=== PATIENT | female | born 1955 | race Two or more races ===

== ENCOUNTER 2017-11-09 14:58 | Observation (INO) | payer SELFPAY ==
[~2017-11-09] VITALS: Ht 167.6 cm; Wt 74.0 kg
[2017-11-09] MEDS ORDERED: ASPIRIN CHEWABLE 81 MG TABLET. PO ONE (15:15)
[2017-11-09] MEDS ORDERED: LIDO:MAALOX 1:1 20 ML SINGLE DOSE. SWSW ONE (15:15)
[2017-11-09 15:20] LABS: BASO # 0.1 x10^3/uL (0.0-0.2); BASO % 1 % (0-3); EOS # 0.3 x10^3/uL (0.0-0.7); EOS % 4 % (0-3); HEMATOCRIT 42.3 % (36.0-47.0); HEMOGLOBIN 14.6 g/dL (12.0-15.5); LYMPH % 25 % (24-48); MEAN CORPUSCULAR HEMOGLOBIN 31 pg (25-35); MEAN CORPUSCULAR HGB CONC 35 g/dL (31-37); MEAN CORPUSCULAR VOLUME 90 fL (79-100); MONO # 0.6 x10^3/uL (0.0-1.1); MONO % 8 % (0-9); NEUT # 5.1 x10^3uL (1.8-7.7); NEUT % 63 % (31-73); PLATELET COUNT 278 x10^3/uL (140-400); RED BLOOD COUNT 4.69 x10^6/uL (3.50-5.40); RED CELL DISTRIBUTION WIDTH 13.4 % (11.5-14.5); WHITE BLOOD COUNT 8.1 x10^3/uL (4.0-11.0)
[2017-11-09 15:29] LABS: PROTHROMBIN TIME PATIENT 11.7 SEC (11.7-14.0)
[2017-11-09 15:32] LABS: D-DIMER 0.49 ug/mlFEU (0.00-0.50)
[2017-11-09 15:34] LABS: CALCIUM 9.1 mg/dL (8.5-10.1); CREATININE 1.1 mg/dL (0.6-1.0); GFR 50.7; POTASSIUM 3.9 mmol/L (3.5-5.1)
[2017-11-09 15:40] LABS: ALBUMIN 3.7 g/dL (3.4-5.0); ALBUMIN/GLOBULIN RATIO 0.8 (1.0-1.7); TOTAL BILIRUBIN 0.3 mg/dL (0.2-1.0); TOTAL PROTEIN 8.1 g/dL (6.4-8.2)
--- NOTE | 2017-11-09 15:43 | RAD ---
Exam: AP portable chest History: Shortness of breath. Comparison: December 22, 2005. Findings: The heart and mediastinal structures are within normal limits for size. Lungs are without infiltrate. No pleural effusion or pneumothorax is identified. Impression: 1. No acute cardiopulmonary process. Electronically signed by: Obed Sierra MD (11/09/2017 3:40 PM) [place] [id number]
[2017-11-09] MEDS ORDERED: diphenhydrAMINE HCL 25 MG CAPSULE PO PRN (16:15)
[2017-11-09] MEDS ORDERED: CALCIUM CARBONATE 500 MG TAB.CHEW PO PRN (16:15)
[2017-11-09] MEDS ORDERED: NITROGLYCERIN SUBLINGUAL 0.4 MG BOTTLE OF 25. SL PRN (16:15)
[2017-11-09] MEDS ORDERED: MAG HYDROX/ALUMINUM HYD/SIMETH 30 ML ORAL.SUSP PO PRN (16:15)
[2017-11-09] MEDS ORDERED: MORPHINE SULFATE 2 MG/ML VIAL. IV PRN (16:15)
--- NOTE | 2017-11-09 16:18 | PDOC1 ---
History and Physical Date of Admission Date of Admission DATE: 11/09/17 TIME: 16:13 Identification/Chief Complaint Chief Complaint Chest pain Source Source: Caregiver, Chart review, Patient History of Present Illness History of Present Illness 61-year-old female who has hypertension and dyslipidemia on meds, no known personal history of CAD, on metoprolol 75 twice a day, nitroglycerin sublingual , and simvastatin 40 daily at bedtime, admitted for chest pain rule out. Smoker 1 pack a day and fam hx CAD at age 60s, All workup at ER is negative including EKG and troponin. Labs are reassuring. Her story is reassuring. Sounds like GERD. She describes it as burning coming from chest down to her stomach, Has never had a stress test before. She claims her chest pain happened after eating. Then also CP at rest associated with diaphoresis, SOA. She tends to say yes to all of my review of systems. She is agreeable and eager to be admitted. We'll admit to rule out ACS but likely GERD or GI in origin. Did get Tums at the ER, no significant relief. Otherwise VS and the rest is stable. Observation status Past Medical History Cardiovascular: HTN, Hyperlipidemia Past Surgical History Past Surgical History: No pertinent history Family History Family History: Heart Disease Social History Smoke: 1 pack per day ALCOHOL: none Drugs: None Current Medications Current Medications Current Medications Aspirin (Children'S Aspirin) 324 mg 1X ONCE PO Last administered on 11/09/17at 15:27; Start 11/09/17 at 15:15; Stop 11/09/17 at 15:21; Status DC Multi-Ingredient Mouthwash/Gargle (Gi Cocktail) 20 ml 1X ONCE SWSW Last administered on 11/09/17at 15:28; Start 11/09/17 at 15:15; Stop 11/09/17 at 15:21 ; Status DC Calcium Carbonate/ Glycine (Tums) 500 mg PRN AFTMEALHC PRN PO INDIGESTION; Start 11/09/17 at 16:15; Status UNV Al Hydroxide/Mg Hydroxide (Mylanta Plus Xs) 30 ml PRN Q2HR PRN PO HEARTBURN / GAS; Start 11/09/17 at 16:15; Status UNV Diphenhydramine HCl (Benadryl) 25 mg PRN QHS PRN PO INSOMNIA; Start 11/09/17 at 16:15; Status UNV Acetaminophen (Tylenol) 500 mg PRN Q6HRS PRN PO MILD PAIN / TEMP; Start at 16:15; Status UNV Ibuprofen (Motrin) 400 mg PRN Q6HRS PRN PO INFLAMMATION; Start 11/09/17 at 16: 15; Status UNV Allergies Allergies: Coded Allergies: No Known Drug Allergies (Unverified , 11/09/17) ROS Review of System As per history of present illness, the rest of ROS 14 point negative Physical Exam General: Alert, Oriented X3, Cooperative, No acute distress HEENT: Atraumatic, PERRLA, EOMI Lungs: Clear to auscultation, Normal air movement Heart: S1S2, RRR, no thrills, no rubs, no gallops, no murmurs Cardiovascular: S1, S2 Breasts: Normal, Rt breast nml w/o mass, Lt breast nml w/o mass, Nipples normal Abdomen: Normal bowel sounds, Soft, No tenderness, No hepatosplenomegaly, No masses Rectal Exam: not examined PELVIC: Nml ext genitalia Extremities: No clubbing, No cyanosis, No edema, Normal pulses, No tenderness/ swelling Skin: No rashes, No breakdown, No significant lesion Neuro: Normal gait, Normal speech, Strength at 5/5 X4 ext, Normal tone, Sensation intact, Cranial nerves 3-12 NL, Reflexes 2+ Psych/Mental Status: Mental status NL, Mood NL Vitals Vitals Vital Signs Date Time Temp Pulse Resp B/P (MAP) Pulse Ox O2 Delivery O2 Flow Rate FiO2 11/09/17 15:00 97.7 59 14 125/69 (87) 97 Room Air 97.7 Labs Labs Laboratory Tests Test 11/09/17 15:11 White Blood Count 8.1 x10^3/uL (4.0-11.0) Red Blood Count 4.69 x10^6/uL (3.50-5.40) Hemoglobin 14.6 g/dL (12.0-15.5) Hematocrit 42.3 % (36.0-47.0) Mean Corpuscular Volume 90 fL (79-100) Mean Corpuscular Hemoglobin 31 pg (25-35) Mean Corpuscular Hemoglobin Concent 35 g/dL (31-37) Red Cell Distribution Width 13.4 % (11.5-14.5) Platelet Count 278 x10^3/uL (140-400) Neutrophils (%) (Auto) 63 % (31-73) Lymphocytes (%) (Auto) 25 % (24-48) Monocytes (%) (Auto) 8 % (0-9) Eosinophils (%) (Auto) 4 % (0-3) Basophils (%) (Auto) 1 % (0-3) Neutrophils # (Auto) 5.1 x10^3uL (1.8-7.7) Lymphocytes # (Auto) 2.0 x10^3/uL (1.0-4.8) Monocytes # (Auto) 0.6 x10^3/uL (0.0-1.1) Eosinophils # (Auto) 0.3 x10^3/uL (0.0-0.7) Basophils # (Auto) 0.1 x10^3/uL (0.0-0.2) Prothrombin Time 11.7 SEC (11.7-14.0) Prothromb Time International Ratio 0.9 (0.8-1.1) D-Dimer (Cherie) 0.49 ug/mlFEU (0.00-0.50) Sodium Level 139 mmol/L (136-145) Potassium Level 3.9 mmol/L (3.5-5.1) Chloride Level 102 mmol/L (98-107) Carbon Dioxide Level 28 mmol/L (21-32) Anion Gap 9 (6-14) Blood Urea Nitrogen 18 mg/dL (7-20) Creatinine 1.1 mg/dL (0.6-1.0) Estimated GFR (Cockcroft-Gault) 50.7 BUN/Creatinine Ratio 16 (6-20) Glucose Level 132 mg/dL (70-99) Calcium Level 9.1 mg/dL (8.5-10.1) Total Bilirubin 0.3 mg/dL (0.2-1.0) Aspartate Amino Transf (AST/SGOT) 17 U/L (15-37) Alanine Aminotransferase (ALT/SGPT) 19 U/L (14-59) Alkaline Phosphatase 146 U/L (46-116) Troponin I Quantitative < 0.017 ng/mL (0.000-0.055) XO-Qip-V-Type Natriuretic Peptide 78 pg/mL (0-124) Total Protein 8.1 g/dL (6.4-8.2) Albumin 3.7 g/dL (3.4-5.0) Albumin/Globulin Ratio 0.8 (1.0-1.7) Lipase 172 U/L (73-393) Laboratory Tests Test 11/09/17 15:11 White Blood Count 8.1 x10^3/uL (4.0-11.0) Red Blood Count 4.69 x10^6/uL (3.50-5.40) Hemoglobin 14.6 g/dL (12.0-15.5) Hematocrit 42.3 % (36.0-47.0) Mean Corpuscular Volume 90 fL (79-100) Mean Corpuscular Hemoglobin 31 pg (25-35) Mean Corpuscular Hemoglobin Concent 35 g/dL (31-37) Red Cell Distribution Width 13.4 % (11.5-14.5) Platelet Count 278 x10^3/uL (140-400) Neutrophils (%) (Auto) 63 % (31-73) Lymphocytes (%) (Auto) 25 % (24-48) Monocytes (%) (Auto) 8 % (0-9) Eosinophils (%) (Auto) 4 % (0-3) Basophils (%) (Auto) 1 % (0-3) Neutrophils # (Auto) 5.1 x10^3uL (1.8-7.7) Lymphocytes # (Auto) 2.0 x10^3/uL (1.0-4.8) Monocytes # (Auto) 0.6 x10^3/uL (0.0-1.1) Eosinophils # (Auto) 0.3 x10^3/uL (0.0-0.7) Basophils # (Auto) 0.1 x10^3/uL (0.0-0.2) Prothrombin Time 11.7 SEC (11.7-14.0) Prothromb Time International Ratio 0.9 (0.8-1.1) D-Dimer (Cherie) 0.49 ug/mlFEU (0.00-0.50) Sodium Level 139 mmol/L (136-145) Potassium Level 3.9 mmol/L (3.5-5.1) Chloride Level 102 mmol/L (98-107) Carbon Dioxide Level 28 mmol/L (21-32) Anion Gap 9 (6-14) Blood Urea Nitrogen 18 mg/dL (7-20) Creatinine 1.1 mg/dL (0.6-1.0) Estimated GFR (Cockcroft-Gault) 50.7 BUN/Creatinine Ratio 16 (6-20) Glucose Level 132 mg/dL (70-99) Calcium Level 9.1 mg/dL (8.5-10.1) Total Bilirubin 0.3 mg/dL (0.2-1.0) Aspartate Amino Transf (AST/SGOT) 17 U/L (15-37) Alanine Aminotransferase (ALT/SGPT) 19 U/L (14-59) Alkaline Phosphatase 146 U/L (46-116) Troponin I Quantitative < 0.017 ng/mL (0.000-0.055) DD-Lsu-S-Type Natriuretic Peptide 78 pg/mL (0-124) Total Protein 8.1 g/dL (6.4-8.2) Albumin 3.7 g/dL (3.4-5.0) Albumin/Globulin Ratio 0.8 (1.0-1.7) Lipase 172 U/L (73-393) VTE Prophylaxis Ordered VTE Prophylaxis Devices: Yes VTE Pharmacological Prophylaxi: Yes Assessment/Plan Assessment/Plan Chest pain likely GERD, rule out ACS Hypertension, controlled Dyslipidemia on statin Smoker - 1 ppday Plan: Admit, trend cardiac enzymes Observation status Trial of Tums or Mylanta Cards consult Rell patch prn Nothing by mouth in case MPI tomorrow Observation status PÉREZ GOMEZ MD Nov 09, 2017 16:18
--- NOTE | 2017-11-09 16:19 | EKG ---
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
[2017-11-09] MEDS ORDERED: NICOTINE 21MG PATCH. TD PRN (16:30)
--- NOTE | 2017-11-09 16:43 | RAD ---
Right upper quadrant abdominal ultrasound History: Right upper quadrant pain. Comparison: None. Technique: Transabdominal ultrasound images are obtained. Findings: Visualized pancreas is unremarkable. Liver is normal in echogenicity. No focal hepatic masses are identified although ultrasound is not sensitive for their detection. Portal flow is hepatopedal. Gallbladder has an unremarkable appearance. Common bile duct caliber is normal measuring 6 mm in diameter. The right kidney measures 10 cm in length. There is no hydronephrosis. On several images of the right kidney, normal corticomedullary differentiation is not demonstrated. Visualized portions of the aorta and IVC have normal caliber. IMPRESSION: Right kidney does not demonstrate normal corticomedullary differentiation on all images. A renal mass or infiltrative process cannot be excluded. Recommend further evaluation with multiphase CT abdomen. Electronically signed by: Janusz Aguirre MD (11/09/2017 4:40 PM) [facility]
--- NOTE | 2017-11-09 16:50 | PHYS DOC ---
Past Medical History Past Medical History: High Cholesterol, Hypertension, Kidney Stone Past Surgical History: No Surgical History Alcohol Use: None Drug Use: None Adult General Chief Complaint Chief Complaint: CHEST PAIN HPI HPI Patient is a 61 year old f p/w chest pain. Since this morning or maybe even last night described as burning and sharp center of the chest and epigastric area he says she says it is worse when she eats. It is also worse when she tries to walk and worse when she moves around. She says that she's had a history of blood clots she is mostly on Coumadin but she has not taking it. In addition she says that she has had some heart problems she does not know what they were she was admitted at [facility] at one point and they were telling her she had a heart problem. She does not know if she has ever had a heart attack. She is off all her medication she has high cholesterol she thinks and high blood pressure she thinks. He is moderate is present at this time it is worse with exertion Review of Systems Review of Systems Constitutional: Denies fever or chills [] Eyes: Denies change in visual acuity, redness, or eye pain [] HENT: Denies nasal congestion or sore throat [] : Denies dysuria or hematuria [] Musculoskeletal: Denies back pain or joint pain [] Integument: Denies rash or skin lesions [] Neurologic: Headache noted All other systems were reviewed and found to be within normal limits, except as documented in this note. Current Medications Current Medications Current Medications Medications (Trade) Dose Ordered Sig/Amanda Start Time Stop Time Status Last Admin Dose Admin Aspirin (Children'S Aspirin) 324 mg 1X ONCE 11/09/17 15:15 11/09/17 15:21 DC 11/09/17 15:27 324 MG Multi-Ingredient Mouthwash/Gargle (Gi Cocktail) 20 ml 1X ONCE 11/09/17 15:15 11/09/17 15:21 DC 11/09/17 15:28 20 ML Allergies Allergies Allergies Coded Allergies Type Severity Reaction Last Updated Verified No Known Drug Allergies 11/09/17 No Physical Exam Physical Exam Constitutional: Well developed, well nourished, no acute distress, non-toxic appearance. [] HENT: Normocephalic, atraumatic, bilateral external ears normal, oropharynx moist, no oral exudates, nose normal. [] Eyes: PERRLA, EOMI, conjunctiva normal, no discharge. [] Neck: Normal range of motion, no tenderness, supple, no stridor. [] Cardiovascular:Heart rate regular rhythm, no murmur [] Lungs & Thorax: Bilateral breath sounds clear to auscultation [] Abdomen: Bowel sounds normal, soft, no tenderness, no masses, no pulsatile masses. [] Skin: Warm, dry, no erythema, no rash. [] Back: No tenderness, no CVA tenderness. [] Extremities: No tenderness, no cyanosis, no clubbing, ROM intact, no edema. [] Neurologic: Alert and oriented X 3, normal motor function, normal sensory function, no focal deficits noted. [] Psychologic: Affect normal, judgement normal, mood normal. [] Current Patient Data Vital Signs Vital Signs Date Time Temp Pulse Resp B/P (MAP) Pulse Ox O2 Delivery O2 Flow Rate FiO2 11/09/17 15:34 56 20 128/63 (84) 97 Room Air 11/09/17 15:00 97.7 97.7 Lab Values Laboratory Tests Test 11/09/17 15:11 White Blood Count 8.1 x10^3/uL (4.0-11.0) Red Blood Count 4.69 x10^6/uL (3.50-5.40) Hemoglobin 14.6 g/dL (12.0-15.5) Hematocrit 42.3 % (36.0-47.0) Mean Corpuscular Volume 90 fL (79-100) Mean Corpuscular Hemoglobin 31 pg (25-35) Mean Corpuscular Hemoglobin Concent 35 g/dL (31-37) Red Cell Distribution Width 13.4 % (11.5-14.5) Platelet Count 278 x10^3/uL (140-400) Neutrophils (%) (Auto) 63 % (31-73) Lymphocytes (%) (Auto) 25 % (24-48) Monocytes (%) (Auto) 8 % (0-9) Eosinophils (%) (Auto) 4 % (0-3) H Basophils (%) (Auto) 1 % (0-3) Neutrophils # (Auto) 5.1 x10^3uL (1.8-7.7) Lymphocytes # (Auto) 2.0 x10^3/uL (1.0-4.8) Monocytes # (Auto) 0.6 x10^3/uL (0.0-1.1) Eosinophils # (Auto) 0.3 x10^3/uL (0.0-0.7) Basophils # (Auto) 0.1 x10^3/uL (0.0-0.2) Prothrombin Time 11.7 SEC (11.7-14.0) Prothrombin Time INR 0.9 (0.8-1.1) D-Dimer (Cherie) 0.49 ug/mlFEU (0.00-0.50) Sodium Level 139 mmol/L (136-145) Potassium Level 3.9 mmol/L (3.5-5.1) Chloride Level 102 mmol/L (98-107) Carbon Dioxide Level 28 mmol/L (21-32) Anion Gap 9 (6-14) Blood Urea Nitrogen 18 mg/dL (7-20) Creatinine 1.1 mg/dL (0.6-1.0) H Estimated GFR (Cockcroft-Gault) 50.7 BUN/Creatinine Ratio 16 (6-20) Glucose Level 132 mg/dL (70-99) H Calcium Level 9.1 mg/dL (8.5-10.1) Total Bilirubin 0.3 mg/dL (0.2-1.0) Aspartate Amino Transferase (AST) 17 U/L (15-37) Alanine Aminotransferase (ALT) 19 U/L (14-59) Alkaline Phosphatase 146 U/L (46-116) H Troponin I Quantitative < 0.017 ng/mL (0.000-0.055) QH-Kmz-B-Type Natriuretic Peptide 78 pg/mL (0-124) Total Protein 8.1 g/dL (6.4-8.2) Albumin 3.7 g/dL (3.4-5.0) Albumin/Globulin Ratio 0.8 (1.0-1.7) L Lipase 172 U/L (73-393) Laboratory Tests 11/09/17 15:11 Laboratory Tests 11/09/17 15:11 EKG EKG [] Interpretation Time: EKG shows a normal sinus rhythm with nonspecific ST changes anteriorly and inferiorly but no obvious ischemia was identified intervals are normal raise 56 no STEMI Radiology/Procedures Radiology/Procedures [] Impressions: Findings: The heart and mediastinal structures are within normal limits for size. Lungs are without infiltrate. No pleural effusion or pneumothorax is identified. Impression: 1. No acute cardiopulmonary process. Electronically signed by: Obed Koch MD (11/09/2017 3:40 PM) [facility] DICTATED and SIGNED BY: OBED KOCH MD DATE: 11/09/17 1538 Course & Med Decision Making Course & Med Decision Making Pertinent Labs and Imaging studies reviewed. (See chart for details) 7-year-old female with multiple medical problems she does not even know all of them at this time she tells me she thinks high cholesterol high blood pressure prior blood clot not on any medication she says she has run out of them presenting with chest pain. There are typical and atypical features. EKG is nonspecific troponin is negative ultrasound negative for gallbladder per pathology d-dimer was within normal limits I suspect probably GI related pain however occult ischemia as a possibility given her risk profile patient will be admitted to the service of Dr. birmingham for further eval. Corrina Disclaimer Dragon Disclaimer This electronic medical record was generated, in whole or in part, using a voice recognition dictation system. Departure Departure Impression: Primary Impression: Chest pain Disposition: ADMITTED INPATIENT Admitting Physician: Calli Birmingham Condition: STABLE Referrals: UNKNOWN PCP NAME (PCP) SHRAVAN WELLS MD Nov 09, 2017 16:50
[2017-11-09 17:00] VITALS: BP 126/71
[2017-11-09] MEDS ORDERED: INFLUENZA VAX SCREEN BY RX. MC ONE (17:45)
[2017-11-09 19:00] VITALS: BP 90/43
[2017-11-09] MEDS: METOPROLOL TART IMMED RELEASE 25 MG TABLET. PO SCH (21:11)
[2017-11-09] MEDS: SIMVASTATIN 40 MG TABLET. PO SCH (21:11)
[2017-11-09 23:00] VITALS: BP 91/48
[2017-11-10 03:00] VITALS: BP 85/45
[2017-11-10 06:40] LABS: BILIRUBIN,URINE NEGATIVE (NEG); CLARITY,URINE CLEAR; COLOR,URINE YELLOW; NITRITE,URINE NEGATIVE (NEG); PROTEIN,URINE NEGATIVE (NEG-TRACE)
[2017-11-10 07:00] VITALS: BP 120/67
[2017-11-10 07:08] LABS: SQUAMOUS EPITHELIAL CELL,UR FEW /LPF
[2017-11-10 07:09] LABS: BACTERIA,URINE FEW /HPF (0-FEW); RBC,URINE OCC /HPF (0-2)
[2017-11-10] MEDS: METOPROLOL TART IMMED RELEASE 25 MG TABLET. PO SCH (09:00)
--- NOTE | 2017-11-10 10:13 | PDOC2 ---
CARDIAC CONSULT DATE OF CONSULT Date of Consult DATE: 11/10/17 TIME: 09:53 REASON FOR CONSULT Reason for Consult: Chest pain REFERRING PHYSICIAN Referring Physician: Valencia SOURCE Source: Chart review, Patient HISTORY OF PRESENT ILLNESS HISTORY OF PRESENT ILLNESS This is a pleasant 61 yo female admitted for complains of chest pain. Reports that she has been having productive cough yellowish sputum in the last 1-2 weeks sometimes with wheeze and with LONG. No fever or chills. She continues to smoke and could not see her PCP hence she has not been able to refill her medications including her BP meds for about a month now and that she could not afford it. Also she verbalized that she may have had brain tumor before and worries about this as she has been having frontal MENDES, LE weakness and blurred vision associated with. Consult is for chest pain and reports that she had one about Tuesday but again yesterday describing it as midchest sharpness to tightness radidating to shoulders and base of neck and some diaphoresis. Some nausea as well but no palpitations. Denies any past CAD but possibly has had PE 9 months ago treted at [facility] and was placed on coumadin for a month and reexamined after the coumadin and was told that it resolved. No recent falls or injury. PAST MEDICAL HISTORY Cardiovascular: HTN, Hyperlipidemia Pulmonary: Asthma, Pulmonary embolus (?) CENTRAL NERVOUS SYSTEM: Other (?brain tumor) GI: Peptic Ulcer disease (remote) Heme/Onc: No pertinent hx Hepatobiliary: No pertinent hx Psych: Anxiety Musculoskeletal: Osteoarthritis Rheumatologic: No pertinent hx Infectious disease: No pertinent hx ENT: No pertinent hx Renal/: No pertinent hx Endocrine: No pertinent hx Dermatology: No pertinent hx PAST SURGICAL HISTORY Past Surgical History: FAMILY HISTORY Family History: Heart Disease SOCIAL HISTORY Smoke: 1 pack per day (>20 yrs) ALCOHOL: rare Drugs: None Lives: with Family CURRENT MEDICATIONS CURRENT MEDICATIONS Current Medications Medications (Trade) Dose Ordered Sig/Amanda Route PRN Reason Start Time Stop Time Status Last Admin Dose Admin Aspirin (Children'S Aspirin) 324 mg 1X ONCE PO 11/09/17 15:15 11/09/17 15:21 DC 11/09/17 15:27 Multi-Ingredient Mouthwash/Gargle (Gi Cocktail) 20 ml 1X ONCE SWSW 11/09/17 15:15 11/09/17 15:21 DC 11/09/17 15:28 Simvastatin (Zocor) 40 mg QHS PO 11/09/17 21:00 11/09/17 21:11 Metoprolol Tartrate (Lopressor) 75 mg BID PO 11/09/17 21:00 11/09/17 21:11 ALLERGIES ALLERGIES: Coded Allergies: No Known Drug Allergies (Unverified , 11/09/17) ROS Review of System 14 point ROS evaluated with pertinent positives noted per HPI PHYSICAL EXAM General: Alert, Oriented X3, Cooperative, No acute distress HEENT: Atraumatic, Mucous membr. moist/pink Lungs: Other (diminished bases) Heart: Regular rate, Normal S1, Normal S2, Other (diffuse systolic murmur 2-3/ 6 systolic murmur) Abdomen: Soft, No tenderness Extremities: No cyanosis, No edema Skin: No breakdown, No significant lesion Neuro: Normal speech, Sensation intact Psych/Mental Status: Mental status NL, Mood NL MUSCULOSKELETAL: Osteoarthritic changes both hands VITALS VITALS Vital Signs Date Time Temp Pulse Resp B/P (MAP) Pulse Ox O2 Delivery O2 Flow Rate FiO2 11/10/17 07:00 97.8 52 18 120/67 (84) 96 Room Air 97.8 LABS Lab: Laboratory Tests Test 11/09/17 15:11 11/09/17 19:00 11/09/17 21:40 11/10/17 06:00 White Blood Count 8.1 x10^3/uL (4.0-11.0) Red Blood Count 4.69 x10^6/uL (3.50-5.40) Hemoglobin 14.6 g/dL (12.0-15.5) Hematocrit 42.3 % (36.0-47.0) Mean Corpuscular Volume 90 fL (79-100) Mean Corpuscular Hemoglobin 31 pg (25-35) Mean Corpuscular Hemoglobin Concent 35 g/dL (31-37) Red Cell Distribution Width 13.4 % (11.5-14.5) Platelet Count 278 x10^3/uL (140-400) Neutrophils (%) (Auto) 63 % (31-73) Lymphocytes (%) (Auto) 25 % (24-48) Monocytes (%) (Auto) 8 % (0-9) Eosinophils (%) (Auto) 4 % (0-3) Basophils (%) (Auto) 1 % (0-3) Neutrophils # (Auto) 5.1 x10^3uL (1.8-7.7) Lymphocytes # (Auto) 2.0 x10^3/uL (1.0-4.8) Monocytes # (Auto) 0.6 x10^3/uL (0.0-1.1) Eosinophils # (Auto) 0.3 x10^3/uL (0.0-0.7) Basophils # (Auto) 0.1 x10^3/uL (0.0-0.2) Prothrombin Time 11.7 SEC (11.7-14.0) Prothromb Time International Ratio 0.9 (0.8-1.1) D-Dimer (Cherie) 0.49 ug/mlFEU (0.00-0.50) Sodium Level 139 mmol/L (136-145) Potassium Level 3.9 mmol/L (3.5-5.1) Chloride Level 102 mmol/L (98-107) Carbon Dioxide Level 28 mmol/L (21-32) Anion Gap 9 (6-14) Blood Urea Nitrogen 18 mg/dL (7-20) Creatinine 1.1 mg/dL (0.6-1.0) Estimated GFR (Cockcroft-Gault) 50.7 BUN/Creatinine Ratio 16 (6-20) Glucose Level 132 mg/dL (70-99) Calcium Level 9.1 mg/dL (8.5-10.1) Total Bilirubin 0.3 mg/dL (0.2-1.0) Aspartate Amino Transf (AST/SGOT) 17 U/L (15-37) Alanine Aminotransferase (ALT/SGPT) 19 U/L (14-59) Alkaline Phosphatase 146 U/L (46-116) Troponin I Quantitative < 0.017 ng/mL (0.000-0.055) < 0.017 ng/mL (0.000-0.055) < 0.017 ng/mL (0.000-0.055) YM-Bdq-F-Type Natriuretic Peptide 78 pg/mL (0-124) Total Protein 8.1 g/dL (6.4-8.2) Albumin 3.7 g/dL (3.4-5.0) Albumin/Globulin Ratio 0.8 (1.0-1.7) Lipase 172 U/L (73-393) Urine Collection Type Unknown Urine Color Yellow Urine Clarity Clear Urine pH 6.0 Urine Specific [place] 1.020 Urine Protein Negative mg/dL (NEG-TRACE) Urine Glucose (UA) Negative mg/dL (NEG) Urine Ketones (Stick) Negative mg/dL (NEG) Urine Blood Negative (NEG) Urine Nitrite Negative (NEG) Urine Bilirubin Negative (NEG) Urine Urobilinogen Dipstick 1.0 mg/dL (0.2 mg/dL) Urine Leukocyte Esterase Negative (NEG) Urine RBC Occ /HPF (0-2) Urine WBC 1-4 /HPF (0-4) Urine Squamous Epithelial Cells Few /LPF Urine Bacteria Few /HPF (0-FEW) Urine Mucus Slight /LPF ASSESSMENT/PLAN ASSESSMENT/PLAN 1. Chest pain: trop series nml. EKG SB with nonspecific ST-T wave changes 2. Intermittent MENDES/blurred vision/LE weakness: reports possible hx of brain tumor 3. AECOPD: per PCP 4. HTN: at low end due to high dose metoprolol 5. HLP 6. Noncompliance: due to financial constraints. Off meds for about 1 month 7. Tobaccoism 8. Asymptomatic SB: 40-50s due to metoprolol. No pauses Recommendations 1. Stop metoprolol and start amlodipine as soon as BP is trending normotensive range. 2. Head CT no contrast. MPI and TTE today. 3. Lipid, TSH 4. Discussed compliance and smoking cessation LAUREN MORALES APRN Nov 10, 2017 10:13
--- NOTE | 2017-11-10 10:14 | PDOC ---
PROGRESS NOTES Chief Complaint Chief Complaint Chest pain likely GERD, rule out ACS Hypertension, controlled Dyslipidemia on statin Smoker - 1 ppday headaches, acute on chronic History of Present Illness History of Present Illness complains of headaches Claims to still have chest pains - reasurring ER work up Has been nothing by mouth-plan for stress test today by cardiology-discussed with cardiology Plan MPI today CT head for the headaches - ordered by cards Further conditions pending above course Discussed with daughter at bedside Vitals Vitals Vital Signs Date Time Temp Pulse Resp B/P (MAP) Pulse Ox O2 Delivery O2 Flow Rate FiO2 11/10/17 07:00 97.8 52 18 120/67 (84) 96 Room Air 97.8 Physical Exam General: Alert, Oriented X3, Cooperative, No acute distress Heart: Regular rate, Normal S1, Normal S2 Lungs: Clear, Wheezing Abdomen: Normal bowel sounds, Soft, No tenderness, No hepatosplenomegaly, No masses Extremities: No clubbing, No cyanosis, No edema, Normal pulses, No tenderness/ swelling Skin: No rashes, No breakdown, No significant lesion Labs LABS Laboratory Tests Test 11/09/17 15:11 11/09/17 19:00 11/09/17 21:40 11/10/17 06:00 White Blood Count 8.1 x10^3/uL (4.0-11.0) Red Blood Count 4.69 x10^6/uL (3.50-5.40) Hemoglobin 14.6 g/dL (12.0-15.5) Hematocrit 42.3 % (36.0-47.0) Mean Corpuscular Volume 90 fL (79-100) Mean Corpuscular Hemoglobin 31 pg (25-35) Mean Corpuscular Hemoglobin Concent 35 g/dL (31-37) Red Cell Distribution Width 13.4 % (11.5-14.5) Platelet Count 278 x10^3/uL (140-400) Neutrophils (%) (Auto) 63 % (31-73) Lymphocytes (%) (Auto) 25 % (24-48) Monocytes (%) (Auto) 8 % (0-9) Eosinophils (%) (Auto) 4 % (0-3) Basophils (%) (Auto) 1 % (0-3) Neutrophils # (Auto) 5.1 x10^3uL (1.8-7.7) Lymphocytes # (Auto) 2.0 x10^3/uL (1.0-4.8) Monocytes # (Auto) 0.6 x10^3/uL (0.0-1.1) Eosinophils # (Auto) 0.3 x10^3/uL (0.0-0.7) Basophils # (Auto) 0.1 x10^3/uL (0.0-0.2) Prothrombin Time 11.7 SEC (11.7-14.0) Prothromb Time International Ratio 0.9 (0.8-1.1) D-Dimer (Cherie) 0.49 ug/mlFEU (0.00-0.50) Sodium Level 139 mmol/L (136-145) Potassium Level 3.9 mmol/L (3.5-5.1) Chloride Level 102 mmol/L (98-107) Carbon Dioxide Level 28 mmol/L (21-32) Anion Gap 9 (6-14) Blood Urea Nitrogen 18 mg/dL (7-20) Creatinine 1.1 mg/dL (0.6-1.0) Estimated GFR (Cockcroft-Gault) 50.7 BUN/Creatinine Ratio 16 (6-20) Glucose Level 132 mg/dL (70-99) Calcium Level 9.1 mg/dL (8.5-10.1) Total Bilirubin 0.3 mg/dL (0.2-1.0) Aspartate Amino Transf (AST/SGOT) 17 U/L (15-37) Alanine Aminotransferase (ALT/SGPT) 19 U/L (14-59) Alkaline Phosphatase 146 U/L (46-116) Troponin I Quantitative < 0.017 ng/mL (0.000-0.055) < 0.017 ng/mL (0.000-0.055) < 0.017 ng/mL (0.000-0.055) XF-Lis-A-Type Natriuretic Peptide 78 pg/mL (0-124) Total Protein 8.1 g/dL (6.4-8.2) Albumin 3.7 g/dL (3.4-5.0) Albumin/Globulin Ratio 0.8 (1.0-1.7) Lipase 172 U/L (73-393) Urine Collection Type Unknown Urine Color Yellow Urine Clarity Clear Urine pH 6.0 Urine Specific Dixon 1.020 Urine Protein Negative mg/dL (NEG-TRACE) Urine Glucose (UA) Negative mg/dL (NEG) Urine Ketones (Stick) Negative mg/dL (NEG) Urine Blood Negative (NEG) Urine Nitrite Negative (NEG) Urine Bilirubin Negative (NEG) Urine Urobilinogen Dipstick 1.0 mg/dL (0.2 mg/dL) Urine Leukocyte Esterase Negative (NEG) Urine RBC Occ /HPF (0-2) Urine WBC 1-4 /HPF (0-4) Urine Squamous Epithelial Cells Few /LPF Urine Bacteria Few /HPF (0-FEW) Urine Mucus Slight /LPF Review of Systems Review of Systems headaches, the rest of ROS 14 point negative Comment Review of Relevant I have reviewed the following items charlene (where applicable) has been applied. Labs Laboratory Tests Test 11/09/17 15:11 11/09/17 19:00 11/09/17 21:40 11/10/17 06:00 White Blood Count 8.1 x10^3/uL (4.0-11.0) Red Blood Count 4.69 x10^6/uL (3.50-5.40) Hemoglobin 14.6 g/dL (12.0-15.5) Hematocrit 42.3 % (36.0-47.0) Mean Corpuscular Volume 90 fL (79-100) Mean Corpuscular Hemoglobin 31 pg (25-35) Mean Corpuscular Hemoglobin Concent 35 g/dL (31-37) Red Cell Distribution Width 13.4 % (11.5-14.5) Platelet Count 278 x10^3/uL (140-400) Neutrophils (%) (Auto) 63 % (31-73) Lymphocytes (%) (Auto) 25 % (24-48) Monocytes (%) (Auto) 8 % (0-9) Eosinophils (%) (Auto) 4 % (0-3) Basophils (%) (Auto) 1 % (0-3) Neutrophils # (Auto) 5.1 x10^3uL (1.8-7.7) Lymphocytes # (Auto) 2.0 x10^3/uL (1.0-4.8) Monocytes # (Auto) 0.6 x10^3/uL (0.0-1.1) Eosinophils # (Auto) 0.3 x10^3/uL (0.0-0.7) Basophils # (Auto) 0.1 x10^3/uL (0.0-0.2) Prothrombin Time 11.7 SEC (11.7-14.0) Prothromb Time International Ratio 0.9 (0.8-1.1) D-Dimer (Cherie) 0.49 ug/mlFEU (0.00-0.50) Sodium Level 139 mmol/L (136-145) Potassium Level 3.9 mmol/L (3.5-5.1) Chloride Level 102 mmol/L (98-107) Carbon Dioxide Level 28 mmol/L (21-32) Anion Gap 9 (6-14) Blood Urea Nitrogen 18 mg/dL (7-20) Creatinine 1.1 mg/dL (0.6-1.0) Estimated GFR (Cockcroft-Gault) 50.7 BUN/Creatinine Ratio 16 (6-20) Glucose Level 132 mg/dL (70-99) Calcium Level 9.1 mg/dL (8.5-10.1) Total Bilirubin 0.3 mg/dL (0.2-1.0) Aspartate Amino Transf (AST/SGOT) 17 U/L (15-37) Alanine Aminotransferase (ALT/SGPT) 19 U/L (14-59) Alkaline Phosphatase 146 U/L (46-116) Troponin I Quantitative < 0.017 ng/mL (0.000-0.055) < 0.017 ng/mL (0.000-0.055) < 0.017 ng/mL (0.000-0.055) TE-Vxw-R-Type Natriuretic Peptide 78 pg/mL (0-124) Total Protein 8.1 g/dL (6.4-8.2) Albumin 3.7 g/dL (3.4-5.0) Albumin/Globulin Ratio 0.8 (1.0-1.7) Lipase 172 U/L (73-393) Urine Collection Type Unknown Urine Color Yellow Urine Clarity Clear Urine pH 6.0 Urine Specific Dixon 1.020 Urine Protein Negative mg/dL (NEG-TRACE) Urine Glucose (UA) Negative mg/dL (NEG) Urine Ketones (Stick) Negative mg/dL (NEG) Urine Blood Negative (NEG) Urine Nitrite Negative (NEG) Urine Bilirubin Negative (NEG) Urine Urobilinogen Dipstick 1.0 mg/dL (0.2 mg/dL) Urine Leukocyte Esterase Negative (NEG) Urine RBC Occ /HPF (0-2) Urine WBC 1-4 /HPF (0-4) Urine Squamous Epithelial Cells Few /LPF Urine Bacteria Few /HPF (0-FEW) Urine Mucus Slight /LPF Laboratory Tests Test 11/09/17 15:11 11/09/17 19:00 11/09/17 21:40 11/10/17 06:00 White Blood Count 8.1 x10^3/uL (4.0-11.0) Red Blood Count 4.69 x10^6/uL (3.50-5.40) Hemoglobin 14.6 g/dL (12.0-15.5) Hematocrit 42.3 % (36.0-47.0) Mean Corpuscular Volume 90 fL (79-100) Mean Corpuscular Hemoglobin 31 pg (25-35) Mean Corpuscular Hemoglobin Concent 35 g/dL (31-37) Red Cell Distribution Width 13.4 % (11.5-14.5) Platelet Count 278 x10^3/uL (140-400) Neutrophils (%) (Auto) 63 % (31-73) Lymphocytes (%) (Auto) 25 % (24-48) Monocytes (%) (Auto) 8 % (0-9) Eosinophils (%) (Auto) 4 % (0-3) Basophils (%) (Auto) 1 % (0-3) Neutrophils # (Auto) 5.1 x10^3uL (1.8-7.7) Lymphocytes # (Auto) 2.0 x10^3/uL (1.0-4.8) Monocytes # (Auto) 0.6 x10^3/uL (0.0-1.1) Eosinophils # (Auto) 0.3 x10^3/uL (0.0-0.7) Basophils # (Auto) 0.1 x10^3/uL (0.0-0.2) Prothrombin Time 11.7 SEC (11.7-14.0) Prothromb Time International Ratio 0.9 (0.8-1.1) D-Dimer (Cherie) 0.49 ug/mlFEU (0.00-0.50) Sodium Level 139 mmol/L (136-145) Potassium Level 3.9 mmol/L (3.5-5.1) Chloride Level 102 mmol/L (98-107) Carbon Dioxide Level 28 mmol/L (21-32) Anion Gap 9 (6-14) Blood Urea Nitrogen 18 mg/dL (7-20) Creatinine 1.1 mg/dL (0.6-1.0) Estimated GFR (Cockcroft-Gault) 50.7 BUN/Creatinine Ratio 16 (6-20) Glucose Level 132 mg/dL (70-99) Calcium Level 9.1 mg/dL (8.5-10.1) Total Bilirubin 0.3 mg/dL (0.2-1.0) Aspartate Amino Transf (AST/SGOT) 17 U/L (15-37) Alanine Aminotransferase (ALT/SGPT) 19 U/L (14-59) Alkaline Phosphatase 146 U/L (46-116) Troponin I Quantitative < 0.017 ng/mL (0.000-0.055) < 0.017 ng/mL (0.000-0.055) < 0.017 ng/mL (0.000-0.055) HS-Tgn-A-Type Natriuretic Peptide 78 pg/mL (0-124) Total Protein 8.1 g/dL (6.4-8.2) Albumin 3.7 g/dL (3.4-5.0) Albumin/Globulin Ratio 0.8 (1.0-1.7) Lipase 172 U/L (73-393) Urine Collection Type Unknown Urine Color Yellow Urine Clarity Clear Urine pH 6.0 Urine Specific Dixon 1.020 Urine Protein Negative mg/dL (NEG-TRACE) Urine Glucose (UA) Negative mg/dL (NEG) Urine Ketones (Stick) Negative mg/dL (NEG) Urine Blood Negative (NEG) Urine Nitrite Negative (NEG) Urine Bilirubin Negative (NEG) Urine Urobilinogen Dipstick 1.0 mg/dL (0.2 mg/dL) Urine Leukocyte Esterase Negative (NEG) Urine RBC Occ /HPF (0-2) Urine WBC 1-4 /HPF (0-4) Urine Squamous Epithelial Cells Few /LPF Urine Bacteria Few /HPF (0-FEW) Urine Mucus Slight /LPF Medications Current Medications Aspirin (Children'S Aspirin) 324 mg 1X ONCE PO Last administered on 11/09/17at 15:27; Start 11/09/17 at 15:15; Stop 11/09/17 at 15:21; Status DC Multi-Ingredient Mouthwash/Gargle (Gi Cocktail) 20 ml 1X ONCE SWSW Last administered on 11/09/17at 15:28; Start 11/09/17 at 15:15; Stop 11/09/17 at 15:21 ; Status DC Calcium Carbonate/ Glycine (Tums) 500 mg PRN AFTMEALHC PRN PO INDIGESTION; Start 11/09/17 at 16:15 Al Hydroxide/Mg Hydroxide (Mylanta Plus Xs) 30 ml PRN Q2HR PRN PO HEARTBURN / GAS; Start 11/09/17 at 16:15 Diphenhydramine HCl (Benadryl) 25 mg PRN QHS PRN PO INSOMNIA; Start 11/09/17 at 16:15 Acetaminophen (Tylenol) 500 mg PRN Q6HRS PRN PO MILD PAIN / TEMP; Start at 16:15 Ibuprofen (Motrin) 400 mg PRN Q6HRS PRN PO INFLAMMATION; Start 11/09/17 at 16: 15 Simvastatin (Zocor) 40 mg QHS PO Last administered on 11/09/17at 21:11; Start at 21:00 Metoprolol Tartrate (Lopressor) 75 mg BID PO Last administered on 11/09/17at 21: 11; Start 11/09/17 at 21:00 Nitroglycerin (Nitrostat) 0.4 mg PRN Q5MIN PRN SL CHEST PAIN; Start 11/09/17 at 16:15 Morphine Sulfate (Morphine Sulfate) 2 mg PRN Q2HR PRN IV MODERATE PAIN; Start 11/09/17 at 16:15 Nicotine (Nicoderm Cq 21mg) 1 patch PRN DAILY PRN TD SMOKING CESSATION; Start 11/09/17 at 16:30 Info (FLU VACCINE SCREEN per RX) 1 each 1X ONCE MC ; Start 11/09/17 at 17:45; Stop 11/09/17 at 17:46; Status UNV Influenza Virus Vaccine (Afluria Trivalent [id number] Syringe) 0.5 ml ONCE ONCE VAX IM ; Start 11/09/17 at 18:30; Stop 11/09/17 at 18:31; Status DC Active Scripts Active Reported No Known Medications Prior To Admisstion (Info) Each 1 Each Vitals/I & O Vital Sign - Last 24 Hours 11/09/17 11/09/17 11/09/17 11/09/17 15:00 15:34 16:04 17:00 Temp 97.7 98.2 97.7 98.2 Pulse 59 56 58 58 Resp 14 20 18 16 B/P (MAP) 125/69 (87) 128/63 (84) 131/65 (87) 126/71 (89) Pulse Ox 97 97 97 96 O2 Delivery Room Air Room Air Room Air Room Air 11/09/17 11/09/17 11/09/17 11/09/17 17:30 19:00 20:00 21:11 Temp 98.5 98.5 Pulse 60 58 Resp 20 B/P (MAP) 90/43 (59) 126/71 Pulse Ox 95 O2 Delivery Room Air Room Air Room Air 11/09/17 11/10/17 11/10/17 23:00 03:00 07:00 Temp 98.4 97.8 97.8 98.4 97.8 97.8 Pulse 51 42 52 Resp 18 18 18 B/P (MAP) 91/48 (62) 85/45 (58) 120/67 (84) Pulse Ox 98 95 96 O2 Delivery Room Air Room Air Room Air Intake and Output 11/09/17 11/09/17 11/10/17 15:00 23:00 07:00 Intake Total 450 ml Balance 450 ml PÉREZ GOMEZ MD Nov 10, 2017 10:14
[2017-11-10] MEDS ORDERED: REGADENOSON 0.4 MG/5 ML DISP.SYRIN. IV ONE ×2 (11:15→11:30)
[2017-11-10 12:46] LABS: CHOLESTEROL/HDL RATIO 6.7
--- NOTE | 2017-11-10 13:21 | RAD ---
CT head without intravenous contrast History: Headache and blurry vision. Evaluate for brain tumor. Comparison: None. Technique: Axial images are obtained of the head from the skull base through the vertex without IV contrast. Exposure: One or more of the following individualized dose reduction techniques were utilized for this examination: 1. Automated exposure control 2. Adjustment of the mA and/or kV according to patient size 3. Use of iterative reconstruction technique Findings: The ventricles are appropriate in size, shape, and location for the patient's age. No obvious intracranial mass, mass-effect, midline shift, hemorrhage or obvious acute infarction is identified. Basilar cisterns are patent. Bone windows demonstrate no acute calvarial abnormality. There is mild thickening of the left maxillary sinus. Minimal thickening of sphenoid sinus is seen.. Impression: 1. No acute intracranial process. 2. If sufficient concern for a small brain tumor and if clinically indicated, further evaluation could be made with MR brain with intravenous contrast. 3. Mild paranasal sinus disease. Electronically signed by: Obed Sierra MD (11/10/2017 1:17 PM) [place] [id number]
--- NOTE | 2017-11-10 13:47 | CARD ---
MR#: [id number] Date of Study: 11/10/2017 Ordering Physician: LAUREN MORALES, Referring Physician: PÉREZ GOMEZ, Tech: Hayley Mcknight APPROVED REPORT EXAM: Two-dimensional and M-mode echocardiogram with Doppler and color Doppler. Other Information Quality : GoodHR: 49bpm Rhythm : NSR INDICATION Chest Pain RISK FACTORS Hypertension 2D DIMENSIONS RVDd2.7 (2.9-3.5cm)Left Atrium(2D)3.9 (1.6-4.0cm) IVSd1.0 (0.7-1.1cm)Aortic Root(2D)2.7 (2.0-3.7cm) LVDd5.1 (3.9-5.9cm)LVOT Diameter2.0 (1.8-2.4cm) PWd1.0 (0.7-1.1cm)LVDs3.1 (2.5-4.0cm) FS (%) 40.1 %SV87.2 ml LVEF(%)70.4 (>50%) Aortic Valve AoV Peak Abdi.186.6cm/sAoV VTI46.5cm AO Peak GR.13.9mmHgLVOT Peak Abdi.103.3cm/s AO Mean GR.8mmHgAVA (VMAX)1.80cm2 Mitral Valve MV E Hggmyike05.7cm/sMV DECEL AFND179bs MV A Achuyqye77.3cm/sE/A Ratio1.2 Pulmonary Valve PV Peak Qxcnpbaa98.8cm/s Tricuspid Valve TR P. Dijpvcxm862qq/sRAP TALZSULJ7sqHu TR Peak Gr.07ioPlOGAW44wlIb Pulmonary Vein S1 Xltgslcc85.2cm/sD2 Ikqxrxef19.6cm/s PVa qcrxeqas590lair LEFT VENTRICLE The left ventricle is normal size. There is normal left ventricular wall thickness. The left ventricu lar systolic function is normal. The Ejection Fraction is 65-70%. There is normal LV segmental wall m otion. The left ventricular diastolic function and filling is normal for age. RIGHT VENTRICLE The right ventricle is normal size. There is normal right ventricular wall thickness. The right ventr icular systolic function is normal. ATRIA The left atrium size is normal. The right atrium size is normal. The interatrial septum is intact wit h no evidence for an atrial septal defect or patent foramen ovale as noted on 2-D or Doppler imaging. AORTIC VALVE The aortic valve is calcified but opens well. Doppler and Color Flow revealed trace aortic regurgitat ion. There is no significant aortic valvular stenosis. MITRAL VALVE The mitral valve is normal in structure and function. Mitral annular calcification is borderline. The re is no mitral valve stenosis. Doppler and Color Flow revealed no mitral valve regurgitation noted. TRICUSPID VALVE The tricuspid valve is normal in structure and function. Doppler and Color Flow revealed trace tricus pid regurgitation. There is no tricuspid valve stenosis. PULMONIC VALVE The pulmonary valve is normal in structure and function. Doppler and Color Flow revealed trace to mil d pulmonic valvular regurgitation. GREAT VESSELS The aortic root is normal in size. Normal pulmonary venous flow (Doppler). The IVC is normal in size and collapses >50% with inspiration. PERICARDIAL EFFUSION There is no evidence of significant pericardial effusion. Critical Notification Critical Value: No <Conclusion> The left ventricular systolic function is normal. The Ejection Fraction is 65-70%. There is normal LV segmental wall motion. Doppler and Color Flow revealed trace tricuspid regurgitation. There is no evidence of significant pericardial effusion. Signed by : Carroll Kang, Electronically Approved : 11/10/2017 13:46:28
--- NOTE | 2017-11-10 14:12 | RAD ---
MR#: [id number] Date of Study: 11/10/2017 Ordering Physician: LAUREN MORALES, Referring Physician: TRISTA DAWSON Tech: GRZEGORZ Vizcaino APPROVED REPORT Test Type: Pharmacological Stress Nurse/Tech: Brandon TRACY Test Indications: CP Cardiac History: CAD, HTN, Smoker Medications: See EMR Medical History: See EMR Resting ECG: SB Resting Heart Rate: 48 bpm Resting Blood Pressure: 110/51mmHg Pretest Chest Pain: No chest pain Nurse/Tech Notes Lungs CTA, Heart tones regular. Consent: The procedure was explained to the patient in lay terms. Informed consent was witnessed. Edgar eout was entered into [facility]. History and Stress Test performed by RT Erum (R) (N) Pharm. Details Pharmacologic stress testing was performed using 0.4mg per 5ml of regadenoson given intravenously ove r 7-10 seconds. Stress Symptoms No chest pain or symptoms. POST EXERCISE Reason for Termination: Infusion complete Max HR: 105 bpm Max Blood Pressure: 119/55mmHg Chest Pain: No. Arrhythmia: No. ST Change: No. INTERPRETATION Stress EKG Conclusion: No evidence of stress induced EKG changes. Imaging Protocol IMAGE PROTOCOL: Rest Tc-99m/stress Tc-99m 1 day Rest: Stress: Viability: Radiopharm.Tc99m ZbyfekbspWu79b Sestamibi Dose10.2mCi 33mCi Duration 17min. 12min. Img Date 11/10/2017 11/10/2017 Inj-Img Kvpz16qtn. 30min. Rest Admin Site:IV - Left AntecubitalAdministrator:GRZEGORZ Vizcaino Stress Admin Site: IV - Left AntecubitalAdministrator: RT Erum (Al)(N) STRESS DATA End Diast. Vol.80.0mlAv. Heart Rate53.0bpm End Syst. Vol.23.0mlCO Index BSA3.0L/min Myocardial Mvbj880.0gEject. Kqarkhsi09.0% Stress Rates Pk. Fill Rate2.38EDV/secLVtime Pk. Fill 254.96msec Pk. Empty Rate3.15ESV/secLVtime Pk. Ztteu298.97msec 1/3 Pk. Fill1.22EDV/sec Stress Scores Regional WT0.00Summed WT0.00 Regional WM0.00Summed WM0.00 The rest and stress images show normal perfusion, normal contraction and thickening. LV Perf. Quant 17 Seg. SSS1.00 17 Seg. SRS4.00 17 Seg. SDS0.00 Stress Defect Extent (% LAD)0.00Rest Defect Extent (% LAD)0.00Rev. Defect Extent (% LAD)0.00 Stress Defect Extent (% LCX) 0.00Rest Defect Extent (% LCX)27.50Rev. Defect Extent (% LCX)0.00 Stress Defect Extent (% RCA)0.00Rest Defect Extent (% RCA)0.00Rev. Defect Extent (% RCA)0.00 Stress Defect Extent (% CHRISTEL)0.00Rest Defect Extent (% CHRISTEL)7.40Rev. Defect Extent (% CHRISTEL)0.00 Other Information Quality:Average Risk Assessment: Low Risk Conclusion 1. No evidence of EKG changes with stress testing. 2. Normal perfusion at stress/rest. 3. Low risk study. 4. EF > 60%. Signed by : Drew Barker, Electronically Approved : 11/10/2017 14:11:23
[2017-11-10] MEDS: IBUPROFEN 400 MG TABLET. PO PRN ×2 (15:13→21:32)
[2017-11-10] MEDS: ACETAMINOPHEN 500 MG TABLET PO PRN (17:53)
[2017-11-10 19:00] VITALS: BP 135/73
[2017-11-10] MEDS: SIMVASTATIN 40 MG TABLET. PO SCH (20:43)
[2017-11-10] MEDS: guaiFENesin DM 200MG/20MG 10 ML SYRUP PO PRN (20:43)
[2017-11-10 22:32] VITALS: BP 119/70
[2017-11-11] MEDS: guaiFENesin DM 200MG/20MG 10 ML SYRUP PO PRN ×2 (02:09→07:35)
[2017-11-11 02:36] VITALS: BP 113/56
[2017-11-11] MEDS: ACETAMINOPHEN 500 MG TABLET PO PRN (07:35)
[2017-11-11 07:55] VITALS: BP 138/72
[2017-11-11] MEDS ORDERED: SIMV40TA3 PO (09:07)
--- NOTE | 2017-11-11 10:14 | PDOC3 ---
Discharge Summary Visit Information Date of Admission: Nov 09, 2017 Date of Discharge: Nov 11, 2017 Admitting Diagnosis Comment: Chest pain likely GERD, normal MPI Hypertension, controlled Dyslipidemia on statin Smoker - 1 ppday headaches, acute on chronic- neg CT Brief Hospital Course Allergies Allergies Coded Allergies Type Severity Reaction Last Updated Verified No Known Drug Allergies 11/09/17 No Vital Signs Vital Signs Date Time Temp Pulse Resp B/P (MAP) Pulse Ox O2 Delivery O2 Flow Rate FiO2 11/11/17 08:00 Room Air 11/11/17 07:55 98.2 62 16 138/72 (94) 94 98.2 Lab Results Laboratory Tests Test 11/09/17 15:11 11/09/17 19:00 11/09/17 21:40 11/10/17 06:00 White Blood Count 8.1 x10^3/uL (4.0-11.0) Red Blood Count 4.69 x10^6/uL (3.50-5.40) Hemoglobin 14.6 g/dL (12.0-15.5) Hematocrit 42.3 % (36.0-47.0) Mean Corpuscular Volume 90 fL (79-100) Mean Corpuscular Hemoglobin 31 pg (25-35) Mean Corpuscular Hemoglobin Concent 35 g/dL (31-37) Red Cell Distribution Width 13.4 % (11.5-14.5) Platelet Count 278 x10^3/uL (140-400) Neutrophils (%) (Auto) 63 % (31-73) Lymphocytes (%) (Auto) 25 % (24-48) Monocytes (%) (Auto) 8 % (0-9) Eosinophils (%) (Auto) 4 % (0-3) Basophils (%) (Auto) 1 % (0-3) Neutrophils # (Auto) 5.1 x10^3uL (1.8-7.7) Lymphocytes # (Auto) 2.0 x10^3/uL (1.0-4.8) Monocytes # (Auto) 0.6 x10^3/uL (0.0-1.1) Eosinophils # (Auto) 0.3 x10^3/uL (0.0-0.7) Basophils # (Auto) 0.1 x10^3/uL (0.0-0.2) Prothrombin Time 11.7 SEC (11.7-14.0) Prothromb Time International Ratio 0.9 (0.8-1.1) D-Dimer (Cherie) 0.49 ug/mlFEU (0.00-0.50) Sodium Level 139 mmol/L (136-145) Potassium Level 3.9 mmol/L (3.5-5.1) Chloride Level 102 mmol/L (98-107) Carbon Dioxide Level 28 mmol/L (21-32) Anion Gap 9 (6-14) Blood Urea Nitrogen 18 mg/dL (7-20) Creatinine 1.1 mg/dL (0.6-1.0) Estimated GFR (Cockcroft-Gault) 50.7 BUN/Creatinine Ratio 16 (6-20) Glucose Level 132 mg/dL (70-99) Calcium Level 9.1 mg/dL (8.5-10.1) Total Bilirubin 0.3 mg/dL (0.2-1.0) Aspartate Amino Transf (AST/SGOT) 17 U/L (15-37) Alanine Aminotransferase (ALT/SGPT) 19 U/L (14-59) Alkaline Phosphatase 146 U/L (46-116) Troponin I Quantitative < 0.017 ng/mL (0.000-0.055) < 0.017 ng/mL (0.000-0.055) < 0.017 ng/mL (0.000-0.055) JN-Jkb-Z-Type Natriuretic Peptide 78 pg/mL (0-124) Total Protein 8.1 g/dL (6.4-8.2) Albumin 3.7 g/dL (3.4-5.0) Albumin/Globulin Ratio 0.8 (1.0-1.7) Lipase 172 U/L (73-393) Urine Collection Type Unknown Urine Color Yellow Urine Clarity Clear Urine pH 6.0 Urine Specific [place] 1.020 Urine Protein Negative mg/dL (NEG-TRACE) Urine Glucose (UA) Negative mg/dL (NEG) Urine Ketones (Stick) Negative mg/dL (NEG) Urine Blood Negative (NEG) Urine Nitrite Negative (NEG) Urine Bilirubin Negative (NEG) Urine Urobilinogen Dipstick 1.0 mg/dL (0.2 mg/dL) Urine Leukocyte Esterase Negative (NEG) Urine RBC Occ /HPF (0-2) Urine WBC 1-4 /HPF (0-4) Urine Squamous Epithelial Cells Few /LPF Urine Bacteria Few /HPF (0-FEW) Urine Mucus Slight /LPF Test 11/10/17 12:15 Triglycerides Level 207 mg/dL (0-150) Cholesterol Level 208 mg/dL (0-200) LDL Cholesterol, Calculated 136 mg/dL (0-100) VLDL Cholesterol, Calculated 41 mg/dL (0-40) Non-HDL Cholesterol Calculated 177 mg/dL (0-129) HDL Cholesterol 31 mg/dL (40-60) Cholesterol/HDL Ratio 6.7 Thyroid Stimulating Hormone (TSH) 2.097 uIU/mL (0.358-3.74) Laboratory Tests Test 11/10/17 12:15 Triglycerides Level 207 mg/dL (0-150) Cholesterol Level 208 mg/dL (0-200) LDL Cholesterol, Calculated 136 mg/dL (0-100) VLDL Cholesterol, Calculated 41 mg/dL (0-40) Non-HDL Cholesterol Calculated 177 mg/dL (0-129) HDL Cholesterol 31 mg/dL (40-60) Cholesterol/HDL Ratio 6.7 Thyroid Stimulating Hormone (TSH) 2.097 uIU/mL (0.358-3.74) Brief Hospital Course Ms. Roberson is a 61 old female admitted for chest pain, workup is negative including MPI. Started on simvastatin 40 daily at bedtime by cardiology only new medication. Had some headache, CT head is negative. Back to baseline. Will go home with no PT OT needs. Did ask for work excuse. Along with the daughter was at bedside all the time. Scripts on chart, patient seen and examined, discharge time less than 30 minutes Consults performed cardiology Procedures performed MPI Discharge Information Condition at Discharge: Improved, Stable Disposition/Orders: D/C to Home Scheduled Simvastatin (Simvastatin) 40 Mg Tablet, 40 MG PO QHS for 30 Days, #30 Prescribed by: PÉREZ GOMEZ on 11/11/17 0907 Miscellaneous Medications Info (No Known Medications Prior To Admisstion) Each, 1 EACH MC, (Reported) Entered as Reported by: PAOLO FERMIN on 11/09/171736 Last Action: New Order on 11/09/171736 by PÉREZ BANKS MD Nov 11, 2017 10:14
[2017-11-11 11:03] VITALS: BP 111/66
== END 2017-11-11 12:40 | disposition home or self-care (01) ==
LOC: ER 14:58 → 5 SOUTH 15:45 → INTOOBSV 15:45
PROVIDERS: ADMIT Internal Medicine; ATTEND Internal Medicine
DX: R07.9 Chest pain, unspecified (principal); E78.00 Pure hypercholesterolemia, unspecified; E78.5 Hyperlipidemia, unspecified; F17.210 Nicotine dependence, cigarettes, uncomplicated; I10 Essential (primary) hypertension; J44.1 Chronic obstructive pulmonary disease with (acute) exacerbation; Z86.711 Personal history of pulmonary embolism; Z86.718 Personal history of other venous thrombosis and embolism; Z87.11 Personal history of peptic ulcer disease; Z87.442 Personal history of urinary calculi; Z91.19 Patient's noncompliance with other medical treatment and regimen; Z79.899 Other long term (current) drug therapy
CPT/HCPCS: 36415; 70450; 71045; 76705; 78452; 80053; 80061; 81001; 83690; 83880; 84443; 84484; 85025; 85379; 85610; 90471; 90756; 93005; 93017; 93306; 96374; 96375; 96376; 99285; 99406; A9500; G0378; J2785; G0379; Q2035

== ENCOUNTER 2018-10-21 21:42 | Emergency (ER) | payer SELFPAY ==
[~2018-10-21] VITALS: Ht 167.6 cm; Wt 69.4 kg
[~2018-10-21 21:42] MED LIST: SIMV40TA3 PO
[2018-10-21 22:00] VITALS: BP 121/60
[2018-10-22 00:15] LABS: BASO # 0.1 x10^3/uL (0.0-0.2); BASO % 1 % (0-3); EOS # 0.2 x10^3/uL (0.0-0.7); EOS % 2 % (0-3); HEMATOCRIT 40.7 % (36.0-47.0); LYMPH # 2.3 x10^3/uL (1.0-4.8); LYMPH % 24 % (24-48); MEAN CORPUSCULAR HEMOGLOBIN 31 pg (25-35); MEAN CORPUSCULAR HGB CONC 34 g/dL (31-37); MEAN CORPUSCULAR VOLUME 91 fL (79-100); MONO # 0.8 x10^3/uL (0.0-1.1); MONO % 8 % (0-9); NEUT # 6.2 x10^3/uL (1.8-7.7); NEUT % 65 % (31-73); PLATELET COUNT 282 x10^3/uL (140-400); RED BLOOD COUNT 4.46 x10^6/uL (3.50-5.40); RED CELL DISTRIBUTION WIDTH 13.3 % (11.5-14.5); WHITE BLOOD COUNT 9.6 x10^3/uL (4.0-11.0)
[2018-10-22] MEDS ORDERED: ONDANSETRON PF 4 MG/2 ML VIAL. IV ONE (00:15)
[2018-10-22] MEDS ORDERED: MORPHINE SULFATE 2 MG/ML VIAL. IV ONE (00:15)
[2018-10-22] MEDS ORDERED: IV NORMAL SALINE 1000ML BAG 1,000 ML IV ONE (00:15)
[2018-10-22 00:16] LABS: BILIRUBIN,URINE NEGATIVE (NEG); CLARITY,URINE CLEAR; COLOR,URINE YELLOW; NITRITE,URINE NEGATIVE (NEG); PROTEIN,URINE NEGATIVE (NEG-TRACE); UROBILINOGEN,URINE 0.2 mg/dL (0.2 mg/dL)
[2018-10-22 00:26] LABS: CREATININE 1.1 mg/dL (0.6-1.0); GFR 50.5; POTASSIUM 3.8 mmol/L (3.5-5.1)
[2018-10-22 00:32] LABS: ALBUMIN 3.7 g/dL (3.4-5.0); ALBUMIN/GLOBULIN RATIO 0.9 (1.0-1.7); TOTAL BILIRUBIN 0.2 mg/dL (0.2-1.0); TOTAL PROTEIN 7.7 g/dL (6.4-8.2)
--- NOTE | 2018-10-22 00:37 | PHYS DOC ---
Past Medical History Past Medical History: High Cholesterol, Hypertension, Kidney Stone Past Surgical History: No Surgical History Alcohol Use: None Drug Use: None Adult General Chief Complaint Chief Complaint: MULTIPLE COMPLAINTS HPI HPI Patient is a 62 year old female who presents with [weakness, general malaise for the past day. Patient reports she has felt nauseous, has had some generalized body discomfort for this time, states no fevers, but she has not checked her temperature. States she does not have any shortness of breath, not having any chest pain. Does report some aching and discomfort in her legs. St ates she has not felt like this in the past. States she does have history of GERD, she had try some omeprazole earlier but it made no improvement. States pain is a sharp pain to her left lower quadrant. Does report she has history kidney stones, has not reported this feels similar or not] Review of Systems Review of Systems Constitutional: Denies fever or chills [] Eyes: Denies change in visual acuity, redness, or eye pain [] HENT: Denies nasal congestion or sore throat [] Respiratory: Denies cough or shortness of breath [] Cardiovascular: No additional information not addressed in HPI [] GI: Reports left lower abdominal pain, nausea, denies vomiting, bloody stools or diarrhea [] : Denies dysuria or hematuria [] Musculoskeletal: Denies back pain or joint pain [] Integument: Denies rash or skin lesions [] Neurologic: Denies headache, focal weakness or sensory changes [] Endocrine: Denies polyuria or polydipsia [] All other systems were reviewed and found to be within normal limits, except as documented in this note. Current Medications Current Medications Current Medications Medications (Trade) Dose Ordered Sig/Amanda Start Time Stop Time Status Last Admin Dose Admin Morphine Sulfate (Morphine Sulfate) 2 mg 1X ONCE 10/22/18 00:15 10/22/18 00:16 DC 10/22/18 00:46 2 MG Ondansetron HCl (Zofran) 4 mg 1X ONCE 10/22/18 00:15 10/22/18 00:16 DC 10/22/18 00:46 4 MG Sodium Chloride 1,000 ml @ 1,000 mls/hr 1X ONCE 10/22/18 00:15 10/22/18 01:14 Allergies Allergies Allergies Coded Allergies Type Severity Reaction Last Updated Verified No Known Drug Allergies 11/09/17 No Physical Exam Physical Exam Constitutional: Well developed, well nourished, no acute distress, non-toxic appearance. [] HENT: Normocephalic, atraumatic, bilateral external ears normal, oropharynx moist, no oral exudates, nose normal. [] Eyes: PERRLA, EOMI, conjunctiva normal, no discharge. [] Neck: Normal range of motion, no tenderness, supple, no stridor. [] Cardiovascular:Heart rate regular rhythm, no murmur [] Lungs & Thorax: Bilateral breath sounds clear to auscultation [] Abdomen: Bowel sounds normal, soft, no masses, no pulsatile masses. Minimal tenderness noted to left lower quadrant, suprapubic.[] Skin: Warm, dry, no erythema, no rash. [] Back: No tenderness, no CVA tenderness. [] Extremities: No tenderness, no cyanosis, no clubbing, ROM intact, no edema. [] Neurologic: Alert and oriented X 3, normal motor function, normal sensory function, no focal deficits noted. [] Psychologic: Affect normal, judgement normal, mood normal. [] Current Patient Data Vital Signs Vital Signs Date Time Temp Pulse Resp B/P (MAP) Pulse Ox O2 Delivery O2 Flow Rate FiO2 10/22/18 00:46 20 96 Room Air 10/21/18 22:00 97.5 71 121/60 (80) 97.5 Lab Values Laboratory Tests Test 10/21/18 23:10 White Blood Count 9.6 x10^3/uL (4.0-11.0) Red Blood Count 4.46 x10^6/uL (3.50-5.40) Hemoglobin 14.0 g/dL (12.0-15.5) Hematocrit 40.7 % (36.0-47.0) Mean Corpuscular Volume 91 fL (79-100) Mean Corpuscular Hemoglobin 31 pg (25-35) Mean Corpuscular Hemoglobin Concent 34 g/dL (31-37) Red Cell Distribution Width 13.3 % (11.5-14.5) Platelet Count 282 x10^3/uL (140-400) Neutrophils (%) (Auto) 65 % (31-73) Lymphocytes (%) (Auto) 24 % (24-48) Monocytes (%) (Auto) 8 % (0-9) Eosinophils (%) (Auto) 2 % (0-3) Basophils (%) (Auto) 1 % (0-3) Neutrophils # (Auto) 6.2 x10^3/uL (1.8-7.7) Lymphocytes # (Auto) 2.3 x10^3/uL (1.0-4.8) Monocytes # (Auto) 0.8 x10^3/uL (0.0-1.1) Eosinophils # (Auto) 0.2 x10^3/uL (0.0-0.7) Basophils # (Auto) 0.1 x10^3/uL (0.0-0.2) Sodium Level 140 mmol/L (136-145) Potassium Level 3.8 mmol/L (3.5-5.1) Chloride Level 104 mmol/L (98-107) Carbon Dioxide Level 26 mmol/L (21-32) Anion Gap 10 (6-14) Blood Urea Nitrogen 24 mg/dL (7-20) H Creatinine 1.1 mg/dL (0.6-1.0) H Estimated GFR (Cockcroft-Gault) 50.5 BUN/Creatinine Ratio 22 (6-20) H Glucose Level 129 mg/dL (70-99) H Calcium Level 9.0 mg/dL (8.5-10.1) Total Bilirubin 0.2 mg/dL (0.2-1.0) Aspartate Amino Transferase (AST) 20 U/L (15-37) Alanine Aminotransferase (ALT) 23 U/L (14-59) Alkaline Phosphatase 115 U/L (46-116) Troponin I Quantitative < 0.017 ng/mL (0.000-0.055) Total Protein 7.7 g/dL (6.4-8.2) Albumin 3.7 g/dL (3.4-5.0) Albumin/Globulin Ratio 0.9 (1.0-1.7) L Laboratory Tests 10/21/18 23:10 Laboratory Tests 10/21/18 23:10 EKG EKG [] Radiology/Procedures Radiology/Procedures FINDINGS: No free air, free fluid, or fluid collection. Lower chest: The visualized lower lungs are aerated. No pleural or pericardial effusion. Cardiomegaly. Coronary artery atherosclerotic disease. ABDOMEN: Liver: The noncontrast liver is homogeneous in attenuation. Gallbladder and biliary: Normal gallbladder without radiopaque stone. Normal caliber bile ducts. Spleen: Normal spleen. Pancreas: The noncontrast pancreas is homogeneous in attenuation without peripancreatic inflammatory changes. Adrenal glands: Normal adrenal glands. Kidneys and ureters: No opaque urinary calculi. Normal kidneys and ureters. GI tract: The stomach is decompressed and poorly evaluated. Normal caliber small bowel and colon. Normal appendix. Vascular structures: Normal caliber abdominal aorta. Mild aortoiliac atherosclerotic disease. Lymph nodes: No lymphadenopathy in the abdomen or pelvis. PELVIS: Genitourinary system: Normal bladder. Normal uterus and ovaries. SKELETAL STRUCTURES AND SOFT TISSUES: No fracture or destructive lesion in the visualized skeleton. Multilevel degenerative changes of the spine. IMPRESSION: No acute process. No hydronephrosis or opaque ureteral calculi. Electronically signed by: Reynaldo Gomes MD (10/22/2018 12:52 AM) [facility] [] Course & Med Decision Making Course & Med Decision Making Pertinent Labs and Imaging studies reviewed. (See chart for details) [Dscussed imaging and labs with patient, without acute findings. Patient does reports he has not taken her omeprazole every day like she is supposed to. advise patient to make sure she takes her medications each day. Follow up with PCP next week to ensure she is improving. ] Dragon Disclaimer Dragon Disclaimer This electronic medical record was generated, in whole or in part, using a voice recognition dictation system. Departure Departure Impression: Primary Impression: Abdominal pain Additional Impression: Acid reflux Disposition: 01 HOME, SELF-CARE Condition: GOOD Referrals: UNKNOWN PCP NAME (PCP) Patient Instructions: Abdominal Pain (Nonspecific) Additional Instructions: As discussed, make sure to take omeprazole every day. Continue take your home medications as prescribed. May sure you continue to watch your diet, follow-up with your primary care provider next week. Try to drink plenty fluids to stay hydrated. Problem Qualifiers Primary Impression: Abdominal pain Abdominal location: generalized Qualified Codes: R10.84 - Generalized abdominal pain Additional Impression: Acid reflux Esophagitis presence: esophagitis presence not specified Qualified Codes: K21.9 - Gastro-esophageal reflux disease without esophagitis BREN SOTO APRN Oct 22, 2018 00:37
[2018-10-22 00:54] LABS: BACTERIA,URINE FEW /HPF (0-FEW); SQUAMOUS EPITHELIAL CELL,UR OCC /LPF
--- NOTE | 2018-10-22 00:55 | RAD ---
CT ABDOMEN PELVIS WO CONTRAST INDICATION: Left lower quadrant pain. History of kidney stones EXAM: Noncontrast CT of the abdomen and pelvis. Coronal and sagittal reformatted images were performed. PQRS compliance statement: One or more of the following individualized dose reduction techniques were utilized for this examination: 1. Automated exposure control 2. Adjustment of the mA and/or kV according to patient size 3. Use of iterative reconstruction technique COMPARISON: 11/18/2005 FINDINGS: No free air, free fluid, or fluid collection. Lower chest: The visualized lower lungs are aerated. No pleural or pericardial effusion. Cardiomegaly. Coronary artery atherosclerotic disease. ABDOMEN: Liver: The noncontrast liver is homogeneous in attenuation. Gallbladder and biliary: Normal gallbladder without radiopaque stone. Normal caliber bile ducts. Spleen: Normal spleen. Pancreas: The noncontrast pancreas is homogeneous in attenuation without peripancreatic inflammatory changes. Adrenal glands: Normal adrenal glands. Kidneys and ureters: No opaque urinary calculi. Normal kidneys and ureters. GI tract: The stomach is decompressed and poorly evaluated. Normal caliber small bowel and colon. Normal appendix. Vascular structures: Normal caliber abdominal aorta. Mild aortoiliac atherosclerotic disease. Lymph nodes: No lymphadenopathy in the abdomen or pelvis. PELVIS: Genitourinary system: Normal bladder. Normal uterus and ovaries. SKELETAL STRUCTURES AND SOFT TISSUES: No fracture or destructive lesion in the visualized skeleton. Multilevel degenerative changes of the spine. IMPRESSION: No acute process. No hydronephrosis or opaque ureteral calculi. Electronically signed by: Reynaldo Gomes MD (10/22/2018 12:52 AM) [facility]
== END 2018-10-22 01:45 | disposition home or self-care (01) ==
LOC: ER 21:42
DX: K21.9 Gastro-esophageal reflux disease without esophagitis (principal); I10 Essential (primary) hypertension; E78.00 Pure hypercholesterolemia, unspecified; Z87.442 Personal history of urinary calculi
CPT/HCPCS: 36415; 74176; 80053; 81001; 84484; 85025; 87086; 96374; 96375; 99285; J2270; J2405; J7030

== ENCOUNTER 2019-01-07 18:27 | Inpatient (IN) | payer BC ==
[~2019-01-07] VITALS: Ht 167.6 cm; Wt 68.9 kg
[~2019-01-07 18:27] MED LIST changes: +ASPI325T11 PO; +SIMV40TA18 PO; -SIMV40TA3 PO
[2019-01-07] MEDS ORDERED: ASPIRIN CHEWABLE 81 MG TABLET. PO ONE (19:00)
[2019-01-07] MEDS ORDERED: IPRATRPIUM/ALBUTEROL 0.5/2.5MG 3 ML NEBU. NEB ONE (19:00)
[2019-01-07] MEDS ORDERED: LIDO:MAALOX 1:1 20 ML SINGLE DOSE. SWSW ONE (19:00)
[2019-01-07 19:11] LABS: BASO # 0.1 x10^3/uL (0.0-0.2); BASO % 1 % (0-3); EOS # 0.1 x10^3/uL (0.0-0.7); EOS % 2 % (0-3); HEMATOCRIT 41.1 % (36.0-47.0); LYMPH # 2.5 x10^3/uL (1.0-4.8); LYMPH % 31 % (24-48); MEAN CORPUSCULAR HEMOGLOBIN 31 pg (25-35); MEAN CORPUSCULAR HGB CONC 34 g/dL (31-37); MEAN CORPUSCULAR VOLUME 91 fL (79-100); MONO # 0.6 x10^3/uL (0.0-1.1); MONO % 7 % (0-9); NEUT # 4.9 x10^3/uL (1.8-7.7); NEUT % 60 % (31-73); PLATELET COUNT 321 x10^3/uL (140-400); RED BLOOD COUNT 4.54 x10^6/uL (3.50-5.40); RED CELL DISTRIBUTION WIDTH 13.5 % (11.5-14.5); WHITE BLOOD COUNT 8.2 x10^3/uL (4.0-11.0)
[2019-01-07] MEDS ORDERED: fentaNYL PF VIAL 100 MCG/2 ML VIAL IV ONE (19:15)
[2019-01-07 19:18] LABS: CALCIUM 9.1 mg/dL (8.5-10.1); GFR 56.2; POTASSIUM 3.4 mmol/L (3.5-5.1)
[2019-01-07 19:20] LABS: PROTHROMBIN TIME PATIENT 12.1 SEC (11.7-14.0)
[2019-01-07 19:23] LABS: D-DIMER 0.62 ug/mlFEU (0.00-0.50)
[2019-01-07 19:24] LABS: ALBUMIN 3.7 g/dL (3.4-5.0); ALBUMIN/GLOBULIN RATIO 0.9 (1.0-1.7); TOTAL BILIRUBIN 0.2 mg/dL (0.2-1.0); TOTAL PROTEIN 7.9 g/dL (6.4-8.2)
--- NOTE | 2019-01-07 19:49 | RAD ---
EXAM: Chest, single view. HISTORY: Chest pain. COMPARISON: 12/29/2018 FINDINGS: A frontal view of the chest obtained. There is suspected left lower lobe atelectasis. There is no consolidation, pleural effusion or pneumothorax. The heart is normal in size. IMPRESSION: Suspected left lower lobe atelectasis. Electronically signed by: Tameka Villanueva MD (01/07/2019 7:46 PM) [facility]
[2019-01-07] MEDS ORDERED: ACETAMINOPHEN 500 MG TABLET PO PRN (20:00)
[2019-01-07] MEDS ORDERED: cloNIDine HCL 0.1 MG TABLET PO PRN (20:00)
[2019-01-07] MEDS ORDERED: NITROGLYCERIN SUBLINGUAL 0.4 MG BOTTLE OF 25. SL PRN ×2 (20:00)
[2019-01-07] MEDS ORDERED: IOHEXOL 350 MG/ML 100 ML VIAL. IV ONE (20:00)
[2019-01-07] MEDS ORDERED: CALCIUM CARBONATE 500 MG TAB.CHEW PO PRN (20:00)
[2019-01-07] MEDS ORDERED: CONTRAST GIVEN. MC PRN (20:00)
[2019-01-07] MEDS ORDERED: ONDANSETRON PF 4 MG/2 ML VIAL. IVP PRN (20:00)
[2019-01-07 20:22] LABS: BILIRUBIN,URINE NEGATIVE (NEG); CLARITY,URINE CLEAR; COLOR,URINE YELLOW; NITRITE,URINE NEGATIVE (NEG); PH,URINE 6.5; PROTEIN,URINE NEGATIVE (NEG-TRACE); UROBILINOGEN,URINE 0.2 mg/dL (0.2 mg/dL)
[2019-01-07 20:27] LABS: BACTERIA,URINE FEW /HPF (0-FEW); SQUAMOUS EPITHELIAL CELL,UR FEW /LPF
--- NOTE | 2019-01-07 20:32 | RAD ---
CT ANGIO CHEST ABD PELVIS dated 01/07/2019 7:43 PM Indication: Severe back pain, chest pain possible dissection. Comparison: 10/22/2018 Technique: Contiguous axial imaging of the chest abdomen pelvis performed following the bolus and demonstration of 90 cc Omnipaque 350. Study was performed as dedicated CTA with thin cut coronal and sagittal MIPS reconstructions and 3-D rotational reconstruction. One or more of the following individualized dose reduction techniques were utilized for this examination: 1. Automated exposure control 2. Adjustment of the mA and/or kV according to patient size 3. Use of iterative reconstruction technique Findings: Heart size is upper limits of normal. No pericardial effusion. Scattered coronary calcifications. Mild ectasia of the ascending thoracic aorta measuring 3.8 cm transverse. Descending aorta is normal in caliber. No intimal flap or periaortic fluid collection. No mediastinal, hilar or axillary lymphadenopathy. Thyroid gland is unremarkable. Central airways are patent. Patchy groundglass opacity at the dependent lower lobes. There is a linear band of increased density in the right middle lobe, likely scar or atelectasis. No consolidation or pleural effusion. No pneumothorax. Minimal linear scar or atelectasis in the lingula. Images of the abdomen and pelvis show normal caliber abdominal aorta. No intimal flap or periaortic fluid collection. There is diffuse calcific and soft plaquing throughout. Moderate grade narrowing of the celiac origin and SMA origin. Moderate to high-grade narrowing of the MARIE origin. Suspected moderate grade narrowing of the right renal artery origin with mild narrowing of the left renal artery origin. There are 2 accessory renal arteries on the right. Liver, spleen, pancreas, adrenal glands and kidneys are unremarkable. No hydronephrosis. Gallbladder unremarkable. Unopacified GI tract normal in caliber and contour. No focal bowel wall thickening. Appendix normal in caliber. No ascites or lymphadenopathy. Images of the pelvis show nondistended urinary bladder. Uterus and adnexa are unremarkable. Trace amount of free pelvic fluid. No pelvic lymphadenopathy. Bone windows show no acute findings. Multilevel spondylosis. Mild to moderate degenerative change of the bilateral hip joint, right greater than left. IMPRESSION: 1. No acute abnormality of chest abdomen pelvis. No evidence of aortic dissection. 2. Coronary artery calcifications and mild ectasia of the ascending thoracic aorta. 3. Patchy and linear opacities at both lung bases, likely atelectasis. 4. 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 5. Small amount of free pelvic fluid, nonspecific. Electronically signed by: Obed Wade MD (01/07/2019 8:29 PM) [facility]
--- NOTE | 2019-01-07 21:00 | PHYS DOC ---
Past Medical History Past Medical History: High Cholesterol, Hypertension, Kidney Stone Past Surgical History: No Surgical History Alcohol Use: None Drug Use: None Adult General Chief Complaint Chief Complaint: RIB PAIN HPI HPI Patient is a 63 year old female with history of hypertension hyperlipidemia smoking history recently admission for chest pain with an outpatient stress test recommended who is coming with chief complaint of shortness of breath feels like it's her asthma also having some chest pain left-sided chest last for a few minutes at a time feels sharp occurred earlier in the day and waxing and waning in the emergency room also bilateral back pain as well that seemed to get worse throughout the day today no abdominal pain positive nausea no fever that she knows of a little bit of a cough she says she feels similar to when she was here last time symptoms are moderate slowly worsening with time Review of Systems Review of Systems Constitutional: Denies fever or chills [] Eyes: Denies change in visual acuity, redness, or eye pain [] GI: Denies abdominal pain, nausea, vomiting, bloody stools or diarrhea [] : Denies dysuria or hematuria [] Musculoskeletal: Integument: Denies rash or skin lesions [] Neurologic: Denies headache, focal weakness or sensory changes [] Endocrine: Denies polyuria or polydipsia [] All other systems were reviewed and found to be within normal limits, except as documented in this note. Current Medications Current Medications Current Medications Medications (Trade) Dose Ordered Sig/Amanda Start Time Stop Time Status Last Admin Dose Admin Acetaminophen (Tylenol) 500 mg PRN Q6HRS PRN 01/07/19 20:00 Acetaminophen/ Codeine Phosphate (Tylenol #3) 1 tab PRN Q6HRS PRN 01/07/19 20:00 Albuterol/ Ipratropium (Duoneb) 3 ml 1X ONCE 01/07/19 19:00 01/07/19 19:03 DC 01/07/19 19:50 3 ML Aspirin (Children'S Aspirin) 324 mg 1X ONCE 01/07/19 19:00 01/07/19 19:03 DC 01/07/19 19:18 324 MG Aspirin (Ecotrin) 325 mg DAILY 01/08/19 09:00 Calcium Carbonate/ Glycine (Tums) 500 mg PRN AFTMEALHC PRN 01/07/19 20:00 Clonidine HCl (Catapres) 0.1 mg PRN Q1HR PRN 01/07/19 20:00 Fentanyl Citrate (Fentanyl 2ml Vial) 50 mcg 1X ONCE 01/07/19 19:15 01/07/19 19:16 DC 01/07/19 19:18 50 MCG Info (CONTRAST GIVEN -- Rx MONITORING) 1 each PRN DAILY PRN 01/07/19 20:00 01/09/19 19:59 Iohexol (Omnipaque 350 Mg/ml) 90 ml 1X ONCE 01/07/19 20:00 01/07/19 20:01 DC 01/07/19 20:24 90 ML Morphine Sulfate (Morphine Sulfate) 2 mg PRN Q2HR PRN 01/07/19 20:00 Multi-Ingredient Mouthwash/Gargle (Gi Cocktail) 20 ml 1X ONCE 01/07/19 19:00 01/07/19 19:03 DC 01/07/19 19:18 20 ML Nitroglycerin (Nitrostat) 0.4 mg PRN Q5MIN PRN 01/07/19 20:00 01/08/19 19:59 Ondansetron HCl (Zofran) 4 mg PRN Q6HRS PRN 01/07/19 20:00 Oxycodone/ Acetaminophen (Percocet 5/325) 1 tab PRN Q4HRS PRN 01/07/19 20:00 Simvastatin (Zocor) 40 mg QHS 01/07/19 21:00 Temazepam (Restoril) 7.5 mg PRN QHS PRN 01/07/19 20:00 Allergies Allergies Allergies Coded Allergies Type Severity Reaction Last Updated Verified No Known Drug Allergies 11/09/17 No Physical Exam Physical Exam Constitutional: Well developed, well nourished, no acute distress, non-toxic appearance. [] HENT: Normocephalic, atraumatic, bilateral external ears normal, oropharynx moist, no oral exudates, nose normal. [] Eyes: PERRLA, EOMI, conjunctiva normal, no discharge. [] Neck: Normal range of motion, no tenderness, supple, no stridor. [] Cardiovascular:Heart rate regular rhythm, no murmur [] Lungs & Thorax: Bilateral breath sounds clear to auscultation [] Abdomen: Bowel sounds normal, soft, no tenderness, no masses, no pulsatile masses. [] Skin: Warm, dry, no erythema, no rash. [] Back: Reproducible tenderness noted bilateral back area Extremities: No tenderness, no cyanosis, no clubbing, ROM intact, no edema. [] Neurologic: Alert and oriented X 3, normal motor function, normal sensory function, no focal deficits noted. [] Psychologic: Affect normal, judgement normal, mood normal. [] Current Patient Data Vital Signs Vital Signs Date Time Temp Pulse Resp B/P (MAP) Pulse Ox O2 Delivery O2 Flow Rate FiO2 01/07/19 19:50 96 Room Air 01/07/19 18:40 97.2 79 18 133/103 (113) 97.2 Lab Values Laboratory Tests Test 01/07/19 18:50 01/07/19 20:15 White Blood Count 8.2 x10^3/uL (4.0-11.0) Red Blood Count 4.54 x10^6/uL (3.50-5.40) Hemoglobin 14.0 g/dL (12.0-15.5) Hematocrit 41.1 % (36.0-47.0) Mean Corpuscular Volume 91 fL (79-100) Mean Corpuscular Hemoglobin 31 pg (25-35) Mean Corpuscular Hemoglobin Concent 34 g/dL (31-37) Red Cell Distribution Width 13.5 % (11.5-14.5) Platelet Count 321 x10^3/uL (140-400) Neutrophils (%) (Auto) 60 % (31-73) Lymphocytes (%) (Auto) 31 % (24-48) Monocytes (%) (Auto) 7 % (0-9) Eosinophils (%) (Auto) 2 % (0-3) Basophils (%) (Auto) 1 % (0-3) Neutrophils # (Auto) 4.9 x10^3/uL (1.8-7.7) Lymphocytes # (Auto) 2.5 x10^3/uL (1.0-4.8) Monocytes # (Auto) 0.6 x10^3/uL (0.0-1.1) Eosinophils # (Auto) 0.1 x10^3/uL (0.0-0.7) Basophils # (Auto) 0.1 x10^3/uL (0.0-0.2) Prothrombin Time 12.1 SEC (11.7-14.0) Prothrombin Time INR 0.9 (0.8-1.1) D-Dimer (Cherie) 0.62 ug/mlFEU (0.00-0.50) H Sodium Level 138 mmol/L (136-145) Potassium Level 3.4 mmol/L (3.5-5.1) L Chloride Level 102 mmol/L (98-107) Carbon Dioxide Level 27 mmol/L (21-32) Anion Gap 9 (6-14) Blood Urea Nitrogen 19 mg/dL (7-20) Creatinine 1.0 mg/dL (0.6-1.0) Estimated GFR (Cockcroft-Gault) 56.2 BUN/Creatinine Ratio 19 (6-20) Glucose Level 124 mg/dL (70-99) H Calcium Level 9.1 mg/dL (8.5-10.1) Total Bilirubin 0.2 mg/dL (0.2-1.0) Aspartate Amino Transferase (AST) 16 U/L (15-37) Alanine Aminotransferase (ALT) 18 U/L (14-59) Alkaline Phosphatase 115 U/L (46-116) Troponin I Quantitative < 0.017 ng/mL (0.000-0.055) Total Protein 7.9 g/dL (6.4-8.2) Albumin 3.7 g/dL (3.4-5.0) Albumin/Globulin Ratio 0.9 (1.0-1.7) L Lipase 187 U/L (73-393) Urine Collection Type Unknown Urine Color Yellow Urine Clarity Clear Urine pH 6.5 Urine Specific [place] 1.015 Urine Protein Negative mg/dL (NEG-TRACE) Urine Glucose (UA) Negative mg/dL (NEG) Urine Ketones (Stick) Negative mg/dL (NEG) Urine Blood Small (NEG) Urine Nitrite Negative (NEG) Urine Bilirubin Negative (NEG) Urine Urobilinogen Dipstick 0.2 mg/dL (0.2 mg/dL) Urine Leukocyte Esterase Trace (NEG) Urine RBC 3-5 /HPF (0-2) Urine WBC 1-4 /HPF (0-4) Urine Squamous Epithelial Cells Few /LPF Urine Bacteria Few /HPF (0-FEW) Laboratory Tests 01/07/19 18:50 Laboratory Tests 01/07/19 18:50 EKG EKG []EKG shows a normal sinus rhythm with a rate of 61 nonspecific changes d iffusely no STEMI was identified Radiology/Procedures Radiology/Procedures []Technique: Contiguous axial imaging of the chest abdomen pelvis performed following the bolus and demonstration of 90 cc Omnipaque 350. Study was performed as dedicated CTA with thin cut coronal and sagittal MIPS reconstructions and 3-D rotational reconstruction. One or more of the following individualized dose reduction techniques were utilized for this examination: 1. Automated exposure control 2. Adjustment of the mA and/or kV according to patient size 3. Use of iterative reconstruction technique Findings: Heart size is upper limits of normal. No pericardial effusion. Scattered coronary calcifications. Mild ectasia of the ascending thoracic aorta measuring 3.8 cm transverse. Descending aorta is normal in caliber. No intimal flap or periaortic fluid collection. No mediastinal, hilar or axillary lymphadenopathy. Thyroid gland is unremarkable. Central airways are patent. Patchy groundglass opacity at the dependent lower lobes. There is a linear band of increased density in the right middle lobe, likely scar or atelectasis. No consolidation or pleural effusion. No pneumothorax. Minimal linear scar or atelectasis in the lingula. Images of the abdomen and pelvis show normal caliber abdominal aorta. No intimal flap or periaortic fluid collection. There is diffuse calcific and soft plaquing throughout. Moderate grade narrowing of the celiac origin and SMA origin. Moderate to high-grade narrowing of the MARIE origin. Suspected moderate grade narrowing of the right renal artery origin with mild narrowing of the left renal artery origin. There are 2 accessory renal arteries on the right. Liver, spleen, pancreas, adrenal glands and kidneys are unremarkable. No hydronephrosis. Gallbladder unremarkable. Unopacified GI tract normal in caliber and contour. No focal bowel wall thickening. Appendix normal in caliber. No ascites or lymphadenopathy. Images of the pelvis show nondistended urinary bladder. Uterus and adnexa are unremarkable. Trace amount of free pelvic fluid. No pelvic lymphadenopathy. Bone windows show no acute findings. Multilevel spondylosis. Mild to moderate degenerative change of the bilateral hip joint, right greater than left. IMPRESSION: 1. No acute abnormality of chest abdomen pelvis. No evidence of aortic dissection. 2. Coronary artery calcifications and mild ectasia of the ascending thoracic aorta. 3. Patchy and linear opacities at both lung bases, likely atelectasis. 4. 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 5. Small amount of free pelvic fluid, nonspecific. Electronically signed by: Obed Wade MD (01/07/2019 8:29 PM) [facility] DICTATED and SIGNED BY: OBED WADE MD DATE: 01/07/192028 Impressions: No comparison available. Course & Med Decision Making Course & Med Decision Making Pertinent Labs and Imaging studies reviewed. (See chart for details) []Heart score is a H1E1 a one R 2 T0= 5 . Needs risk stratification has not had it yet Troponin negative in the emergency room d-dimer was elevated we did a CAT scan no obvious abnormality was identified I spoke with Dr. garcia, for admission stress test or stratification chest pain evaluation Dragon Disclaimer Dragon Disclaimer This electronic medical record was generated, in whole or in part, using a voice recognition dictation system. Departure Departure Impression: Primary Impression: Chest pain Disposition: ADMITTED INPATIENT Admitting Physician: MOE Condition: STABLE Referrals: UNKNOWN PCP NAME (PCP) SHRAVAN WELLS MD Jan 07, 2019 21:00
[2019-01-07] MEDS: SIMVASTATIN 40 MG TABLET. PO SCH (22:35)
[2019-01-07] MEDS: oxyCODONE/APAP 5/325 1 TAB TABLET PO PRN (22:35)
[2019-01-07 23:48] VITALS: BP 133/82
[2019-01-08] MEDS: MORPHINE SULFATE 2 MG/ML VIAL. IV PRN ×4 (02:14→16:29)
[2019-01-08 03:41] VITALS: BP 114/54
[2019-01-08 07:00] VITALS: BP 130/74
--- NOTE | 2019-01-08 07:33 | EKG ---
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
[2019-01-08] MEDS ORDERED: FLU VAX QS 2019-20 (36MOS+)/PF 0.5 ML SYRINGE. VAX IM ONE (09:00)
[2019-01-08] MEDS: ASPIRIN ENTERIC COATED 325 MG TABLET.DR. PO SCH ×2 (09:00→16:30)
--- NOTE | 2019-01-08 09:59 | PDOC1 ---
History and Physical Date of Admission Date of Admission DATE: 01/08/19 TIME: 09:57 Identification/Chief Complaint Chief Complaint recurrent chest discomfort Past Medical History Past Medical History Past Medical History Past Medical History Past Medical History: High Cholesterol, Hypertension, Kidney Stone Past Surgical History: No Surgical History Alcohol Use: None Drug Use: None FHX HYPERLIPIDEMIA Cardiovascular: HTN, Hyperlipidemia Pulmonary: Asthma, Pulmonary embolus CENTRAL NERVOUS SYSTEM: Other GI: Peptic Ulcer disease Heme/Onc: No pertinent hx Hepatobiliary: No pertinent hx Psych: Anxiety Musculoskeletal: Osteoarthritis Rheumatologic: No pertinent hx Infectious disease: No pertinent hx Renal/: No pertinent hx Endocrine: No pertinent hx Past Surgical History Past Surgical History: Family History Family History: Heart Disease Social History Smoke: <1 pack per day ALCOHOL: rare Drugs: None Current Medications Current Medications Current Medications Multi-Ingredient Mouthwash/Gargle (Gi Cocktail) 20 ml 1X ONCE SWSW Last administered on 01/07/19at 19:18; Start 01/07/19 at 19:00; Stop 01/07/19 at 19:03; Status DC Aspirin (Children'S Aspirin) 324 mg 1X ONCE PO Last administered on 01/07/19at 19:18; Start 01/07/19 at 19:00; Stop 01/07/19 at 19:03; Status DC Albuterol/ Ipratropium (Duoneb) 3 ml 1X ONCE NEB Last administered on 01/07/19at 19:50; Start 01/07/19 at 19:00; Stop 01/07/19 at 19:03; Status DC Fentanyl Citrate (Fentanyl 2ml Vial) 50 mcg 1X ONCE IV Last administered on 01/07/19at 19:18; Start 01/07/19 at 19:15; Stop 01/07/19 at 19:16; Status DC Iohexol (Omnipaque 350 Mg/ml) 90 ml 1X ONCE IV Last administered on 01/07/19at 20:24; Start 01/07/19 at 20:00; Stop 01/07/19 at 20:01; Status DC Info (CONTRAST GIVEN -- Rx MONITORING) 1 each PRN DAILY PRN MC SEE COMMENTS; Start 01/07/19 at 20:00; Stop 01/09/19 at 19:59 Morphine Sulfate (Morphine Sulfate) 2 mg PRN Q2HR PRN IV PAIN Last administered on 01/08/19at 09:48; Start 01/07/19 at 20:00 Nitroglycerin (Nitrostat) 0.4 mg PRN Q5MIN PRN SL CHEST PAIN; Start 01/07/19 at 20:00 Temazepam (Restoril) 7.5 mg PRN QHS PRN PO INSOMNIA; Start 01/07/19 at 20:00 Acetaminophen (Tylenol) 500 mg PRN Q6HRS PRN PO MILD PAIN / TEMP; Start 01/07 at 20:00 Acetaminophen/ Codeine Phosphate (Tylenol #3) 1 tab PRN Q6HRS PRN PO MODERATE PAIN; Start 01/07/19 at 20:00 Calcium Carbonate/ Glycine (Tums) 500 mg PRN AFTMEALHC PRN PO INDIGESTION; Start 01/07/19 at 20:00 Oxycodone/ Acetaminophen (Percocet 5/325) 1 tab PRN Q4HRS PRN PO SEVERE PAIN Last administered on 01/07/19at 22:35; Start 01/07/19 at 20:00 Ondansetron HCl (Zofran) 4 mg PRN Q6HRS PRN IVP NAUSEA/VOMITING; Start 01/07/19 at 20:00 Clonidine HCl (Catapres) 0.1 mg PRN Q1HR PRN PO HYPERTENSION; Start 01/07/19 at 20:00 Aspirin (Ecotrin) 325 mg DAILY PO ; Start 01/08/19 at 09:00 Simvastatin (Zocor) 40 mg QHS PO Last administered on 01/07/19at 22:35; Start 01/07/19 at 21:00 Nitroglycerin (Nitrostat) 0.4 mg PRN Q5MIN PRN SL CHEST PAIN; Start 01/07/19 at 20:00; Stop 01/08/19 at 19:59 Influenza Virus Vaccine Quadrival (Afluria Quad 2019-20 (3yr Up) Syringe) 0.5 ml ONCE ONCE VAX IM ; Start 01/08/19 at 09:00; Stop 01/08/19 at 09:01; Status DC Active Scripts Active Aspirin Ec (Aspirin) 325 Mg Tablet. 1 Tab PO DAILY Simvastatin 40 Mg Tablet 40 Mg PO QHS 30 Days Allergies Allergies: Coded Allergies: No Known Drug Allergies (Unverified , 11/09/17) ROS Review of System Review of Systems Review of Systems Constitutional: Denies fever or chills [] Eyes: Denies change in visual acuity, redness, or eye pain [] GI: Denies abdominal pain, nausea, vomiting, bloody stools or diarrhea [] : Denies dysuria or hematuria [] Musculoskeletal: Integument: Denies rash or skin lesions [] Neurologic: Denies headache, focal weakness or sensory changes [] Endocrine: Denies polyuria or polydipsia [] 14 pt systems were reviewed and found to be within normal limits, except as documented Hematological and Lymphatic: No: Bleeding Problems, Blood Clots, Blood Transfusions, Brusing, Night Sweats, Pallor, Swollen Lymph Nodes, Other Gastrointestinal: Yes Abdominal Pain; No Nausea, No Vomiting, No Diarrhea, No Constipation, No Melena, No Hematochezia, No Other Physical Exam Physical Exam Physical Exam Physical Exam Constitutional: Well developed, well nourished, no acute distress, non-toxic appearance. [] HENT: Normocephalic, atraumatic, bilateral external ears normal, oropharynx moist, no oral exudates, nose normal. [] Eyes: PERRLA, EOMI, conjunctiva normal, no discharge. [] Neck: Normal range of motion, no tenderness, supple, no stridor. [] Cardiovascular:Heart rate regular rhythm, no murmur [] Lungs & Thorax: Bilateral breath sounds clear to auscultation [] Abdomen: Bowel sounds normal, soft, no tenderness, no masses, no pulsatile masses. [] Skin: Warm, dry, no erythema, no rash. [] Back: Reproducible tenderness noted bilateral back area Extremities: No tenderness, no cyanosis, no clubbing, ROM intact, no edema. [] Neurologic: Alert and oriented X 3, normal motor function, normal sensory function, no focal deficits noted. [] Psychologic: Affect normal, judgement normal, mood normal. [] General: Alert, Oriented X3, Cooperative, No acute distress Lungs: Clear to auscultation Heart: RRR Breasts: Not examined Extremities: No cyanosis Neuro: Normal speech, Cranial nerves 3-12 NL Psych/Mental Status: Mood NL Vitals Vitals Vital Signs Date Time Temp Pulse Resp B/P (MAP) Pulse Ox O2 Delivery O2 Flow Rate FiO2 01/08/19 09:48 19 98 Room Air 01/08/19 07:00 98.3 55 130/74 (92) 98.3 01/07/19 23:48 2.0 Labs Labs Laboratory Tests Test 01/07/19 18:50 01/07/19 20:15 01/07/19 22:50 01/08/19 01:50 White Blood Count 8.2 x10^3/uL (4.0-11.0) Red Blood Count 4.54 x10^6/uL (3.50-5.40) Hemoglobin 14.0 g/dL (12.0-15.5) Hematocrit 41.1 % (36.0-47.0) Mean Corpuscular Volume 91 fL (79-100) Mean Corpuscular Hemoglobin 31 pg (25-35) Mean Corpuscular Hemoglobin Concent 34 g/dL (31-37) Red Cell Distribution Width 13.5 % (11.5-14.5) Platelet Count 321 x10^3/uL (140-400) Neutrophils (%) (Auto) 60 % (31-73) Lymphocytes (%) (Auto) 31 % (24-48) Monocytes (%) (Auto) 7 % (0-9) Eosinophils (%) (Auto) 2 % (0-3) Basophils (%) (Auto) 1 % (0-3) Neutrophils # (Auto) 4.9 x10^3/uL (1.8-7.7) Lymphocytes # (Auto) 2.5 x10^3/uL (1.0-4.8) Monocytes # (Auto) 0.6 x10^3/uL (0.0-1.1) Eosinophils # (Auto) 0.1 x10^3/uL (0.0-0.7) Basophils # (Auto) 0.1 x10^3/uL (0.0-0.2) Prothrombin Time 12.1 SEC (11.7-14.0) Prothromb Time International Ratio 0.9 (0.8-1.1) D-Dimer (Cherie) 0.62 ug/mlFEU (0.00-0.50) Sodium Level 138 mmol/L (136-145) Potassium Level 3.4 mmol/L (3.5-5.1) Chloride Level 102 mmol/L (98-107) Carbon Dioxide Level 27 mmol/L (21-32) Anion Gap 9 (6-14) Blood Urea Nitrogen 19 mg/dL (7-20) Creatinine 1.0 mg/dL (0.6-1.0) Estimated GFR (Cockcroft-Gault) 56.2 BUN/Creatinine Ratio 19 (6-20) Glucose Level 124 mg/dL (70-99) Calcium Level 9.1 mg/dL (8.5-10.1) Total Bilirubin 0.2 mg/dL (0.2-1.0) Aspartate Amino Transf (AST/SGOT) 16 U/L (15-37) Alanine Aminotransferase (ALT/SGPT) 18 U/L (14-59) Alkaline Phosphatase 115 U/L (46-116) Troponin I Quantitative < 0.017 ng/mL (0.000-0.055) < 0.017 ng/mL (0.000-0.055) < 0.017 ng/mL (0.000-0.055) Total Protein 7.9 g/dL (6.4-8.2) Albumin 3.7 g/dL (3.4-5.0) Albumin/Globulin Ratio 0.9 (1.0-1.7) Lipase 187 U/L (73-393) Urine Collection Type Unknown Urine Color Yellow Urine Clarity Clear Urine pH 6.5 Urine Specific [place] 1.015 Urine Protein Negative mg/dL (NEG-TRACE) Urine Glucose (UA) Negative mg/dL (NEG) Urine Ketones (Stick) Negative mg/dL (NEG) Urine Blood Small (NEG) Urine Nitrite Negative (NEG) Urine Bilirubin Negative (NEG) Urine Urobilinogen Dipstick 0.2 mg/dL (0.2 mg/dL) Urine Leukocyte Esterase Trace (NEG) Urine RBC 3-5 /HPF (0-2) Urine WBC 1-4 /HPF (0-4) Urine Squamous Epithelial Cells Few /LPF Urine Bacteria Few /HPF (0-FEW) Laboratory Tests Test 01/07/19 18:50 01/07/19 20:15 01/07/19 22:50 01/08/19 01:50 White Blood Count 8.2 x10^3/uL (4.0-11.0) Red Blood Count 4.54 x10^6/uL (3.50-5.40) Hemoglobin 14.0 g/dL (12.0-15.5) Hematocrit 41.1 % (36.0-47.0) Mean Corpuscular Volume 91 fL (79-100) Mean Corpuscular Hemoglobin 31 pg (25-35) Mean Corpuscular Hemoglobin Concent 34 g/dL (31-37) Red Cell Distribution Width 13.5 % (11.5-14.5) Platelet Count 321 x10^3/uL (140-400) Neutrophils (%) (Auto) 60 % (31-73) Lymphocytes (%) (Auto) 31 % (24-48) Monocytes (%) (Auto) 7 % (0-9) Eosinophils (%) (Auto) 2 % (0-3) Basophils (%) (Auto) 1 % (0-3) Neutrophils # (Auto) 4.9 x10^3/uL (1.8-7.7) Lymphocytes # (Auto) 2.5 x10^3/uL (1.0-4.8) Monocytes # (Auto) 0.6 x10^3/uL (0.0-1.1) Eosinophils # (Auto) 0.1 x10^3/uL (0.0-0.7) Basophils # (Auto) 0.1 x10^3/uL (0.0-0.2) Prothrombin Time 12.1 SEC (11.7-14.0) Prothromb Time International Ratio 0.9 (0.8-1.1) D-Dimer (Cherie) 0.62 ug/mlFEU (0.00-0.50) Sodium Level 138 mmol/L (136-145) Potassium Level 3.4 mmol/L (3.5-5.1) Chloride Level 102 mmol/L (98-107) Carbon Dioxide Level 27 mmol/L (21-32) Anion Gap 9 (6-14) Blood Urea Nitrogen 19 mg/dL (7-20) Creatinine 1.0 mg/dL (0.6-1.0) Estimated GFR (Cockcroft-Gault) 56.2 BUN/Creatinine Ratio 19 (6-20) Glucose Level 124 mg/dL (70-99) Calcium Level 9.1 mg/dL (8.5-10.1) Total Bilirubin 0.2 mg/dL (0.2-1.0) Aspartate Amino Transf (AST/SGOT) 16 U/L (15-37) Alanine Aminotransferase (ALT/SGPT) 18 U/L (14-59) Alkaline Phosphatase 115 U/L (46-116) Troponin I Quantitative < 0.017 ng/mL (0.000-0.055) < 0.017 ng/mL (0.000-0.055) < 0.017 ng/mL (0.000-0.055) Total Protein 7.9 g/dL (6.4-8.2) Albumin 3.7 g/dL (3.4-5.0) Albumin/Globulin Ratio 0.9 (1.0-1.7) Lipase 187 U/L (73-393) Urine Collection Type Unknown Urine Color Yellow Urine Clarity Clear Urine pH 6.5 Urine Specific [place] 1.015 Urine Protein Negative mg/dL (NEG-TRACE) Urine Glucose (UA) Negative mg/dL (NEG) Urine Ketones (Stick) Negative mg/dL (NEG) Urine Blood Small (NEG) Urine Nitrite Negative (NEG) Urine Bilirubin Negative (NEG) Urine Urobilinogen Dipstick 0.2 mg/dL (0.2 mg/dL) Urine Leukocyte Esterase Trace (NEG) Urine RBC 3-5 /HPF (0-2) Urine WBC 1-4 /HPF (0-4) Urine Squamous Epithelial Cells Few /LPF Urine Bacteria Few /HPF (0-FEW) Images Images [address] [id number] Test Date: 2019-01-07 Test Time: 18:40:50 Pat Name: RAO FAITH Department: Room: [facility] Gender: F Pacu Nurse: : [id number] Requested By: SHRAVAN WELLS Order Number: [id number] Reading MD: Maxim Arnold Measurements Intervals Pec[place]iar Rate: 61 P: -24 MO: 172 QRS: -16 QRSD: 84 T: -1 QT: 440 QTc: 444 Interpretive Statements SINUS RHYTHM LEFTWARD AXIS T ABNORMALITY IN ANTERIOR LEADS Electronically Signed On 01-08-2019 13:53:44 [employer]CHNICIAN by Maxim Arnold DICTATED and SIGNED BY: MAIXM ARNOLD MD DATE: 01/07/19 967 Exam: Right Upper Quadrant Ultrasound 12/29/2018 3:08 PM Indication: Epigastric pain CT of the abdomen and pelvis October 22, 2018 Technique: Multiple realtime grayscale sonographic images were obtained over the abdomen. Static images were submitted for interpretation. Comparisons: None Findings: Visualized pancreas is unremarkable. Common bile duct is nondilated measuring 2 to 3 mm in diameter. The gallbladder demonstrates no evidence of wall thickening, stones, or sludge. The liver is grossly normal in appearance. The liver measures 16 cm longitudinally. Portal venous flows in the normal direction. No focal hepatic lesions are seen. The right kidney is unremarkable in appearance measuring 12 cm in length. Impression: No sonographic evidence of acute intra-abdominal abnormality Electronically signed by: Villa Ramachandran MD (12/29/2018 4:19 PM) [facility] DICTATED and SIGNED BY: VLILA RAMACHANDRAN MD Comparison: 10/22/2018 Technique: Contiguous axial imaging of the chest abdomen pelvis performed following the bolus and demonstration of 90 cc Omnipaque 350. Study was performed as dedicated CTA with thin cut coronal and sagittal MIPS reconstructions and 3-D rotational reconstruction. One or more of the following individualized dose reduction techniques were utilized for this examination: 1. Automated exposure control 2. Adjustment of the mA and/or kV according to patient size 3. Use of iterative reconstruction technique Findings: Heart size is upper limits of normal. No pericardial effusion. Scattered coronary calcifications. Mild ectasia of the ascending thoracic aorta measuring 3.8 cm transverse. Descending aorta is normal in caliber. No intimal flap or periaortic fluid collection. No mediastinal, hilar or axillary lymphadenopathy. Thyroid gland is unremarkable. Central airways are patent. Patchy groundglass opacity at the dependent lower lobes. There is a linear band of increased density in the right middle lobe, likely scar or atelectasis. No consolidation or pleural effusion. No pneumothorax. Minimal linear scar or atelectasis in the lingula. Images of the abdomen and pelvis show normal caliber abdominal aorta. No intimal flap or periaortic fluid collection. There is diffuse calcific and soft plaquing throughout. Moderate grade narrowing of the celiac origin and SMA origin. Moderate to high-grade narrowing of the MARIE origin. Suspected moderate grade narrowing of the right renal artery origin with mild narrowing of the left renal artery origin. There are 2 accessory renal arteries on the right. Liver, spleen, pancreas, adrenal glands and kidneys are unremarkable. No hydronephrosis. Gallbladder unremarkable. Unopacified GI tract normal in caliber and contour. No focal bowel wall thickening. Appendix normal in caliber. No ascites or lymphadenopathy. Images of the pelvis show nondistended urinary bladder. Uterus and adnexa are unremarkable. Trace amount of free pelvic fluid. No pelvic lymphadenopathy. Bone windows show no acute findings. Multilevel spondylosis. Mild to moderate degenerative change of the bilateral hip joint, right greater than left. IMPRESSION: 1. No acute abnormality of chest abdomen pelvis. No evidence of aortic dissection. 2. Coronary artery calcifications and mild ectasia of the ascending thoracic aorta. 3. Patchy and linear opacities at both lung bases, likely atelectasis. 4. 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 5. Small amount of free pelvic fluid, nonspecific. 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 ON CTA ABDOMEN PLAN ADMIT CARDIOLOGY CONSULT GI CONSULT MPI to r/o ischemia consider IR/vascular opinion re: CTA findings. dvt prophylaxis 57 min pt exam, chart review, > 50% of time spent with exam, chart review, pt care coordination CAMERON ALVAREZ MD Jan 08, 2019 09:59
--- NOTE | 2019-01-08 10:52 | PDOC2 ---
CARDIAC CONSULT DATE OF CONSULT Date of Consult DATE: 01/08/19 TIME: 10:43 REASON FOR CONSULT Reason for Consult: Chest pain REFERRING PHYSICIAN Referring Physician: Dr. Espino SOURCE Source: Chart review, Patient HISTORY OF PRESENT ILLNESS HISTORY OF PRESENT ILLNESS This is a 63 yo female who presented secondary to shortness of breath and chest pain. Pain has been intermittent for the last day and a half. Located in her left chest. Describes as stabbing in nature. Associated with shortness of breath and diaphoresis. No palpitations, diaphoresis. Did have some mild nausea. No vomiting. No specific worsening or relieving factors. Was seen by our service recently for similar pain. Echo noted normal LV systolic function. Outpatient MPI was recommended. PAST MEDICAL HISTORY Past Medical History Cardiovascular: HTN, Hyperlipidemia Pulmonary: Asthma, Pulmonary embolus CENTRAL NERVOUS SYSTEM: Other GI: Peptic Ulcer disease Heme/Onc: No pertinent hx Hepatobiliary: No pertinent hx Psych: Anxiety Musculoskeletal: Osteoarthritis Rheumatologic: No pertinent hx Infectious disease: No pertinent hx Renal/: No pertinent hx Endocrine: No pertinent hx PAST SURGICAL HISTORY Past Surgical History: No pertinent history FAMILY HISTORY Family History: Hypertension SOCIAL HISTORY Smoke: No ALCOHOL: none Drugs: None Lives: with Family CURRENT MEDICATIONS CURRENT MEDICATIONS Current Medications Medications (Trade) Dose Ordered Sig/Amanda Route PRN Reason Start Time Stop Time Status Last Admin Dose Admin Multi-Ingredient Mouthwash/Gargle (Gi Cocktail) 20 ml 1X ONCE SWSW 01/07/19 19:00 01/07/19 19:03 DC 01/07/19 19:18 Aspirin (Children'S Aspirin) 324 mg 1X ONCE PO 01/07/19 19:00 01/07/19 19:03 DC 01/07/19 19:18 Albuterol/ Ipratropium (Duoneb) 3 ml 1X ONCE NEB 01/07/19 19:00 01/07/19 19:03 DC 01/07/19 19:50 Fentanyl Citrate (Fentanyl 2ml Vial) 50 mcg 1X ONCE IV 01/07/19 19:15 01/07/19 19:16 DC 01/07/19 19:18 Iohexol (Omnipaque 350 Mg/ml) 90 ml 1X ONCE IV 01/07/19 20:00 01/07/19 20:01 DC 01/07/19 20:24 Morphine Sulfate (Morphine Sulfate) 2 mg PRN Q2HR PRN IV PAIN 01/07/19 20:00 01/08/19 09:48 Oxycodone/ Acetaminophen (Percocet 5/325) 1 tab PRN Q4HRS PRN PO SEVERE PAIN 01/07/19 20:00 01/07/19 22:35 Simvastatin (Zocor) 40 mg QHS PO 01/07/19 21:00 01/07/19 22:35 ALLERGIES ALLERGIES: Coded Allergies: No Known Drug Allergies (Unverified , 11/09/17) ROS Review of System 14 point ROS conducted with pertinent positives noted above in HPI. PHYSICAL EXAM General: Alert, Oriented X3, Cooperative, No acute distress HEENT: Atraumatic, Mucous membr. moist/pink Lungs: Clear to auscultation, Normal air movement Heart: Regular rate, Normal S1, Normal S2, No murmurs Abdomen: Soft, No tenderness Extremities: No edema, Normal pulses Skin: No significant lesion Neuro: Normal speech, Sensation intact Psych/Mental Status: Mental status NL, Mood NL MUSCULOSKELETAL: No joint tenderness VITALS/I&O VITALS/I&O: Vital Signs Date Time Temp Pulse Resp B/P (MAP) Pulse Ox O2 Delivery O2 Flow Rate FiO2 01/08/19 09:48 19 98 Room Air 01/08/19 07:00 98.3 55 130/74 (92) 98.3 01/07/19 23:48 2.0 I & O 01/07/19 01/07/19 01/08/19 15:00 23:00 07:00 Intake Total 400 ml Balance 400 ml LABS Lab: Laboratory Tests Test 01/07/19 18:50 01/07/19 20:15 01/07/19 22:50 01/08/19 01:50 White Blood Count 8.2 x10^3/uL (4.0-11.0) Red Blood Count 4.54 x10^6/uL (3.50-5.40) Hemoglobin 14.0 g/dL (12.0-15.5) Hematocrit 41.1 % (36.0-47.0) Mean Corpuscular Volume 91 fL (79-100) Mean Corpuscular Hemoglobin 31 pg (25-35) Mean Corpuscular Hemoglobin Concent 34 g/dL (31-37) Red Cell Distribution Width 13.5 % (11.5-14.5) Platelet Count 321 x10^3/uL (140-400) Neutrophils (%) (Auto) 60 % (31-73) Lymphocytes (%) (Auto) 31 % (24-48) Monocytes (%) (Auto) 7 % (0-9) Eosinophils (%) (Auto) 2 % (0-3) Basophils (%) (Auto) 1 % (0-3) Neutrophils # (Auto) 4.9 x10^3/uL (1.8-7.7) Lymphocytes # (Auto) 2.5 x10^3/uL (1.0-4.8) Monocytes # (Auto) 0.6 x10^3/uL (0.0-1.1) Eosinophils # (Auto) 0.1 x10^3/uL (0.0-0.7) Basophils # (Auto) 0.1 x10^3/uL (0.0-0.2) Prothrombin Time 12.1 SEC (11.7-14.0) Prothrombin Time INR 0.9 (0.8-1.1) D-Dimer (Cherie) 0.62 ug/mlFEU (0.00-0.50) H Sodium Level 138 mmol/L (136-145) Potassium Level 3.4 mmol/L (3.5-5.1) L Chloride Level 102 mmol/L (98-107) Carbon Dioxide Level 27 mmol/L (21-32) Anion Gap 9 (6-14) Blood Urea Nitrogen 19 mg/dL (7-20) Creatinine 1.0 mg/dL (0.6-1.0) Estimated GFR (Cockcroft-Gault) 56.2 BUN/Creatinine Ratio 19 (6-20) Glucose Level 124 mg/dL (70-99) H Calcium Level 9.1 mg/dL (8.5-10.1) Total Bilirubin 0.2 mg/dL (0.2-1.0) Aspartate Amino Transferase (AST) 16 U/L (15-37) Alanine Aminotransferase (ALT) 18 U/L (14-59) Alkaline Phosphatase 115 U/L (46-116) Troponin I Quantitative < 0.017 ng/mL (0.000-0.055) < 0.017 ng/mL (0.000-0.055) < 0.017 ng/mL (0.000-0.055) Total Protein 7.9 g/dL (6.4-8.2) Albumin 3.7 g/dL (3.4-5.0) Albumin/Globulin Ratio 0.9 (1.0-1.7) L Lipase 187 U/L (73-393) Urine Collection Type Unknown Urine Color Yellow Urine Clarity Clear Urine pH 6.5 Urine Specific [place] 1.015 Urine Protein Negative mg/dL (NEG-TRACE) Urine Glucose (UA) Negative mg/dL (NEG) Urine Ketones (Stick) Negative mg/dL (NEG) Urine Blood Small (NEG) Urine Nitrite Negative (NEG) Urine Bilirubin Negative (NEG) Urine Urobilinogen Dipstick 0.2 mg/dL (0.2 mg/dL) Urine Leukocyte Esterase Trace (NEG) Urine RBC 3-5 /HPF (0-2) Urine WBC 1-4 /HPF (0-4) Urine Squamous Epithelial Cells Few /LPF Urine Bacteria Few /HPF (0-FEW) Laboratory Tests 01/07/19 18:50 Laboratory Tests 01/07/19 18:50 ECHOCARDIOGRAM ECHOCARDIOGRAM <Conclusion> The left ventricle is normal size. The left ventricular systolic function is normal and the ejection fraction is within normal range. The Ejection Fraction is 55-60%. Doppler and Color Flow revealed no significant aortic regurgitation. There is no significant aortic valvular stenosis. Doppler and Color Flow revealed no mitral valve regurgitation noted. Doppler and Color Flow revealed trace tricuspid regurgitation with an estimated PAP of 28 mmHg. DATE: 12/31/18 1530 ASSESSMENT/PLAN ASSESSMENT/PLAN 1. Chest pain, mixed features. AMI ruled out. 2. Coronary artery calcifications noted as per CTA 3. Hypertension; controlled 4. Hyperlipidemia; statin therapy. LDL 111 5. Tobaccoism; discussed/encouraged cessation 6. Sinus bradycardia. Lowest 52. No pauses. Recommendations ASA , statin therapy Given recurrent chest pain and significant risk factors, will proceed with MPI to r/o ischemia ROCKY HART APRN Jan 08, 2019 10:52
[2019-01-08 11:00] VITALS: BP 138/75
--- NOTE | 2019-01-08 12:31 | PDOC2 ---
GI CONSULT Reason For Consult: Possible ischemic bowel, SMA narrowing HPI: HPI: 63 y/o female who reports she came to the ER for SOA and pain from mid back radiating around both sides to abdomen - has occurred intermittently x 2 months - "bad pain." Worse w/ movement, sometimes associated w/ nausea. Pain is not worse with eating, but she "sometimes just doesn't eat." H/o GERD on omeprazole in the afternoon. No dysphagia, vomiting, diarrhea, hematochezia, or melena. Has lost weight. H/o constipation on "red pills" from another doctor - takes PRN, apparently ineffective - last stooled ~3 days ago. EGD a couple years ago in ?[place] - "sometimes I have ulcers." No previous colonoscopy. No GB, liver, or pancreas history. PRN Aleve use at home. RUQ US unrevealing earlier this month. Low-risk MPI in 12/2017 and looks like plans to repeat this per cardiology. PMH: PMH: HTN, HLD, asthma, PE, anxiety, OA FH: Family History: Cancer (mother - unknown kind) Social History: Smoke: 1 pack per day ALCOHOL: rare Drugs: None ROS: GEN: Denies fevers, chills, sweats HEENT: Denies blurred vision, sore throat CV: Denies chest pain RESP: +SOAh GI: Per HPI : Denies hematuria, dysuria ENDO: +weight loss NEURO: Denies confusion, dizziness MSK: Denies weakness, joint pain/swelling SKIN: Denies jaundice, pruritus Vitals: Vitals: Vital Signs Date Time Temp Pulse Resp B/P (MAP) Pulse Ox O2 Delivery O2 Flow Rate FiO2 01/08/19 09:48 19 98 Room Air 01/08/19 07:00 98.3 55 130/74 (92) 98.3 01/07/19 23:48 2.0 Labs: Labs: Laboratory Tests Test 01/07/19 18:50 01/07/19 20:15 01/07/19 22:50 01/08/19 01:50 White Blood Count 8.2 x10^3/uL (4.0-11.0) Red Blood Count 4.54 x10^6/uL (3.50-5.40) Hemoglobin 14.0 g/dL (12.0-15.5) Hematocrit 41.1 % (36.0-47.0) Mean Corpuscular Volume 91 fL (79-100) Mean Corpuscular Hemoglobin 31 pg (25-35) Mean Corpuscular Hemoglobin Concent 34 g/dL (31-37) Red Cell Distribution Width 13.5 % (11.5-14.5) Platelet Count 321 x10^3/uL (140-400) Neutrophils (%) (Auto) 60 % (31-73) Lymphocytes (%) (Auto) 31 % (24-48) Monocytes (%) (Auto) 7 % (0-9) Eosinophils (%) (Auto) 2 % (0-3) Basophils (%) (Auto) 1 % (0-3) Neutrophils # (Auto) 4.9 x10^3/uL (1.8-7.7) Lymphocytes # (Auto) 2.5 x10^3/uL (1.0-4.8) Monocytes # (Auto) 0.6 x10^3/uL (0.0-1.1) Eosinophils # (Auto) 0.1 x10^3/uL (0.0-0.7) Basophils # (Auto) 0.1 x10^3/uL (0.0-0.2) Prothrombin Time 12.1 SEC (11.7-14.0) Prothromb Time International Ratio 0.9 (0.8-1.1) D-Dimer (Cherie) 0.62 ug/mlFEU (0.00-0.50) Sodium Level 138 mmol/L (136-145) Potassium Level 3.4 mmol/L (3.5-5.1) Chloride Level 102 mmol/L (98-107) Carbon Dioxide Level 27 mmol/L (21-32) Anion Gap 9 (6-14) Blood Urea Nitrogen 19 mg/dL (7-20) Creatinine 1.0 mg/dL (0.6-1.0) Estimated GFR (Cockcroft-Gault) 56.2 BUN/Creatinine Ratio 19 (6-20) Glucose Level 124 mg/dL (70-99) Calcium Level 9.1 mg/dL (8.5-10.1) Total Bilirubin 0.2 mg/dL (0.2-1.0) Aspartate Amino Transf (AST/SGOT) 16 U/L (15-37) Alanine Aminotransferase (ALT/SGPT) 18 U/L (14-59) Alkaline Phosphatase 115 U/L (46-116) Troponin I Quantitative < 0.017 ng/mL (0.000-0.055) < 0.017 ng/mL (0.000-0.055) < 0.017 ng/mL (0.000-0.055) Total Protein 7.9 g/dL (6.4-8.2) Albumin 3.7 g/dL (3.4-5.0) Albumin/Globulin Ratio 0.9 (1.0-1.7) Lipase 187 U/L (73-393) Urine Collection Type Unknown Urine Color Yellow Urine Clarity Clear Urine pH 6.5 Urine Specific [place] 1.015 Urine Protein Negative mg/dL (NEG-TRACE) Urine Glucose (UA) Negative mg/dL (NEG) Urine Ketones (Stick) Negative mg/dL (NEG) Urine Blood Small (NEG) Urine Nitrite Negative (NEG) Urine Bilirubin Negative (NEG) Urine Urobilinogen Dipstick 0.2 mg/dL (0.2 mg/dL) Urine Leukocyte Esterase Trace (NEG) Urine RBC 3-5 /HPF (0-2) Urine WBC 1-4 /HPF (0-4) Urine Squamous Epithelial Cells Few /LPF Urine Bacteria Few /HPF (0-FEW) Allergies: Coded Allergies: No Known Drug Allergies (Unverified , 11/09/17) Medications: Current Medications Medications (Trade) Dose Ordered Sig/Amanda Route PRN Reason Start Time Stop Time Status Last Admin Dose Admin Multi-Ingredient Mouthwash/Gargle (Gi Cocktail) 20 ml 1X ONCE SWSW 01/07/19 19:00 01/07/19 19:03 DC 01/07/19 19:18 Aspirin (Children'S Aspirin) 324 mg 1X ONCE PO 01/07/19 19:00 01/07/19 19:03 DC 01/07/19 19:18 Albuterol/ Ipratropium (Duoneb) 3 ml 1X ONCE NEB 01/07/19 19:00 01/07/19 19:03 DC 01/07/19 19:50 Fentanyl Citrate (Fentanyl 2ml Vial) 50 mcg 1X ONCE IV 01/07/19 19:15 01/07/19 19:16 DC 01/07/19 19:18 Iohexol (Omnipaque 350 Mg/ml) 90 ml 1X ONCE IV 01/07/19 20:00 01/07/19 20:01 DC 01/07/19 20:24 Morphine Sulfate (Morphine Sulfate) 2 mg PRN Q2HR PRN IV PAIN 01/07/19 20:00 01/08/19 09:48 Oxycodone/ Acetaminophen (Percocet 5/325) 1 tab PRN Q4HRS PRN PO SEVERE PAIN 01/07/19 20:00 01/07/19 22:35 Simvastatin (Zocor) 40 mg QHS PO 01/07/19 21:00 01/07/19 22:35 Imaging: Imaging: CXR 01/07 IMPRESSION: Suspected left lower lobe atelectasis. C/A/P CTA IMPRESSION: 1. No acute abnormality of chest abdomen pelvis. No evidence of aortic dissection. 2. Coronary artery calcifications and mild ectasia of the ascending thoracic aorta. 3. Patchy and linear opacities at both lung bases, likely atelectasis. 4. 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 5. Small amount of free pelvic fluid, nonspecific. PE: GEN: NAD HEENT: Atraumatic, PERRL LUNGS: CTAB HEART: RRR ABD: quiet BS, soft, vague tenderness - mostly toward right EXTREMITY: No edema SKIN: No rashes, no jaundice NEURO/PSYCH: A & O 3 A/P: A/P: SOA, back/abd pain, weight loss Abnormal CTA - coronary artery calcifications; moderate grade narrowing of the celiac artery, 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 GERD, ?h/o PUD CRC screen - none Constipation -- Continue per cardiology. Could consider IR/vascular opinion re: CTA findings. Resume PPI - advised better timing (in a.m. 30 min before breakfast). Treat constipation. Outpt screening colonoscopy. TAVIA YATES Jan 08, 2019 12:31
[2019-01-08] MEDS ORDERED: POLYETHYLENE GLYCOL 3350 17 GM PACKET. PO PRN (12:45)
[2019-01-08] MEDS ORDERED: BISACODYL 5 MG TABLET.DR. PO ONE (12:45)
[2019-01-08] MEDS ORDERED: ACETAMINOPHEN 325 MG TABLET. PO PRN (13:00)
[2019-01-08] MEDS ORDERED: guaiFENesin ORAL 200 MG/10 ML LIQUID. PO PRN (13:00)
[2019-01-08] MEDS ORDERED: REGADENOSON 0.4 MG/5 ML DISP.SYRIN. IV ONE (13:00)
[2019-01-08] MEDS ORDERED: LORazepam 0.5 MG TABLET PO PRN (13:00)
[2019-01-08] MEDS ORDERED: 0.9 % SODIUM CHLORIDE 10 ML DISP.SYRIN. IV PRN (13:00)
[2019-01-08] MEDS ORDERED: DOCUSATE SODIUM 100 MG CAPSULE. PO PRN (13:00)
[2019-01-08] MEDS ORDERED: cloNIDine HCL 0.1 MG TABLET PO PRN (13:00)
[2019-01-08] MEDS ORDERED: MAG HYDROX/ALUMINUM HYD/SIMETH 30 ML ORAL.SUSP PO PRN ×2 (13:00→18:30)
[2019-01-08] MEDS ORDERED: ALBUTEROL SULFATE 2.5 MG/3 ML NEBU. NEB PRN (13:00)
--- NOTE | 2019-01-08 14:42 | NUR ---
SW following pt for dc planning. Chart reviewed and pt lives at home with spouse/family. GI and Cardiology following. Pt is self pay and HCFS will f/u to determine eligibility for programs. SW will be available as needed.
[2019-01-08] MEDS: ONDANSETRON PF 4 MG/2 ML VIAL. IV PRN (16:29)
[2019-01-08] MEDS: PANTOPRAZOLE 40 MG TABLET.DR. PO SCH (16:29)
[2019-01-08] MEDS: ENOXAPARIN 40 MG/0.4 ML SYRINGE. SQ SCH (16:36)
--- NOTE | 2019-01-08 16:41 | NUR ---
Non administered flu vaccine today. Patient requests that flu shot be given tomorrow.
[2019-01-08 19:30] VITALS: BP 141/68
[2019-01-08] MEDS: TEMAZEPAM 7.5 MG CAPSULE PO PRN (20:06)
[2019-01-08] MEDS: oxyCODONE/APAP 5/325 1 TAB TABLET PO PRN (20:06)
[2019-01-08] MEDS: SIMVASTATIN 40 MG TABLET. PO SCH (20:06)
[2019-01-08] MEDS ORDERED: POTASSIUM CHLORIDE 20 MEQ TABLET.ER. PO ONE (20:30)
[2019-01-08 23:50] VITALS: BP 134/60
[2019-01-09] MEDS: oxyCODONE/APAP 5/325 1 TAB TABLET PO PRN ×5 (02:36→21:53)
[2019-01-09 03:59] VITALS: BP 128/69
[2019-01-09 04:45] LABS: CALCIUM 9.2 mg/dL (8.5-10.1); GFR 56.2; POTASSIUM 4.1 mmol/L (3.5-5.1)
[2019-01-09 07:00] VITALS: BP 116/74
--- NOTE | 2019-01-09 08:05 | RAD ---
STUDY: Ultrasound Limited abdominal Doppler INDICATION: Mesenteric artery narrowing on CTA. COMPARISON: 01/07/2019 CT angiogram TECHNIQUE: Limited abdominal Doppler evaluation of the mesenteric vessels. FINDINGS: Peak systolic velocity measurement within the aorta is 89 cm/s. Elevated peak systolic velocity at the superior mesenteric artery origin measuring 390 cm/s. At the mid and distal aspects of the evaluated superior mesenteric artery, peak systolic velocity measures 174 cm/s and 162 cm/s, respectively. Resistive index proximally is 0.53, mid at 0.63 and distally at 0.62. The celiac origin peak systolic velocity is elevated at 295 cm/s. The inferior mesenteric artery origin is difficult to evaluate due to its small size however in the expected location of the MARIE origin, very elevated peak systolic velocities are encountered measuring up to 356 cm/s. 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 Electronically signed by: ILEANA JEROME MD (01/09/2019 8:02 AM) [facility]
--- NOTE | 2019-01-09 08:15 | PDOC ---
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 ON CTA ABDOMEN ///IR and vascular CONSULTED. Continue PPI PLAN ADMIT CARDIOLOGY CONSULT GI CONSULT MPI to r/o ischemia consider IR/vascular opinion re: CTA findings. dvt prophylaxis 38 min pt exam, chart review, > 50% of time spent with exam, chart review, pt care coordination Vitals Vitals Vital Signs Date Time Temp Pulse Resp B/P (MAP) Pulse Ox O2 Delivery O2 Flow Rate FiO2 01/09/19 07:00 97.7 67 20 116/74 (88) 96 Room Air 97.7 Physical Exam General: Alert, Oriented X3, Cooperative, No acute distress, mild distress Heart: Regular rate, Normal S1, Normal S2, No murmurs Lungs: Clear, Wheezing Abdomen: Soft, No tenderness Extremities: No cyanosis, No edema, Normal pulses Skin: No significant lesion Labs LABS Laboratory Tests Test 01/09/19 03:35 Sodium Level 139 mmol/L (136-145) Potassium Level 4.1 mmol/L (3.5-5.1) Chloride Level 103 mmol/L (98-107) Carbon Dioxide Level 28 mmol/L (21-32) Anion Gap 8 (6-14) Blood Urea Nitrogen 26 mg/dL (7-20) Creatinine 1.0 mg/dL (0.6-1.0) Estimated GFR (Cockcroft-Gault) 56.2 Glucose Level 122 mg/dL (70-99) Calcium Level 9.2 mg/dL (8.5-10.1) Comment Review of Relevant I have reviewed the following items charlene (where applicable) has been applied. Labs Laboratory Tests Test 01/07/19 18:50 01/07/19 20:15 01/07/19 22:50 01/08/19 01:50 White Blood Count 8.2 x10^3/uL (4.0-11.0) Red Blood Count 4.54 x10^6/uL (3.50-5.40) Hemoglobin 14.0 g/dL (12.0-15.5) Hematocrit 41.1 % (36.0-47.0) Mean Corpuscular Volume 91 fL (79-100) Mean Corpuscular Hemoglobin 31 pg (25-35) Mean Corpuscular Hemoglobin Concent 34 g/dL (31-37) Red Cell Distribution Width 13.5 % (11.5-14.5) Platelet Count 321 x10^3/uL (140-400) Neutrophils (%) (Auto) 60 % (31-73) Lymphocytes (%) (Auto) 31 % (24-48) Monocytes (%) (Auto) 7 % (0-9) Eosinophils (%) (Auto) 2 % (0-3) Basophils (%) (Auto) 1 % (0-3) Neutrophils # (Auto) 4.9 x10^3/uL (1.8-7.7) Lymphocytes # (Auto) 2.5 x10^3/uL (1.0-4.8) Monocytes # (Auto) 0.6 x10^3/uL (0.0-1.1) Eosinophils # (Auto) 0.1 x10^3/uL (0.0-0.7) Basophils # (Auto) 0.1 x10^3/uL (0.0-0.2) Prothrombin Time 12.1 SEC (11.7-14.0) Prothromb Time International Ratio 0.9 (0.8-1.1) D-Dimer (Cherie) 0.62 ug/mlFEU (0.00-0.50) Sodium Level 138 mmol/L (136-145) Potassium Level 3.4 mmol/L (3.5-5.1) Chloride Level 102 mmol/L (98-107) Carbon Dioxide Level 27 mmol/L (21-32) Anion Gap 9 (6-14) Blood Urea Nitrogen 19 mg/dL (7-20) Creatinine 1.0 mg/dL (0.6-1.0) Estimated GFR (Cockcroft-Gault) 56.2 BUN/Creatinine Ratio 19 (6-20) Glucose Level 124 mg/dL (70-99) Calcium Level 9.1 mg/dL (8.5-10.1) Total Bilirubin 0.2 mg/dL (0.2-1.0) Aspartate Amino Transf (AST/SGOT) 16 U/L (15-37) Alanine Aminotransferase (ALT/SGPT) 18 U/L (14-59) Alkaline Phosphatase 115 U/L (46-116) Troponin I Quantitative < 0.017 ng/mL (0.000-0.055) < 0.017 ng/mL (0.000-0.055) < 0.017 ng/mL (0.000-0.055) Total Protein 7.9 g/dL (6.4-8.2) Albumin 3.7 g/dL (3.4-5.0) Albumin/Globulin Ratio 0.9 (1.0-1.7) Lipase 187 U/L (73-393) Urine Collection Type Unknown Urine Color Yellow Urine Clarity Clear Urine pH 6.5 Urine Specific [place] 1.015 Urine Protein Negative mg/dL (NEG-TRACE) Urine Glucose (UA) Negative mg/dL (NEG) Urine Ketones (Stick) Negative mg/dL (NEG) Urine Blood Small (NEG) Urine Nitrite Negative (NEG) Urine Bilirubin Negative (NEG) Urine Urobilinogen Dipstick 0.2 mg/dL (0.2 mg/dL) Urine Leukocyte Esterase Trace (NEG) Urine RBC 3-5 /HPF (0-2) Urine WBC 1-4 /HPF (0-4) Urine Squamous Epithelial Cells Few /LPF Urine Bacteria Few /HPF (0-FEW) Test 01/09/19 03:35 Sodium Level 139 mmol/L (136-145) Potassium Level 4.1 mmol/L (3.5-5.1) Chloride Level 103 mmol/L (98-107) Carbon Dioxide Level 28 mmol/L (21-32) Anion Gap 8 (6-14) Blood Urea Nitrogen 26 mg/dL (7-20) Creatinine 1.0 mg/dL (0.6-1.0) Estimated GFR (Cockcroft-Gault) 56.2 Glucose Level 122 mg/dL (70-99) Calcium Level 9.2 mg/dL (8.5-10.1) Laboratory Tests Test 01/09/19 03:35 Sodium Level 139 mmol/L (136-145) Potassium Level 4.1 mmol/L (3.5-5.1) Chloride Level 103 mmol/L (98-107) Carbon Dioxide Level 28 mmol/L (21-32) Anion Gap 8 (6-14) Blood Urea Nitrogen 26 mg/dL (7-20) Creatinine 1.0 mg/dL (0.6-1.0) Estimated GFR (Cockcroft-Gault) 56.2 Glucose Level 122 mg/dL (70-99) Calcium Level 9.2 mg/dL (8.5-10.1) Medications Current Medications Multi-Ingredient Mouthwash/Gargle (Gi Cocktail) 20 ml 1X ONCE SWSW Last administered on 01/07/19at 19:18; Start 01/07/19 at 19:00; Stop 01/07/19 at 19:03; Status DC Aspirin (Children'S Aspirin) 324 mg 1X ONCE PO Last administered on 01/07/19 19:18; Start 01/07/19 at 19:00; Stop 01/07/19 at 19:03; Status DC Albuterol/ Ipratropium (Duoneb) 3 ml 1X ONCE NEB Last administered on 01/07/19at 19:50; Start 01/07/19 at 19:00; Stop 01/07/19 at 19:03; Status DC Fentanyl Citrate (Fentanyl 2ml Vial) 50 mcg 1X ONCE IV Last administered on 01/07/19 19:18; Start 01/07/19 at 19:15; Stop 01/07/19 at 19:16; Status DC Iohexol (Omnipaque 350 Mg/ml) 90 ml 1X ONCE IV Last administered on 01/07/19at 20:24; Start 01/07/19 at 20:00; Stop 01/07/19 at 20:01; Status DC Info (CONTRAST GIVEN -- Rx MONITORING) 1 each PRN DAILY PRN MC SEE COMMENTS; Start 01/07/19 at 20:00; Stop 01/09/19 at 19:59 Morphine Sulfate (Morphine Sulfate) 2 mg PRN Q2HR PRN IV PAIN Last administered on 01/08/19at 16:29; Start 01/07/19 at 20:00 Nitroglycerin (Nitrostat) 0.4 mg PRN Q5MIN PRN SL CHEST PAIN; Start 01/07/19 at 20:00 Temazepam (Restoril) 7.5 mg PRN QHS PRN PO INSOMNIA Last administered on 01/08/19at 20:06; Start 01/07/19 at 20:00 Acetaminophen (Tylenol) 500 mg PRN Q6HRS PRN PO MILD PAIN / TEMP; Start 01/07/19 at 20:00; Stop 01/08/19 at 12:53; Status DC Acetaminophen/ Codeine Phosphate (Tylenol #3) 1 tab PRN Q6HRS PRN PO MODERATE PAIN; Start 01/07/19 at 20:00 Calcium Carbonate/ Glycine (Tums) 500 mg PRN AFTMEALHC PRN PO INDIGESTION Last administered on 01/08/19at 20:09; Start 01/07/19 at 20:00 Oxycodone/ Acetaminophen (Percocet 5/325) 1 tab PRN Q4HRS PRN PO SEVERE PAIN Last administered on 01/09/19at 02:36; Start 01/07/19 at 20:00 Ondansetron HCl (Zofran) 4 mg PRN Q6HRS PRN IVP NAUSEA/VOMITING; Start 01/07/19 at 20:00; Stop 01/08/19 at 12:53; Status DC Clonidine HCl (Catapres) 0.1 mg PRN Q1HR PRN PO HYPERTENSION; Start 01/07/19 at 20:00; Stop 01/08/19 at 12:53; Status DC Aspirin (Ecotrin) 325 mg DAILY PO Last administered on 01/08/19at 16:30; Start 01/08/19 at 09:00 Simvastatin (Zocor) 40 mg QHS PO Last administered on 01/08/19at 20:06; Start 01/07/19 at 21:00 Nitroglycerin (Nitrostat) 0.4 mg PRN Q5MIN PRN SL CHEST PAIN; Start 01/07/19 at 20:00; Stop 01/08/19 at 11:50; Status DC Influenza Virus Vaccine Quadrival (Afluria Quad 2019-20 (3yr Up) Syringe) 0.5 ml ONCE ONCE VAX IM ; Start 01/08/19 at 09:00; Stop 01/08/19 at 09:01; Status DC Bisacodyl (Dulcolax Tab) 10 mg 1X ONCE PO Last administered on 01/08/19at 16:30; Start 01/08/19 at 12:45; Stop 01/08/19 at 12:46; Status DC Polyethylene Glycol (miraLAX PACKET) 17 gm DAILY PO ; Start 01/09/19 at 09:00 Polyethylene Glycol (miraLAX PACKET) 17 gm PRN DAILY PRN PO CONSTIPATION; Start 01/08/19 at 12:45 Pantoprazole Sodium (Protonix) 40 mg DAILYAC PO Last administered on 01/08/19at 16:29; Start 01/08/19 at 13:00 Sodium Chloride (Normal Saline Flush) 3 ml QSHIFT PRN IV AFTER MEDS AND BLOOD DRAWS; Start 01/08/19 at 13:00 Ondansetron HCl (Zofran) 4 mg PRN Q4HRS PRN IV NAUSEA/VOMITING Last administered on 01/08/19at 16:29; Start 01/08/19 at 13:00 Acetaminophen (Tylenol) 650 mg PRN Q4HRS PRN PO TEMP OVER 100.4F OR MILD PAIN; Start 01/08/19 at 13:00 Al Hydroxide/Mg Hydroxide (Mylanta Plus Xs) 30 ml PRN DAILY PRN PO HEARTBURN / GAS Last administered on 01/08/19at 18:35; Start 01/08/19 at 13:00 Clonidine HCl (Catapres) 0.1 mg PRN Q6HRS PRN PO SBP>160 OR DBP>90; Start 01/08/19 at 13:00 Docusate Sodium (Colace) 100 mg PRN BID PRN PO CONSTIPATION; Start 01/08/19 at 13:00 Albuterol Sulfate (Ventolin Neb Soln) 2.5 mg PRN Q4HRS PRN NEB SHORTNESS OF BREATH; Start 01/08/19 at 13:00 Guaifenesin (Robitussin) 200 mg PRN Q4HRS PRN PO COUGH; Start 01/08/19 at 13:00 Lorazepam (Ativan) 0.5 mg PRN Q4HRS PRN PO ANXIETY / AGITATION; Start 01/08/19 at 13:00 Enoxaparin Sodium (Lovenox 40mg Syringe) 40 mg DAILY SQ Last administered on 01/08/19at 16:36; Start 01/08/19 at 13:00 Regadenoson (Lexiscan) 0.4 mg 1X ONCE IV Last administered on 01/08/19at 13:27; Start 01/08/19 at 13:00; Stop 01/08/19 at 13:01; Status DC Al Hydroxide/Mg Hydroxide (Mylanta Plus Xs) 30 ml PRN Q6HRS PRN PO HEARTBURN / GAS; Start 01/08/19 at 18:30 Potassium Chloride (Klor-Con) 40 meq 1X ONCE PO Last administered on 01/09/19at 06:40; Start 01/08/19 at 20:30; Stop 01/08/19 at 20:32; Status DC Potassium Chloride (Klor-Con) 20 meq DAILYWBKFT PO ; Start 01/09/19 at 08:00 Active Scripts Active Aspirin Ec (Aspirin) 325 Mg Tablet.dr 1 Tab PO DAILY Simvastatin 40 Mg Tablet 40 Mg PO QHS 30 Days Vitals/I & O Vital Sign - Last 24 Hours 01/08/19 01/08/19 01/08/19 01/08/19 09:48 10:20 11:00 16:29 Temp 98.6 98.6 Pulse 65 Resp 16 19 B/P (MAP) 138/75 (96) Pulse Ox 98 99 99 99 O2 Delivery Room Air Room Air Room Air Room Air 01/08/19 01/08/19 01/08/19 01/08/19 17:00 19:30 20:00 23:50 Temp 97.5 97.4 97.5 97.4 Pulse 51 61 Resp 20 20 B/P (MAP) 141/68 (92) 134/60 (84) Pulse Ox 99 97 94 O2 Delivery Room Air Room Air Room Air Room Air 01/09/19 01/09/19 01/09/19 02:36 03:59 07:00 Temp 98.2 97.7 98.2 97.7 Pulse 56 67 Resp 20 20 B/P (MAP) 128/69 (88) 116/74 (88) Pulse Ox 95 96 O2 Delivery Room Air Room Air Room Air Intake and Output 01/08/19 01/08/19 01/09/19 15:00 23:00 07:00 Intake Total 400 ml 950 ml 680 ml Balance 400 ml 950 ml 680 ml CAMERON ALVAREZ MD Jan 09, 2019 08:15
[2019-01-09] MEDS: PANTOPRAZOLE 40 MG TABLET.DR. PO SCH (08:31)
[2019-01-09] MEDS: ASPIRIN ENTERIC COATED 325 MG TABLET.DR. PO SCH (08:31)
[2019-01-09] MEDS: POTASSIUM CHLORIDE 20 MEQ TABLET.ER. PO SCH (08:31)
[2019-01-09] MEDS: ENOXAPARIN 40 MG/0.4 ML SYRINGE. SQ SCH ×2 (08:33→09:00)
[2019-01-09] MEDS: MORPHINE SULFATE 2 MG/ML VIAL. IV PRN (08:39)
[2019-01-09] MEDS: POLYETHYLENE GLYCOL 3350 17 GM PACKET. PO SCH (09:00)
--- NOTE | 2019-01-09 09:52 | PDOC ---
Subjective: Subjective: Abd pain after eating, not feeling well. Objective: Vital Signs: Vital Signs Date Time Temp Pulse Resp B/P (MAP) Pulse Ox O2 Delivery O2 Flow Rate FiO2 01/09/19 08:39 19 96 Room Air 01/09/19 07:00 97.7 67 116/74 (88) 97.7 Labs: Laboratory Tests Test 01/09/19 03:35 Sodium Level 139 mmol/L Potassium Level 4.1 mmol/L Chloride Level 103 mmol/L Carbon Dioxide Level 28 mmol/L Anion Gap 8 Blood Urea Nitrogen 26 mg/dL Creatinine 1.0 mg/dL Estimated GFR (Cockcroft-Gault) 56.2 Glucose Level 122 mg/dL Calcium Level 9.2 mg/dL Imaging: Abd Doppler 01/08 IMPRESSION: Elevated peak systolic velocity measurements at the celiac, SMA and MARIE origins compatible with hemodynamically significant stenoses of greater than 70%. PE: GEN: NAD - sitting up in bed LUNGS: room air HEART: RRR ABD: diffusely uncomfortable, soft NEURO/PSYCH: A & O 3 A/P: Post-prandial abd pain, weight loss -- Reviewed w/ Dr. Muhammad - ?intestinal angina - abnormal Doppler as above - will ask IR and vascular to comment. Continue PPI and Miralax. TAVIA YATES Jan 09, 2019 09:51
--- NOTE | 2019-01-09 10:05 | RAD ---
MR#: [id number] Date of Study: 01/08/2019 Ordering Physician: ROCKY HART, Referring Physician: TRISTA SCHULZ Tech: RT Victor Hugo Tijerina) (N) APPROVED REPORT Test Type: Pharmacological Stress Nurse/Tech: Anna Choi R.N. Test Indications: c/p Cardiac History: htn,smoker Medications: See Electronic Medical Record Medical History: See Electronic Medical Record Resting ECG: SB Resting Heart Rate: 47 bpm Resting Blood Pressure: 153/76mmHg Pretest Chest Pain: No chest pain Nurse/Tech Notes S1S1, lungs CTA Consent: The procedure was explained to the patient in lay terms. Informed consent was witnessed. Edgar eout was entered into [employer] History and Stress Test performed by RT Lilliana (Al) (N) Pharm. Details Pharmacologic stress testing was performed using 0.4mg per 5ml of regadenoson given intravenously ove r 7-10 seconds. Stress Symptoms SOA, stomach cramps, felt bad all over POST EXERCISE Reason for Termination: Infusion complete Max HR: 77 bpm Max Blood Pressure: 112/59mmHg Heart Rate response to exercise: wnl Chest Pain: No. Arrhythmia: No. ST Change: No. INTERPRETATION Stress EKG Conclusion: The resting EKG shows a sinus bradycardia and mild nonspecific ST-T wave long es. The stress EKG shows no significant changes from baseline. No EKG evidence of stressed induced ischemia. Imaging Protocol IMAGE PROTOCOL: Rest Tc-99m/stress Tc-99m 1 day Rest: Stress: Viability: Radiopharm.Tc99m [id number] Sestamibi Dose10.1mCi 33mCi Duration 13min. 13min. Img Date 01/08/2019 01/08/2019 Inj-Img [id number]. 60min. Rest Admin Site:IV - Right AntecubitalAdministrator:RT Victor Hugo Tijerina)(N) Stress Admin Site: IV - Right AntecubitalAdministrator: GRZEGORZ Vizcaino STRESS DATA End Diast. Vol.83.0mlAv. Heart Rate55.0bpm LVEDV index BSA47.0mlCardiac Output1.9L/min End Syst. Vol.21.0mlCO Index BSA3.4L/min LVESV index BSA12.0mlMyocardial Ujnc519.0g Eject. Lrfrvfhi82.0% Stress Scores Regional WT0.00Summed WT4.00 Regional WM0.00Summed WM1.00 LV Perfusion The stress scans showed no significant defects. The rest scans showed no significant defects. Nuclear imaging shows no reversible ischemia or infarct. Wall Motion Left ventricular systolic function is normal with no regional wall motion abnormalities and an ejecti on fraction of greater than 70%. LV Perf. Quant 17 Seg. SSS0.00 17 Seg. SRS0.00 17 Seg. SDS0.00 Stress Defect Extent (% LAD)0.00Rest Defect Extent (% LAD)0.00Rev. Defect Extent (% LAD)0.00 Stress Defect Extent (% LCX) 0.00Rest Defect Extent (% LCX)0.00Rev. Defect Extent (% LCX)0.00 Stress Defect Extent (% RCA)0.00Rest Defect Extent (% RCA)0.00Rev. Defect Extent (% RCA)0.00 Stress Defect Extent (% CHRISTEL)0.00Rest Defect Extent (% CHRISTEL)0.00Rev. Defect Extent (% CHRISTEL)0.00 Conclusion 1. No EKG evidence of stressed induced ischemia. 2. Nuclear imaging shows no reversible ischemia or infarct. 3. Normal left ventricular systolic function with an ejection fraction of greater than 70%. 4. Low risk Lexiscan nuclear stress test. Signed by : Juan Luis Lew MD Electronically Approved : 01/09/2019 10:05:30
[2019-01-09 11:00] VITALS: BP 106/70
--- NOTE | 2019-01-09 11:34 | PDOC ---
CARDIO Progress Notes Date and Time Date of Service 01/09/2019 Time of Evaluation 1110 Subjective Subjective: No Chest Pain, No shortness of breath, No Palpitations, Other (still having abd pain) Vitals Vitals Vital Signs Date Time Temp Pulse Resp B/P (MAP) Pulse Ox O2 Delivery O2 Flow Rate FiO2 01/09/19 11:00 97.8 56 20 106/70 (82) 94 Room Air 97.8 Weight Weight [ ] Input and Output Intake and Output Intake and Output 01/09/19 07:00 Intake Total 2030 ml Balance 2030 ml Intake Oral 2030 ml # Voids 5 # Bowel Movements 1 Laboratory Labs Laboratory Tests Test 01/09/19 03:35 Sodium Level 139 mmol/L (136-145) Potassium Level 4.1 mmol/L (3.5-5.1) Chloride Level 103 mmol/L (98-107) Carbon Dioxide Level 28 mmol/L (21-32) Anion Gap 8 (6-14) Blood Urea Nitrogen 26 mg/dL (7-20) Creatinine 1.0 mg/dL (0.6-1.0) Estimated GFR (Cockcroft-Gault) 56.2 Glucose Level 122 mg/dL (70-99) Calcium Level 9.2 mg/dL (8.5-10.1) Physical Exam HEENT: Neck Supple W Full Motion Chest: Symmetric LUNGS: Clear to Auscultation Heart: S1S2, RRR (SR) Abdomen: Other (soft) Extremities: No Calf Tenderness Neurology: alert, oriented, follow commands Assessment Assessment 1. Atypical CP: more to abdomen. MPI neg. 2. Coronary artery calcifications noted as per CTA 3. Hypertension; controlled without coverage 4. Hyperlipidemia 5. Tobaccoism; discussed/encouraged cessation 6. Asymptomatic Sinus bradycardia. Lowest 52. No pauses. 7. Abd pain/mesenteric ischemia? GI following Recommendations 1. ASA , statin therapy. Check lipids convert to lipitor from zocor if not on goal 2. No AV marito blocking agents. 3. Smoking cessation 4. Follow up in office 1 month LAUREN MORALES APRN Jan 09, 2019 11:34
--- NOTE | 2019-01-09 14:01 | PDOC2 ---
CONSULT Date of Consult Date of Consult DATE: 01/09/19 TIME: 13:26 Reason for Consult Reason for Consult: Intestinal ischemia Referring Physician Referring Physician: Pamela PURVIS Identification/Chief Complaint Chief Complaint Chest and abdominal pain Source Source: Chart review, Patient History of Present Illness Reason for Visit: This is a 63-year-old female admitted with shortness of air, chest pain, and diffuse abdominal pain. The patient reports she has a long standing history of gastroesophageal reflux disease for which she takes Omeprazole. She now reports intermittent pain over the last 2 months. She states that typically when she eats she has severe burning and "stabbing pain" in her epigastric area that takes several minutes to subside and often continues to have pain in her abdomen for several hours after eating. Patient does report a minor weight loss of 3-4 pounds. Some of the patient's history appears to be inconsistent. She reports to me that she has never had any upper endoscopy or been diagnosed with peptic ulcer disease. She does report history of constipation. She denies nausea or vomiting. Patient denies any history of stroke or lower extremity claudication. She denies any hematochezia or melena. She reports a history of hyperlipidemia and asthma. Past Medical History Cardiovascular: HTN, Hyperlipidemia Pulmonary: Asthma, Pulmonary embolus CENTRAL NERVOUS SYSTEM: Other GI: Peptic Ulcer disease Heme/Onc: No pertinent hx Hepatobiliary: No pertinent hx Psych: Anxiety Musculoskeletal: Osteoarthritis Rheumatologic: No pertinent hx Infectious disease: No pertinent hx Renal/: No pertinent hx Endocrine: No pertinent hx Past Surgical History Past Surgical History: Family History Family History: Hypertension Social History <1 pack per day ALCOHOL: none Drugs: None Lives: with Family Current Medications Current Medications Current Medications Multi-Ingredient Mouthwash/Gargle (Gi Cocktail) 20 ml 1X ONCE SWSW Last administered on 01/07/19at 19:18; Start 01/07/19 at 19:00; Stop 01/07/19 at 19:03; Status DC Aspirin (Children'S Aspirin) 324 mg 1X ONCE PO Last administered on 01/07/19at 19:18; Start 01/07/19 at 19:00; Stop 01/07/19 at 19:03; Status DC Albuterol/ Ipratropium (Duoneb) 3 ml 1X ONCE NEB Last administered on 01/07/19at 19:50; Start 01/07/19 at 19:00; Stop 01/07/19 at 19:03; Status DC Fentanyl Citrate (Fentanyl 2ml Vial) 50 mcg 1X ONCE IV Last administered on 01/07/19at 19:18; Start 01/07/19 at 19:15; Stop 01/07/19 at 19:16; Status DC Iohexol (Omnipaque 350 Mg/ml) 90 ml 1X ONCE IV Last administered on 01/07/19at 20:24; Start 01/07/19 at 20:00; Stop 01/07/19 at 20:01; Status DC Info (CONTRAST GIVEN -- Rx MONITORING) 1 each PRN DAILY PRN MC SEE COMMENTS; Start 01/07/19 at 20:00; Stop 01/09/19 at 19:59 Morphine Sulfate (Morphine Sulfate) 2 mg PRN Q2HR PRN IV PAIN Last administered on 01/09/19at 08:39; Start 01/07/19 at 20:00 Nitroglycerin (Nitrostat) 0.4 mg PRN Q5MIN PRN SL CHEST PAIN; Start 01/07/19 at 20:00 Temazepam (Restoril) 7.5 mg PRN QHS PRN PO INSOMNIA Last administered on 01/08/19at 20:06; Start 01/07/19 at 20:00 Acetaminophen (Tylenol) 500 mg PRN Q6HRS PRN PO MILD PAIN / TEMP; Start 01/07/19 at 20:00; Stop 01/08/19 at 12:53; Status DC Acetaminophen/ Codeine Phosphate (Tylenol #3) 1 tab PRN Q6HRS PRN PO MODERATE PAIN; Start 01/07/19 at 20:00 Calcium Carbonate/ Glycine (Tums) 500 mg PRN AFTMEALHC PRN PO INDIGESTION Last administered on 01/08/19at 20:09; Start 01/07/19 at 20:00 Oxycodone/ Acetaminophen (Percocet 5/325) 1 tab PRN Q4HRS PRN PO SEVERE PAIN Last administered on 01/09/19at 02:36; Start 01/07/19 at 20:00 Ondansetron HCl (Zofran) 4 mg PRN Q6HRS PRN IVP NAUSEA/VOMITING; Start 01/07/19 at 20:00; Stop 01/08/19 at 12:53; Status DC Clonidine HCl (Catapres) 0.1 mg PRN Q1HR PRN PO HYPERTENSION; Start 01/07/19 at 20:00; Stop 01/08/19 at 12:53; Status DC Aspirin (Ecotrin) 325 mg DAILY PO Last administered on 01/09/19at 08:31; Start 01/08/19 at 09:00 Simvastatin (Zocor) 40 mg QHS PO Last administered on 01/08/19at 20:06; Start 01/07/19 at 21:00; Stop 01/09/19 at 11:31; Status DC Nitroglycerin (Nitrostat) 0.4 mg PRN Q5MIN PRN SL CHEST PAIN; Start 01/07/19 at 20:00; Stop 01/08/19 at 11:50; Status DC Influenza Virus Vaccine Quadrival (Afluria Quad 2019-20 (3yr Up) Syringe) 0.5 ml ONCE ONCE VAX IM Last administered on 01/09/19at 08:44; Start 01/08/19 at 09:00; Stop 01/08/19 at 09:01; Status DC Bisacodyl (Dulcolax Tab) 10 mg 1X ONCE PO Last administered on 01/08/19at 16:30; Start 01/08/19 at 12:45; Stop 01/08/19 at 12:46; Status DC Polyethylene Glycol (miraLAX PACKET) 17 gm DAILY PO ; Start 01/09/19 at 09:00 Polyethylene Glycol (miraLAX PACKET) 17 gm PRN DAILY PRN PO CONSTIPATION; Start 01/08/19 at 12:45 Pantoprazole Sodium (Protonix) 40 mg DAILYAC PO Last administered on 01/09/19at 08:31; Start 01/08/19 at 13:00 Sodium Chloride (Normal Saline Flush) 3 ml QSHIFT PRN IV AFTER MEDS AND BLOOD DRAWS; Start 01/08/19 at 13:00 Ondansetron HCl (Zofran) 4 mg PRN Q4HRS PRN IV NAUSEA/VOMITING Last administered on 01/08/19at 16:29; Start 01/08/19 at 13:00 Acetaminophen (Tylenol) 650 mg PRN Q4HRS PRN PO TEMP OVER 100.4F OR MILD PAIN; Start 01/08/19 at 13:00 Al Hydroxide/Mg Hydroxide (Mylanta Plus Xs) 30 ml PRN DAILY PRN PO HEARTBURN / GAS Last administered on 01/08/19at 18:35; Start 01/08/19 at 13:00 Clonidine HCl (Catapres) 0.1 mg PRN Q6HRS PRN PO SBP>160 OR DBP>90; Start 01/08/19 at 13:00 Docusate Sodium (Colace) 100 mg PRN BID PRN PO CONSTIPATION; Start 01/08/19 at 13:00 Albuterol Sulfate (Ventolin Neb Soln) 2.5 mg PRN Q4HRS PRN NEB SHORTNESS OF BREATH; Start 01/08/19 at 13:00 Guaifenesin (Robitussin) 200 mg PRN Q4HRS PRN PO COUGH; Start 01/08/19 at 13:00 Lorazepam (Ativan) 0.5 mg PRN Q4HRS PRN PO ANXIETY / AGITATION; Start 01/08/19 at 13:00 Enoxaparin Sodium (Lovenox 40mg Syringe) 40 mg DAILY SQ Last administered on 01/09/19at 08:33; Start 01/08/19 at 13:00 Regadenoson (Lexiscan) 0.4 mg 1X ONCE IV Last administered on 01/08/19at 13:27; Start 01/08/19 at 13:00; Stop 01/08/19 at 13:01; Status DC Al Hydroxide/Mg Hydroxide (Mylanta Plus Xs) 30 ml PRN Q6HRS PRN PO HEARTBURN / GAS; Start 01/08/19 at 18:30 Potassium Chloride (Klor-Con) 40 meq 1X ONCE PO Last administered on 01/09/19at 06:40; Start 01/08/19 at 20:30; Stop 01/08/19 at 20:32; Status DC Potassium Chloride (Klor-Con) 20 meq DAILYWBKFT PO Last administered on 01/09/19at 08:31; Start 01/09/19 at 08:00 Atorvastatin Calcium (Lipitor) 40 mg QHS PO ; Start 01/09/19 at 21:00 Active Scripts Active Aspirin Ec (Aspirin) 325 Mg Tablet.dr 1 Tab PO DAILY Simvastatin 40 Mg Tablet 40 Mg PO QHS 30 Days Allergies Allergies: Coded Allergies: No Known Drug Allergies (Unverified , 11/09/17) ROS Review of System Constitutional: Denies fever or chills Eyes: Denies any visual disturbances HENT: Denies nasal congestion or sore throat Respiratory: As per HPI, positive for pulmonary embolus Cardiovascular: Positive for palpitations GI: As per HPI : Denies dysuria or hematuria Musculoskeletal: Denies any lower extremity pain, weakness or joint stiffness. Integument: No rashes or lesions. Neurologic: No gross deficits Endocrine: Positive weight loss Physical Exam Physical Exam Gen.: Alert and oriented 3. Cardiac: Heart rate regular. Normal carotid pulses. Lungs: CTA, nonlabored respirations. Abdomen: Soft, mild diffuse tenderness throughout, non-distended, no palpable masses. Small midline scar. Extremities:2+ palpable bilateral radial, femoral, dorsalis pedis pulses. Skin: No rashes or lesions, no lower extremity swelling. Neurological: Motor and sensation intact Vitals VITALS Vital Signs Date Time Temp Pulse Resp B/P (MAP) Pulse Ox O2 Delivery O2 Flow Rate FiO2 01/09/19 11:00 97.8 56 20 106/70 (82) 94 Room Air 97.8 Labs Labs Laboratory Tests Test 01/07/19 18:50 01/07/19 20:15 01/07/19 22:50 01/08/19 01:50 White Blood Count 8.2 x10^3/uL (4.0-11.0) Red Blood Count 4.54 x10^6/uL (3.50-5.40) Hemoglobin 14.0 g/dL (12.0-15.5) Hematocrit 41.1 % (36.0-47.0) Mean Corpuscular Volume 91 fL (79-100) Mean Corpuscular Hemoglobin 31 pg (25-35) Mean Corpuscular Hemoglobin Concent 34 g/dL (31-37) Red Cell Distribution Width 13.5 % (11.5-14.5) Platelet Count 321 x10^3/uL (140-400) Neutrophils (%) (Auto) 60 % (31-73) Lymphocytes (%) (Auto) 31 % (24-48) Monocytes (%) (Auto) 7 % (0-9) Eosinophils (%) (Auto) 2 % (0-3) Basophils (%) (Auto) 1 % (0-3) Neutrophils # (Auto) 4.9 x10^3/uL (1.8-7.7) Lymphocytes # (Auto) 2.5 x10^3/uL (1.0-4.8) Monocytes # (Auto) 0.6 x10^3/uL (0.0-1.1) Eosinophils # (Auto) 0.1 x10^3/uL (0.0-0.7) Basophils # (Auto) 0.1 x10^3/uL (0.0-0.2) Prothrombin Time 12.1 SEC (11.7-14.0) Prothromb Time International Ratio 0.9 (0.8-1.1) D-Dimer (Cherie) 0.62 ug/mlFEU (0.00-0.50) Sodium Level 138 mmol/L (136-145) Potassium Level 3.4 mmol/L (3.5-5.1) Chloride Level 102 mmol/L (98-107) Carbon Dioxide Level 27 mmol/L (21-32) Anion Gap 9 (6-14) Blood Urea Nitrogen 19 mg/dL (7-20) Creatinine 1.0 mg/dL (0.6-1.0) Estimated GFR (Cockcroft-Gault) 56.2 BUN/Creatinine Ratio 19 (6-20) Glucose Level 124 mg/dL (70-99) Calcium Level 9.1 mg/dL (8.5-10.1) Total Bilirubin 0.2 mg/dL (0.2-1.0) Aspartate Amino Transf (AST/SGOT) 16 U/L (15-37) Alanine Aminotransferase (ALT/SGPT) 18 U/L (14-59) Alkaline Phosphatase 115 U/L (46-116) Troponin I Quantitative < 0.017 ng/mL (0.000-0.055) < 0.017 ng/mL (0.000-0.055) < 0.017 ng/mL (0.000-0.055) Total Protein 7.9 g/dL (6.4-8.2) Albumin 3.7 g/dL (3.4-5.0) Albumin/Globulin Ratio 0.9 (1.0-1.7) Lipase 187 U/L (73-393) Urine Collection Type Unknown Urine Color Yellow Urine Clarity Clear Urine pH 6.5 Urine Specific [place] 1.015 Urine Protein Negative mg/dL (NEG-TRACE) Urine Glucose (UA) Negative mg/dL (NEG) Urine Ketones (Stick) Negative mg/dL (NEG) Urine Blood Small (NEG) Urine Nitrite Negative (NEG) Urine Bilirubin Negative (NEG) Urine Urobilinogen Dipstick 0.2 mg/dL (0.2 mg/dL) Urine Leukocyte Esterase Trace (NEG) Urine RBC 3-5 /HPF (0-2) Urine WBC 1-4 /HPF (0-4) Urine Squamous Epithelial Cells Few /LPF Urine Bacteria Few /HPF (0-FEW) Test 01/09/19 03:35 Sodium Level 139 mmol/L (136-145) Potassium Level 4.1 mmol/L (3.5-5.1) Chloride Level 103 mmol/L (98-107) Carbon Dioxide Level 28 mmol/L (21-32) Anion Gap 8 (6-14) Blood Urea Nitrogen 26 mg/dL (7-20) Creatinine 1.0 mg/dL (0.6-1.0) Estimated GFR (Cockcroft-Gault) 56.2 Glucose Level 122 mg/dL (70-99) Calcium Level 9.2 mg/dL (8.5-10.1) Laboratory Tests Test 01/09/19 03:35 Sodium Level 139 mmol/L (136-145) Potassium Level 4.1 mmol/L (3.5-5.1) Chloride Level 103 mmol/L (98-107) Carbon Dioxide Level 28 mmol/L (21-32) Anion Gap 8 (6-14) Blood Urea Nitrogen 26 mg/dL (7-20) Creatinine 1.0 mg/dL (0.6-1.0) Estimated GFR (Cockcroft-Gault) 56.2 Glucose Level 122 mg/dL (70-99) Calcium Level 9.2 mg/dL (8.5-10.1) Images Images CT scan Images of the abdomen and pelvis show normal caliber abdominal aorta. No intimal flap or periaortic fluid collection. There is diffuse calcific and soft plaquing throughout. Moderate grade narrowing of the celiac origin and SMA origin. Moderate to high-grade narrowing of the MARIE origin. Suspected moderate grade narrowing of the right renal artery origin with mild narrowing of the left renal artery origin. There are 2 accessory renal arteries on the right. Liver, spleen, pancreas, adrenal glands and kidneys are unremarkable. No hydronephrosis. Gallbladder unremarkable. Unopacified GI tract normal in caliber and contour. No focal bowel wall thickening. Appendix normal in caliber. No ascites or lymphadenopathy. Images of the pelvis show nondistended urinary bladder. Uterus and adnexa are unremarkable. Trace amount of free pelvic fluid. No pelvic lymphadenopathy. Bone windows show no acute findings. Multilevel spondylosis. Mild to moderate degenerative change of the bilateral hip joint, right greater than left. IMPRESSION: 1. No acute abnormality of chest abdomen pelvis. No evidence of aortic dissection. 2. Coronary artery calcifications and mild ectasia of the ascending thoracic aorta. 3. Patchy and linear opacities at both lung bases, likely atelectasis. 4. 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 5. Small amount of free pelvic fluid, nonspecific. FINDINGS: Peak systolic velocity measurement within the aorta is 89 cm/s. Elevated peak systolic velocity at the superior mesenteric artery origin measuring 390 cm/s. At the mid and distal aspects of the evaluated superior mesenteric artery, peak systolic velocity measures 174 cm/s and 162 cm/s, respectively. Resistive index proximally is 0.53, mid at 0.63 and distally at 0.62. The celiac origin peak systolic velocity is elevated at 295 cm/s. The inferior mesenteric artery origin is difficult to evaluate due to its small size however in the expected location of the MARIE origin, very elevated peak systolic velocities are encountered measuring up to 356 cm/s. 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 Assessment/Plan Assessment/Plan 63 year old female with vague symptoms of abdominal pain, she reports at times that the pain is somewhat associated with postprandial pain which would be consistent with mesenteric ischemia. She only reports a 3-4 pound weight loss over the last two months. Arterial US suggest elevated peak systolic velocity measurements at the celiac, SMA and MARIE origins compatible with hemodynamically significant stenoses of greater than 70%. In addition she reports symptoms of GERD. Will discuss plan of care with Dr. Oakley and make additional recommendations. Continue PPI and Statin therapy. Recommend continued daily Aspirin unless contraindicated by Gastrointestinal Specialist. CHARLIE EDWARDS [employer] Jan 09, 2019 14:01
[2019-01-09 15:00] VITALS: BP 103/47
[2019-01-09 19:27] VITALS: BP 113/47
[2019-01-09] MEDS: ATORVASTATIN CALCIUM 40 MG TABLET. PO SCH (21:46)
[2019-01-09 23:35] VITALS: BP 101/53
[2019-01-10] VITALS (13 sets, daily range): BP systolic 102–161; BP diastolic 42–76
[2019-01-10] MEDS: PANTOPRAZOLE 40 MG TABLET.DR. PO SCH (07:30)
--- NOTE | 2019-01-10 07:50 | PDOC ---
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 ON CTA ABDOMEN ///IR and vascular CONSULTED. Continue PPI Severe Celiac and SMA focal stenoses. SMA treated with stent and DCB with excellent angiographic result 01/10 PLAN ADMIT CARDIOLOGY CONSULT GI CONSULT MPI to r/o ischemia consider IR/vascular opinion re: CTA findings. dvt prophylaxis Await ABDOMINAL angiogram; 36 min pt exam, chart review, > 50% of time spent with exam, chart review, pt care coordination Vitals Vitals Vital Signs Date Time Temp Pulse Resp B/P (MAP) Pulse Ox O2 Delivery O2 Flow Rate FiO2 01/10/19 03:36 98.0 56 19 102/48 (66) 95 Room Air 98.0 Physical Exam General: Alert, Oriented X3, Cooperative, No acute distress, mild distress Heart: Regular rate, Normal S1, Normal S2, No murmurs Lungs: Clear, Wheezing Abdomen: Soft, No tenderness Extremities: No cyanosis, No edema, Normal pulses Skin: No significant lesion Labs LABS R#: [id number] Date of Study: 01/08/2019 Ordering Physician: ROCKY HART Referring Physician: TRISTA SCHULZ Tech: RT Victor Hugo Tijerina) (N) APPROVED REPORT Test Type: Pharmacological Stress Nurse/Tech: Anna Choi R.N. Test Indications: c/p Cardiac History: htn,smoker Medications: See Electronic Medical Record Medical History: See Electronic Medical Record Resting ECG: SB Resting Heart Rate: 47 bpm Resting Blood Pressure: 153/76mmHg Pretest Chest Pain: No chest pain Nurse/Tech Notes S1S1, lungs CTA Consent: The procedure was explained to the patient in lay terms. Informed consent was witnessed. Timeout was entered into in2apps. History and Stress Test performed by RT Victor Hugo Tijerina) (N) Pharm. Details Pharmacologic stress testing was performed using 0.4mg per 5ml of regadenoson given intravenously over 7-10 seconds. Stress Symptoms SOA, stomach cramps, felt bad all over POST EXERCISE Reason for Termination: Infusion complete Max HR: 77 bpm Max Blood Pressure: 112/59mmHg Heart Rate response to exercise: wnl Chest Pain: No. Arrhythmia: No. ST Change: No. INTERPRETATION Stress EKG Conclusion: The resting EKG shows a sinus bradycardia and mild nonspecific ST-T wave changes. The stress EKG shows no significant changes from baseline. No EKG evidence of stressed induced ischemia. Imaging Protocol IMAGE PROTOCOL: Rest Tc-99m/stress Tc-99m 1 day Rest: Stress: Viability: Radiopharm. Tc99m Sestamibi Tc99m Sestamibi Dose 10.1mCi 33mCi Duration 13min. 13min. Img Date 01/08/2019 01/08/2019 Inj-Img Time 60min. 60min. Rest Admin Site: IV - Right Antecubital Language Tutor: RT Lilliana (R)(N) Stress Admin Site: IV - Right Antecubital Language Tutor: GRZEGORZ Vizcaino STRESS DATA End Diast. Vol. 83.0ml Av. Heart Rate 55.0bpm LVEDV index BSA 47.0ml Cardiac Output 1.9L/min End Syst. Vol. 21.0ml CO Index BSA 3.4L/min LVESV index BSA 12.0ml Myocardial Mass 114.0g Eject. Fraction 75.0% Stress Scores Regional WT 0.00 Summed WT 4.00 Regional WM 0.00 Summed WM 1.00 LV Perfusion The stress scans showed no significant defects. The rest scans showed no significant defects. Nuclear imaging shows no reversible ischemia or infarct. Wall Motion Left ventricular systolic function is normal with no regional wall motion abnormalities and an ejection fraction of greater than 70%. LV Perf. Quant 17 Seg. SSS 0.00 17 Seg. SRS 0.00 17 Seg. SDS 0.00 Stress Defect Extent (% LAD) 0.00 Rest Defect Extent (% LAD) 0.00 Rev. Defect Extent (% LAD) 0.00 Stress Defect Extent (% LCX) 0.00 Rest Defect Extent (% LCX) 0.00 Rev. Defect Extent (% LCX) 0.00 Stress Defect Extent (% RCA) 0.00 Rest Defect Extent (% RCA) 0.00 Rev. Defect Extent (% RCA) 0.00 Stress Defect Extent (% CHRISTEL) 0.00 Rest Defect Extent (% CHRISTEL) 0.00 Rev. Defect Extent (% CHRISTEL) 0.00 Conclusion 1. No EKG evidence of stressed induced ischemia. 2. Nuclear imaging shows no reversible ischemia or infarct. 3. Normal left ventricular systolic function with an ejection fraction of greater than 70%. 4. Low risk Lexiscan nuclear stress test. Signed by : Juan Luis Lew MD Electronically Approved : 01/09/2019 10:05:30 Comment Review of Relevant I have reviewed the following items charlene (where applicable) has been applied. Labs Laboratory Tests Test 01/09/19 03:35 Sodium Level 139 mmol/L (136-145) Potassium Level 4.1 mmol/L (3.5-5.1) Chloride Level 103 mmol/L (98-107) Carbon Dioxide Level 28 mmol/L (21-32) Anion Gap 8 (6-14) Blood Urea Nitrogen 26 mg/dL (7-20) Creatinine 1.0 mg/dL (0.6-1.0) Estimated GFR (Cockcroft-Gault) 56.2 Glucose Level 122 mg/dL (70-99) Calcium Level 9.2 mg/dL (8.5-10.1) Microbiology 01/07/19 Urine Culture - Final, Complete 01/07/19 Urine Culture Result 1 (ELISE) - Final, Complete Medications Current Medications Multi-Ingredient Mouthwash/Gargle (Gi Cocktail) 20 ml 1X ONCE SWSW Last administered on 01/07/19 19:18; Start 01/07/19 at 19:00; Stop 01/07/19 at 19:03; Status DC Aspirin (Children'S Aspirin) 324 mg 1X ONCE PO Last administered on 01/07/19 19:18; Start 01/07/19 at 19:00; Stop 01/07/19 at 19:03; Status DC Albuterol/ Ipratropium (Duoneb) 3 ml 1X ONCE NEB Last administered on 01/07/19 19:50; Start 01/07/19 at 19:00; Stop 01/07/19 at 19:03; Status DC Fentanyl Citrate (Fentanyl 2ml Vial) 50 mcg 1X ONCE IV Last administered on 01/07/19 19:18; Start 01/07/19 at 19:15; Stop 01/07/19 at 19:16; Status DC Iohexol (Omnipaque 350 Mg/ml) 90 ml 1X ONCE IV Last administered on 01/07/19at 20:24; Start 01/07/19 at 20:00; Stop 01/07/19 at 20:01; Status DC Info (CONTRAST GIVEN -- Rx MONITORING) 1 each PRN DAILY PRN MC SEE COMMENTS; Start 01/07/19 at 20:00; Stop 01/09/19 at 19:59; Status DC Morphine Sulfate (Morphine Sulfate) 2 mg PRN Q2HR PRN IV PAIN Last administered on 01/09/19at 08:39; Start 01/07/19 at 20:00 Nitroglycerin (Nitrostat) 0.4 mg PRN Q5MIN PRN SL CHEST PAIN; Start 01/07/19 at 20:00 Temazepam (Restoril) 7.5 mg PRN QHS PRN PO INSOMNIA Last administered on 01/08/19at 20:06; Start 01/07/19 at 20:00 Acetaminophen (Tylenol) 500 mg PRN Q6HRS PRN PO MILD PAIN / TEMP; Start 01/07/19 at 20:00; Stop 01/08/19 at 12:53; Status DC Acetaminophen/ Codeine Phosphate (Tylenol #3) 1 tab PRN Q6HRS PRN PO MODERATE PAIN; Start 01/07/19 at 20:00 Calcium Carbonate/ Glycine (Tums) 500 mg PRN AFTMEALHC PRN PO INDIGESTION Last administered on 01/08/19at 20:09; Start 01/07/19 at 20:00 Oxycodone/ Acetaminophen (Percocet 5/325) 1 tab PRN Q4HRS PRN PO SEVERE PAIN Last administered on 01/09/19at 21:53; Start 01/07/19 at 20:00 Ondansetron HCl (Zofran) 4 mg PRN Q6HRS PRN IVP NAUSEA/VOMITING; Start 01/07/19 at 20:00; Stop 01/08/19 at 12:53; Status DC Clonidine HCl (Catapres) 0.1 mg PRN Q1HR PRN PO HYPERTENSION; Start 01/07/19 at 20:00; Stop 01/08/19 at 12:53; Status DC Aspirin (Ecotrin) 325 mg DAILY PO Last administered on 01/09/19at 08:31; Start 01/08/19 at 09:00 Simvastatin (Zocor) 40 mg QHS PO Last administered on 01/08/19at 20:06; Start 01/07/19 at 21:00; Stop 01/09/19 at 11:31; Status DC Nitroglycerin (Nitrostat) 0.4 mg PRN Q5MIN PRN SL CHEST PAIN; Start 01/07/19 at 20:00; Stop 01/08/19 at 11:50; Status DC Influenza Virus Vaccine Quadrival (Afluria Quad 2019-20 (3yr Up) Syringe) 0.5 ml ONCE ONCE VAX IM Last administered on 01/09/19at 08:44; Start 01/08/19 at 09:00; Stop 01/08/19 at 09:01; Status DC Bisacodyl (Dulcolax Tab) 10 mg 1X ONCE PO Last administered on 01/08/19at 1 6:30; Start 01/08/19 at 12:45; Stop 01/08/19 at 12:46; Status DC Polyethylene Glycol (miraLAX PACKET) 17 gm DAILY PO ; Start 01/09/19 at 09:00 Polyethylene Glycol (miraLAX PACKET) 17 gm PRN DAILY PRN PO CONSTIPATION; Start 01/08/19 at 12:45 Pantoprazole Sodium (Protonix) 40 mg DAILYAC PO Last administered on 01/09/19at 08:31; Start 01/08/19 at 13:00 Sodium Chloride (Normal Saline Flush) 3 ml QSHIFT PRN IV AFTER MEDS AND BLOOD DRAWS; Start 01/08/19 at 13:00 Ondansetron HCl (Zofran) 4 mg PRN Q4HRS PRN IV NAUSEA/VOMITING Last administered on 01/08/19at 16:29; Start 01/08/19 at 13:00 Acetaminophen (Tylenol) 650 mg PRN Q4HRS PRN PO TEMP OVER 100.4F OR MILD PAIN; Start 01/08/19 at 13:00 Al Hydroxide/Mg Hydroxide (Mylanta Plus Xs) 30 ml PRN DAILY PRN PO HEARTBURN / GAS Last administered on 01/08/19at 18:35; Start 01/08/19 at 13:00 Clonidine HCl (Catapres) 0.1 mg PRN Q6HRS PRN PO SBP>160 OR DBP>90; Start 01/08/19 at 13:00 Docusate Sodium (Colace) 100 mg PRN BID PRN PO CONSTIPATION; Start 01/08/19 at 13:00 Albuterol Sulfate (Ventolin Neb Soln) 2.5 mg PRN Q4HRS PRN NEB SHORTNESS OF BREATH; Start 01/08/19 at 13:00 Guaifenesin (Robitussin) 200 mg PRN Q4HRS PRN PO COUGH; Start 01/08/19 at 13:00 Lorazepam (Ativan) 0.5 mg PRN Q4HRS PRN PO ANXIETY / AGITATION Last administered on 01/09/19at 21:46; Start 01/08/19 at 13:00 Enoxaparin Sodium (Lovenox 40mg Syringe) 40 mg DAILY SQ Last administered on 01/08/19at 16:36; Start 01/08/19 at 13:00 Regadenoson (Lexiscan) 0.4 mg 1X ONCE IV Last administered on 01/08/19at 13:27; Start 01/08/19 at 13:00; Stop 01/08/19 at 13:01; Status DC Al Hydroxide/Mg Hydroxide (Mylanta Plus Xs) 30 ml PRN Q6HRS PRN PO HEARTBURN / GAS; Start 01/08/19 at 18:30 Potassium Chloride (Klor-Con) 40 meq 1X ONCE PO Last administered on 01/09/19at 06:40; Start 01/08/19 at 20:30; Stop 01/08/19 at 20:32; Status DC Potassium Chloride (Klor-Con) 20 meq DAILYWBKFT PO Last administered on 01/09/19at 08:31; Start 01/09/19 at 08:00 Atorvastatin Calcium (Lipitor) 40 mg QHS PO Last administered on 01/09/19at 21:46; Start 01/09/19 at 21:00 Active Scripts Active Aspirin Ec (Aspirin) 325 Mg Tablet. 1 Tab PO DAILY Simvastatin 40 Mg Tablet 40 Mg PO QHS 30 Days Vitals/I & O Vital Sign - Last 24 Hours 01/09/19 01/09/19 01/09/19 01/09/19 08:00 08:39 09:10 11:00 Temp 97.8 97.8 Pulse 56 Resp 19 19 20 B/P (MAP) 106/70 (82) Pulse Ox 96 96 94 O2 Delivery Room Air Room Air Room Air Room Air 01/09/19 01/09/19 01/09/19 01/09/19 14:08 15:00 15:10 18:14 Temp 97.8 97.8 Pulse 57 Resp 19 B/P (MAP) 103/47 (65) Pulse Ox 94 99 99 99 O2 Delivery Room Air Room Air Room Air Room Air 01/09/19 01/09/19 01/10/19 19:27 23:35 03:36 Temp 97.7 98.0 98.0 97.7 98.0 98.0 Pulse 64 50 56 Resp 19 B/P (MAP) 113/47 (69) 101/53 (69) 102/48 (66) Pulse Ox 96 95 95 O2 Delivery Room Air Room Air Room Air Intake and Output 01/09/19 01/09/19 01/10/19 15:00 23:00 07:00 Intake Total 400 ml 700 ml Balance 400 ml 700 ml CAMERON ALVAREZ MD Jan 10, 2019 07:50
[2019-01-10] MEDS: POTASSIUM CHLORIDE 20 MEQ TABLET.ER. PO SCH (08:00)
[2019-01-10] MEDS: POLYETHYLENE GLYCOL 3350 17 GM PACKET. PO SCH (09:00)
[2019-01-10] MEDS: ENOXAPARIN 40 MG/0.4 ML SYRINGE. SQ SCH (09:00)
[2019-01-10] MEDS: ASPIRIN ENTERIC COATED 325 MG TABLET.DR. PO SCH (09:00)
[2019-01-10] MEDS ORDERED: LIDO:MAALOX 1:1 20 ML SINGLE DOSE. PO PRN (09:15)
[2019-01-10] MEDS ORDERED: DICYCLOMINE HCL 10 MG CAPSULE PO PRN (09:15)
--- NOTE | 2019-01-10 09:15 | PDOC ---
Subjective: Subjective: Feels "so-so." Still has pain. I asked her when pain occurs - "when I eat" "when I'm hungry" I asked her if she avoids eating - "sometimes" Noted a bag of [employer] in room - says she ate that and "greasy foods hurt" Says she had an EGD awhile ago - "ulcers I think" Objective: Objective: D/w [facility]/vascular yesterday - varying history. D/w nurse - was told in report she felt better after a stool and no longer had pain. Was also supposed to be NPO but she ate. Vital Signs: Vital Signs Date Time Temp Pulse Resp B/P (MAP) Pulse Ox O2 Delivery O2 Flow Rate FiO2 01/10/19 07:00 98.2 56 14 124/58 (80) 96 Room Air 98.2 Labs: URINE CULTURE RES 1 Final No growth Imaging: MPI Conclusion 1. No EKG evidence of stressed induced ischemia. 2. Nuclear imaging shows no reversible ischemia or infarct. 3. Normal left ventricular systolic function with an ejection fraction of greater than 70%. 4. Low risk Lexiscan nuclear stress test. PE: GEN: NAD LUNGS: CTAB HEART: RRR ABD: soft, non-specific discomfort NEURO/PSYCH: A & O 3 A/P: Abd pain -- History is quite difficult - changes daily - seems fairly comfortable this morning and is apparently eating well. Seems plans for angio today but ate breakfast - await this. Continue PPI QD and Miralax PRN. Could try Bentyl and/or GI cocktail. ?EGD ?GES ?TAVIA CARDENAS Jan 10, 2019 09:14
[2019-01-10] MEDS ORDERED: IODIXANOL 320 MG/ML 100 ML VIAL. ONE (12:27)
[2019-01-10] MEDS ORDERED: MIDAZOLAM HCL/PF 2 MG/2 ML VIAL. ONE (12:29)
[2019-01-10] MEDS ORDERED: fentaNYL PF VIAL 100 MCG/2 ML VIAL ONE (12:29)
[2019-01-10] MEDS ORDERED: HEPARIN for IV BOLUS 10,000 UNIT/10 ML VIAL. ONE (12:30)
[2019-01-10] MEDS ORDERED: LIDOCAINE WITH 8.4% SOD BICARB 3 ML DISP.SYRIN. ONE (13:07)
--- NOTE | 2019-01-10 13:39 | NUR ---
SW following pt. Discussed with RN and pt will have a procedure today. Anticipate dc home upon dc.
[2019-01-10] MEDS ORDERED: IODIXANOL 320 MG/ML 100 ML VIAL. IART ONE (13:45)
[2019-01-10] MEDS ORDERED: HEPARIN for IV BOLUS 10,000 UNIT/10 ML VIAL. IV ONE (13:45)
[2019-01-10] MEDS ORDERED: fentaNYL PF VIAL 100 MCG/2 ML VIAL IV ONE (13:45)
[2019-01-10] MEDS ORDERED: LIDOCAINE WITH 8.4% SOD BICARB 3 ML DISP.SYRIN. IJ ONE (13:45)
[2019-01-10] MEDS ORDERED: MIDAZOLAM HCL/PF 2 MG/2 ML VIAL. IV ONE (13:45)
[2019-01-10] MEDS ORDERED: CONTRAST GIVEN. MC PRN (14:00)
[2019-01-10] MEDS ORDERED: IV NORMAL SALINE 500ML BAG 500 ML IV ONE (14:00)
[2019-01-10] MEDS ORDERED: CLOPIDOGREL BISULFATE 75 MG TABLET PO ONE (14:15)
--- NOTE | 2019-01-10 14:16 | PDOC ---
MODERATE SEDATION ASSESSMENT RISKS/ALTERNATIVES Risks/Alternatives Risks and alternatives of this type of sedation and procedure discussed with: RISK/ALTERNATIVES: Patient H & P ON CHART H & P H & P on chart and reviewed for co-morbid conditions and appropriate labs. H&P ON CHART: Yes STATUS PREG STATUS ASSESSED: Yes MEDS/ALLERGIES REVIEWED Meds/Allergies Reviewed Medications and Allergies including time and route of recently administered narcotics and sedatives. MEDS/ALLERGIES REVIEWED: Yes ASA RATING ASA RATING: II AIRWAY ASSESSMENT Airway Assessment Airway patency, oral function limitations, presence of caps, crowns, dentures, partials, and ability to extend neck assessed. AIRWAY ASSESSMENT: Yes MALLAMPATI SCORE MALLAMPATI SCORE: II PRE-SEDATION ASSESSMENT PRE-SEDATION ASSESSMENT: Yes BREN SINHA MD Jan 10, 2019 14:16
--- NOTE | 2019-01-10 14:17 | PDOC ---
BRIEF OPERATIVE NOTE Pre-Op Diagnosis mesenteric ischemia Post-Op Diagnosis same Procedure Performed SMA stent Surgeon Yaneth Anesthesia Type: Conscious Sedation Findings Severe Celiac and SMA focal stenoses. SMA treated with stent and DCB with excellent angiographic result BREN SINHA MD Jan 10, 2019 14:17
--- NOTE | 2019-01-10 14:58 | RAD ---
Procedure: Mesenteric angiogram and SMA stent placement Clinical Indication: 63-year-old with mesenteric ischemia Sedation: Conscious sedation was administered with a total intraprocedural [id number] time of 74 minutes. The patient was monitored by a qualified independent observer throughout the time of sedation. Please refer to the medical record for exact doses of medications utilized to achieve moderate sedation. Antibiotics: None Exposure: Kerma-Area Product: 5 8.25 Gycm2 Contrast: 35 cc of Visipaque 320 contrast media Sterility: All elements of maximal sterile barrier technique including the use of a cap, mask, sterile gown, sterile gloves, large sterile sheet, appropriate hand hygiene, and 2% chlorhexidine for cutaneous antisepsis (or acceptable alternative antiseptic per current guidelines) were followed for this procedure. Consent: The procedure was explained in its entirety to the patient or the patients designated telesales representative by a member of the treatment team, including a discussion of the risks, benefits and commonly accepted alternatives to the procedure, as well as the expected consequences of no therapy whatsoever. Discussion of the risks included, but was not limited to, those that are most frequent and those that are rare but possibly severe or life-threatening, as well as the possibility of unforeseen complications. Technique and Findings: Following informed consent, the patient was prepped and draped in usual sterile fashion. Ultrasound interrogation of the right groin revealed patency of the right common femoral artery. A hardcopy ultrasound image was recorded as a 21-gauge micropuncture was used to gain access to this vessel. The needle was exchanged over wire for 5 Argentine sheath. A flush catheter was advanced in the abdominal aorta and contrast aortography is performed. There is moderate diffuse atherosclerosis of the infrarenal abdominal aorta. There are severe stenoses of both the proximal celiac and superior mesenteric artery, with poststenotic dilatation involving both vessels. MARIE is patent, however its origin is not well visualized. The flush catheter was then exchanged for Sos Omni catheter which was used to engage first the celiac artery and selective angiography was performed confirming the aforementioned stenosis, then the SMA, and angiography was again performed confirming the aforementioned stenosis. The patient was then given 5000 units of heparin intravenously. The stenosis was crossed, and a 5 Argentine sheath was exchanged for 6 Argentine long Ansell sheath which was advanced to the ostium of the superior mesenteric artery. A 5 mm x 18 mm balloon expandable stent was then deployed across the stenosis to full profile. A 6 mm x 40 mm drug coated balloon was then used to angioplasty the treated segment for 3 minutes. This balloon was inflated to 6 emile resulting in a diameter of 5.8 mm. The balloon was then removed and completion angiography was performed showing excellent angiographic appearance of the SMA with brisk antegrade flow and no residual stenosis. The sheath was then withdrawn into the right external iliac artery and contrast angiography was performed to assess for suitability of a closure device. The iliac and common femoral vessels are small. During preparation of a closure device, the sheath was inadvertently withdrawn and manual compression was therefore held for 25 minutes to achieve hemostasis. Complications: No immediate Impression: 1. 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 2. Marked angiographic improvement of the SMA following placement of the stent and drug coated balloon angioplasty. Recommend dual antiplatelet therapy for at least 6 weeks, followed by monotherapy for life a after. Patient should also undergo mesenteric arterial Doppler ultrasound follow-up examination in 6-12 weeks.
[2019-01-10] MEDS: oxyCODONE/APAP 5/325 1 TAB TABLET PO PRN ×3 (15:31→23:32)
[2019-01-10] MEDS: ATORVASTATIN CALCIUM 40 MG TABLET. PO SCH (20:59)
[2019-01-10] MEDS: MORPHINE SULFATE 2 MG/ML VIAL. IV PRN (21:17)
[2019-01-11] MEDS: MORPHINE SULFATE 2 MG/ML VIAL. IV PRN ×2 (03:11→15:07)
[2019-01-11 03:46] VITALS: BP 106/52
[2019-01-11 04:58] LABS: BASO # 0.1 x10^3/uL (0.0-0.2); BASO % 1 % (0-3); EOS # 0.2 x10^3/uL (0.0-0.7); EOS % 2 % (0-3); HEMATOCRIT 39.4 % (36.0-47.0); HEMOGLOBIN 13.4 g/dL (12.0-15.5); LYMPH % 26 % (24-48); MEAN CORPUSCULAR HEMOGLOBIN 31 pg (25-35); MEAN CORPUSCULAR HGB CONC 34 g/dL (31-37); MEAN CORPUSCULAR VOLUME 90 fL (79-100); MONO # 0.7 x10^3/uL (0.0-1.1); MONO % 9 % (0-9); NEUT # 4.9 x10^3/uL (1.8-7.7); NEUT % 63 % (31-73); PLATELET COUNT 284 x10^3/uL (140-400); RED BLOOD COUNT 4.36 x10^6/uL (3.50-5.40); RED CELL DISTRIBUTION WIDTH 13.6 % (11.5-14.5); WHITE BLOOD COUNT 7.8 x10^3/uL (4.0-11.0)
[2019-01-11 05:17] LABS: ALBUMIN 3.4 g/dL (3.4-5.0); ALBUMIN/GLOBULIN RATIO 0.8 (1.0-1.7); CALCIUM 8.9 mg/dL (8.5-10.1); CREATININE 1.2 mg/dL (0.6-1.0); GFR 45.5; POTASSIUM 3.9 mmol/L (3.5-5.1); TOTAL BILIRUBIN 0.2 mg/dL (0.2-1.0); TOTAL PROTEIN 7.7 g/dL (6.4-8.2)
[2019-01-11] MEDS: oxyCODONE/APAP 5/325 1 TAB TABLET PO PRN ×3 (06:03→23:34)
[2019-01-11] MEDS: PANTOPRAZOLE 40 MG TABLET.DR. PO SCH (06:03)
[2019-01-11 07:00] VITALS: BP 123/65
--- NOTE | 2019-01-11 08:23 | PDOC ---
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 ON CTA ABDOMEN ///IR and vascular CONSULTED. Continue PPI Severe Celiac and SMA focal stenoses. 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 Marked angiographic improvement of the SMA following placement of the stent and drug coated balloon angioplasty. 01/11 still having severe epigastric pain, requesting iv morphine PLAN ADMIT CARDIOLOGY CONSULT GI CONSULT MPI to r/o ischemia neg IR/vascular opinion re: CTA findings. dvt prophylaxis reviewed ABDOMINAL angiogram; Recommend dual antiplatelet therapy for at least 6 weeks, followed by monotherapy for life a after. Patient should also undergo mesenteric arterial Doppler ultrasound follow-up examination in 6-12 weeks. 36 min pt exam, chart review, > 50% of time spent with exam, chart review, pt care coordination Vitals Vitals Vital Signs Date Time Temp Pulse Resp B/P (MAP) Pulse Ox O2 Delivery O2 Flow Rate FiO2 01/11/19 08:17 97 Room Air 01/11/19 07:00 98.1 57 18 123/65 (84) 2.0 98.1 Physical Exam General: Alert, Oriented X3, Cooperative, mild distress Heart: Regular rate, Normal S1, Normal S2, No murmurs Lungs: Clear, Wheezing Abdomen: Soft, No tenderness Extremities: No cyanosis, No edema, Normal pulses Skin: No rashes, No significant lesion Labs LABS Sterility: All elements of maximal sterile barrier technique including the use of a cap, mask, sterile gown, sterile gloves, large sterile sheet, appropriate hand hygiene, and 2% chlorhexidine for cutaneous antisepsis (or acceptable alternative antiseptic per current guidelines) were followed for this procedure. Consent: The procedure was explained in its entirety to the patient or the patients designated billing customer service representative by a member of the treatment team, including a discussion of the risks, benefits and commonly accepted alternatives to the procedure, as well as the expected consequences of no therapy whatsoever. Discussion of the risks included, but was not limited to, those that are most frequent and those that are rare but possibly severe or life-threatening, as well as the possibility of unforeseen complications. Technique and Findings: Following informed consent, the patient was prepped and draped in usual sterile fashion. Ultrasound interrogation of the right groin revealed patency of the right common femoral artery. A hardcopy ultrasound image was recorded as a 21-gauge micropuncture was used to gain access to this vessel. The needle was exchanged over wire for 5 [place] sheath. A flush catheter was advanced in the abdominal aorta and contrast aortography is performed. There is moderate diffuse atherosclerosis of the infrarenal abdominal aorta. There are severe stenoses of both the proximal celiac and superior mesenteric artery, with poststenotic dilatation involving both vessels. MARIE is patent, however its origin is not well visualized. The flush catheter was then exchanged for Sos Omni catheter which was used to engage first the celiac artery and selective angiography was performed confirming the aforementioned stenosis, then the SMA, and angiography was again performed confirming the aforementioned stenosis. The patient was then given 5000 units of heparin intravenously. The stenosis was crossed, and a 5 Libyan sheath was exchanged for 6 Libyan long Ansell sheath which was advanced to the ostium of the superior mesenteric artery. A 5 mm x 18 mm balloon expandable stent was then deployed across the stenosis to full profile. A 6 mm x 40 mm drug coated balloon was then used to angioplasty the treated segment for 3 minutes. This balloon was inflated to 6 emile resulting in a diameter of 5.8 mm. The balloon was then removed and completion angiography was performed showing excellent angiographic appearance of the SMA with brisk antegrade flow and no residual stenosis. The sheath was then withdrawn into the right external iliac artery and contrast angiography was performed to assess for suitability of a closure device. The iliac and common femoral vessels are small. During preparation of a closure device, the sheath was inadvertently withdrawn and manual compression was therefore held for 25 minutes to achieve hemostasis. Complications: No immediate Impression: 1. 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 2. Marked angiographic improvement of the SMA following placement of the stent and drug coated balloon angioplasty. Recommend dual antiplatelet therapy for at least 6 weeks, followed by monotherapy for life a after. Patient should also undergo mesenteric arterial Doppler ultrasound follow-up examination in 6-12 weeks. Laboratory Tests Test 01/11/19 03:20 White Blood Count 7.8 x10^3/uL (4.0-11.0) Red Blood Count 4.36 x10^6/uL (3.50-5.40) Hemoglobin 13.4 g/dL (12.0-15.5) Hematocrit 39.4 % (36.0-47.0) Mean Corpuscular Volume 90 fL (79-100) Mean Corpuscular Hemoglobin 31 pg (25-35) Mean Corpuscular Hemoglobin Concent 34 g/dL (31-37) Red Cell Distribution Width 13.6 % (11.5-14.5) Platelet Count 284 x10^3/uL (140-400) Neutrophils (%) (Auto) 63 % (31-73) Lymphocytes (%) (Auto) 26 % (24-48) Monocytes (%) (Auto) 9 % (0-9) Eosinophils (%) (Auto) 2 % (0-3) Basophils (%) (Auto) 1 % (0-3) Neutrophils # (Auto) 4.9 x10^3/uL (1.8-7.7) Lymphocytes # (Auto) 2.0 x10^3/uL (1.0-4.8) Monocytes # (Auto) 0.7 x10^3/uL (0.0-1.1) Eosinophils # (Auto) 0.2 x10^3/uL (0.0-0.7) Basophils # (Auto) 0.1 x10^3/uL (0.0-0.2) Sodium Level 138 mmol/L (136-145) Potassium Level 3.9 mmol/L (3.5-5.1) Chloride Level 102 mmol/L (98-107) Carbon Dioxide Level 28 mmol/L (21-32) Anion Gap 8 (6-14) Blood Urea Nitrogen 22 mg/dL (7-20) Creatinine 1.2 mg/dL (0.6-1.0) Estimated GFR (Cockcroft-Gault) 45.5 BUN/Creatinine Ratio 18 (6-20) Glucose Level 104 mg/dL (70-99) Calcium Level 8.9 mg/dL (8.5-10.1) Total Bilirubin 0.2 mg/dL (0.2-1.0) Aspartate Amino Transf (AST/SGOT) 17 U/L (15-37) Alanine Aminotransferase (ALT/SGPT) 11 U/L (14-59) Alkaline Phosphatase 113 U/L (46-116) Total Protein 7.7 g/dL (6.4-8.2) Albumin 3.4 g/dL (3.4-5.0) Albumin/Globulin Ratio 0.8 (1.0-1.7) Comment Review of Relevant I have reviewed the following items charlene (where applicable) has been applied. Labs Laboratory Tests Test 01/11/19 03:20 White Blood Count 7.8 x10^3/uL (4.0-11.0) Red Blood Count 4.36 x10^6/uL (3.50-5.40) Hemoglobin 13.4 g/dL (12.0-15.5) Hematocrit 39.4 % (36.0-47.0) Mean Corpuscular Volume 90 fL (79-100) Mean Corpuscular Hemoglobin 31 pg (25-35) Mean Corpuscular Hemoglobin Concent 34 g/dL (31-37) Red Cell Distribution Width 13.6 % (11.5-14.5) Platelet Count 284 x10^3/uL (140-400) Neutrophils (%) (Auto) 63 % (31-73) Lymphocytes (%) (Auto) 26 % (24-48) Monocytes (%) (Auto) 9 % (0-9) Eosinophils (%) (Auto) 2 % (0-3) Basophils (%) (Auto) 1 % (0-3) Neutrophils # (Auto) 4.9 x10^3/uL (1.8-7.7) Lymphocytes # (Auto) 2.0 x10^3/uL (1.0-4.8) Monocytes # (Auto) 0.7 x10^3/uL (0.0-1.1) Eosinophils # (Auto) 0.2 x10^3/uL (0.0-0.7) Basophils # (Auto) 0.1 x10^3/uL (0.0-0.2) Sodium Level 138 mmol/L (136-145) Potassium Level 3.9 mmol/L (3.5-5.1) Chloride Level 102 mmol/L (98-107) Carbon Dioxide Level 28 mmol/L (21-32) Anion Gap 8 (6-14) Blood Urea Nitrogen 22 mg/dL (7-20) Creatinine 1.2 mg/dL (0.6-1.0) Estimated GFR (Cockcroft-Gault) 45.5 BUN/Creatinine Ratio 18 (6-20) Glucose Level 104 mg/dL (70-99) Calcium Level 8.9 mg/dL (8.5-10.1) Total Bilirubin 0.2 mg/dL (0.2-1.0) Aspartate Amino Transf (AST/SGOT) 17 U/L (15-37) Alanine Aminotransferase (ALT/SGPT) 11 U/L (14-59) Alkaline Phosphatase 113 U/L (46-116) Total Protein 7.7 g/dL (6.4-8.2) Albumin 3.4 g/dL (3.4-5.0) Albumin/Globulin Ratio 0.8 (1.0-1.7) Laboratory Tests Test 01/11/19 03:20 White Blood Count 7.8 x10^3/uL (4.0-11.0) Red Blood Count 4.36 x10^6/uL (3.50-5.40) Hemoglobin 13.4 g/dL (12.0-15.5) Hematocrit 39.4 % (36.0-47.0) Mean Corpuscular Volume 90 fL (79-100) Mean Corpuscular Hemoglobin 31 pg (25-35) Mean Corpuscular Hemoglobin Concent 34 g/dL (31-37) Red Cell Distribution Width 13.6 % (11.5-14.5) Platelet Count 284 x10^3/uL (140-400) Neutrophils (%) (Auto) 63 % (31-73) Lymphocytes (%) (Auto) 26 % (24-48) Monocytes (%) (Auto) 9 % (0-9) Eosinophils (%) (Auto) 2 % (0-3) Basophils (%) (Auto) 1 % (0-3) Neutrophils # (Auto) 4.9 x10^3/uL (1.8-7.7) Lymphocytes # (Auto) 2.0 x10^3/uL (1.0-4.8) Monocytes # (Auto) 0.7 x10^3/uL (0.0-1.1) Eosinophils # (Auto) 0.2 x10^3/uL (0.0-0.7) Basophils # (Auto) 0.1 x10^3/uL (0.0-0.2) Sodium Level 138 mmol/L (136-145) Potassium Level 3.9 mmol/L (3.5-5.1) Chloride Level 102 mmol/L (98-107) Carbon Dioxide Level 28 mmol/L (21-32) Anion Gap 8 (6-14) Blood Urea Nitrogen 22 mg/dL (7-20) Creatinine 1.2 mg/dL (0.6-1.0) Estimated GFR (Cockcroft-Gault) 45.5 BUN/Creatinine Ratio 18 (6-20) Glucose Level 104 mg/dL (70-99) Calcium Level 8.9 mg/dL (8.5-10.1) Total Bilirubin 0.2 mg/dL (0.2-1.0) Aspartate Amino Transf (AST/SGOT) 17 U/L (15-37) Alanine Aminotransferase (ALT/SGPT) 11 U/L (14-59) Alkaline Phosphatase 113 U/L (46-116) Total Protein 7.7 g/dL (6.4-8.2) Albumin 3.4 g/dL (3.4-5.0) Albumin/Globulin Ratio 0.8 (1.0-1.7) Microbiology 01/07/19 Urine Culture - Final, Complete 01/07/19 Urine Culture Result 1 (ELISE) - Final, Complete Medications Current Medications Multi-Ingredient Mouthwash/Gargle (Gi Cocktail) 20 ml 1X ONCE SWSW Last administered on 01/07/19at 19:18; Start 01/07/19 at 19:00; Stop 01/07/19 at 19:03; Status DC Aspirin (Children'S Aspirin) 324 mg 1X ONCE PO Last administered on 01/07/19 19:18; Start 01/07/19 at 19:00; Stop 01/07/19 at 19:03; Status DC Albuterol/ Ipratropium (Duoneb) 3 ml 1X ONCE NEB Last administered on 01/07/19at 19:50; Start 01/07/19 at 19:00; Stop 01/07/19 at 19:03; Status DC Fentanyl Citrate (Fentanyl 2ml Vial) 50 mcg 1X ONCE IV Last administered on 01/07/19 19:18; Start 01/07/19 at 19:15; Stop 01/07/19 at 19:16; Status DC Iohexol (Omnipaque 350 Mg/ml) 90 ml 1X ONCE IV Last administered on 01/07/19at 20:24; Start 01/07/19 at 20:00; Stop 01/07/19 at 20:01; Status DC Info (CONTRAST GIVEN -- Rx MONITORING) 1 each PRN DAILY PRN MC SEE COMMENTS; Start 01/07/19 at 20:00; Stop 01/09/19 at 19:59; Status DC Morphine Sulfate (Morphine Sulfate) 2 mg PRN Q2HR PRN IV PAIN Last administered on 01/11/19at 03:11; Start 01/07/19 at 20:00 Nitroglycerin (Nitrostat) 0.4 mg PRN Q5MIN PRN SL CHEST PAIN; Start 01/07/19 at 20:00 Temazepam (Restoril) 7.5 mg PRN QHS PRN PO INSOMNIA Last administered on 01/08/19at 20:06; Start 01/07/19 at 20:00 Acetaminophen (Tylenol) 500 mg PRN Q6HRS PRN PO MILD PAIN / TEMP; Start at 20:00; Stop 01/08/19 at 12:53; Status DC Acetaminophen/ Codeine Phosphate (Tylenol #3) 1 tab PRN Q6HRS PRN PO MODERATE PAIN; Start 01/07/19 at 20:00 Calcium Carbonate/ Glycine (Tums) 500 mg PRN AFTMEALHC PRN PO INDIGESTION Last administered on 01/08/19at 20:09; Start 01/07/19 at 20:00 Oxycodone/ Acetaminophen (Percocet 5/325) 1 tab PRN Q4HRS PRN PO SEVERE PAIN Last administered on 01/11/19at 06:03; Start 01/07/19 at 20:00 Ondansetron HCl (Zofran) 4 mg PRN Q6HRS PRN IVP NAUSEA/VOMITING; Start 01/07/19 at 20:00; Stop 01/08/19 at 12:53; Status DC Clonidine HCl (Catapres) 0.1 mg PRN Q1HR PRN PO HYPERTENSION; Start 01/07/19 at 20:00; Stop 01/08/19 at 12:53; Status DC Aspirin (Ecotrin) 325 mg DAILY PO Last administered on 01/09/19at 08:31; Start 01/08/19 at 09:00 Simvastatin (Zocor) 40 mg QHS PO Last administered on 01/08/19at 20:06; Start 01/07/19 at 21:00; Stop 01/09/19 at 11:31; Status DC Nitroglycerin (Nitrostat) 0.4 mg PRN Q5MIN PRN SL CHEST PAIN; Start 01/07/19 at 20:00; Stop 01/08/19 at 11:50; Status DC Influenza Virus Vaccine Quadrival (Afluria Quad 2019-20 (3yr Up) Syringe) 0.5 ml ONCE ONCE VAX IM Last administered on 01/09/19at 08:44; Start 01/08/19 at 09:00; Stop 01/08/19 at 09:01; Status DC Bisacodyl (Dulcolax Tab) 10 mg 1X ONCE PO Last administered on 01/08/19at 16:30; Start 01/08/19 at 12:45; Stop 01/08/19 at 12:46; Status DC Polyethylene Glycol (miraLAX PACKET) 17 gm DAILY PO ; Start 01/09/19 at 09:00 Polyethylene Glycol (miraLAX PACKET) 17 gm PRN DAILY PRN PO CONSTIPATION; Start 01/08/19 at 12:45 Pantoprazole Sodium (Protonix) 40 mg DAILYAC PO Last administered on 01/11/19at 06:03; Start 01/08/19 at 13:00 Sodium Chloride (Normal Saline Flush) 3 ml QSHIFT PRN IV AFTER MEDS AND BLOOD DRAWS; Start 01/08/19 at 13:00 Ondansetron HCl (Zofran) 4 mg PRN Q4HRS PRN IV NAUSEA/VOMITING Last administered on 01/08/19at 16:29; Start 01/08/19 at 13:00 Acetaminophen (Tylenol) 650 mg PRN Q4HRS PRN PO TEMP OVER 100.4F OR MILD PAIN; Start 01/08/19 at 13:00 Al Hydroxide/Mg Hydroxide (Mylanta Plus Xs) 30 ml PRN DAILY PRN PO HEARTBURN / GAS Last administered on 01/08/19at 18:35; Start 01/08/19 at 13:00; Stop 01/10/19 at 13:33; Status DC Clonidine HCl (Catapres) 0.1 mg PRN Q6HRS PRN PO SBP>160 OR DBP>90; Start 01/08/19 at 13:00 Docusate Sodium (Colace) 100 mg PRN BID PRN PO HARD STOOLS; Start 01/08/19 at 13:00 Albuterol Sulfate (Ventolin Neb Soln) 2.5 mg PRN Q4HRS PRN NEB SHORTNESS OF BREATH; Start 01/08/19 at 13:00 Guaifenesin (Robitussin) 200 mg PRN Q4HRS PRN PO COUGH; Start 01/08/19 at 13:00 Lorazepam (Ativan) 0.5 mg PRN Q4HRS PRN PO ANXIETY / AGITATION Last administered on 01/09/19at 21:46; Start 01/08/19 at 13:00 Enoxaparin Sodium (Lovenox 40mg Syringe) 40 mg DAILY SQ Last administered on 01/08/19at 16:36; Start 01/08/19 at 13:00 Regadenoson (Lexiscan) 0.4 mg 1X ONCE IV Last administered on 01/08/19at 13:27; Start 01/08/19 at 13:00; Stop 01/08/19 at 13:01; Status DC Al Hydroxide/Mg Hydroxide (Mylanta Plus Xs) 30 ml PRN Q6HRS PRN PO HEARTBURN / GAS; Start 01/08/19 at 18:30 Potassium Chloride (Klor-Con) 40 meq 1X ONCE PO Last administered on 01/09/19at 06:40; Start 01/08/19 at 20:30; Stop 01/08/19 at 20:32; Status DC Potassium Chloride (Klor-Con) 20 meq DAILYWBKFT PO Last administered on 01/09/19at 08:31; Start 01/09/19 at 08:00 Atorvastatin Calcium (Lipitor) 40 mg QHS PO Last administered on 01/10/19at 20:59; Start 01/09/19 at 21:00 Dicyclomine HCl (Bentyl) 10 mg PRN QID PRN PO abd pain; Start 01/10/19 at 09:15 Multi-Ingredient Mouthwash/Gargle (Gi Cocktail) 20 ml PRN QID PRN PO abd pain; Start 01/10/19 at 09:15 Iodixanol (Visipaque 320) 100 ml STK-MED ONCE .ROUTE ; Start 01/10/19 at 12:27; Stop 01/10/19 at 12:27; Status DC Heparin Sodium/ Sodium Chloride 1,000 ml @ As Directed STK-MED ONCE .ROUTE ; Start 01/10/19 at 12:27; Stop 01/10/19 at 12:27; Status DC Midazolam HCl (Versed) 2 mg STK-MED ONCE .ROUTE ; Start 01/10/19 at 12:29; Stop 01/10/19 at 12:29; Status DC Fentanyl Citrate (Fentanyl 2ml Vial) 100 mcg STK-MED ONCE .ROUTE ; Start 01/10/19 at 12:29; Stop 01/10/19 at 12:30; Status DC Heparin Sodium (Porcine) (Heparin Sodium) 10,000 unit STK-MED ONCE .ROUTE ; Start 01/10/19 at 12:30; Stop 01/10/19 at 12:30; Status DC Lidocaine HCl (Buffered Lidocaine 1%) 3 ml STK-MED ONCE .ROUTE ; Start 01/10/19 at 13:07; Stop 01/10/19 at 13:08; Status DC Heparin Sodium/ Sodium Chloride (HEPARIN for ARTERIAL LINE FLUSH) 1,000 unit 1X ONCE IART Last administered on 01/10/19at 14:14; Start 01/10/19 at 13:45; Stop 01/10/19 at 13:49; Status DC Heparin Sodium/ Sodium Chloride (HEPARIN for ARTERIAL LINE FLUSH) 1,000 unit 1X ONCE IART Last administered on 01/10/19at 14:14; Start 01/10/19 at 13:45; Stop 01/10/19 at 13:49; Status DC Lidocaine HCl (Buffered Lidocaine 1%) 2 ml 1X ONCE IJ Last administered on 01/10/19at 14:15; Start 01/10/19 at 13:45; Stop 01/10/19 at 13:49; Status DC Midazolam HCl (Versed) 2 mg 1X ONCE IV Last administered on 01/10/19at 14:15; Start 01/10/19 at 13:45; Stop 01/10/19 at 13:49; Status DC Fentanyl Citrate (Fentanyl 2ml Vial) 100 mcg 1X ONCE IV Last administered on 01/10/19at 14:16; Start 01/10/19 at 13:45; Stop 01/10/19 at 13:49; Status DC Iodixanol (Visipaque 320) 100 ml 1X ONCE IART Last administered on 01/10/19at 14:14; Start 01/10/19 at 13:45; Stop 01/10/19 at 13:49; Status DC Heparin Sodium (Porcine) (Heparin Sodium) 5,000 unit 1X ONCE IV Last administered on 01/10/19at 14:16; Start 01/10/19 at 13:45; Stop 01/10/19 at 13:50; Status DC Sodium Chloride 500 ml @ 500 mls/hr 1X ONCE IV Last administered on 01/10/19at 13:20; Start 01/10/19 at 14:00; Stop 01/10/19 at 14:59; Status DC Info (CONTRAST GIVEN -- Rx MONITORING) 1 each PRN DAILY PRN MC SEE COMMENTS; Start 01/10/19 at 14:00; Stop 01/12/19 at 13:59 Clopidogrel Bisulfate (Plavix) 300 mg 1X ONCE PO Last administered on 01/10/19at 15:29; Start 01/10/19 at 14:15; Stop 01/10/19 at 14:17; Status DC Clopidogrel Bisulfate (Plavix) 75 mg DAILYWBKFT PO ; Start 01/11/19 at 08:00 Active Scripts Active Aspirin Ec (Aspirin) 325 Mg Tablet. 1 Tab PO DAILY Simvastatin 40 Mg Tablet 40 Mg PO QHS 30 Days Vitals/I & O Vital Sign - Last 24 Hours 01/10/19 01/10/19 01/10/19 01/10/19 11:00 14:16 14:37 15:15 Temp 98.0 97.9 98.0 97.9 Pulse 56 47 51 Resp 14 14 10 14 B/P (MAP) 113/57 (75) 136/67 (90) Pulse Ox 95 94 100 95 O2 Delivery Room Air Nasal Cannula Nasal Cannula Room Air O2 Flow Rate 2.0 2.0 01/10/19 01/10/19 01/10/19 01/10/19 15:30 15:31 15:45 16:00 Pulse 50 50 55 B/P (MAP) 136/76 (96) 137/73 (94) 122/58 (79) Pulse Ox 97 96 94 O2 Delivery Room Air Room Air Room Air Room Air 01/10/19 01/10/19 01/10/19 01/10/19 16:30 17:00 18:00 19:21 Pulse 55 55 53 Resp 16 B/P (MAP) 127/62 (83) 122/69 (86) 114/68 (83) Pulse Ox 94 92 97 97 O2 Delivery Room Air Room Air Room Air Room Air O2 Flow Rate 2.0 01/10/19 01/10/19 01/10/19 01/10/19 19:35 19:45 21:15 21:17 Temp 98.3 98.3 Pulse 54 Resp 20 B/P (MAP) 102/42 (62) Pulse Ox 96 O2 Delivery Room Air Room Air Room Air Room Air 01/10/19 01/10/19 01/10/19 01/11/19 23:28 23:32 23:41 01:12 Temp 98.3 98.3 Pulse 58 Resp 19 B/P (MAP) 106/55 (72) Pulse Ox 94 O2 Delivery Room Air Room Air Nasal Cannula Room Air 01/11/19 01/11/19 01/11/19 01/11/19 03:11 03:46 03:55 06:03 Temp 98.5 98.5 Pulse 58 Resp 21 B/P (MAP) 106/52 (70) Pulse Ox 98 O2 Delivery Room Air Nasal Cannula Room Air Room Air 01/11/19 01/11/19 01/11/19 07:00 08:00 08:17 Temp 98.1 98.1 Pulse 57 Resp 18 B/P (MAP) 123/65 (84) Pulse Ox 97 97 O2 Delivery Room Air Room Air Room Air O2 Flow Rate 2.0 Intake and Output 01/10/19 01/10/19 01/11/19 15:00 23:00 07:00 Intake Total 350 ml Balance 350 ml CAMERON ALVAREZ MD Jan 11, 2019 08:23
[2019-01-11] MEDS: ACETAMINOPHEN/CODEINE 300/30MG TABLET. PO PRN (08:36)
[2019-01-11] MEDS: POTASSIUM CHLORIDE 20 MEQ TABLET.ER. PO SCH (08:36)
[2019-01-11] MEDS: ASPIRIN ENTERIC COATED 325 MG TABLET.DR. PO SCH (08:36)
[2019-01-11] MEDS: ENOXAPARIN 40 MG/0.4 ML SYRINGE. SQ SCH (08:36)
[2019-01-11] MEDS: CLOPIDOGREL BISULFATE 75 MG TABLET PO SCH (08:36)
[2019-01-11] MEDS: POLYETHYLENE GLYCOL 3350 17 GM PACKET. PO SCH (08:38)
[2019-01-11 11:00] VITALS: BP 107/57
--- NOTE | 2019-01-11 11:34 | PDOC ---
G I PROGRESS NOTE Reason for Follow-up Abd pain Subjective Appetite improving Physical Exam Lungs clear CV S1 S2 ABD +BS, soft, mild diffuse tenderness Review of Relevant I have reviewed the following items charlene (where applicable) has been applied. Labs Laboratory Tests Test 01/11/19 03:20 White Blood Count 7.8 x10^3/uL (4.0-11.0) Red Blood Count 4.36 x10^6/uL (3.50-5.40) Hemoglobin 13.4 g/dL (12.0-15.5) Hematocrit 39.4 % (36.0-47.0) Mean Corpuscular Volume 90 fL (79-100) Mean Corpuscular Hemoglobin 31 pg (25-35) Mean Corpuscular Hemoglobin Concent 34 g/dL (31-37) Red Cell Distribution Width 13.6 % (11.5-14.5) Platelet Count 284 x10^3/uL (140-400) Neutrophils (%) (Auto) 63 % (31-73) Lymphocytes (%) (Auto) 26 % (24-48) Monocytes (%) (Auto) 9 % (0-9) Eosinophils (%) (Auto) 2 % (0-3) Basophils (%) (Auto) 1 % (0-3) Neutrophils # (Auto) 4.9 x10^3/uL (1.8-7.7) Lymphocytes # (Auto) 2.0 x10^3/uL (1.0-4.8) Monocytes # (Auto) 0.7 x10^3/uL (0.0-1.1) Eosinophils # (Auto) 0.2 x10^3/uL (0.0-0.7) Basophils # (Auto) 0.1 x10^3/uL (0.0-0.2) Sodium Level 138 mmol/L (136-145) Potassium Level 3.9 mmol/L (3.5-5.1) Chloride Level 102 mmol/L (98-107) Carbon Dioxide Level 28 mmol/L (21-32) Anion Gap 8 (6-14) Blood Urea Nitrogen 22 mg/dL (7-20) Creatinine 1.2 mg/dL (0.6-1.0) Estimated GFR (Cockcroft-Gault) 45.5 BUN/Creatinine Ratio 18 (6-20) Glucose Level 104 mg/dL (70-99) Calcium Level 8.9 mg/dL (8.5-10.1) Total Bilirubin 0.2 mg/dL (0.2-1.0) Aspartate Amino Transf (AST/SGOT) 17 U/L (15-37) Alanine Aminotransferase (ALT/SGPT) 11 U/L (14-59) Alkaline Phosphatase 113 U/L (46-116) Total Protein 7.7 g/dL (6.4-8.2) Albumin 3.4 g/dL (3.4-5.0) Albumin/Globulin Ratio 0.8 (1.0-1.7) Laboratory Tests Test 01/11/19 03:20 White Blood Count 7.8 x10^3/uL (4.0-11.0) Red Blood Count 4.36 x10^6/uL (3.50-5.40) Hemoglobin 13.4 g/dL (12.0-15.5) Hematocrit 39.4 % (36.0-47.0) Mean Corpuscular Volume 90 fL (79-100) Mean Corpuscular Hemoglobin 31 pg (25-35) Mean Corpuscular Hemoglobin Concent 34 g/dL (31-37) Red Cell Distribution Width 13.6 % (11.5-14.5) Platelet Count 284 x10^3/uL (140-400) Neutrophils (%) (Auto) 63 % (31-73) Lymphocytes (%) (Auto) 26 % (24-48) Monocytes (%) (Auto) 9 % (0-9) Eosinophils (%) (Auto) 2 % (0-3) Basophils (%) (Auto) 1 % (0-3) Neutrophils # (Auto) 4.9 x10^3/uL (1.8-7.7) Lymphocytes # (Auto) 2.0 x10^3/uL (1.0-4.8) Monocytes # (Auto) 0.7 x10^3/uL (0.0-1.1) Eosinophils # (Auto) 0.2 x10^3/uL (0.0-0.7) Basophils # (Auto) 0.1 x10^3/uL (0.0-0.2) Sodium Level 138 mmol/L (136-145) Potassium Level 3.9 mmol/L (3.5-5.1) Chloride Level 102 mmol/L (98-107) Carbon Dioxide Level 28 mmol/L (21-32) Anion Gap 8 (6-14) Blood Urea Nitrogen 22 mg/dL (7-20) Creatinine 1.2 mg/dL (0.6-1.0) Estimated GFR (Cockcroft-Gault) 45.5 BUN/Creatinine Ratio 18 (6-20) Glucose Level 104 mg/dL (70-99) Calcium Level 8.9 mg/dL (8.5-10.1) Total Bilirubin 0.2 mg/dL (0.2-1.0) Aspartate Amino Transf (AST/SGOT) 17 U/L (15-37) Alanine Aminotransferase (ALT/SGPT) 11 U/L (14-59) Alkaline Phosphatase 113 U/L (46-116) Total Protein 7.7 g/dL (6.4-8.2) Albumin 3.4 g/dL (3.4-5.0) Albumin/Globulin Ratio 0.8 (1.0-1.7) Microbiology 01/07/19 Urine Culture - Final, Complete 01/07/19 Urine Culture Result 1 (ELISE) - Final, Complete Medications Current Medications Multi-Ingredient Mouthwash/Gargle (Gi Cocktail) 20 ml 1X ONCE SWSW Last administered on 01/07/19at 19:18; Start 01/07/19 at 19:00; Stop 01/07/19 at 19:03; Status DC Aspirin (Children'S Aspirin) 324 mg 1X ONCE PO Last administered on 01/07/19 19:18; Start 01/07/19 at 19:00; Stop 01/07/19 at 19:03; Status DC Albuterol/ Ipratropium (Duoneb) 3 ml 1X ONCE NEB Last administered on 01/07/19at 19:50; Start 01/07/19 at 19:00; Stop 01/07/19 at 19:03; Status DC Fentanyl Citrate (Fentanyl 2ml Vial) 50 mcg 1X ONCE IV Last administered on 01/07/19at 19:18; Start 01/07/19 at 19:15; Stop 01/07/19 at 19:16; Status DC Iohexol (Omnipaque 350 Mg/ml) 90 ml 1X ONCE IV Last administered on 01/07/19at 20:24; Start 01/07/19 at 20:00; Stop 01/07/19 at 20:01; Status DC Info (CONTRAST GIVEN -- Rx MONITORING) 1 each PRN DAILY PRN MC SEE COMMENTS; Start 01/07/19 at 20:00; Stop 01/09/19 at 19:59; Status DC Morphine Sulfate (Morphine Sulfate) 2 mg PRN Q2HR PRN IV PAIN Last administered on 01/11/19at 03:11; Start 01/07/19 at 20:00 Nitroglycerin (Nitrostat) 0.4 mg PRN Q5MIN PRN SL CHEST PAIN; Start 01/07/19 at 20:00 Temazepam (Restoril) 7.5 mg PRN QHS PRN PO INSOMNIA Last administered on at 20:06; Start 01/07/19 at 20:00 Acetaminophen (Tylenol) 500 mg PRN Q6HRS PRN PO MILD PAIN / TEMP; Start 01/07/19 at 20:00; Stop 01/08/19 at 12:53; Status DC Acetaminophen/ Codeine Phosphate (Tylenol #3) 1 tab PRN Q6HRS PRN PO MODERATE PAIN Last administered on 01/11/19at 08:36; Start 01/07/19 at 20:00 Calcium Carbonate/ Glycine (Tums) 500 mg PRN AFTMEALHC PRN PO INDIGESTION Last administered on 01/08/19at 20:09; Start 01/07/19 at 20:00 Oxycodone/ Acetaminophen (Percocet 5/325) 1 tab PRN Q4HRS PRN PO SEVERE PAIN Last administered on 01/11/19at 06:03; Start 01/07/19 at 20:00 Ondansetron HCl (Zofran) 4 mg PRN Q6HRS PRN IVP NAUSEA/VOMITING; Start 01/07/19 at 20:00; Stop 01/08/19 at 12:53; Status DC Clonidine HCl (Catapres) 0.1 mg PRN Q1HR PRN PO HYPERTENSION; Start 01/07/19 at 20:00; Stop 01/08/19 at 12:53; Status DC Aspirin (Ecotrin) 325 mg DAILY PO Last administered on 01/11/19at 08:36; Start 01/08/19 at 09:00 Simvastatin (Zocor) 40 mg QHS PO Last administered on 01/08/19at 20:06; Start 01/07/19 at 21:00; Stop 01/09/19 at 11:31; Status DC Nitroglycerin (Nitrostat) 0.4 mg PRN Q5MIN PRN SL CHEST PAIN; Start 01/07/19 at 20:00; Stop 01/08/19 at 11:50; Status DC Influenza Virus Vaccine Quadrival (Afluria Quad 2019-20 (3yr Up) Syringe) 0.5 ml ONCE ONCE VAX IM Last administered on 01/09/19at 08:44; Start 01/08/19 at 09:00; Stop 01/08/19 at 09:01; Status DC Bisacodyl (Dulcolax Tab) 10 mg 1X ONCE PO Last administered on 01/08/19at 16:30; Start 01/08/19 at 12:45; Stop 01/08/19 at 12:46; Status DC Polyethylene Glycol (miraLAX PACKET) 17 gm DAILY PO ; Start 01/09/19 at 09:00 Polyethylene Glycol (miraLAX PACKET) 17 gm PRN DAILY PRN PO CONSTIPATION; Start 01/08/19 at 12:45 Pantoprazole Sodium (Protonix) 40 mg DAILYAC PO Last administered on 01/11/19at 06:03; Start 01/08/19 at 13:00 Sodium Chloride (Normal Saline Flush) 3 ml QSHIFT PRN IV AFTER MEDS AND BLOOD DRAWS; Start 01/08/19 at 13:00 Ondansetron HCl (Zofran) 4 mg PRN Q4HRS PRN IV NAUSEA/VOMITING Last administered on 01/08/19at 16:29; Start 01/08/19 at 13:00 Acetaminophen (Tylenol) 650 mg PRN Q4HRS PRN PO TEMP OVER 100.4F OR MILD PAIN; Start 01/08/19 at 13:00 Al Hydroxide/Mg Hydroxide (Mylanta Plus Xs) 30 ml PRN DAILY PRN PO HEARTBURN / GAS Last administered on 01/08/19at 18:35; Start 01/08/19 at 13:00; Stop 01/10/19 at 13:33; Status DC Clonidine HCl (Catapres) 0.1 mg PRN Q6HRS PRN PO SBP>160 OR DBP>90; Start 01/08/19 at 13:00 Docusate Sodium (Colace) 100 mg PRN BID PRN PO HARD STOOLS; Start 01/08/19 at 13:00 Albuterol Sulfate (Ventolin Neb Soln) 2.5 mg PRN Q4HRS PRN NEB SHORTNESS OF BREATH; Start 01/08/19 at 13:00 Guaifenesin (Robitussin) 200 mg PRN Q4HRS PRN PO COUGH; Start 01/08/19 at 13:00 Lorazepam (Ativan) 0.5 mg PRN Q4HRS PRN PO ANXIETY / AGITATION Last ad ministered on 01/09/19at 21:46; Start 01/08/19 at 13:00 Enoxaparin Sodium (Lovenox 40mg Syringe) 40 mg DAILY SQ Last administered on 01/11/19at 08:36; Start 01/08/19 at 13:00 Regadenoson (Lexiscan) 0.4 mg 1X ONCE IV Last administered on 01/08/19at 13: 27; Start 01/08/19 at 13:00; Stop 01/08/19 at 13:01; Status DC Al Hydroxide/Mg Hydroxide (Mylanta Plus Xs) 30 ml PRN Q6HRS PRN PO HEARTBURN / GAS; Start 01/08/19 at 18:30 Potassium Chloride (Klor-Con) 40 meq 1X ONCE PO Last administered on 01/09/19a t 06:40; Start 01/08/19 at 20:30; Stop 01/08/19 at 20:32; Status DC Potassium Chloride (Klor-Con) 20 meq DAILYWBKFT PO Last administered on 01/11/19at 08:36; Start 01/09/19 at 08:00 Atorvastatin Calcium (Lipitor) 40 mg QHS PO Last administered on 01/10/19at 20:59; Start 01/09/19 at 21:00 Dicyclomine HCl (Bentyl) 10 mg PRN QID PRN PO abd pain; Start 01/10/19 at 09:15 Multi-Ingredient Mouthwash/Gargle (Gi Cocktail) 20 ml PRN QID PRN PO abd pain; Start 01/10/19 at 09:15 Iodixanol (Visipaque 320) 100 ml STK-MED ONCE .ROUTE ; Start 01/10/19 at 12:27; Stop 01/10/19 at 12:27; Status DC Heparin Sodium/ Sodium Chloride 1,000 ml @ As Directed STK-MED ONCE .ROUTE ; Start 01/10/19 at 12:27; Stop 01/10/19 at 12:27; Status DC Midazolam HCl (Versed) 2 mg STK-MED ONCE .ROUTE ; Start 01/10/19 at 12:29; Stop 01/10/19 at 12:29; Status DC Fentanyl Citrate (Fentanyl 2ml Vial) 100 mcg STK-MED ONCE .ROUTE ; Start 01/10/19 at 12:29; Stop 01/10/19 at 12:30; Status DC Heparin Sodium (Porcine) (Heparin Sodium) 10,000 unit STK-MED ONCE .ROUTE ; Start 01/10/19 at 12:30; Stop 01/10/19 at 12:30; Status DC Lidocaine HCl (Buffered Lidocaine 1%) 3 ml STK-MED ONCE .ROUTE ; Start 01/10/19 at 13:07; Stop 01/10/19 at 13:08; Status DC Heparin Sodium/ Sodium Chloride (HEPARIN for ARTERIAL LINE FLUSH) 1,000 unit 1X ONCE IART Last administered on 01/10/19at 14:14; Start 01/10/19 at 13:45; Stop 01/10/19 at 13:49; Status DC Heparin Sodium/ Sodium Chloride (HEPARIN for ARTERIAL LINE FLUSH) 1,000 unit 1X ONCE IART Last administered on 01/10/19at 14:14; Start 01/10/19 at 13:45; Stop 01/10/19 at 13:49; Status DC Lidocaine HCl (Buffered Lidocaine 1%) 2 ml 1X ONCE IJ Last administered on 01/10/19at 14:15; Start 01/10/19 at 13:45; Stop 01/10/19 at 13:49; Status DC Midazolam HCl (Versed) 2 mg 1X ONCE IV Last administered on 01/10/19at 14:15; Start 01/10/19 at 13:45; Stop 01/10/19 at 13:49; Status DC Fentanyl Citrate (Fentanyl 2ml Vial) 100 mcg 1X ONCE IV Last administered on 01/10/19at 14:16; Start 01/10/19 at 13:45; Stop 01/10/19 at 13:49; Status DC Iodixanol (Visipaque 320) 100 ml 1X ONCE IART Last administered on 01/10/19at 14:14; Start 01/10/19 at 13:45; Stop 01/10/19 at 13:49; Status DC Heparin Sodium (Porcine) (Heparin Sodium) 5,000 unit 1X ONCE IV Last administered on 01/10/19at 14:16; Start 01/10/19 at 13:45; Stop 01/10/19 at 13:50; Status DC Sodium Chloride 500 ml @ 500 mls/hr 1X ONCE IV Last administered on 01/10/19at 13:20; Start 01/10/19 at 14:00; Stop 01/10/19 at 14:59; Status DC Info (CONTRAST GIVEN -- Rx MONITORING) 1 each PRN DAILY PRN MC SEE COMMENTS; Start 01/10/19 at 14:00; Stop 01/12/19 at 13:59 Clopidogrel Bisulfate (Plavix) 300 mg 1X ONCE PO Last administered on 01/10/19at 15:29; Start 01/10/19 at 14:15; Stop 01/10/19 at 14:17; Status DC Clopidogrel Bisulfate (Plavix) 75 mg DAILYWBKFT PO Last administered on 01/11/19at 08:36; Start 01/11/19 at 08:00 Active Scripts Active Aspirin Ec (Aspirin) 325 Mg Tablet. 1 Tab PO DAILY Simvastatin 40 Mg Tablet 40 Mg PO QHS 30 Days Vitals/I & O Vital Sign - Last 24 Hours 01/10/19 01/10/19 01/10/19 01/10/19 14:16 14:37 15:15 15:30 Temp 97.9 97.9 Pulse 47 51 50 Resp 14 10 14 B/P (MAP) 136/67 (90) 136/76 (96) Pulse Ox 94 100 95 97 O2 Delivery Nasal Cannula Nasal Cannula Room Air Room Air O2 Flow Rate 2.0 2.0 01/10/19 01/10/19 01/10/19 01/10/19 15:31 15:45 16:00 16:30 Pulse 50 55 55 B/P (MAP) 137/73 (94) 122/58 (79) 127/62 (83) Pulse Ox 96 94 94 O2 Delivery Room Air Room Air Room Air Room Air 11/2701/10/19 01/10/19 01/10/19 17:00 18:00 19:21 19:35 Temp 98.3 98.3 Pulse 55 53 54 Resp 16 20 B/P (MAP) 122/69 (86) 114/68 (83) 102/42 (62) Pulse Ox 92 97 97 96 O2 Delivery Room Air Room Air Room Air Room Air O2 Flow Rate 2.0 01/10/19 01/10/19 01/10/19 01/10/19 19:45 21:15 21:17 23:28 O2 Delivery Room Air Room Air Room Air Room Air 01/10/19 01/10/19 01/11/19 01/11/19 23:32 23:41 01:12 03:11 Temp 98.3 98.3 Pulse 58 Resp 19 B/P (MAP) 106/55 (72) Pulse Ox 94 O2 Delivery Room Air Nasal Cannula Room Air Room Air 01/11/19 01/11/19 01/11/19 01/11/19 03:46 03:55 06:03 07:00 Temp 98.5 98.1 98.5 98.1 Pulse 58 57 Resp 21 18 B/P (MAP) 106/52 (70) 123/65 (84) Pulse Ox 98 97 O2 Delivery Nasal Cannula Room Air Room Air Room Air O2 Flow Rate 2.0 01/11/19 01/11/19 01/11/19 01/11/19 08:00 08:17 08:36 09:45 Pulse Ox 97 97 97 O2 Delivery Room Air Room Air Room Air Room Air 01/11/19 11:00 Temp 97.8 97.8 Pulse 58 Resp 18 B/P (MAP) 107/57 (74) Pulse Ox 95 O2 Delivery Room Air Intake and Output 01/10/19 01/10/19 01/11/19 15:00 23:00 07:00 Intake Total 350 ml Balance 350 ml Problem List Abd pain- with mesenteiric atherosclerosis /ischemia s/p stent, small vessel involvement likely reason for lack of improvement with intervention, CPM TACHO SOTOMAYOR MD Jan 11, 2019 11:34
[2019-01-11 15:00] VITALS: BP 102/55
[2019-01-11] MEDS: ONDANSETRON PF 4 MG/2 ML VIAL. IV PRN (15:07)
[2019-01-11 19:40] VITALS: BP 90/39
[2019-01-11] MEDS: ATORVASTATIN CALCIUM 40 MG TABLET. PO SCH (21:27)
[2019-01-11 23:00] VITALS: BP 103/50
[2019-01-12] MEDS: ACETAMINOPHEN/CODEINE 300/30MG TABLET. PO PRN (02:38)
[2019-01-12 03:00] VITALS: BP 113/60
[2019-01-12 07:00] VITALS: BP 127/47
--- NOTE | 2019-01-12 07:51 | PDOC ---
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 ON CTA ABDOMEN ///IR and vascular CONSULTED. Continue PPI Severe Celiac and SMA focal stenoses. 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 Marked angiographic improvement of the SMA following placement of the stent and drug coated balloon angioplasty. 01/11 still having severe epigastric pain, requesting iv morphine PLAN ADMIT CARDIOLOGY CONSULT GI CONSULT MPI to r/o ischemia neg IR/vascular opinion re: CTA findings. dvt prophylaxis reviewed ABDOMINAL angiogram; Recommend dual antiplatelet therapy for at least 6 weeks, followed by monotherapy for life a after. Patient should also undergo mesenteric arterial Doppler ultrasound follow-up examination in 6-12 weeks. 26 min pt exam, chart review, > 50% of time spent with exam, chart review, pt care coordination Vitals Vitals Vital Signs Date Time Temp Pulse Resp B/P (MAP) Pulse Ox O2 Delivery O2 Flow Rate FiO2 01/12/19 03:00 97.7 60 18 113/60 (77) 96 Room Air 97.7 01/11/19 20:00 2.0 Physical Exam General: Alert, Oriented X3, Cooperative, mild distress Heart: Regular rate, Normal S1, Normal S2, No murmurs Lungs: Clear, Wheezing Abdomen: Normal bowel sounds, Soft, No tenderness Extremities: No clubbing, No cyanosis, No edema, Normal pulses Skin: No rashes, No significant lesion Comment Review of Relevant I have reviewed the following items charlene (where applicable) has been applied. Labs Laboratory Tests Test 01/11/19 03:20 White Blood Count 7.8 x10^3/uL (4.0-11.0) Red Blood Count 4.36 x10^6/uL (3.50-5.40) Hemoglobin 13.4 g/dL (12.0-15.5) Hematocrit 39.4 % (36.0-47.0) Mean Corpuscular Volume 90 fL (79-100) Mean Corpuscular Hemoglobin 31 pg (25-35) Mean Corpuscular Hemoglobin Concent 34 g/dL (31-37) Red Cell Distribution Width 13.6 % (11.5-14.5) Platelet Count 284 x10^3/uL (140-400) Neutrophils (%) (Auto) 63 % (31-73) Lymphocytes (%) (Auto) 26 % (24-48) Monocytes (%) (Auto) 9 % (0-9) Eosinophils (%) (Auto) 2 % (0-3) Basophils (%) (Auto) 1 % (0-3) Neutrophils # (Auto) 4.9 x10^3/uL (1.8-7.7) Lymphocytes # (Auto) 2.0 x10^3/uL (1.0-4.8) Monocytes # (Auto) 0.7 x10^3/uL (0.0-1.1) Eosinophils # (Auto) 0.2 x10^3/uL (0.0-0.7) Basophils # (Auto) 0.1 x10^3/uL (0.0-0.2) Sodium Level 138 mmol/L (136-145) Potassium Level 3.9 mmol/L (3.5-5.1) Chloride Level 102 mmol/L (98-107) Carbon Dioxide Level 28 mmol/L (21-32) Anion Gap 8 (6-14) Blood Urea Nitrogen 22 mg/dL (7-20) Creatinine 1.2 mg/dL (0.6-1.0) Estimated GFR (Cockcroft-Gault) 45.5 BUN/Creatinine Ratio 18 (6-20) Glucose Level 104 mg/dL (70-99) Calcium Level 8.9 mg/dL (8.5-10.1) Total Bilirubin 0.2 mg/dL (0.2-1.0) Aspartate Amino Transf (AST/SGOT) 17 U/L (15-37) Alanine Aminotransferase (ALT/SGPT) 11 U/L (14-59) Alkaline Phosphatase 113 U/L (46-116) Total Protein 7.7 g/dL (6.4-8.2) Albumin 3.4 g/dL (3.4-5.0) Albumin/Globulin Ratio 0.8 (1.0-1.7) Microbiology 01/07/19 Urine Culture - Final, Complete 01/07/19 Urine Culture Result 1 (ELISE) - Final, Complete Medications Current Medications Multi-Ingredient Mouthwash/Gargle (Gi Cocktail) 20 ml 1X ONCE SWSW Last administered on 01/07/19at 19:18; Start 01/07/19 at 19:00; Stop 01/07/19 at 19:03; Status DC Aspirin (Children'S Aspirin) 324 mg 1X ONCE PO Last administered on 01/07/19at 19:18; Start 01/07/19 at 19:00; Stop 01/07/19 at 19:03; Status DC Albuterol/ Ipratropium (Duoneb) 3 ml 1X ONCE NEB Last administered on 01/07/19at 19:50; Start 01/07/19 at 19:00; Stop 01/07/19 at 19:03; Status DC Fentanyl Citrate (Fentanyl 2ml Vial) 50 mcg 1X ONCE IV Last administered on 01/07/19at 19:18; Start 01/07/19 at 19:15; Stop 01/07/19 at 19:16; Status DC Iohexol (Omnipaque 350 Mg/ml) 90 ml 1X ONCE IV Last administered on 01/07/19at 20:24; Start 01/07/19 at 20:00; Stop 01/07/19 at 20:01; Status DC Info (CONTRAST GIVEN -- Rx MONITORING) 1 each PRN DAILY PRN MC SEE COMMENTS; Start 01/07/19 at 20:00; Stop 01/09/19 at 19:59; Status DC Morphine Sulfate (Morphine Sulfate) 2 mg PRN Q2HR PRN IV PAIN Last administered on 01/11/19at 15:07; Start 01/07/19 at 20:00 Nitroglycerin (Nitrostat) 0.4 mg PRN Q5MIN PRN SL CHEST PAIN; Start 01/07/19 at 20:00 Temazepam (Restoril) 7.5 mg PRN QHS PRN PO INSOMNIA Last administered on 01/08/19at 20:06; Start 01/07/19 at 20:00 Acetaminophen (Tylenol) 500 mg PRN Q6HRS PRN PO MILD PAIN / TEMP; Start 01/07/19 at 20:00; Stop 01/08/19 at 12:53; Status DC Acetaminophen/ Codeine Phosphate (Tylenol #3) 1 tab PRN Q6HRS PRN PO MODERATE PAIN Last administered on 01/12/19 02:38; Start 01/07/19 at 20:00 Calcium Carbonate/ Glycine (Tums) 500 mg PRN AFTMEALHC PRN PO INDIGESTION Last administered on 01/08/19 20:09; Start 01/07/19 at 20:00 Oxycodone/ Acetaminophen (Percocet 5/325) 1 tab PRN Q4HRS PRN PO SEVERE PAIN Last administered on 01/11/19 23:34; Start 01/07/19 at 20:00 Ondansetron HCl (Zofran) 4 mg PRN Q6HRS PRN IVP NAUSEA/VOMITING; Start at 20:00; Stop 01/08/19 at 12:53; Status DC Clonidine HCl (Catapres) 0.1 mg PRN Q1HR PRN PO HYPERTENSION; Start 01/07/19 at 20:00; Stop 01/08/19 at 12:53; Status DC Aspirin (Ecotrin) 325 mg DAILY PO Last administered on 01/11/19at 08:36; Start 01/08/19 at 09:00 Simvastatin (Zocor) 40 mg QHS PO Last administered on 01/08/19 20:06; Start 01/07/19 at 21:00; Stop 01/09/19 at 11:31; Status DC Nitroglycerin (Nitrostat) 0.4 mg PRN Q5MIN PRN SL CHEST PAIN; Start 01/07/19 at 20:00; Stop 01/08/19 at 11:50; Status DC Influenza Virus Vaccine Quadrival (Afluria Quad 2019-20 (3yr Up) Syringe) 0.5 ml ONCE ONCE VAX IM Last administered on 01/09/19at 08:44; Start 01/08/19 at 09:00; Stop 01/08/19 at 09:01; Status DC Bisacodyl (Dulcolax Tab) 10 mg 1X ONCE PO Last administered on 01/08/19at 16:30; Start 01/08/19 at 12:45; Stop 01/08/19 at 12:46; Status DC Polyethylene Glycol (miraLAX PACKET) 17 gm DAILY PO ; Start 01/09/19 at 09:00 Polyethylene Glycol (miraLAX PACKET) 17 gm PRN DAILY PRN PO CONSTIPATION Last administered on 11/29/19at 02:43; Start 01/08/19 at 12:45 Pantoprazole Sodium (Protonix) 40 mg DAILYAC PO Last administered on 01/11/19at 06:03; Start 01/08/19 at 13:00 Sodium Chloride (Normal Saline Flush) 3 ml QSHIFT PRN IV AFTER MEDS AND BLOOD DRAWS; Start 01/08/19 at 13:00 Ondansetron HCl (Zofran) 4 mg PRN Q4HRS PRN IV NAUSEA/VOMITING Last administered on 01/11/19at 15:07; Start 01/08/19 at 13:00 Acetaminophen (Tylenol) 650 mg PRN Q4HRS PRN PO TEMP OVER 100.4F OR MILD PAIN; Start 01/08/19 at 13:00 Al Hydroxide/Mg Hydroxide (Mylanta Plus Xs) 30 ml PRN DAILY PRN PO HEARTBURN / GAS Last administered on 01/08/19at 18:35; Start 01/08/19 at 13:00; Stop 01/10/19 at 13:33; Status DC Clonidine HCl (Catapres) 0.1 mg PRN Q6HRS PRN PO SBP>160 OR DBP>90; Start 01/08/19 at 13:00 Docusate Sodium (Colace) 100 mg PRN BID PRN PO HARD STOOLS; Start 01/08/19 at 13:00 Albuterol Sulfate (Ventolin Neb Soln) 2.5 mg PRN Q4HRS PRN NEB SHORTNESS OF BREATH; Start 01/08/19 at 13:00 Guaifenesin (Robitussin) 200 mg PRN Q4HRS PRN PO COUGH; Start 01/08/19 at 13:00 Lorazepam (Ativan) 0.5 mg PRN Q4HRS PRN PO ANXIETY / AGITATION Last administered on 01/09/19at 21:46; Start 01/08/19 at 13:00 Enoxaparin Sodium (Lovenox 40mg Syringe) 40 mg DAILY SQ Last administered on 01/11/19at 08:36; Start 01/08/19 at 13:00 Regadenoson (Lexiscan) 0.4 mg 1X ONCE IV Last administered on 01/08/19at 13:27; Start 01/08/19 at 13:00; Stop 01/08/19 at 13:01; Status DC Al Hydroxide/Mg Hydroxide (Mylanta Plus Xs) 30 ml PRN Q6HRS PRN PO HEARTBURN / GAS; Start 01/08/19 at 18:30 Potassium Chloride (Klor-Con) 40 meq 1X ONCE PO Last administered on 01/09at 06:40; Start 01/08/19 at 20:30; Stop 01/08/19 at 20:32; Status DC Potassium Chloride (Klor-Con) 20 meq DAILYWBKFT PO Last administered on 01/11/19at 08:36; Start 01/09/19 at 08:00 Atorvastatin Calcium (Lipitor) 40 mg QHS PO Last administered on 01/11/19at 21:27; Start 01/09/19 at 21:00 Dicyclomine HCl (Bentyl) 10 mg PRN QID PRN PO abd pain; Start 01/10/19 at 09:15 Multi-Ingredient Mouthwash/Gargle (Gi Cocktail) 20 ml PRN QID PRN PO abd pain; Start 01/10/19 at 09:15 Iodixanol (Visipaque 320) 100 ml STK-MED ONCE .ROUTE ; Start 01/10/19 at 12:27; Stop 01/10/19 at 12:27; Status DC Heparin Sodium/ Sodium Chloride 1,000 ml @ As Directed STK-MED ONCE .ROUTE ; Start 01/10/19 at 12:27; Stop 01/10/19 at 12:27; Status DC Midazolam HCl (Versed) 2 mg STK-MED ONCE .ROUTE ; Start 01/10/19 at 12:29; Stop 01/10/19 at 12:29; Status DC Fentanyl Citrate (Fentanyl 2ml Vial) 100 mcg STK-MED ONCE .ROUTE ; Start 01/10/19 at 12:29; Stop 01/10/19 at 12:30; Status DC Heparin Sodium (Porcine) (Heparin Sodium) 10,000 unit STK-MED ONCE .ROUTE ; Start 01/10/19 at 12:30; Stop 01/10/19 at 12:30; Status DC Lidocaine HCl (Buffered Lidocaine 1%) 3 ml STK-MED ONCE .ROUTE ; Start 01/10/19 at 13:07; Stop 01/10/19 at 13:08; Status DC Heparin Sodium/ Sodium Chloride (HEPARIN for ARTERIAL LINE FLUSH) 1,000 unit 1X ONCE IART Last administered on 01/10/19at 14:14; Start 01/10/19 at 13:45; Stop 01/10/19 at 13:49; Status DC Heparin Sodium/ Sodium Chloride (HEPARIN for ARTERIAL LINE FLUSH) 1,000 unit 1X ONCE IART Last administered on 01/10/19at 14:14; Start 01/10/19 at 13:45; Stop 01/10/19 at 13:49; Status DC Lidocaine HCl (Buffered Lidocaine 1%) 2 ml 1X ONCE IJ Last administered on 01/10/19at 14:15; Start 01/10/19 at 13:45; Stop 01/10/19 at 13:49; Status DC Midazolam HCl (Versed) 2 mg 1X ONCE IV Last administered on 01/10/19 14:15; Start 01/10/19 at 13:45; Stop 01/10/19 at 13:49; Status DC Fentanyl Citrate (Fentanyl 2ml Vial) 100 mcg 1X ONCE IV Last administered on 01/10/19at 14:16; Start 01/10/19 at 13:45; Stop 01/10/19 at 13:49; Status DC Iodixanol (Visipaque 320) 100 ml 1X ONCE IART Last administered on 01/10/19at 14:14; Start 01/10/19 at 13:45; Stop 01/10/19 at 13:49; Status DC Heparin Sodium (Porcine) (Heparin Sodium) 5,000 unit 1X ONCE IV Last administered on 01/10/19at 14:16; Start 01/10/19 at 13:45; Stop 01/10/19 at 13:50; Status DC Sodium Chloride 500 ml @ 500 mls/hr 1X ONCE IV Last administered on 01/10/19at 13:20; Start 01/10/19 at 14:00; Stop 01/10/19 at 14:59; Status DC Info (CONTRAST GIVEN -- Rx MONITORING) 1 each PRN DAILY PRN MC SEE COMMENTS; Start 01/10/19 at 14:00; Stop 01/12/19 at 13:59 Clopidogrel Bisulfate (Plavix) 300 mg 1X ONCE PO Last administered on 01/10/19at 15:29; Start 01/10/19 at 14:15; Stop 01/10/19 at 14:17; Status DC Clopidogrel Bisulfate (Plavix) 75 mg DAILYWBKFT PO Last administered on 01/11/19at 08:36; Start 01/11/19 at 08:00 Active Scripts Active Aspirin Ec (Aspirin) 325 Mg Tablet. 1 Tab PO DAILY Simvastatin 40 Mg Tablet 40 Mg PO QHS 30 Days Vitals/I & O Vital Sign - Last 24 Hours 01/11/19 01/11/19 01/11/19 01/11/19 08:00 08:17 08:36 09:45 Pulse Ox 97 97 97 O2 Delivery Room Air Room Air Room Air Room Air 01/11/19 01/11/19 01/11/19 01/11/19 11:00 15:00 15:07 15:39 Temp 97.8 98.0 97.8 98.0 Pulse 58 59 Resp 18 18 B/P (MAP) 107/57 (74) 102/55 (71) Pulse Ox 95 98 95 95 O2 Delivery Room Air Room Air Room Air Room Air 01/11/19 01/11/19 01/11/19 01/11/19 17:27 18:17 19:40 20:00 Temp 98.1 98.1 Pulse 58 Resp 17 B/P (MAP) 90/39 (56) Pulse Ox 95 95 95 O2 Delivery Room Air Room Air Room Air Room Air O2 Flow Rate 2.0 01/11/19 01/11/19 01/12/19 23:00 23:34 03:00 Temp 97.9 97.7 97.9 97.7 Pulse 59 60 Resp 18 16 18 B/P (MAP) 103/50 (67) 113/60 (77) Pulse Ox 99 96 O2 Delivery Room Air Room Air Room Air Intake and Output 01/11/19 01/11/19 01/12/19 15:00 23:00 07:00 Intake Total 120 ml 120 ml Balance 120 ml 120 ml CAMERON ALVAREZ MD Jan 12, 2019 07:51
[2019-01-12] MEDS: CLOPIDOGREL BISULFATE 75 MG TABLET PO SCH (09:41)
[2019-01-12] MEDS: PANTOPRAZOLE 40 MG TABLET.DR. PO SCH (09:41)
[2019-01-12] MEDS: ASPIRIN ENTERIC COATED 325 MG TABLET.DR. PO SCH (09:41)
[2019-01-12] MEDS: POTASSIUM CHLORIDE 20 MEQ TABLET.ER. PO SCH (09:41)
[2019-01-12] MEDS: POLYETHYLENE GLYCOL 3350 17 GM PACKET. PO SCH (09:42)
[2019-01-12] MEDS: ENOXAPARIN 40 MG/0.4 ML SYRINGE. SQ SCH (09:42)
[2019-01-12] MEDS: oxyCODONE/APAP 5/325 1 TAB TABLET PO PRN ×2 (09:42→20:30)
[2019-01-12 11:00] VITALS: BP 118/43
[2019-01-12 15:00] VITALS: BP 111/37
--- NOTE | 2019-01-12 16:01 | NUR ---
Pt called for pain meds. Went to pt's room w/ meds, pt was sleeping soundly. Pt's bedside. Will continue to monitor.
[2019-01-12 19:00] VITALS: BP 92/38
[2019-01-12] MEDS: ATORVASTATIN CALCIUM 40 MG TABLET. PO SCH (20:29)
[2019-01-12 23:03] VITALS: BP 126/57
[2019-01-13] MEDS: oxyCODONE/APAP 5/325 1 TAB TABLET PO PRN ×3 (02:32→15:33)
[2019-01-13 03:04] VITALS: BP 94/35
[2019-01-13 07:00] VITALS: BP 137/57
[2019-01-13] MEDS: CLOPIDOGREL BISULFATE 75 MG TABLET PO SCH (08:26)
[2019-01-13] MEDS: ASPIRIN ENTERIC COATED 325 MG TABLET.DR. PO SCH (08:27)
[2019-01-13] MEDS: PANTOPRAZOLE 40 MG TABLET.DR. PO SCH (08:27)
[2019-01-13] MEDS: ENOXAPARIN 40 MG/0.4 ML SYRINGE. SQ SCH (08:28)
[2019-01-13] MEDS: POTASSIUM CHLORIDE 20 MEQ TABLET.ER. PO SCH (08:28)
[2019-01-13] MEDS: POLYETHYLENE GLYCOL 3350 17 GM PACKET. PO SCH (08:28)
--- NOTE | 2019-01-13 08:34 | PDOC ---
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 ON CTA ABDOMEN ///IR and vascular CONSULTED. Continue PPI Severe Celiac and SMA focal stenoses. 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 Marked angiographic improvement of the SMA following placement of the stent and drug coated balloon angioplasty. 01/11 still having severe epigastric pain, requesting iv morphine 01/13 PAIN SLOW TO RESOLVE, NOT ABLE TO EAT VERY MUCH WITHOUT PAIN///KUB PLANNED PLAN ADMIT CARDIOLOGY CONSULT GI CONSULT MPI to r/o ischemia neg IR/vascular opinion re: CTA findings. dvt prophylaxis reviewed ABDOMINAL angiogram; Recommend dual antiplatelet therapy for at least 6 weeks, followed by monotherapy for life a after. Patient should also undergo mesenteric arterial Doppler ultrasound follow-up examination in 6-12 weeks. KUB UPRIGHT 01/13 26 min pt exam, chart review, > 50% of time spent with exam, chart review, pt care coordination Vitals Vitals Vital Signs Date Time Temp Pulse Resp B/P (MAP) Pulse Ox O2 Delivery O2 Flow Rate FiO2 01/13/19 08:27 Room Air 01/13/19 07:00 98.3 58 16 137/57 (83) 94 98.3 Physical Exam General: Alert, Oriented X3, Cooperative, mild distress Heart: Regular rate, Normal S1, Normal S2, No murmurs Lungs: Clear, Wheezing Abdomen: Normal bowel sounds, Soft, No tenderness, Other (mild tenderness) Extremities: No clubbing, No cyanosis, No edema, Normal pulses Skin: No rashes, No significant lesion Labs LABS APPROVED REPORT Test Type: Pharmacological Stress Nurse/Tech: Anna Choi R.N. Test Indications: c/p Cardiac History: htn,smoker Medications: See Electronic Medical Record Medical History: See Electronic Medical Record Resting ECG: SB Resting Heart Rate: 47 bpm Resting Blood Pressure: 153/76mmHg Pretest Chest Pain: No chest pain Nurse/Tech Notes S1S1, lungs CTA Consent: The procedure was explained to the patient in lay terms. Informed consent was witnessed. Timeout was entered into [employer]. History and Stress Test performed by RT Lilliana (Al) (N) Pharm. Details Pharmacologic stress testing was performed using 0.4mg per 5ml of regadenoson given intravenously over 7-10 seconds. Stress Symptoms SOA, stomach cramps, felt bad all over POST EXERCISE Reason for Termination: Infusion complete Max HR: 77 bpm Max Blood Pressure: 112/59mmHg Heart Rate response to exercise: wnl Chest Pain: No. Arrhythmia: No. ST Change: No. INTERPRETATION Stress EKG Conclusion: The resting EKG shows a sinus bradycardia and mild nonspecific ST-T wave changes. The stress EKG shows no significant changes from baseline. No EKG evidence of stressed induced ischemia. Imaging Protocol IMAGE PROTOCOL: Rest Tc-99m/stress Tc-99m 1 day Rest: Stress: Viability: Radiopharm. Tc99m Sestamibi Tc99m Sestamibi Dose 10.1mCi 33mCi Duration 13min. 13min. Img Date 01/08/2019 01/08/2019 Inj-Img Time 60min. 60min. Rest Admin Site: IV - Right Antecubital Bodily Injury Adjuster: RT Lilliana (Al)(N) Stress Admin Site: IV - Right Antecubital Bodily Injury Adjuster: GRZEGORZ Vizcaino STRESS DATA End Diast. Vol. 83.0ml Av. Heart Rate 55.0bpm LVEDV index BSA 47.0ml Cardiac Output 1.9L/min End Syst. Vol. 21.0ml CO Index BSA 3.4L/min LVESV index BSA 12.0ml Myocardial Mass 114.0g Eject. Fraction 75.0% Stress Scores Regional WT 0.00 Summed WT 4.00 Regional WM 0.00 Summed WM 1.00 LV Perfusion The stress scans showed no significant defects. The rest scans showed no significant defects. Nuclear imaging shows no reversible ischemia or infarct. Wall Motion Left ventricular systolic function is normal with no regional wall motion abnormalities and an ejection fraction of greater than 70%. LV Perf. Quant 17 Seg. SSS 0.00 17 Seg. SRS 0.00 17 Seg. SDS 0.00 Stress Defect Extent (% LAD) 0.00 Rest Defect Extent (% LAD) 0.00 Rev. Defect Extent (% LAD) 0.00 Stress Defect Extent (% LCX) 0.00 Rest Defect Extent (% LCX) 0.00 Rev. Defect Extent (% LCX) 0.00 Stress Defect Extent (% RCA) 0.00 Rest Defect Extent (% RCA) 0.00 Rev. Defect Extent (% RCA) 0.00 Stress Defect Extent (% CHRISTEL) 0.00 Rest Defect Extent (% CHRISTEL) 0.00 Rev. Defect Extent (% CHRISTEL) 0.00 Conclusion 1. No EKG evidence of stressed induced ischemia. 2. Nuclear imaging shows no reversible ischemia or infarct. 3. Normal left ventricular systolic function with an ejection fraction of greater than 70%. 4. Low risk Lexiscan nuclear stress test. Signed by : Juan Luis Lew MD Electronically Approved : 01/09/2019 10:05:30 Comment Review of Relevant I have reviewed the following items charlene (where applicable) has been applied. Labs Microbiology 01/07/19 Urine Culture - Final, Complete 01/07/19 Urine Culture Result 1 (ELISE) - Final, Complete Medications Current Medications Multi-Ingredient Mouthwash/Gargle (Gi Cocktail) 20 ml 1X ONCE SWSW Last administered on 01/07/19 19:18; Start 01/07/19 at 19:00; Stop 01/07/19 at 19:03; Status DC Aspirin (Children'S Aspirin) 324 mg 1X ONCE PO Last administered on 01/07/19 19:18; Start 01/07/19 at 19:00; Stop 01/07/19 at 19:03; Status DC Albuterol/ Ipratropium (Duoneb) 3 ml 1X ONCE NEB Last administered on 01/07/19at 19:50; Start 01/07/19 at 19:00; Stop 01/07/19 at 19:03; Status DC Fentanyl Citrate (Fentanyl 2ml Vial) 50 mcg 1X ONCE IV Last administered on 01/07/19 19:18; Start 01/07/19 at 19:15; Stop 01/07/19 at 19:16; Status DC Iohexol (Omnipaque 350 Mg/ml) 90 ml 1X ONCE IV Last administered on 01/07/19at 20:24; Start 01/07/19 at 20:00; Stop 01/07/19 at 20:01; Status DC Info (CONTRAST GIVEN -- Rx MONITORING) 1 each PRN DAILY PRN MC SEE COMMENTS; Start 01/07/19 at 20:00; Stop 01/09/19 at 19:59; Status DC Morphine Sulfate (Morphine Sulfate) 2 mg PRN Q2HR PRN IV PAIN Last administered on 01/11/19at 15:07; Start 01/07/19 at 20:00 Nitroglycerin (Nitrostat) 0.4 mg PRN Q5MIN PRN SL CHEST PAIN; Start 01/07/19 at 20:00 Temazepam (Restoril) 7.5 mg PRN QHS PRN PO INSOMNIA Last administered on 01/08/19at 20:06; Start 01/07/19 at 20:00 Acetaminophen (Tylenol) 500 mg PRN Q6HRS PRN PO MILD PAIN / TEMP; Start 01/07/19 at 20:00; Stop 01/08/19 at 12:53; Status DC Acetaminophen/ Codeine Phosphate (Tylenol #3) 1 tab PRN Q6HRS PRN PO MODERATE PAIN Last administered on 01/12/19at 02:38; Start 01/07/19 at 20:00 Calcium Carbonate/ Glycine (Tums) 500 mg PRN AFTMEALHC PRN PO INDIGESTION Last administered on 01/08/19at 20:09; Start 01/07/19 at 20:00 Oxycodone/ Acetaminophen (Percocet 5/325) 1 tab PRN Q4HRS PRN PO SEVERE PAIN Last administered on 01/13/19at 08:27; Start 01/07/19 at 20:00 Ondansetron HCl (Zofran) 4 mg PRN Q6HRS PRN IVP NAUSEA/VOMITING; Start 01/07/19 at 20:00; Stop 01/08/19 at 12:53; Status DC Clonidine HCl (Catapres) 0.1 mg PRN Q1HR PRN PO HYPERTENSION; Start 01/07/19 at 20:00; Stop 01/08/19 at 12:53; Status DC Aspirin (Ecotrin) 325 mg DAILY PO Last administered on 01/13/19at 08:27; Start 01/08/19 at 09:00 Simvastatin (Zocor) 40 mg QHS PO Last administered on 01/08/19at 20:06; Start 01/07/19 at 21:00; Stop 01/09/19 at 11:31; Status DC Nitroglycerin (Nitrostat) 0.4 mg PRN Q5MIN PRN SL CHEST PAIN; Start 01/07/19 at 20:00; Stop 01/08/19 at 11:50; Status DC Influenza Virus Vaccine Quadrival (Afluria Quad 2019-20 (3yr Up) Syringe) 0.5 ml ONCE ONCE VAX IM Last administered on 01/09/19at 08:44; Start 01/08/19 at 09:00; Stop 01/08/19 at 09:01; Status DC Bisacodyl (Dulcolax Tab) 10 mg 1X ONCE PO Last administered on 01/08/19at 16:30; Start 01/08/19 at 12:45; Stop 01/08/19 at 12:46; Status DC Polyethylene Glycol (miraLAX PACKET) 17 gm DAILY PO Last administered on 01/13/19at 08:28; Start 01/09/19 at 09:00 Polyethylene Glycol (miraLAX PACKET) 17 gm PRN DAILY PRN PO CONSTIPATION Last administered on 01/12/19at 02:43; Start 01/08/19 at 12:45 Pantoprazole Sodium (Protonix) 40 mg DAILYAC PO Last administered on 01/13/19 08:27; Start 01/08/19 at 13:00 Sodium Chloride (Normal Saline Flush) 3 ml QSHIFT PRN IV AFTER MEDS AND BLOOD DRAWS; Start 01/08/19 at 13:00 Ondansetron HCl (Zofran) 4 mg PRN Q4HRS PRN IV NAUSEA/VOMITING Last administered on 01/11/19at 15:07; Start 01/08/19 at 13:00 Acetaminophen (Tylenol) 650 mg PRN Q4HRS PRN PO TEMP OVER 100.4F OR MILD PAIN; Start 01/08/19 at 13:00 Al Hydroxide/Mg Hydroxide (Mylanta Plus Xs) 30 ml PRN DAILY PRN PO HEARTBURN / GAS Last administered on 01/08/19at 18:35; Start 01/08/19 at 13:00; Stop 01/10/19 at 13:33; Status DC Clonidine HCl (Catapres) 0.1 mg PRN Q6HRS PRN PO SBP>160 OR DBP>90; Start 01/08/19 at 13:00 Docusate Sodium (Colace) 100 mg PRN BID PRN PO HARD STOOLS; Start 01/08/19 at 13:00 Albuterol Sulfate (Ventolin Neb Soln) 2.5 mg PRN Q4HRS PRN NEB SHORTNESS OF BREATH; Start 01/08/19 at 13:00 Guaifenesin (Robitussin) 200 mg PRN Q4HRS PRN PO COUGH; Start 01/08/19 at 13:00 Lorazepam (Ativan) 0.5 mg PRN Q4HRS PRN PO ANXIETY / AGITATION Last administered on 01/09/19at 21:46; Start 01/08/19 at 13:00 Enoxaparin Sodium (Lovenox 40mg Syringe) 40 mg DAILY SQ Last administered on 01/13/19at 08:28; Start 01/08/19 at 13:00 Regadenoson (Lexiscan) 0.4 mg 1X ONCE IV Last administered on 01/08/19at 13:27; Start 01/08/19 at 13:00; Stop 01/08/19 at 13:01; Status DC Al Hydroxide/Mg Hydroxide (Mylanta Plus Xs) 30 ml PRN Q6HRS PRN PO HEARTBURN / GAS; Start 01/08/19 at 18:30 Potassium Chloride (Klor-Con) 40 meq 1X ONCE PO Last administered on 01/09/19at 06:40; Start 01/08/19 at 20:30; Stop 01/08/19 at 20:32; Status DC Potassium Chloride (Klor-Con) 20 meq DAILYWBKFT PO Last administered on 01/13/19at 08:28; Start 01/09/19 at 08:00 Atorvastatin Calcium (Lipitor) 40 mg QHS PO Last administered on 01/12/19at 20:29; Start 01/09/19 at 21:00 Dicyclomine HCl (Bentyl) 10 mg PRN QID PRN PO abd pain; Start 01/10/19 at 09:15 Multi-Ingredient Mouthwash/Gargle (Gi Cocktail) 20 ml PRN QID PRN PO abd pain; Start 01/10/19 at 09:15 Iodixanol (Visipaque 320) 100 ml STK-MED ONCE .ROUTE ; Start 01/10/19 at 12:27; Stop 01/10/19 at 12:27; Status DC Heparin Sodium/ Sodium Chloride 1,000 ml @ As Directed STK-MED ONCE .ROUTE ; Start 01/10/19 at 12:27; Stop 01/10/19 at 12:27; Status DC Midazolam HCl (Versed) 2 mg STK-MED ONCE .ROUTE ; Start 01/10/19 at 12:29; Stop 01/10/19 at 12:29; Status DC Fentanyl Citrate (Fentanyl 2ml Vial) 100 mcg STK-MED ONCE .ROUTE ; Start 1 03/12/18 at 12:29; Stop 01/10/19 at 12:30; Status DC Heparin Sodium (Porcine) (Heparin Sodium) 10,000 unit STK-MED ONCE .ROUTE ; Start 01/10/19 at 12:30; Stop 01/10/19 at 12:30; Status DC Lidocaine HCl (Buffered Lidocaine 1%) 3 ml STK-MED ONCE .ROUTE ; Start 01/10/19 at 13:07; Stop 01/10/19 at 13:08; Status DC Heparin Sodium/ Sodium Chloride (HEPARIN for ARTERIAL LINE FLUSH) 1,000 unit 1X ONCE IART Last administered on 01/10/19at 14:14; Start 01/10/19 at 13:45; Stop 01/10/19 at 13:49; Status DC Heparin Sodium/ Sodium Chloride (HEPARIN for ARTERIAL LINE FLUSH) 1,000 unit 1X ONCE IART Last administered on 01/10/19at 14:14; Start 01/10/19 at 13:45; Stop 01/10/19 at 13:49; Status DC Lidocaine HCl (Buffered Lidocaine 1%) 2 ml 1X ONCE IJ Last administered on 01/10/19at 14:15; Start 01/10/19 at 13:45; Stop 01/10/19 at 13:49; Status DC Midazolam HCl (Versed) 2 mg 1X ONCE IV Last administered on 01/10/19at 14:15; Start 01/10/19 at 13:45; Stop 01/10/19 at 13:49; Status DC Fentanyl Citrate (Fentanyl 2ml Vial) 100 mcg 1X ONCE IV Last administered on 01/10/19at 14:16; Start 01/10/19 at 13:45; Stop 01/10/19 at 13:49; Status DC Iodixanol (Visipaque 320) 100 ml 1X ONCE IART Last administered on 01/10/19at 14:14; Start 01/10/19 at 13:45; Stop 01/10/19 at 13:49; Status DC Heparin Sodium (Porcine) (Heparin Sodium) 5,000 unit 1X ONCE IV Last administered on 01/10/19at 14:16; Start 01/10/19 at 13:45; Stop 01/10/19 at 13:50; Status DC Sodium Chloride 500 ml @ 500 mls/hr 1X ONCE IV Last administered on 01/10/19at 13:20; Start 01/10/19 at 14:00; Stop 01/10/19 at 14:59; Status DC Info (CONTRAST GIVEN -- Rx MONITORING) 1 each PRN DAILY PRN MC SEE COMMENTS; Start 01/10/19 at 14:00; Stop 01/12/19 at 13:59; Status DC Clopidogrel Bisulfate (Plavix) 300 mg 1X ONCE PO Last administered on 01/10/19at 15:29; Start 01/10/19 at 14:15; Stop 01/10/19 at 14:17; Status DC Clopidogrel Bisulfate (Plavix) 75 mg DAILYWBKFT PO Last administered on 01/13/19at 08:26; Start 01/11/19 at 08:00 Active Scripts Active Aspirin Ec (Aspirin) 325 Mg Tablet. 1 Tab PO DAILY Simvastatin 40 Mg Tablet 40 Mg PO QHS 30 Days Vitals/I & O Vital Sign - Last 24 Hours 01/12/19 01/12/19 01/12/19 01/12/19 09:42 10:42 11:00 15:00 Temp 97.8 97.4 97.8 97.4 Pulse 54 61 Resp 14 16 B/P (MAP) 118/43 (68) 111/37 (61) Pulse Ox 96 95 O2 Delivery Room Air Room Air Room Air Room Air 01/12/19 01/12/19 01/12/19 01/12/19 19:00 20:04 20:30 21:35 Temp 98.1 98.1 Pulse 52 Resp 16 16 16 B/P (MAP) 92/38 (56) Pulse Ox 95 O2 Delivery Room Air Room Air Room Air Room Air 01/12/19 01/13/19 01/13/19 01/13/19 23:03 02:32 03:04 03:35 Temp 97.5 98.3 97.5 98.3 Pulse 54 59 Resp 18 16 18 16 B/P (MAP) 126/57 (80) 94/35 (54) Pulse Ox 94 97 O2 Delivery Room Air Room Air Room Air Room Air 01/13/19 01/13/19 07:00 08:27 Temp 98.3 98.3 Pulse 58 Resp 16 B/P (MAP) 137/57 (83) Pulse Ox 94 O2 Delivery Room Air Room Air Intake and Output 01/12/19 01/12/19 01/13/19 15:00 23:00 07:00 Intake Total 320 ml 240 ml Output Total 100 ml Balance 320 ml 240 ml -100 ml CAMERON ALVAREZ MD Jan 13, 2019 08:34
[2019-01-13 11:00] VITALS: BP 116/54
[2019-01-13] MEDS: ONDANSETRON PF 4 MG/2 ML VIAL. IV PRN (11:03)
[2019-01-13 13:09] LABS: BASO # 0.1 x10^3/uL (0.0-0.2); BASO % 1 % (0-3); EOS # 0.2 x10^3/uL (0.0-0.7); EOS % 3 % (0-3); HEMATOCRIT 37.1 % (36.0-47.0); HEMOGLOBIN 12.5 g/dL (12.0-15.5); LYMPH # 2.6 x10^3/uL (1.0-4.8); LYMPH % 33 % (24-48); MEAN CORPUSCULAR HEMOGLOBIN 30 pg (25-35); MEAN CORPUSCULAR HGB CONC 34 g/dL (31-37); MEAN CORPUSCULAR VOLUME 90 fL (79-100); MONO # 0.7 x10^3/uL (0.0-1.1); MONO % 9 % (0-9); NEUT # 4.1 x10^3/uL (1.8-7.7); NEUT % 54 % (31-73); PLATELET COUNT 268 x10^3/uL (140-400); RED BLOOD COUNT 4.11 x10^6/uL (3.50-5.40); RED CELL DISTRIBUTION WIDTH 13.3 % (11.5-14.5); WHITE BLOOD COUNT 7.6 x10^3/uL (4.0-11.0)
[2019-01-13 13:26] LABS: ALBUMIN 3.3 g/dL (3.4-5.0); ALBUMIN/GLOBULIN RATIO 0.8 (1.0-1.7); CALCIUM 9.2 mg/dL (8.5-10.1); GFR 56.2; POTASSIUM 4.2 mmol/L (3.5-5.1); TOTAL BILIRUBIN 0.3 mg/dL (0.2-1.0); TOTAL PROTEIN 7.6 g/dL (6.4-8.2)
--- NOTE | 2019-01-13 13:32 | PDOC ---
G I PROGRESS NOTE Subjective Still with complaints of pc epigastric pain. Physical Exam Lungs clear RRR Abdomen soft, not distended. Review of Relevant I have reviewed the following items charlene (where applicable) has been applied. Labs Laboratory Tests Test 01/13/19 12:55 White Blood Count 7.6 x10^3/uL (4.0-11.0) Red Blood Count 4.11 x10^6/uL (3.50-5.40) Hemoglobin 12.5 g/dL (12.0-15.5) Hematocrit 37.1 % (36.0-47.0) Mean Corpuscular Volume 90 fL (79-100) Mean Corpuscular Hemoglobin 30 pg (25-35) Mean Corpuscular Hemoglobin Concent 34 g/dL (31-37) Red Cell Distribution Width 13.3 % (11.5-14.5) Platelet Count 268 x10^3/uL (140-400) Neutrophils (%) (Auto) 54 % (31-73) Lymphocytes (%) (Auto) 33 % (24-48) Monocytes (%) (Auto) 9 % (0-9) Eosinophils (%) (Auto) 3 % (0-3) Basophils (%) (Auto) 1 % (0-3) Neutrophils # (Auto) 4.1 x10^3/uL (1.8-7.7) Lymphocytes # (Auto) 2.6 x10^3/uL (1.0-4.8) Monocytes # (Auto) 0.7 x10^3/uL (0.0-1.1) Eosinophils # (Auto) 0.2 x10^3/uL (0.0-0.7) Basophils # (Auto) 0.1 x10^3/uL (0.0-0.2) Sodium Level 138 mmol/L (136-145) Potassium Level 4.2 mmol/L (3.5-5.1) Chloride Level 102 mmol/L (98-107) Carbon Dioxide Level 28 mmol/L (21-32) Anion Gap 8 (6-14) Blood Urea Nitrogen 20 mg/dL (7-20) Creatinine 1.0 mg/dL (0.6-1.0) Estimated GFR (Cockcroft-Gault) 56.2 BUN/Creatinine Ratio 20 (6-20) Glucose Level 108 mg/dL (70-99) Calcium Level 9.2 mg/dL (8.5-10.1) Total Bilirubin 0.3 mg/dL (0.2-1.0) Aspartate Amino Transf (AST/SGOT) 30 U/L (15-37) Alanine Aminotransferase (ALT/SGPT) 27 U/L (14-59) Alkaline Phosphatase 116 U/L (46-116) Total Protein 7.6 g/dL (6.4-8.2) Albumin 3.3 g/dL (3.4-5.0) Albumin/Globulin Ratio 0.8 (1.0-1.7) Laboratory Tests Test 01/13/19 12:55 White Blood Count 7.6 x10^3/uL (4.0-11.0) Red Blood Count 4.11 x10^6/uL (3.50-5.40) Hemoglobin 12.5 g/dL (12.0-15.5) Hematocrit 37.1 % (36.0-47.0) Mean Corpuscular Volume 90 fL (79-100) Mean Corpuscular Hemoglobin 30 pg (25-35) Mean Corpuscular Hemoglobin Concent 34 g/dL (31-37) Red Cell Distribution Width 13.3 % (11.5-14.5) Platelet Count 268 x10^3/uL (140-400) Neutrophils (%) (Auto) 54 % (31-73) Lymphocytes (%) (Auto) 33 % (24-48) Monocytes (%) (Auto) 9 % (0-9) Eosinophils (%) (Auto) 3 % (0-3) Basophils (%) (Auto) 1 % (0-3) Neutrophils # (Auto) 4.1 x10^3/uL (1.8-7.7) Lymphocytes # (Auto) 2.6 x10^3/uL (1.0-4.8) Monocytes # (Auto) 0.7 x10^3/uL (0.0-1.1) Eosinophils # (Auto) 0.2 x10^3/uL (0.0-0.7) Basophils # (Auto) 0.1 x10^3/uL (0.0-0.2) Sodium Level 138 mmol/L (136-145) Potassium Level 4.2 mmol/L (3.5-5.1) Chloride Level 102 mmol/L (98-107) Carbon Dioxide Level 28 mmol/L (21-32) Anion Gap 8 (6-14) Blood Urea Nitrogen 20 mg/dL (7-20) Creatinine 1.0 mg/dL (0.6-1.0) Estimated GFR (Cockcroft-Gault) 56.2 BUN/Creatinine Ratio 20 (6-20) Glucose Level 108 mg/dL (70-99) Calcium Level 9.2 mg/dL (8.5-10.1) Total Bilirubin 0.3 mg/dL (0.2-1.0) Aspartate Amino Transf (AST/SGOT) 30 U/L (15-37) Alanine Aminotransferase (ALT/SGPT) 27 U/L (14-59) Alkaline Phosphatase 116 U/L (46-116) Total Protein 7.6 g/dL (6.4-8.2) Albumin 3.3 g/dL (3.4-5.0) Albumin/Globulin Ratio 0.8 (1.0-1.7) Microbiology 01/07/19 Urine Culture - Final, Complete 01/07/19 Urine Culture Result 1 (ELISE) - Final, Complete Vitals/I & O Vital Sign - Last 24 Hours 01/12/19 01/12/19 01/12/19 01/12/19 15:00 19:00 20:04 20:30 Temp 97.4 98.1 97.4 98.1 Pulse 61 52 Resp 16 16 16 B/P (MAP) 111/37 (61) 92/38 (56) Pulse Ox 95 95 O2 Delivery Room Air Room Air Room Air Room Air 01/12/19 01/12/19 01/13/19 01/13/19 21:35 23:03 02:32 03:04 Temp 97.5 98.3 97.5 98.3 Pulse 54 59 Resp 16 18 16 18 B/P (MAP) 126/57 (80) 94/35 (54) Pulse Ox 94 97 O2 Delivery Room Air Room Air Room Air Room Air 01/13/19 01/13/19 01/13/19 01/13/19 03:35 07:00 08:00 08:27 Temp 98.3 98.3 Pulse 58 Resp 16 16 B/P (MAP) 137/57 (83) Pulse Ox 94 O2 Delivery Room Air Room Air Room Air Room Air 01/13/19 01/13/19 11:00 11:03 Temp 97.9 97.9 Pulse 51 Resp 16 B/P (MAP) 116/54 (74) Pulse Ox 95 O2 Delivery Room Air Room Air Intake and Output 01/12/19 01/12/19 01/13/19 15:00 23:00 07:00 Intake Total 320 ml 240 ml Output Total 100 ml Balance 320 ml 240 ml -100 ml Assessment Epigastric pain. No resolution after stenting SMA; suspect this was not the issue. H/o GERD, but on treatment for this. GB? (negative imaging). Plan of Care: Continue current Tx, Mgmt Plan of Care Note Hida with GBEF. Continue PPI. KRISTIN DEVINE MD Jan 13, 2019 13:32
[2019-01-13 15:00] VITALS: BP 131/60
[2019-01-13 19:00] VITALS: BP 104/54
--- NOTE | 2019-01-13 20:28 | RAD ---
AP upright supine abdomen x-rays HISTORY: Abdominal pain. FINDINGS: Focal atelectasis/infiltrate left lateral lung base. No pneumoperitoneum on the upright view. No dilated bowel loops or abnormal air-fluid levels. Bones unremarkable. Arterial stent at the upper abdomen perhaps due to the region of the celiac artery. IMPRESSION: No bowel obstruction. Focal left lower lobe lateral basilar atelectasis/infiltrate. Electronically signed by: Mikel Tamez MD (01/13/2019 8:26 PM) [id number]
[2019-01-13] MEDS: ATORVASTATIN CALCIUM 40 MG TABLET. PO SCH (20:49)
[2019-01-13 23:00] VITALS: BP 100/51
[2019-01-14] VITALS (8 sets, daily range): BP systolic 112–123; BP diastolic 60–71
[2019-01-14] MEDS: PANTOPRAZOLE 40 MG TABLET.DR. PO SCH (07:30)
[2019-01-14] MEDS: CLOPIDOGREL BISULFATE 75 MG TABLET PO SCH (08:00)
[2019-01-14] MEDS: POTASSIUM CHLORIDE 20 MEQ TABLET.ER. PO SCH (08:00)
--- NOTE | 2019-01-14 08:46 | PDOC ---
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 ON CTA ABDOMEN ///IR and vascular CONSULTED. Continue PPI Severe Celiac and SMA focal stenoses. 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 Marked angiographic improvement of the SMA following placement of the stent and drug coated balloon angioplasty. 01/11 still having severe epigastric pain, requesting iv morphine 01/13 PAIN SLOW TO RESOLVE, NOT ABLE TO EAT VERY MUCH WITHOUT PAIN///KUB PLANNED 01/14 hida scan today, hungry still with pain PLAN ADMIT CARDIOLOGY CONSULT GI CONSULT MPI to r/o ischemia neg IR/vascular opinion re: CTA findings. dvt prophylaxis reviewed ABDOMINAL angiogram; Recommend dual antiplatelet therapy for at least 6 weeks, followed by monotherapy for life a after. Patient should also undergo mesenteric arterial Doppler ultrasound follow-up examination in 6-12 weeks. KUB UPRIGHT 01/13 No bowel obstruction. Focal left lower lobe lateral basilar atelectasis/infiltrate. incentive spirometry 36 min pt exam, chart review, > 50% of time spent with exam, chart review, pt care coordination Vitals Vitals Vital Signs Date Time Temp Pulse Resp B/P (MAP) Pulse Ox O2 Delivery O2 Flow Rate FiO2 01/14/19 07:00 97.7 54 16 117/63 (81) 97 Room Air 97.7 Physical Exam General: Alert, Oriented X3, Cooperative, mild distress Heart: Regular rate, Normal S1, Normal S2, No murmurs Lungs: Clear, Wheezing Abdomen: Normal bowel sounds, Soft, No tenderness, Other (mild tenderness) Extremities: No clubbing, No cyanosis, No edema, Normal pulses Skin: No rashes, No significant lesion Labs LABS TATUS: ADM IN ORD. PHYSICIAN: CAMERON ALVAREZ MD REASON: ABDOMEN PAIN PROCEDURE: ABDOMEN SUPINE & UPRIGHT AP upright supine abdomen x-rays HISTORY: Abdominal pain. FINDINGS: Focal atelectasis/infiltrate left lateral lung base. No pneumoperitoneum on the upright view. No dilated bowel loops or abnormal air-fluid levels. Bones unremarkable. Arterial stent at the upper abdomen perhaps due to the region of the celiac artery. IMPRESSION: No bowel obstruction. Focal left lower lobe lateral basilar atelectasis/infiltrate. Electronically signed by: Mikel Tamez MD (01/13/2019 8:26 PM) [facility] Laboratory Tests Test 01/13/19 12:55 White Blood Count 7.6 x10^3/uL (4.0-11.0) Red Blood Count 4.11 x10^6/uL (3.50-5.40) Hemoglobin 12.5 g/dL (12.0-15.5) Hematocrit 37.1 % (36.0-47.0) Mean Corpuscular Volume 90 fL (79-100) Mean Corpuscular Hemoglobin 30 pg (25-35) Mean Corpuscular Hemoglobin Concent 34 g/dL (31-37) Red Cell Distribution Width 13.3 % (11.5-14.5) Platelet Count 268 x10^3/uL (140-400) Neutrophils (%) (Auto) 54 % (31-73) Lymphocytes (%) (Auto) 33 % (24-48) Monocytes (%) (Auto) 9 % (0-9) Eosinophils (%) (Auto) 3 % (0-3) Basophils (%) (Auto) 1 % (0-3) Neutrophils # (Auto) 4.1 x10^3/uL (1.8-7.7) Lymphocytes # (Auto) 2.6 x10^3/uL (1.0-4.8) Monocytes # (Auto) 0.7 x10^3/uL (0.0-1.1) Eosinophils # (Auto) 0.2 x10^3/uL (0.0-0.7) Basophils # (Auto) 0.1 x10^3/uL (0.0-0.2) Sodium Level 138 mmol/L (136-145) Potassium Level 4.2 mmol/L (3.5-5.1) Chloride Level 102 mmol/L (98-107) Carbon Dioxide Level 28 mmol/L (21-32) Anion Gap 8 (6-14) Blood Urea Nitrogen 20 mg/dL (7-20) Creatinine 1.0 mg/dL (0.6-1.0) Estimated GFR (Cockcroft-Gault) 56.2 BUN/Creatinine Ratio 20 (6-20) Glucose Level 108 mg/dL (70-99) Calcium Level 9.2 mg/dL (8.5-10.1) Total Bilirubin 0.3 mg/dL (0.2-1.0) Aspartate Amino Transf (AST/SGOT) 30 U/L (15-37) Alanine Aminotransferase (ALT/SGPT) 27 U/L (14-59) Alkaline Phosphatase 116 U/L (46-116) Total Protein 7.6 g/dL (6.4-8.2) Albumin 3.3 g/dL (3.4-5.0) Albumin/Globulin Ratio 0.8 (1.0-1.7) Comment Review of Relevant I have reviewed the following items charlene (where applicable) has been applied. Labs Laboratory Tests Test 01/13/19 12:55 White Blood Count 7.6 x10^3/uL (4.0-11.0) Red Blood Count 4.11 x10^6/uL (3.50-5.40) Hemoglobin 12.5 g/dL (12.0-15.5) Hematocrit 37.1 % (36.0-47.0) Mean Corpuscular Volume 90 fL (79-100) Mean Corpuscular Hemoglobin 30 pg (25-35) Mean Corpuscular Hemoglobin Concent 34 g/dL (31-37) Red Cell Distribution Width 13.3 % (11.5-14.5) Platelet Count 268 x10^3/uL (140-400) Neutrophils (%) (Auto) 54 % (31-73) Lymphocytes (%) (Auto) 33 % (24-48) Monocytes (%) (Auto) 9 % (0-9) Eosinophils (%) (Auto) 3 % (0-3) Basophils (%) (Auto) 1 % (0-3) Neutrophils # (Auto) 4.1 x10^3/uL (1.8-7.7) Lymphocytes # (Auto) 2.6 x10^3/uL (1.0-4.8) Monocytes # (Auto) 0.7 x10^3/uL (0.0-1.1) Eosinophils # (Auto) 0.2 x10^3/uL (0.0-0.7) Basophils # (Auto) 0.1 x10^3/uL (0.0-0.2) Sodium Level 138 mmol/L (136-145) Potassium Level 4.2 mmol/L (3.5-5.1) Chloride Level 102 mmol/L (98-107) Carbon Dioxide Level 28 mmol/L (21-32) Anion Gap 8 (6-14) Blood Urea Nitrogen 20 mg/dL (7-20) Creatinine 1.0 mg/dL (0.6-1.0) Estimated GFR (Cockcroft-Gault) 56.2 BUN/Creatinine Ratio 20 (6-20) Glucose Level 108 mg/dL (70-99) Calcium Level 9.2 mg/dL (8.5-10.1) Total Bilirubin 0.3 mg/dL (0.2-1.0) Aspartate Amino Transf (AST/SGOT) 30 U/L (15-37) Alanine Aminotransferase (ALT/SGPT) 27 U/L (14-59) Alkaline Phosphatase 116 U/L (46-116) Total Protein 7.6 g/dL (6.4-8.2) Albumin 3.3 g/dL (3.4-5.0) Albumin/Globulin Ratio 0.8 (1.0-1.7) Laboratory Tests Test 01/13/19 12:55 White Blood Count 7.6 x10^3/uL (4.0-11.0) Red Blood Count 4.11 x10^6/uL (3.50-5.40) Hemoglobin 12.5 g/dL (12.0-15.5) Hematocrit 37.1 % (36.0-47.0) Mean Corpuscular Volume 90 fL (79-100) Mean Corpuscular Hemoglobin 30 pg (25-35) Mean Corpuscular Hemoglobin Concent 34 g/dL (31-37) Red Cell Distribution Width 13.3 % (11.5-14.5) Platelet Count 268 x10^3/uL (140-400) Neutrophils (%) (Auto) 54 % (31-73) Lymphocytes (%) (Auto) 33 % (24-48) Monocytes (%) (Auto) 9 % (0-9) Eosinophils (%) (Auto) 3 % (0-3) Basophils (%) (Auto) 1 % (0-3) Neutrophils # (Auto) 4.1 x10^3/uL (1.8-7.7) Lymphocytes # (Auto) 2.6 x10^3/uL (1.0-4.8) Monocytes # (Auto) 0.7 x10^3/uL (0.0-1.1) Eosinophils # (Auto) 0.2 x10^3/uL (0.0-0.7) Basophils # (Auto) 0.1 x10^3/uL (0.0-0.2) Sodium Level 138 mmol/L (136-145) Potassium Level 4.2 mmol/L (3.5-5.1) Chloride Level 102 mmol/L (98-107) Carbon Dioxide Level 28 mmol/L (21-32) Anion Gap 8 (6-14) Blood Urea Nitrogen 20 mg/dL (7-20) Creatinine 1.0 mg/dL (0.6-1.0) Estimated GFR (Cockcroft-Gault) 56.2 BUN/Creatinine Ratio 20 (6-20) Glucose Level 108 mg/dL (70-99) Calcium Level 9.2 mg/dL (8.5-10.1) Total Bilirubin 0.3 mg/dL (0.2-1.0) Aspartate Amino Transf (AST/SGOT) 30 U/L (15-37) Alanine Aminotransferase (ALT/SGPT) 27 U/L (14-59) Alkaline Phosphatase 116 U/L (46-116) Total Protein 7.6 g/dL (6.4-8.2) Albumin 3.3 g/dL (3.4-5.0) Albumin/Globulin Ratio 0.8 (1.0-1.7) Microbiology 01/07/19 Urine Culture - Final, Complete 01/07/19 Urine Culture Result 1 (ELISE) - Final, Complete Medications Current Medications Multi-Ingredient Mouthwash/Gargle (Gi Cocktail) 20 ml 1X ONCE SWSW Last administered on 01/07/19at 19:18; Start 01/07/19 at 19:00; Stop 01/07/19 at 19:03; Status DC Aspirin (Children'S Aspirin) 324 mg 1X ONCE PO Last administered on 01/07/19at 19:18; Start 01/07/19 at 19:00; Stop 01/07/19 at 19:03; Status DC Albuterol/ Ipratropium (Duoneb) 3 ml 1X ONCE NEB Last administered on at 19:50; Start 01/07/19 at 19:00; Stop 01/07/19 at 19:03; Status DC Fentanyl Citrate (Fentanyl 2ml Vial) 50 mcg 1X ONCE IV Last administered on 01/07/19 19:18; Start 01/07/19 at 19:15; Stop 01/07/19 at 19:16; Status DC Iohexol (Omnipaque 350 Mg/ml) 90 ml 1X ONCE IV Last administered on 01/07/19at 20:24; Start 01/07/19 at 20:00; Stop 01/07/19 at 20:01; Status DC Info (CONTRAST GIVEN -- Rx MONITORING) 1 each PRN DAILY PRN MC SEE COMMENTS; Start 01/07/19 at 20:00; Stop 01/09/19 at 19:59; Status DC Morphine Sulfate (Morphine Sulfate) 2 mg PRN Q2HR PRN IV PAIN Last administered on 01/11/19at 15:07; Start 01/07/19 at 20:00 Nitroglycerin (Nitrostat) 0.4 mg PRN Q5MIN PRN SL CHEST PAIN; Start 01/07/19 at 20:00 Temazepam (Restoril) 7.5 mg PRN QHS PRN PO INSOMNIA Last administered on 01/08/19at 20:06; Start 01/07/19 at 20:00 Acetaminophen (Tylenol) 500 mg PRN Q6HRS PRN PO MILD PAIN / TEMP; Start 01/07/19 at 20:00; Stop 01/08/19 at 12:53; Status DC Acetaminophen/ Codeine Phosphate (Tylenol #3) 1 tab PRN Q6HRS PRN PO MODERATE PAIN Last administered on 01/12/19at 02:38; Start 01/07/19 at 20:00 Calcium Carbonate/ Glycine (Tums) 500 mg PRN AFTMEALHC PRN PO INDIGESTION Last administered on 01/08/19at 20:09; Start 01/07/19 at 20:00 Oxycodone/ Acetaminophen (Percocet 5/325) 1 tab PRN Q4HRS PRN PO SEVERE PAIN Last administered on 01/13/19at 15:33; Start 01/07/19 at 20:00 Ondansetron HCl (Zofran) 4 mg PRN Q6HRS PRN IVP NAUSEA/VOMITING; Start 01/07/19 at 20:00; Stop 01/08/19 at 12:53; Status DC Clonidine HCl (Catapres) 0.1 mg PRN Q1HR PRN PO HYPERTENSION; Start 01/07/19 at 20:00; Stop 01/08/19 at 12:53; Status DC Aspirin (Ecotrin) 325 mg DAILY PO Last administered on 01/13/19 08:27; Start 01/08/19 at 09:00 Simvastatin (Zocor) 40 mg QHS PO Last administered on 01/08/19at 20:06; Start 01/07/19 at 21:00; Stop 01/09/19 at 11:31; Status DC Nitroglycerin (Nitrostat) 0.4 mg PRN Q5MIN PRN SL CHEST PAIN; Start 01/07/19 at 20:00; Stop 01/08/19 at 11:50; Status DC Influenza Virus Vaccine Quadrival (Afluria Quad 2019-20 (3yr Up) Syringe) 0.5 ml ONCE ONCE VAX IM Last administered on 01/09/19at 08:44; Start 01/08/19 at 09:00; Stop 01/08/19 at 09:01; Status DC Bisacodyl (Dulcolax Tab) 10 mg 1X ONCE PO Last administered on 01/08/19at 16:3 0; Start 01/08/19 at 12:45; Stop 01/08/19 at 12:46; Status DC Polyethylene Glycol (miraLAX PACKET) 17 gm DAILY PO Last administered on 01/13/19 08:28; Start 01/09/19 at 09:00 Polyethylene Glycol (miraLAX PACKET) 17 gm PRN DAILY PRN PO CONSTIPATION Last administered on 01/12/19at 02:43; Start 01/08/19 at 12:45 Pantoprazole Sodium (Protonix) 40 mg DAILYAC PO Last administered on 01/13/19 08:27; Start 01/08/19 at 13:00 Sodium Chloride (Normal Saline Flush) 3 ml QSHIFT PRN IV AFTER MEDS AND BLOOD DRAWS; Start 01/08/19 at 13:00 Ondansetron HCl (Zofran) 4 mg PRN Q4HRS PRN IV NAUSEA/VOMITING Last administered on 01/13/19at 11:03; Start 01/08/19 at 13:00 Acetaminophen (Tylenol) 650 mg PRN Q4HRS PRN PO TEMP OVER 100.4F OR MILD PAIN; Start 01/08/19 at 13:00 Al Hydroxide/Mg Hydroxide (Mylanta Plus Xs) 30 ml PRN DAILY PRN PO HEARTBURN / GAS Last administered on 01/08/19at 18:35; Start 01/08/19 at 13:00; Stop 01/10/19 at 13:33; Status DC Clonidine HCl (Catapres) 0.1 mg PRN Q6HRS PRN PO SBP>160 OR DBP>90; Start 01/08/19 at 13:00 Docusate Sodium (Colace) 100 mg PRN BID PRN PO HARD STOOLS; Start 01/08/19 at 13:00 Albuterol Sulfate (Ventolin Neb Soln) 2.5 mg PRN Q4HRS PRN NEB SHORTNESS OF BREATH; Start 01/08/19 at 13:00 Guaifenesin (Robitussin) 200 mg PRN Q4HRS PRN PO COUGH; Start 01/08/19 at 13:00 Lorazepam (Ativan) 0.5 mg PRN Q4HRS PRN PO ANXIETY / AGITATION Last admin istered on 01/09/19at 21:46; Start 01/08/19 at 13:00 Enoxaparin Sodium (Lovenox 40mg Syringe) 40 mg DAILY SQ Last administered on 01/13/19at 08:28; Start 01/08/19 at 13:00 Regadenoson (Lexiscan) 0.4 mg 1X ONCE IV Last administered on 01/08/19at 13:27; Start 01/08/19 at 13:00; Stop 01/08/19 at 13:01; Status DC Al Hydroxide/Mg Hydroxide (Mylanta Plus Xs) 30 ml PRN Q6HRS PRN PO HEARTBURN / GAS; Start 01/08/19 at 18:30 Potassium Chloride (Klor-Con) 40 meq 1X ONCE PO Last administered on 01/09/19at 06:40; Start 01/08/19 at 20:30; Stop 01/08/19 at 20:32; Status DC Potassium Chloride (Klor-Con) 20 meq DAILYWBKFT PO Last administered on 01/13/19at 08:28; Start 01/09/19 at 08:00 Atorvastatin Calcium (Lipitor) 40 mg QHS PO Last administered on 01/13/19at 20:49; Start 01/09/19 at 21:00 Dicyclomine HCl (Bentyl) 10 mg PRN QID PRN PO abd pain; Start 01/10/19 at 09:15 Multi-Ingredient Mouthwash/Gargle (Gi Cocktail) 20 ml PRN QID PRN PO abd pain; Start 01/10/19 at 09:15 Iodixanol (Visipaque 320) 100 ml STK-MED ONCE .ROUTE ; Start 01/10/19 at 12:27; Stop 01/10/19 at 12:27; Status DC Heparin Sodium/ Sodium Chloride 1,000 ml @ As Directed STK-MED ONCE .ROUTE ; Start 01/10/19 at 12:27; Stop 01/10/19 at 12:27; Status DC Midazolam HCl (Versed) 2 mg STK-MED ONCE .ROUTE ; Start 01/10/19 at 12:29; Stop 01/10/19 at 12:29; Status DC Fentanyl Citrate (Fentanyl 2ml Vial) 100 mcg STK-MED ONCE .ROUTE ; Start 01/10/19 at 12:29; Stop 01/10/19 at 12:30; Status DC Heparin Sodium (Porcine) (Heparin Sodium) 10,000 unit STK-MED ONCE .ROUTE ; Start 01/10/19 at 12:30; Stop 01/10/19 at 12:30; Status DC Lidocaine HCl (Buffered Lidocaine 1%) 3 ml STK-MED ONCE .ROUTE ; Start 01/10/19 at 13:07; Stop 01/10/19 at 13:08; Status DC Heparin Sodium/ Sodium Chloride (HEPARIN for ARTERIAL LINE FLUSH) 1,000 unit 1X ONCE IART Last administered on 01/10/19at 14:14; Start 01/10/19 at 13:45; Stop 01/10/19 at 13:49; Status DC Heparin Sodium/ Sodium Chloride (HEPARIN for ARTERIAL LINE FLUSH) 1,000 unit 1X ONCE IART Last administered on 01/10/19at 14:14; Start 01/10/19 at 13:45; Stop 01/10/19 at 13:49; Status DC Lidocaine HCl (Buffered Lidocaine 1%) 2 ml 1X ONCE IJ Last administered on 01/10/19at 14:15; Start 01/10/19 at 13:45; Stop 01/10/19 at 13:49; Status DC Midazolam HCl (Versed) 2 mg 1X ONCE IV Last administered on 01/10/19at 14:15; Start 01/10/19 at 13:45; Stop 01/10/19 at 13:49; Status DC Fentanyl Citrate (Fentanyl 2ml Vial) 100 mcg 1X ONCE IV Last administered on 01/10/19at 14:16; Start 01/10/19 at 13:45; Stop 01/10/19 at 13:49; Status DC Iodixanol (Visipaque 320) 100 ml 1X ONCE IART Last administered on 01/10/19at 14:14; Start 01/10/19 at 13:45; Stop 01/10/19 at 13:49; Status DC Heparin Sodium (Porcine) (Heparin Sodium) 5,000 unit 1X ONCE IV Last administered on 01/10/19at 14:16; Start 01/10/19 at 13:45; Stop 01/10/19 at 13:50; Status DC Sodium Chloride 500 ml @ 500 mls/hr 1X ONCE IV Last administered on 01/10/19at 13:20; Start 01/10/19 at 14:00; Stop 01/10/19 at 14:59; Status DC Info (CONTRAST GIVEN -- Rx MONITORING) 1 each PRN DAILY PRN MC SEE COMMENTS; Start 01/10/19 at 14:00; Stop 01/12/19 at 13:59; Status DC Clopidogrel Bisulfate (Plavix) 300 mg 1X ONCE PO Last administered on 01/10/19at 15:29; Start 01/10/19 at 14:15; Stop 01/10/19 at 14:17; Status DC Clopidogrel Bisulfate (Plavix) 75 mg DAILYWBKFT PO Last administered on 01/13/19at 08:26; Start 01/11/19 at 08:00 Active Scripts Active Aspirin Ec (Aspirin) 325 Mg Tablet. 1 Tab PO DAILY Simvastatin 40 Mg Tablet 40 Mg PO QHS 30 Days Vitals/I & O Vital Sign - Last 24 Hours 01/13/19 01/13/19 01/13/19 01/13/19 11:00 11:03 15:00 15:33 Temp 97.9 97.7 97.9 97.7 Pulse 51 54 Resp 16 16 B/P (MAP) 116/54 (74) 131/60 (83) Pulse Ox 95 94 O2 Delivery Room Air Room Air Room Air Room Air 01/13/19 01/13/19 01/13/19 01/13/19 17:55 19:00 20:00 23:00 Temp 98.0 98.3 98.0 98.3 Pulse 54 51 Resp 16 16 B/P (MAP) 104/54 (71) 100/51 (67) Pulse Ox 95 97 O2 Delivery Room Air Room Air Room Air 01/14/19 01/14/19 01/14/19 03:00 05:00 07:00 Temp 98.3 98.3 97.7 98.3 98.3 97.7 Pulse 52 52 54 Resp 18 18 16 B/P (MAP) 123/71 (88) 123/71 (88) 117/63 (81) Pulse Ox 96 96 97 O2 Delivery Room Air Intake and Output 01/13/19 01/13/19 01/14/19 15:00 23:00 07:00 Intake Total 350 ml Balance 350 ml CAMERON ALVAREZ MD Jan 14, 2019 08:46
[2019-01-14] MEDS: POLYETHYLENE GLYCOL 3350 17 GM PACKET. PO SCH (09:00)
[2019-01-14] MEDS: ASPIRIN ENTERIC COATED 325 MG TABLET.DR. PO SCH (09:00)
[2019-01-14] MEDS: ENOXAPARIN 40 MG/0.4 ML SYRINGE. SQ SCH (09:20)
[2019-01-14] MEDS ORDERED: MORPHINE SULFATE 4 MG/ML VIAL. IV ONE (15:00)
[2019-01-14] MEDS ORDERED: MORPHINE SULFATE 4 MG/ML VIAL. IM ONE (15:00)
[2019-01-14] MEDS ORDERED: SINCALIDE 1.38 MCG in IV NORMAL SALINE 50ML 30 ML IV ONE (15:15)
--- NOTE | 2019-01-14 16:38 | RAD ---
Hepatobiliary scan with gallbladder ejection fraction HISTORY: Epigastric abdominal pain. TECHNIQUE: 5.5 mCi technetium 99m Choletec intravenous. 1.38 mcg sincalide intravenous. FINDINGS: There is normal uptake and excretion of the agent by the liver with prompt filling of the bile ducts and eventual filling of the gallbladder excluding cystic duct and common bile duct reactions. Following administration of sincalide there is limited gallbladder contraction and emptying with an estimated ejection fraction of 6 percent which is abnormally low. Normal ejection fraction is greater than 35 percent. IMPRESSION: Cystic duct is patent. Abnormally low gallbladder ejection fraction of 6 percent consistent with gallbladder dyskinesia, can be observed with chronic cholecystitis. See discussion above. Electronically signed by: Mikel Tamez MD (01/14/2019 4:35 PM) [facility]
[2019-01-14] MEDS: oxyCODONE/APAP 5/325 1 TAB TABLET PO PRN ×2 (16:52→21:03)
[2019-01-14] MEDS: ATORVASTATIN CALCIUM 40 MG TABLET. PO SCH (21:03)
[2019-01-14] MEDS: ACETAMINOPHEN/CODEINE 300/30MG TABLET. PO PRN (23:47)
[2019-01-14] MEDS: TEMAZEPAM 7.5 MG CAPSULE PO PRN (23:48)
[2019-01-15 03:19] VITALS: BP 105/57
[2019-01-15 07:00] VITALS: BP 109/68
[2019-01-15] MEDS: PANTOPRAZOLE 40 MG TABLET.DR. PO SCH (07:45)
[2019-01-15] MEDS: POTASSIUM CHLORIDE 20 MEQ TABLET.ER. PO SCH (07:48)
[2019-01-15] MEDS: CLOPIDOGREL BISULFATE 75 MG TABLET PO SCH (07:48)
[2019-01-15] MEDS: ASPIRIN ENTERIC COATED 325 MG TABLET.DR. PO SCH (08:55)
[2019-01-15] MEDS: ENOXAPARIN 40 MG/0.4 ML SYRINGE. SQ SCH (08:55)
[2019-01-15] MEDS: POLYETHYLENE GLYCOL 3350 17 GM PACKET. PO SCH (09:00)
[2019-01-15 10:58] VITALS: BP 120/64
--- NOTE | 2019-01-15 13:04 | PDOC2 ---
JAQUI BARRERA QUILT MAKER 01/15/19 1304: CONSULT Date of Consult Date of Consult DATE: 01/15/19 TIME: 12:55 Reason for Consult Reason for Consult: gallbladder disease Referring Physician Referring Physician: Dr [place] Identification/Chief Complaint Chief Complaint abdominal pain, nausea Source Source: Chart review, Patient History of Present Illness Reason for Visit: Admitted with abdominal pain that radiates to back, SOA, nausea. 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 Past Medical History Cardiovascular: HTN, Hyperlipidemia Pulmonary: Asthma, Pulmonary embolus CENTRAL NERVOUS SYSTEM: Other GI: Peptic Ulcer disease Heme/Onc: No pertinent hx Hepatobiliary: No pertinent hx Psych: Anxiety Musculoskeletal: Osteoarthritis Rheumatologic: No pertinent hx Infectious disease: No pertinent hx Renal/: No pertinent hx Endocrine: No pertinent hx Past Surgical History Past Surgical History: Family History Family History: Hypertension Social History <1 pack per day ALCOHOL: none Drugs: None Lives: with Family Current Medications Current Medications Current Medications Multi-Ingredient Mouthwash/Gargle (Gi Cocktail) 20 ml 1X ONCE SWSW Last administered on 01/07/19at 19:18; Start 01/07/19 at 19:00; Stop 01/07/19 at 19:03; Status DC Aspirin (Children'S Aspirin) 324 mg 1X ONCE PO Last administered on 01/07/19at 19:18; Start 01/07/19 at 19:00; Stop 01/07/19 at 19:03; Status DC Albuterol/ Ipratropium (Duoneb) 3 ml 1X ONCE NEB Last administered on 01/07/19at 19:50; Start 01/07/19 at 19:00; Stop 01/07/19 at 19:03; Status DC Fentanyl Citrate (Fentanyl 2ml Vial) 50 mcg 1X ONCE IV Last administered on 01/07/19at 19:18; Start 01/07/19 at 19:15; Stop 01/07/19 at 19:16; Status DC Iohexol (Omnipaque 350 Mg/ml) 90 ml 1X ONCE IV Last administered on 01/07/19at 20:24; Start 01/07/19 at 20:00; Stop 01/07/19 at 20:01; Status DC Info (CONTRAST GIVEN -- Rx MONITORING) 1 each PRN DAILY PRN MC SEE COMMENTS; Start 01/07/19 at 20:00; Stop 01/09/19 at 19:59; Status DC Morphine Sulfate (Morphine Sulfate) 2 mg PRN Q2HR PRN IV PAIN Last administered on 01/11/19at 15:07; Start 01/07/19 at 20:00 Nitroglycerin (Nitrostat) 0.4 mg PRN Q5MIN PRN SL CHEST PAIN; Start 01/07/19 at 20:00 Temazepam (Restoril) 7.5 mg PRN QHS PRN PO INSOMNIA Last administered on at 23:48; Start 01/07/19 at 20:00 Acetaminophen (Tylenol) 500 mg PRN Q6HRS PRN PO MILD PAIN / TEMP; Start 01/07/19 at 20:00; Stop 01/08/19 at 12:53; Status DC Acetaminophen/ Codeine Phosphate (Tylenol #3) 1 tab PRN Q6HRS PRN PO MODERATE PAIN Last administered on 01/14/19at 23:47; Start 01/07/19 at 20:00 Calcium Carbonate/ Glycine (Tums) 500 mg PRN AFTMEALHC PRN PO INDIGESTION Last administered on 01/08/19at 20:09; Start 01/07/19 at 20:00 Oxycodone/ Acetaminophen (Percocet 5/325) 1 tab PRN Q4HRS PRN PO SEVERE PAIN Last administered on 01/14/19at 21:03; Start 01/07/19 at 20:00 Ondansetron HCl (Zofran) 4 mg PRN Q6HRS PRN IVP NAUSEA/VOMITING; Start 01/07/19 at 20:00; Stop 01/08/19 at 12:53; Status DC Clonidine HCl (Catapres) 0.1 mg PRN Q1HR PRN PO HYPERTENSION; Start 01/07/19 at 20:00; Stop 01/08/19 at 12:53; Status DC Aspirin (Ecotrin) 325 mg DAILY PO Last administered on 01/15/19at 08:55; Start 01/08/19 at 09:00 Simvastatin (Zocor) 40 mg QHS PO Last administered on 01/08/19at 20:06; Start 01/07/19 at 21:00; Stop 01/09/19 at 11:31; Status DC Nitroglycerin (Nitrostat) 0.4 mg PRN Q5MIN PRN SL CHEST PAIN; Start 01/07/19 at 20:00; Stop 01/08/19 at 11:50; Status DC Influenza Virus Vaccine Quadrival (Afluria Quad 2019-20 (3yr Up) Syringe) 0.5 ml ONCE ONCE VAX IM Last administered on 01/09/19at 08:44; Start 01/08/19 at 09:00; Stop 01/08/19 at 09:01; Status DC Bisacodyl (Dulcolax Tab) 10 mg 1X ONCE PO Last administered on 01/08/19 16:30; Start 01/08/19 at 12:45; Stop 01/08/19 at 12:46; Status DC Polyethylene Glycol (miraLAX PACKET) 17 gm DAILY PO Last administered on 01/13/19 08:28; Start 01/09/19 at 09:00 Polyethylene Glycol (miraLAX PACKET) 17 gm PRN DAILY PRN PO CONSTIPATION Last administered on 01/12/19at 02:43; Start 01/08/19 at 12:45 Pantoprazole Sodium (Protonix) 40 mg DAILYAC PO Last administered on 01/15/19 07:45; Start 01/08/19 at 13:00 Sodium Chloride (Normal Saline Flush) 3 ml QSHIFT PRN IV AFTER MEDS AND BLOOD DRAWS; Start 01/08/19 at 13:00 Ondansetron HCl (Zofran) 4 mg PRN Q4HRS PRN IV NAUSEA/VOMITING Last administered on 01/13/19at 11:03; Start 01/08/19 at 13:00 Acetaminophen (Tylenol) 650 mg PRN Q4HRS PRN PO TEMP OVER 100.4F OR MILD PAIN; Start 01/08/19 at 13:00 Al Hydroxide/Mg Hydroxide (Mylanta Plus Xs) 30 ml PRN DAILY PRN PO HEARTBURN / GAS Last administered on 01/08/19at 18:35; Start 01/08/19 at 13:00; Stop 01/10/19 at 13:33; Status DC Clonidine HCl (Catapres) 0.1 mg PRN Q6HRS PRN PO SBP>160 OR DBP>90; Start 01/08/19 at 13:00 Docusate Sodium (Colace) 100 mg PRN BID PRN PO HARD STOOLS Last administered on 01/15/19at 09:02; Start 01/08/19 at 13:00 Albuterol Sulfate (Ventolin Neb Soln) 2.5 mg PRN Q4HRS PRN NEB SHORTNESS OF BREATH; Start 01/08/19 at 13:00 Guaifenesin (Robitussin) 200 mg PRN Q4HRS PRN PO COUGH; Start 01/08/19 at 13:00 Lorazepam (Ativan) 0.5 mg PRN Q4HRS PRN PO ANXIETY / AGITATION Last administered on 01/09/19at 21:46; Start 01/08/19 at 13:00 Enoxaparin Sodium (Lovenox 40mg Syringe) 40 mg DAILY SQ Last administered on 01/15/19at 08:55; Start 01/08/19 at 13:00 Regadenoson (Lexiscan) 0.4 mg 1X ONCE IV Last administered on 01/08/19at 13:27; Start 01/08/19 at 13:00; Stop 01/08/19 at 13:01; Status DC Al Hydroxide/Mg Hydroxide (Mylanta Plus Xs) 30 ml PRN Q6HRS PRN PO HEARTBURN / GAS; Start 01/08/19 at 18:30 Potassium Chloride (Klor-Con) 40 meq 1X ONCE PO Last administered on 01/09/19at 06:40; Start 01/08/19 at 20:30; Stop 01/08/19 at 20:32; Status DC Potassium Chloride (Klor-Con) 20 meq DAILYWBKFT PO Last administered on 03/18/18at 07:48; Start 01/09/19 at 08:00 Atorvastatin Calcium (Lipitor) 40 mg QHS PO Last administered on 01/14/19at 21:03; Start 01/09/19 at 21:00 Dicyclomine HCl (Bentyl) 10 mg PRN QID PRN PO abd pain; Start 01/10/19 at 09:15 Multi-Ingredient Mouthwash/Gargle (Gi Cocktail) 20 ml PRN QID PRN PO abd pain; Start 01/10/19 at 09:15 Iodixanol (Visipaque 320) 100 ml STK-MED ONCE .ROUTE ; Start 01/10/19 at 12:27; Stop 01/10/19 at 12:27; Status DC Heparin Sodium/ Sodium Chloride 1,000 ml @ As Directed STK-MED ONCE .ROUTE ; Start 01/10/19 at 12:27; Stop 01/10/19 at 12:27; Status DC Midazolam HCl (Versed) 2 mg STK-MED ONCE .ROUTE ; Start 01/10/19 at 12:29; Stop 01/10/19 at 12:29; Status DC Fentanyl Citrate (Fentanyl 2ml Vial) 100 mcg STK-MED ONCE .ROUTE ; Start 01/10/19 at 12:29; Stop 01/10/19 at 12:30; Status DC Heparin Sodium (Porcine) (Heparin Sodium) 10,000 unit STK-MED ONCE .ROUTE ; Start 01/10/19 at 12:30; Stop 01/10/19 at 12:30; Status DC Lidocaine HCl (Buffered Lidocaine 1%) 3 ml STK-MED ONCE .ROUTE ; Start 01/10/19 at 13:07; Stop 01/10/19 at 13:08; Status DC Heparin Sodium/ Sodium Chloride (HEPARIN for ARTERIAL LINE FLUSH) 1,000 unit 1X ONCE IART Last administered on 01/10/19at 14:14; Start 01/10/19 at 13:45; Stop 01/10/19 at 13:49; Status DC Heparin Sodium/ Sodium Chloride (HEPARIN for ARTERIAL LINE FLUSH) 1,000 unit 1X ONCE IART Last administered on 01/10/19at 14:14; Start 01/10/19 at 13:45; Stop 01/10/19 at 13:49; Status DC Lidocaine HCl (Buffered Lidocaine 1%) 2 ml 1X ONCE IJ Last administered on 01/10/19at 14:15; Start 01/10/19 at 13:45; Stop 01/10/19 at 13:49; Status DC Midazolam HCl (Versed) 2 mg 1X ONCE IV Last administered on 01/10/19at 14:15; Start 01/10/19 at 13:45; Stop 01/10/19 at 13:49; Status DC Fentanyl Citrate (Fentanyl 2ml Vial) 100 mcg 1X ONCE IV Last administered on 01/10/19at 14:16; Start 01/10/19 at 13:45; Stop 01/10/19 at 13:49; Status DC Iodixanol (Visipaque 320) 100 ml 1X ONCE IART Last administered on 01/10/19at 14:14; Start 01/10/19 at 13:45; Stop 01/10/19 at 13:49; Status DC Heparin Sodium (Porcine) (Heparin Sodium) 5,000 unit 1X ONCE IV Last administered on 01/10/19at 14:16; Start 01/10/19 at 13:45; Stop 01/10/19 at 13:50; Status DC Sodium Chloride 500 ml @ 500 mls/hr 1X ONCE IV Last administered on 01/10/19at 13:20; Start 01/10/19 at 14:00; Stop 01/10/19 at 14:59; Status DC Info (CONTRAST GIVEN -- Rx MONITORING) 1 each PRN DAILY PRN MC SEE COMMENTS; Start 01/10/19 at 14:00; Stop 01/12/19 at 13:59; Status DC Clopidogrel Bisulfate (Plavix) 300 mg 1X ONCE PO Last administered on 01/10/19at 15:29; Start 01/10/19 at 14:15; Stop 01/10/19 at 14:17; Status DC Clopidogrel Bisulfate (Plavix) 75 mg DAILYWBKFT PO Last administered on 01/15/19at 07:48; Start 01/11/19 at 08:00 Morphine Sulfate (Morphine Sulfate) 4 mg 1X ONCE IM ; Start 01/14/19 at 15:00; Stop 01/14/19 at 14:58; Status DC Morphine Sulfate (Morphine Sulfate) 4 mg 1X ONCE IV ; Start 01/14/19 at 15:00; Stop 01/14/19 at 15:01; Status DC Sincalide 1.38 mcg/Sodium Chloride 30 ml @ 0 mls/hr 1X ONCE IV Last administered on 01/14/19at 15:20; Start 01/14/19 at 15:15; Stop 01/14/19 at 15:16; Status DC Active Scripts Active Aspirin Ec (Aspirin) 325 Mg Tablet. 1 Tab PO DAILY Simvastatin 40 Mg Tablet 40 Mg PO QHS 30 Days Allergies Allergies: Coded Allergies: No Known Drug Allergies (Unverified , 01/16/19) ROS General: No: Chills, Other (fevers ) PSYCHOLOGICAL ROS: YES: Irritablity; No: Anxiety, Depression Eyes: No Blurry vision, No Double vision HEENT: No: Heacaches, Sore Throat Hematological and Lymphatic: YES: Bleeding Problems (on plavix); No: Blood Clots Respiratory: No: Cough, Shortness of breath Cardiovascular: No Chest Pain, No Palpitations Gastrointestinal: Yes Other (see hpi) Genitourinary: No Dysuria, No Hematuria Musculoskeletal: No Joint Pain, No Muscle Pain Neurological: No Impaired Coord/balance, No Numbness/Tingling Skin: No Pruritus, No Rash Physical Exam General: Alert, Cooperative, Other (in pain on exam) HEENT: Atraumatic, PERRLA Lungs: Clear to auscultation, Normal air movement Heart: Regular rate, Normal S1, Normal S2 Abdomen: Soft, Other (ND TTP upper abdomen ) Extremities: No clubbing, No cyanosis Skin: No rashes, No breakdown Neuro: Normal gait, Normal speech Psych/Mental Status: Mental status NL, Mood NL MUSCULOSKELETAL: No deformity, No swelling Vitals VITALS Vital Signs Date Time Temp Pulse Resp B/P (MAP) Pulse Ox O2 Delivery O2 Flow Rate FiO2 01/15/19 10:58 97.9 70 18 120/64 (82) 99 Room Air 97.9 Assessment/Plan Assessment/Plan d/w IR--will need to hold plavix for couple days prior to danny--reviewed this with Dr Ramachandran Hold plavix now, stu delgado in couple days TACHO BLOCK MD 01/16/19 1308: CONSULT Assessment/Plan Assessment/Plan reviewed, plan JAQUI Lobo APRN Jan 15, 2019 13:04 TACHO BLOCK MD Jan 16, 2019 13:08
--- NOTE | 2019-01-15 13:41 | PDOC ---
Subjective: Subjective: Eating fried chicken. Hurts when stomach is empty, hurts when she eats, "stent hurts." Objective: Objective: Has not tried Bentyl or GI cocktail. Stool charted 01/10, refusing Miralax. Vital Signs: Vital Signs Date Time Temp Pulse Resp B/P (MAP) Pulse Ox O2 Delivery O2 Flow Rate FiO2 01/15/19 10:58 97.9 70 18 120/64 (82) 99 Room Air 97.9 PE: GEN: NAD - eating fried chicken LUNGS: CTAB HEART: RRR ABD: non-specifically tender NEURO/PSYCH: A & O 3 A/P: Abd pain Celiac and SMA stenosis s/p stent Low GB EF - looks like plans to hold Plavix in preparation for lap danny in a couple days -- History challenging as last week. Plans as above. Would continue PPI, etc. TAVIA YATES Jan 15, 2019 13:41
--- NOTE | 2019-01-15 14:48 | PDOC ---
PROGRESS NOTES Chief Complaint Chief Complaint CHEST pain MPI NEG FOR ISCHEMIA Hx dyslipidemia HTN - HX Hx GERD Moderate grade narrowing of the celiac artery, 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 ON CTA ABDOMEN ///IR and vascular CONSULTED. Continue PPI Severe Celiac and SMA focal stenoses. 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 Marked angiographic improvement of the SMA following placement of the stent and drug coated balloon angioplasty. 01/11 still having severe epigastric pain, requesting iv morphine 01/13 PAIN SLOW TO RESOLVE, NOT ABLE TO EAT VERY MUCH WITHOUT PAIN///KUB PLANNED 01/14 hida scan today, hungry still with pain History of Present Illness History of Present Illness hold plavix plan lap danny IR and gen surg Vitals Vitals Vital Signs Date Time Temp Pulse Resp B/P (MAP) Pulse Ox O2 Delivery O2 Flow Rate FiO2 01/15/19 10:58 97.9 70 18 120/64 (82) 99 Room Air 97.9 Physical Exam General: Alert, Cooperative, Other (in pain on exam) Heart: Regular rate, Normal S1, Normal S2 Lungs: Clear, Wheezing Abdomen: Soft, Other (ND TTP upper abdomen ) Extremities: No clubbing, No cyanosis Skin: No rashes, No breakdown Comment Review of Relevant I have reviewed the following items charlene (where applicable) has been applied. Labs Microbiology 01/07/19 Urine Culture - Final, Complete 01/07/19 Urine Culture Result 1 (ELISE) - Final, Complete Medications Current Medications Multi-Ingredient Mouthwash/Gargle (Gi Cocktail) 20 ml 1X ONCE SWSW Last administered on 01/07/19at 19:18; Start 01/07/19 at 19:00; Stop 01/07/19 at 19:03; Status DC Aspirin (Children'S Aspirin) 324 mg 1X ONCE PO Last administered on 01/07/19 19:18; Start 01/07/19 at 19:00; Stop 01/07/19 at 19:03; Status DC Albuterol/ Ipratropium (Duoneb) 3 ml 1X ONCE NEB Last administered on 01/07/19at 19:50; Start 01/07/19 at 19:00; Stop 01/07/19 at 19:03; Status DC Fentanyl Citrate (Fentanyl 2ml Vial) 50 mcg 1X ONCE IV Last administered on 01/07/19at 19:18; Start 01/07/19 at 19:15; Stop 01/07/19 at 19:16; Status DC Iohexol (Omnipaque 350 Mg/ml) 90 ml 1X ONCE IV Last administered on 01/07/19at 20:24; Start 01/07/19 at 20:00; Stop 01/07/19 at 20:01; Status DC Info (CONTRAST GIVEN -- Rx MONITORING) 1 each PRN DAILY PRN MC SEE COMMENTS; Start 01/07/19 at 20:00; Stop 01/09/19 at 19:59; Status DC Morphine Sulfate (Morphine Sulfate) 2 mg PRN Q2HR PRN IV PAIN Last administered on 01/11/19at 15:07; Start 01/07/19 at 20:00 Nitroglycerin (Nitrostat) 0.4 mg PRN Q5MIN PRN SL CHEST PAIN; Start 01/07/19 at 20:00 Temazepam (Restoril) 7.5 mg PRN QHS PRN PO INSOMNIA Last administered on 01/14/19at 23:48; Start 01/07/19 at 20:00 Acetaminophen (Tylenol) 500 mg PRN Q6HRS PRN PO MILD PAIN / TEMP; Start 01/07/19 at 20:00; Stop 01/08/19 at 12:53; Status DC Acetaminophen/ Codeine Phosphate (Tylenol #3) 1 tab PRN Q6HRS PRN PO MODERATE PAIN Last administered on 01/14/19at 23:47; Start 01/07/19 at 20:00 Calcium Carbonate/ Glycine (Tums) 500 mg PRN AFTMEALHC PRN PO INDIGESTION Last administered on 01/08/19at 20:09; Start 01/07/19 at 20:00 Oxycodone/ Acetaminophen (Percocet 5/325) 1 tab PRN Q4HRS PRN PO SEVERE PAIN Last administered on 01/14/19at 21:03; Start 01/07/19 at 20:00 Ondansetron HCl (Zofran) 4 mg PRN Q6HRS PRN IVP NAUSEA/VOMITING; Start 01/07/19 at 20:00; Stop 01/08/19 at 12:53; Status DC Clonidine HCl (Catapres) 0.1 mg PRN Q1HR PRN PO HYPERTENSION; Start 01/07/19 at 20:00; Stop 01/08/19 at 12:53; Status DC Aspirin (Ecotrin) 325 mg DAILY PO Last administered on 01/15/19 08:55; Start 01/08/19 at 09:00 Simvastatin (Zocor) 40 mg QHS PO Last administered on 01/08/19at 20:06; Start 01/07/19 at 21:00; Stop 01/09/19 at 11:31; Status DC Nitroglycerin (Nitrostat) 0.4 mg PRN Q5MIN PRN SL CHEST PAIN; Start 01/07/19 at 20:00; Stop 01/08/19 at 11:50; Status DC Influenza Virus Vaccine Quadrival (Afluria Quad 2019-20 (3yr Up) Syringe) 0.5 ml ONCE ONCE VAX IM Last administered on 01/09/19at 08:44; Start 01/08/19 at 09:00; Stop 01/08/19 at 09:01; Status DC Bisacodyl (Dulcolax Tab) 10 mg 1X ONCE PO Last administered on 01/08/19at 16:30; Start 01/08/19 at 12:45; Stop 01/08/19 at 12:46; Status DC Polyethylene Glycol (miraLAX PACKET) 17 gm DAILY PO Last administered on 01/13/19 08:28; Start 01/09/19 at 09:00 Polyethylene Glycol (miraLAX PACKET) 17 gm PRN DAILY PRN PO CONSTIPATION Last administered on 01/12/19 02:43; Start 01/08/19 at 12:45 Pantoprazole Sodium (Protonix) 40 mg DAILYAC PO Last administered on 01/15/19 07:45; Start 01/08/19 at 13:00 Sodium Chloride (Normal Saline Flush) 3 ml QSHIFT PRN IV AFTER MEDS AND BLOOD DRAWS; Start 01/08/19 at 13:00 Ondansetron HCl (Zofran) 4 mg PRN Q4HRS PRN IV NAUSEA/VOMITING Last administered on 01/13/19at 11:03; Start 01/08/19 at 13:00 Acetaminophen (Tylenol) 650 mg PRN Q4HRS PRN PO TEMP OVER 100.4F OR MILD PAIN; Start 01/08/19 at 13:00 Al Hydroxide/Mg Hydroxide (Mylanta Plus Xs) 30 ml PRN DAILY PRN PO HEARTBURN / GAS Last administered on 01/08/19at 18:35; Start 01/08/19 at 13:00; Stop 01/10/19 at 13:33; Status DC Clonidine HCl (Catapres) 0.1 mg PRN Q6HRS PRN PO SBP>160 OR DBP>90; Start 01/08/19 at 13:00 Docusate Sodium (Colace) 100 mg PRN BID PRN PO HARD STOOLS Last administered on 01/15/19at 09:02; Start 01/08/19 at 13:00 Albuterol Sulfate (Ventolin Neb Soln) 2.5 mg PRN Q4HRS PRN NEB SHORTNESS OF BREATH; Start 01/08/19 at 13:00 Guaifenesin (Robitussin) 200 mg PRN Q4HRS PRN PO COUGH; Start 01/08/19 at 13:00 Lorazepam (Ativan) 0.5 mg PRN Q4HRS PRN PO ANXIETY / AGITATION Last administered on 01/09/19at 21:46; Start 01/08/19 at 13:00 Enoxaparin Sodium (Lovenox 40mg Syringe) 40 mg DAILY SQ Last administered on 01/15/19at 08:55; Start 01/08/19 at 13:00 Regadenoson (Lexiscan) 0.4 mg 1X ONCE IV Last administered on 01/08/19at 13:27; Start 01/08/19 at 13:00; Stop 01/08/19 at 13:01; Status DC Al Hydroxide/Mg Hydroxide (Mylanta Plus Xs) 30 ml PRN Q6HRS PRN PO HEARTBURN / GAS; Start 01/08/19 at 18:30 Potassium Chloride (Klor-Con) 40 meq 1X ONCE PO Last administered on 01/09/19at 06:40; Start 01/08/19 at 20:30; Stop 01/08/19 at 20:32; Status DC Potassium Chloride (Klor-Con) 20 meq DAILYWBKFT PO Last administered on 01/15/19at 07:48; Start 01/09/19 at 08:00 Atorvastatin Calcium (Lipitor) 40 mg QHS PO Last administered on 01/14/19at 21:03; Start 01/09/19 at 21:00 Dicyclomine HCl (Bentyl) 10 mg PRN QID PRN PO abd pain; Start 01/10/19 at 09:15 Multi-Ingredient Mouthwash/Gargle (Gi Cocktail) 20 ml PRN QID PRN PO abd pain; Start 01/10/19 at 09:15 Iodixanol (Visipaque 320) 100 ml STK-MED ONCE .ROUTE ; Start 01/10/19 at 12:27; Stop 01/10/19 at 12:27; Status DC Heparin Sodium/ Sodium Chloride 1,000 ml @ As Directed STK-MED ONCE .ROUTE ; Start 01/10/19 at 12:27; Stop 01/10/19 at 12:27; Status DC Midazolam HCl (Versed) 2 mg STK-MED ONCE .ROUTE ; Start 01/10/19 at 12:29; Stop 01/10/19 at 12:29; Status DC Fentanyl Citrate (Fentanyl 2ml Vial) 100 mcg STK-MED ONCE .ROUTE ; Start 01/10/19 at 12:29; Stop 01/10/19 at 12:30; Status DC Heparin Sodium (Porcine) (Heparin Sodium) 10,000 unit STK-MED ONCE .ROUTE ; Start 01/10/19 at 12:30; Stop 01/10/19 at 12:30; Status DC Lidocaine HCl (Buffered Lidocaine 1%) 3 ml STK-MED ONCE .ROUTE ; Start 01/10/19 at 13:07; Stop 01/10/19 at 13:08; Status DC Heparin Sodium/ Sodium Chloride (HEPARIN for ARTERIAL LINE FLUSH) 1,000 unit 1X ONCE IART Last administered on 01/10/19at 14:14; Start 01/10/19 at 13:45; Stop 01/10/19 at 13:49; Status DC Heparin Sodium/ Sodium Chloride (HEPARIN for ARTERIAL LINE FLUSH) 1,000 unit 1X ONCE IART Last administered on 01/10/19at 14:14; Start 01/10/19 at 13:45; Stop 01/10/19 at 13:49; Status DC Lidocaine HCl (Buffered Lidocaine 1%) 2 ml 1X ONCE IJ Last administered on 01/10/19at 14:15; Start 01/10/19 at 13:45; Stop 01/10/19 at 13:49; Status DC Midazolam HCl (Versed) 2 mg 1X ONCE IV Last administered on 01/10/19at 14:15; Start 01/10/19 at 13:45; Stop 01/10/19 at 13:49; Status DC Fentanyl Citrate (Fentanyl 2ml Vial) 100 mcg 1X ONCE IV Last administered on 01/10/19at 14:16; Start 01/10/19 at 13:45; Stop 01/10/19 at 13:49; Status DC Iodixanol (Visipaque 320) 100 ml 1X ONCE IART Last administered on 01/10/19at 14:14; Start 01/10/19 at 13:45; Stop 01/10/19 at 13:49; Status DC Heparin Sodium (Porcine) (Heparin Sodium) 5,000 unit 1X ONCE IV Last administered on 01/10/19at 14:16; Start 01/10/19 at 13:45; Stop 01/10/19 at 13:50; Status DC Sodium Chloride 500 ml @ 500 mls/hr 1X ONCE IV Last administered on 01/10/19at 13:20; Start 01/10/19 at 14:00; Stop 01/10/19 at 14:59; Status DC Info (CONTRAST GIVEN -- Rx MONITORING) 1 each PRN DAILY PRN MC SEE COMMENTS; Start 01/10/19 at 14:00; Stop 01/12/19 at 13:59; Status DC Clopidogrel Bisulfate (Plavix) 300 mg 1X ONCE PO Last administered on 01/10/19at 15:29; Start 01/10/19 at 14:15; Stop 01/10/19 at 14:17; Status DC Clopidogrel Bisulfate (Plavix) 75 mg DAILYWBKFT PO Last administered on 01/15/19at 07:48; Start 01/11/19 at 08:00; Stop 01/15/19 at 13:07; Status DC Morphine Sulfate (Morphine Sulfate) 4 mg 1X ONCE IM ; Start 01/14/19 at 15:00; Stop 01/14/19 at 14:58; Status DC Morphine Sulfate (Morphine Sulfate) 4 mg 1X ONCE IV ; Start 01/14/19 at 15:00; Stop 01/14/19 at 15:01; Status DC Sincalide 1.38 mcg/Sodium Chloride 30 ml @ 0 mls/hr 1X ONCE IV Last administered on 01/14/19at 15:20; Start 01/14/19 at 15:15; Stop 01/14/19 at 15:16; Status DC Active Scripts Active Aspirin Ec (Aspirin) 325 Mg Tablet.dr 1 Tab PO DAILY Simvastatin 40 Mg Tablet 40 Mg PO QHS 30 Days Vitals/I & O Vital Sign - Last 24 Hours 01/14/19 01/14/19 01/14/19 01/14/19 15:00 16:52 16:55 17:02 Temp 97.8 97.6 97.8 97.6 Pulse 55 60 Resp 16 16 B/P (MAP) 115/60 (78) 112/63 (79) Pulse Ox 98 98 96 O2 Delivery Room Air Room Air Room Air Room Air 01/14/19 01/14/19 01/14/19 01/14/19 19:00 19:34 20:30 21:03 Temp 97.4 97.4 Pulse 59 Resp 20 20 B/P (MAP) 114/63 (80) Pulse Ox 97 O2 Delivery Room Air Room Air Room Air Room Air 01/14/19 01/14/19 01/14/19 01/15/19 22:03 23:00 23:47 00:47 Temp 97.8 97.8 Pulse 60 Resp 20 20 20 18 B/P (MAP) 114/64 (81) Pulse Ox 97 O2 Delivery Room Air Room Air Room Air 01/15/19 01/15/19 01/15/19 01/15/19 03:19 07:00 08:00 10:58 Temp 97.6 97.7 97.9 97.6 97.7 97.9 Pulse 61 69 70 Resp 20 18 18 B/P (MAP) 105/57 (73) 109/68 (82) 120/64 (82) Pulse Ox 95 98 99 O2 Delivery Room Air Room Air Room Air Room Air Intake and Output 01/14/19 01/14/19 01/15/19 14:59 22:59 06:59 Intake Total 300 ml Balance 300 ml AUDIE ARZATE MD Jan 15, 2019 14:48
[2019-01-15 14:53] VITALS: BP 118/68
--- NOTE | 2019-01-15 15:12 | NUR ---
SW following for discharge planning. Chart reviewed, discussed with Dr. Santiago, pt having surgery in the next day or two. SW will continue to follow.
--- NOTE | 2019-01-15 16:49 | NUR ---
Consents witnessed, see orders. Patient and verb. understanding NPO after MN and Dr. Fang will d/w patient and surgery in a.m.
[2019-01-15 19:00] VITALS: BP 129/51
[2019-01-15] MEDS: ACETAMINOPHEN/CODEINE 300/30MG TABLET. PO PRN (19:39)
[2019-01-15] MEDS: ATORVASTATIN CALCIUM 40 MG TABLET. PO SCH (20:54)
[2019-01-15] MEDS: oxyCODONE/APAP 5/325 1 TAB TABLET PO PRN (20:56)
[2019-01-15 23:00] VITALS: BP 97/45
[2019-01-16] VITALS (7 sets, daily range): BP systolic 104–154; BP diastolic 57–86
[2019-01-16] MEDS ORDERED: ONDANSETRON PF 4 MG/2 ML VIAL. IV PRN (07:00)
[2019-01-16] MEDS ORDERED: HYDROmorphone 2 MG/ML VIAL IV PRN (07:00)
[2019-01-16] MEDS ORDERED: IV RINGERS,LACTATED 1000ML 1,000 ML IV SCH (07:00)
[2019-01-16] MEDS ORDERED: MORPHINE SULFATE 2 MG/ML VIAL. IV PRN (07:00)
[2019-01-16] MEDS ORDERED: PROCHLORPERAZINE 10 MG/2 ML VIAL. IV PRN (07:00)
[2019-01-16] MEDS: PANTOPRAZOLE 40 MG TABLET.DR. PO SCH (07:30)
[2019-01-16] MEDS: POTASSIUM CHLORIDE 20 MEQ TABLET.ER. PO SCH (08:00)
[2019-01-16] MEDS: ASPIRIN ENTERIC COATED 325 MG TABLET.DR. PO SCH (08:51)
[2019-01-16] MEDS: ENOXAPARIN 40 MG/0.4 ML SYRINGE. SQ SCH (08:51)
[2019-01-16] MEDS: POLYETHYLENE GLYCOL 3350 17 GM PACKET. PO SCH (08:51)
--- NOTE | 2019-01-16 09:01 | NUR ---
SW following pt. Discussed with RN and pt will have stu nam today. No SW needs at this time.
--- NOTE | 2019-01-16 09:04 | NUR ---
Pt requested pain meds at time of assessment. Went back to pt's room to administer, pt sleeping. bedside. Told to let us know if they need anything. Will continue to monitor.
[2019-01-16] MEDS ORDERED: SURGICEL HEMOSTAT 4X8 EACH. ONE (10:10)
[2019-01-16] MEDS ORDERED: IOHEXOL 300 MG/ML 50 ML VIAL. ONE (10:10)
[2019-01-16] MEDS ORDERED: BUPIVACAINE MPF 0.5% 30 ML VIAL. ONE (10:10)
[2019-01-16] MEDS ORDERED: ROCURONIUM 50 MG/5 ML VIAL. ONE (11:42)
[2019-01-16] MEDS ORDERED: PROPOFOL 0 ML IV ONE (11:43)
[2019-01-16] MEDS ORDERED: DEXAMETHASONE SOD PHOS 4 MG/ML VIAL ONE (11:43)
[2019-01-16] MEDS ORDERED: LIDOCAINE 2% PF 5 ML VIAL. ONE (11:43)
[2019-01-16] MEDS ORDERED: fentaNYL PF VIAL 250 MCG/5 ML VIAL ONE (11:43)
[2019-01-16] MEDS ORDERED: ONDANSETRON PF 4 MG/2 ML VIAL. ONE (11:43)
--- NOTE | 2019-01-16 11:58 | PDOC ---
Objective: Vital Signs: Vital Signs Date Time Temp Pulse Resp B/P (MAP) Pulse Ox O2 Delivery O2 Flow Rate FiO2 01/16/19 11:24 97.2 55 21 147/80 97 Room Air 97.2 01/15/19 20:56 2.0 PE: not in room A/P: Abd pain Celiac and SMA stenosis s/p stent Biliary dyskinesia -- Out for cholecystectomy, will follow. TAVIA YATES Jan 16, 2019 11:58
--- NOTE | 2019-01-16 12:14 | PDOC ---
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 ON CTA ABDOMEN ///IR and vascular CONSULTED. Continue PPI Severe Celiac and SMA focal stenoses. 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 Marked angiographic improvement of the SMA following placement of the stent and drug coated balloon angioplasty. 01/11 still having severe epigastric pain, requesting iv morphine 01/13 PAIN SLOW TO RESOLVE, NOT ABLE TO EAT VERY MUCH WITHOUT PAIN///KUB PLANNED 01/14 hida scan today, hungry still with pain History of Present Illness History of Present Illness hold plavix plan lap danny IR and gen surg 01/16/19 Pt seen and examined by me States that abd pain is about the same DW RN Chart reviewed Po delgado today Vitals/I&O Vitals/I&O: Vital Signs Date Time Temp Pulse Resp B/P (MAP) Pulse Ox O2 Delivery O2 Flow Rate FiO2 01/16/19 11:24 97.2 55 21 147/80 97 Room Air 97.2 01/15/19 20:56 2.0 I & O 01/15/19 01/15/19 01/16/19 15:00 23:00 07:00 Intake Total 600 ml 300 ml Balance 600 ml 300 ml Physical Exam General: Alert, Cooperative, Other (in pain on exam) Heart: Regular rate, Normal S1, Normal S2 Lungs: Clear, Wheezing Abdomen: Soft, Other (ND TTP upper abdomen ) Extremities: No clubbing, No cyanosis Skin: No rashes, No breakdown Review of Systems Review of Systems: (+) Abdominal pain (-) CP, SOB Assessment and Plan Assessmemt and Plan CHEST pain MPI NEG FOR ISCHEMIA Hx dyslipidemia HTN - HX Hx GERD 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 ON CTA ABDOMEN ///IR and vascular CONSULTED. Continue PPI Severe Celiac and SMA focal stenoses. 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 Marked angiographic improvement of the SMA following placement of the stent and drug coated balloon angioplasty. Plan: Lap danny today NPO PT/OT dvt ppx home meds full code Comment Review of Relevant I have reviewed the following items charlene (where applicable) has been applied. Medications: Current Medications Medications (Trade) Dose Ordered Sig/Amanda Route PRN Reason Start Time Stop Time Status Last Admin Dose Admin Ringer's Solution 1,000 ml @ 30 mls/hr Q24H IV 01/16/19 07:00 01/16/19 18:59 01/16/19 11:54 MILLY HARDIN III DO Jan 16, 2019 12:14
[2019-01-16] MEDS ORDERED: PHENYLEPHRINE in 0.9% NACL PF 1 MG/10 ML SYRINGE. IV ONE (12:35)
[2019-01-16] MEDS ORDERED: SEVOFLURANE 61 TO 120 MINUTES. IH ONE ×2 (13:06→13:49)
[2019-01-16] MEDS ORDERED: GLYCOPYRROLATE 1 MG/5 ML VIAL. ONE (13:08)
[2019-01-16] MEDS ORDERED: NEOSTIGMINE METHYLSULFATE 5 MG/5 ML SYRINGE. ONE (13:08)
--- NOTE | 2019-01-16 13:11 | PDOC4 ---
Operative Note Operative Note Operative Note: Preoperative Diagnosis: Biliary dyskinesia Postoperative Diagnosis: Same Procedure: Laparoscopic cholecystectomy with intraoperative cholangiogram Surgeons: Leoncio Senior Premium Auditor: Gwen MOONEY Anesthesia: Gen. Estimated Blood Loss: 10 mL Specimen: Gallbladder to pathology Drains: None Complications: None Indications: The patient is a 63-year-old female was admitted with abdominal pain. She is undergone extensive evaluation including endoscopic treatment of mesenteric artery stenosis. She has had continued right upper quadrant pain and a PIPIDA scan showed a low gallbladder ejection fraction and system with biliary dyskinesia. Surgical treatment was offered by means of a laparoscopic cholecystectomy. The risks of surgery were discussed which include bleeding, infection, bile duct injury, bile leak, pain, the potential for additional surgeries or procedures. The patient understands and would like to proceed. Description: The patient was taken to the operating room and laid supine on the operating table. General anesthesia was performed. The abdomen was prepped with ChloraPrep and draped in a standard surgical fashion. A small right upper quadrant incision was made through which a visualized 5 number trocar was inserted. A pneumoperitoneum was created and the lap strips introduced. Initial inspection showed no significant abdominal wall adhesions. Another incision was made inferior to the umbilicus through which a 5 mm trocar was inserted. In the upper midabdomen an 11 mm trocar was placed and in the right lateral abdomen at 2.3 mm mini lap grasper was inserted. The gallbladder was retracted cephalad. The cystic duct was dissected free from surrounding tissues. One clip was placed on the duct near the gallbladder junction. An opening was made in the duct and a cholangiocatheter placed within and secured with a clip. Using contrast dye and fluoroscopy an intraoperative cholangiogram was performed that appeared unremarkable. The clip and catheter were then withdrawn. Three clips were placed on the cystic duct and it was divided. The cystic artery was then identified, dissected free, doubly clipped and divided as well. The gallbladder was then mobilized away from the liver with cautery. The gallbladder was then placed in an endoscopic bag and extracted at the superior trocar site. The fascia there was closed with an 0 Vicryl suture. All blood and irrigation fluid was suctioned and hemostasis was good. The remaining ports were removed and the pneumoperitoneum was relieved. The skin incisions were injected with half percent Marcaine with epinephrine, and all were closed using 4-0 Monocryl suture. Steri-Strips and dressings were then applied. The patient tolerated the procedure well and was sent to the recovery room in stable condition. At the end of the case all counts were correct. TACHO BLOCK MD Jan 16, 2019 13:11
--- NOTE | 2019-01-16 13:19 | RAD ---
EXAM: Intraoperative cholangiogram. HISTORY: Cholecystectomy. COMPARISON: None. FINDINGS: 2 fluoroscopic images were obtained during an intraoperative glandular end. The images demonstrate contrast desiccation of the biliary tree and proximal small bowel. There is narrowing of the distal common bile duct which extends to the ampulla, possibly due to a spasm or stricture. No retained stone is seen. The total fluoroscopy time is 8.4 seconds. IMPRESSION: 1. No evidence of a retained biliary stone. 2. Segmental narrowing of the distal common bile duct extending to the ampulla. This may be due to a spasm or stricture. Electronically signed by: Tameka Villanueva MD (01/16/2019 1:16 PM) [id number]
[2019-01-16] MEDS ORDERED: fentaNYL PF VIAL 100 MCG/2 ML VIAL ONE ×2 (13:45→14:31)
[2019-01-16] MEDS: fentaNYL PF VIAL 100 MCG/2 ML VIAL IV PRN ×4 (13:50→14:42)
[2019-01-16] MEDS: HYDROcodone/APAP 5/325MG 1 TAB TABLET PO PRN ×2 (18:02→22:44)
[2019-01-16] MEDS: TEMAZEPAM 7.5 MG CAPSULE PO PRN (19:30)
[2019-01-16] MEDS: ATORVASTATIN CALCIUM 40 MG TABLET. PO SCH (19:30)
[2019-01-17] MEDS: HYDROcodone/APAP 5/325MG 1 TAB TABLET PO PRN ×3 (02:49→17:17)
[2019-01-17 02:54] VITALS: BP 112/63
[2019-01-17 07:00] VITALS: BP 122/62
[2019-01-17] MEDS: POTASSIUM CHLORIDE 20 MEQ TABLET.ER. PO SCH (08:24)
[2019-01-17] MEDS: ASPIRIN ENTERIC COATED 325 MG TABLET.DR. PO SCH (08:24)
[2019-01-17] MEDS: PANTOPRAZOLE 40 MG TABLET.DR. PO SCH (08:25)
[2019-01-17] MEDS: ENOXAPARIN 40 MG/0.4 ML SYRINGE. SQ SCH (08:25)
[2019-01-17] MEDS: POLYETHYLENE GLYCOL 3350 17 GM PACKET. PO SCH (08:25)
--- NOTE | 2019-01-17 09:33 | PDOC ---
PROGRESS NOTES Subjective Subjective some surgical pain, otherwise doing well Objective Objective Vital Signs Date Time Temp Pulse Resp B/P (MAP) Pulse Ox O2 Delivery O2 Flow Rate FiO2 01/17/19 08:28 Room Air 01/17/19 07:00 98.4 60 16 122/62 (82) 97 98.4 01/16/19 18:02 3.0 Intake and Output 01/17/19 07:00 Intake Total 1300 ml Output Total 10 ml Balance 1290 ml Intake Oral 500 ml IV Total 800 ml Estimated Blood Loss 10 ml # Voids 3 Physical Exam Abdomen: Soft Assessment Assessment Biliary dyskinesia Plan Plan of Care POD 1 lap danny, no new recs, discharge planning per primary Comment Review of Relevant I have reviewed the following items charlene (where applicable) has been applied. Labs Laboratory Tests Test 01/16/19 13:28 Glucose (Fingerstick) 124 mg/dL (70-99) Laboratory Tests Test 01/16/19 13:28 Glucose (Fingerstick) 124 mg/dL (70-99) Microbiology 01/07/19 Urine Culture - Final, Complete 01/07/19 Urine Culture Result 1 (ELISE) - Final, Complete Medications Current Medications Multi-Ingredient Mouthwash/Gargle (Gi Cocktail) 20 ml 1X ONCE SWSW Last administered on 01/07/19at 19:18; Start 01/07/19 at 19:00; Stop 01/07/19 at 19:03; Status DC Aspirin (Children'S Aspirin) 324 mg 1X ONCE PO Last administered on 01/07/19at 19:18; Start 01/07/19 at 19:00; Stop 01/07/19 at 19:03; Status DC Albuterol/ Ipratropium (Duoneb) 3 ml 1X ONCE NEB Last administered on 01/07/19at 19:50; Start 01/07/19 at 19:00; Stop 01/07/19 at 19:03; Status DC Fentanyl Citrate (Fentanyl 2ml Vial) 50 mcg 1X ONCE IV Last administered on 01/07/19 19:18; Start 01/07/19 at 19:15; Stop 01/07/19 at 19:16; Status DC Iohexol (Omnipaque 350 Mg/ml) 90 ml 1X ONCE IV Last administered on 01/07/19at 20:24; Start 01/07/19 at 20:00; Stop 01/07/19 at 20:01; Status DC Info (CONTRAST GIVEN -- Rx MONITORING) 1 each PRN DAILY PRN MC SEE COMMENTS; Start 01/07/19 at 20:00; Stop 01/09/19 at 19:59; Status DC Morphine Sulfate (Morphine Sulfate) 2 mg PRN Q2HR PRN IV PAIN Last administered on 01/11/19 15:07; Start 01/07/19 at 20:00 Nitroglycerin (Nitrostat) 0.4 mg PRN Q5MIN PRN SL CHEST PAIN; Start 01/07/19 at 20:00 Temazepam (Restoril) 7.5 mg PRN QHS PRN PO INSOMNIA Last administered on 01/16/19 19:30; Start 01/07/19 at 20:00 Acetaminophen (Tylenol) 500 mg PRN Q6HRS PRN PO MILD PAIN / TEMP; Start 01/07/19 at 20:00; Stop 01/08/19 at 12:53; Status DC Acetaminophen/ Codeine Phosphate (Tylenol #3) 1 tab PRN Q6HRS PRN PO MODERATE PAIN Last administered on 01/15/19at 19:39; Start 01/07/19 at 20:00 Calcium Carbonate/ Glycine (Tums) 500 mg PRN AFTMEALHC PRN PO INDIGESTION Last administered on 01/08/19at 20:09; Start 01/07/19 at 20:00 Oxycodone/ Acetaminophen (Percocet 5/325) 1 tab PRN Q4HRS PRN PO SEVERE PAIN Last administered on 01/15/19 20:56; Start 01/07/19 at 20:00 Ondansetron HCl (Zofran) 4 mg PRN Q6HRS PRN IVP NAUSEA/VOMITING; Start 01/07/19 at 20:00; Stop 01/08/19 at 12:53; Status DC Clonidine HCl (Catapres) 0.1 mg PRN Q1HR PRN PO HYPERTENSION; Start 01/07/19 at 20:00; Stop 01/08/19 at 12:53; Status DC Aspirin (Ecotrin) 325 mg DAILY PO Last administered on 01/17/19at 08:24; Start 01/08/19 at 09:00 Simvastatin (Zocor) 40 mg QHS PO Last administered on 01/08/19 20:06; Start 01/07/19 at 21:00; Stop 01/09/19 at 11:31; Status DC Nitroglycerin (Nitrostat) 0.4 mg PRN Q5MIN PRN SL CHEST PAIN; Start 01/07/19 at 20:00; Stop 01/08/19 at 11:50; Status DC Influenza Virus Vaccine Quadrival (Afluria Quad 2019-20 (3yr Up) Syringe) 0.5 ml ONCE ONCE VAX IM Last administered on 01/09/19at 08:44; Start 01/08/19 at 09:00; Stop 01/08/19 at 09:01; Status DC Bisacodyl (Dulcolax Tab) 10 mg 1X ONCE PO Last administered on 01/08/19 16 :30; Start 01/08/19 at 12:45; Stop 01/08/19 at 12:46; Status DC Polyethylene Glycol (miraLAX PACKET) 17 gm DAILY PO Last administered on 01/17/19 08:25; Start 01/09/19 at 09:00 Polyethylene Glycol (miraLAX PACKET) 17 gm PRN DAILY PRN PO CONSTIPATION Last administered on 01/12/19 02:43; Start 01/08/19 at 12:45 Pantoprazole Sodium (Protonix) 40 mg DAILYAC PO Last administered on 01/17/19 08:25; Start 01/08/19 at 13:00 Sodium Chloride (Normal Saline Flush) 3 ml QSHIFT PRN IV AFTER MEDS AND BLOOD DRAWS; Start 01/08/19 at 13:00 Ondansetron HCl (Zofran) 4 mg PRN Q4HRS PRN IV NAUSEA/VOMITING Last administered on 01/13/19at 11:03; Start 01/08/19 at 13:00 Acetaminophen (Tylenol) 650 mg PRN Q4HRS PRN PO TEMP OVER 100.4F OR MILD PAIN; Start 01/08/19 at 13:00 Al Hydroxide/Mg Hydroxide (Mylanta Plus Xs) 30 ml PRN DAILY PRN PO HEARTBURN / GAS Last administered on 01/08/19 18:35; Start 01/08/19 at 13:00; Stop 01/10/19 at 13:33; Status DC Clonidine HCl (Catapres) 0.1 mg PRN Q6HRS PRN PO SBP>160 OR DBP>90; Start 01/08/19 at 13:00 Docusate Sodium (Colace) 100 mg PRN BID PRN PO HARD STOOLS Last administered on 01/15/19 09:02; Start 01/08/19 at 13:00 Albuterol Sulfate (Ventolin Neb Soln) 2.5 mg PRN Q4HRS PRN NEB SHORTNESS OF BREATH; Start 01/08/19 at 13:00 Guaifenesin (Robitussin) 200 mg PRN Q4HRS PRN PO COUGH; Start 01/08/19 at 13:00 Lorazepam (Ativan) 0.5 mg PRN Q4HRS PRN PO ANXIETY / AGITATION Last administered on 01/09/19at 21:46; Start 01/08/19 at 13:00 Enoxaparin Sodium (Lovenox 40mg Syringe) 40 mg DAILY SQ Last administered on 01/17/19 08:25; Start 01/08/19 at 13:00 Regadenoson (Lexiscan) 0.4 mg 1X ONCE IV Last administered on 01/08/19at 13:27; Start 01/08/19 at 13:00; Stop 01/08/19 at 13:01; Status DC Al Hydroxide/Mg Hydroxide (Mylanta Plus Xs) 30 ml PRN Q6HRS PRN PO HEARTBURN / GAS; Start 01/08/19 at 18:30 Potassium Chloride (Klor-Con) 40 meq 1X ONCE PO Last administered on 01/09/19at 06:40; Start 01/08/19 at 20:30; Stop 01/08/19 at 20:32; Status DC Potassium Chloride (Klor-Con) 20 meq DAILYWBKFT PO Last administered on 01/17/19at 08:24; Start 01/09/19 at 08:00 Atorvastatin Calcium (Lipitor) 40 mg QHS PO Last administered on 01/16/19at 19:30; Start 01/09/19 at 21:00 Dicyclomine HCl (Bentyl) 10 mg PRN QID PRN PO abd pain; Start 01/10/19 at 09:15 Multi-Ingredient Mouthwash/Gargle (Gi Cocktail) 20 ml PRN QID PRN PO abd pain; Start 01/10/19 at 09:15 Iodixanol (Visipaque 320) 100 ml STK-MED ONCE .ROUTE ; Start 01/10/19 at 12:27; Stop 01/10/19 at 12:27; Status DC Heparin Sodium/ Sodium Chloride 1,000 ml @ As Directed STK-MED ONCE .ROUTE ; Start 01/10/19 at 12:27; Stop 01/10/19 at 12:27; Status DC Midazolam HCl (Versed) 2 mg STK-MED ONCE .ROUTE ; Start 01/10/19 at 12:29; Stop 01/10/19 at 12:29; Status DC Fentanyl Citrate (Fentanyl 2ml Vial) 100 mcg STK-MED ONCE .ROUTE ; Start 01/10/19 at 12:29; Stop 01/10/19 at 12:30; Status DC Heparin Sodium (Porcine) (Heparin Sodium) 10,000 unit STK-MED ONCE .ROUTE ; Start 01/10/19 at 12:30; Stop 01/10/19 at 12:30; Status DC Lidocaine HCl (Buffered Lidocaine 1%) 3 ml STK-MED ONCE .ROUTE ; Start 01/10/19 at 13:07; Stop 01/10/19 at 13:08; Status DC Heparin Sodium/ Sodium Chloride (HEPARIN for ARTERIAL LINE FLUSH) 1,000 unit 1X ONCE IART Last administered on 01/10/19at 14:14; Start 01/10/19 at 13:45; Stop 01/10/19 at 13:49; Status DC Heparin Sodium/ Sodium Chloride (HEPARIN for ARTERIAL LINE FLUSH) 1,000 unit 1X ONCE IART Last administered on 01/10/19at 14:14; Start 01/10/19 at 13:45; Stop 01/10/19 at 13:49; Status DC Lidocaine HCl (Buffered Lidocaine 1%) 2 ml 1X ONCE IJ Last administered on 01/10/19at 14:15; Start 01/10/19 at 13:45; Stop 01/10/19 at 13:49; Status DC Midazolam HCl (Versed) 2 mg 1X ONCE IV Last administered on 01/10/19at 14:15; Start 01/10/19 at 13:45; Stop 01/10/19 at 13:49; Status DC Fentanyl Citrate (Fentanyl 2ml Vial) 100 mcg 1X ONCE IV Last administered on 01/10/19at 14:16; Start 01/10/19 at 13:45; Stop 01/10/19 at 13:49; Status DC Iodixanol (Visipaque 320) 100 ml 1X ONCE IART Last administered on 01/10/19at 14:14; Start 01/10/19 at 13:45; Stop 01/10/19 at 13:49; Status DC Heparin Sodium (Porcine) (Heparin Sodium) 5,000 unit 1X ONCE IV Last administered on 01/10/19at 14:16; Start 01/10/19 at 13:45; Stop 01/10/19 at 13:50; Status DC Sodium Chloride 500 ml @ 500 mls/hr 1X ONCE IV Last administered on 01/10/19at 13:20; Start 01/10/19 at 14:00; Stop 01/10/19 at 14:59; Status DC Info (CONTRAST GIVEN -- Rx MONITORING) 1 each PRN DAILY PRN MC SEE COMMENTS; Start 01/10/19 at 14:00; Stop 01/12/19 at 13:59; Status DC Clopidogrel Bisulfate (Plavix) 300 mg 1X ONCE PO Last administered on 01/10/19at 15:29; Start 01/10/19 at 14:15; Stop 01/10/19 at 14:17; Status DC Clopidogrel Bisulfate (Plavix) 75 mg DAILYWBKFT PO Last administered on 01/15/19at 07:48; Start 01/11/19 at 08:00; Stop 01/15/19 at 13:07; Status DC Morphine Sulfate (Morphine Sulfate) 4 mg 1X ONCE IM ; Start 01/14/19 at 15:00; Stop 01/14/19 at 14:58; Status DC Morphine Sulfate (Morphine Sulfate) 4 mg 1X ONCE IV ; Start 01/14/19 at 15:00; Stop 01/14/19 at 15:01; Status DC Sincalide 1.38 mcg/Sodium Chloride 30 ml @ 0 mls/hr 1X ONCE IV Last administered on 01/14/19at 15:20; Start 01/14/19 at 15:15; Stop 01/14/19 at 15:16; Status DC Ondansetron HCl (Zofran) 4 mg PRN Q6HRS PRN IV NAUSEA/VOMITING; Start 01/16/19 at 07:00; Stop 01/16/19 at 19:10; Status DC Fentanyl Citrate (Fentanyl 2ml Vial) 25 mcg PRN Q5MIN PRN IV MILD PAIN 1-3 Last administered on 01/16/19at 14:42; Start 01/16/19 at 07:00; Stop 01/16/19 at 19:10; Status DC Fentanyl Citrate (Fentanyl 2ml Vial) 50 mcg PRN Q5MIN PRN IV MODERATE TO SEVERE PAIN Last administered on 01/16/19at 14:00; Start 01/16/19 at 07:00; Stop 01/16/19 at 19:10; Status DC Morphine Sulfate (Morphine Sulfate) 1 mg PRN Q10MIN PRN IV SEVERE PAIN 7-10; Start 01/16/19 at 07:00; Stop 01/17/19 at 06:59; Status Cancel Ringer's Solution 1,000 ml @ 30 mls/hr Q24H IV Last administered on 01/16/19at 11:54; Start 01/16/19 at 07:00; Stop 01/16/19 at 18:59; Status DC Hydromorphone HCl (Dilaudid) 0.5 mg PRN Q10MIN PRN IV SEV PAIN, Second choice; Start 01/16/19 at 07:00; Stop 01/16/19 at 19:10; Status DC Prochlorperazine Edisylate (Compazine) 5 mg PACU PRN PRN IV NAUSEA, MRX1; Start 01/16/19 at 07:00; Stop 01/16/19 at 19:10; Status DC Iohexol (Omnipaque 300 Mg/ml) 50 ml STK-MED ONCE .ROUTE Last administered on 01/16/19at 12:40; Start 01/16/19 at 10:10; Stop 01/16/19 at 10:10; Status DC Cellulose (Surgicel Hemostat 4x8) 1 each STK-MED ONCE .ROUTE ; Start 01/16/19 at 10:10; Stop 01/16/19 at 10:11; Status DC Bupivacaine HCl (Sensorcaine Mpf 0.5%) 30 ml STK-MED ONCE .ROUTE Last administered on 01/16/19at 12:40; Start 01/16/19 at 10:10; Stop 01/16/19 at 10:11; Status DC Rocuronium [place] (Zemuron) 50 mg STK-MED ONCE .ROUTE ; Start 01/16/19 at 11:4 2; Stop 01/16/19 at 11:43; Status DC Fentanyl Citrate (Fentanyl 5ml Vial) 250 mcg STK-MED ONCE .ROUTE ; Start 01/16/19 at 11:43; Stop 01/16/19 at 11:43; Status DC Ondansetron HCl (Zofran) 4 mg STK-MED ONCE .ROUTE ; Start 01/16/19 at 11:43; Stop 01/16/19 at 11:43; Status DC Dexamethasone Sodium Phosphate (Decadron) 4 mg STK-MED ONCE .ROUTE ; Start 01/16/19 at 11:43; Stop 01/16/19 at 11:43; Status DC Propofol 0 ml @ As Directed STK-MED ONCE IV ; Start 01/16/19 at 11:43; Stop 01/16/19 at 11:43; Status DC Lidocaine HCl (Lidocaine Pf 2% Vial) 5 ml STK-MED ONCE .ROUTE ; Start 01/16/19 at 11:43; Stop 01/16/19 at 11:43; Status DC Cefazolin Sodium/ Dextrose 50 ml @ 100 mls/hr 1X PREOP ONCE IV Last administered on 01/16/19at 12:10; Start 01/16/19 at 12:15; Stop 01/16/19 at 12:44; Status DC Phenylephrine HCl (PHENYLEPHRINE in 0.9% NACL PF) 1 mg STK-MED ONCE IV ; Start 01/16/19 at 12:35; Stop 01/16/19 at 12:35; Status DC Sevoflurane (Ultane) 60 ml STK-MED ONCE IH ; Start 01/16/19 at 13:06; Stop 01/16/19 at 13:07; Status DC Neostigmine Methylsulfate (Neostigmine Methylsulfate) 5 mg STK-MED ONCE .ROUTE ; Start 01/16/19 at 13:08; Stop 01/16/19 at 13:08; Status DC Glycopyrrolate (Robinul) 1 mg STK-MED ONCE .ROUTE ; Start 01/16/19 at 13:08; Stop 01/16/19 at 13:08; Status DC Acetaminophen/ Hydrocodone Bitart (Lortab 5/325) 1 tab PRN Q4HRS PRN PO PAIN MILD TO MOD Last administered on 01/17/19at 08:28; Start 01/16/19 at 13:15 Acetaminophen/ Hydrocodone Bitart (Lortab 5/325) 2 tab PRN Q4HRS PRN PO PAIN SEVERE Last administered on 01/17/19at 02:49; Start 01/16/19 at 13:30 Fentanyl Citrate (Fentanyl 2ml Vial) 100 mcg STK-MED ONCE .ROUTE ; Start 01/16/19 at 13:45; Stop 01/16/19 at 13:45; Status DC Sevoflurane (Ultane) 60 ml STK-MED ONCE IH ; Start 01/16/19 at 13:49; Stop 01/16/19 at 13:49; Status DC Fentanyl Citrate (Fentanyl 2ml Vial) 100 mcg STK-MED ONCE .ROUTE ; Start 01/16/19 at 14:31; Stop 01/16/19 at 14:31; Status DC Active Scripts Active Aspirin Ec (Aspirin) 325 Mg Tablet.dr 1 Tab PO DAILY Simvastatin 40 Mg Tablet 40 Mg PO QHS 30 Days Vitals/I & O Vital Sign - Last 24 Hours 01/16/19 01/16/19 01/16/19 01/16/19 11:00 11:24 13:22 13:22 Temp 97.6 97.2 97.8 97.6 97.2 97.8 Pulse 55 55 70 Resp 17 21 16 B/P (MAP) 140/62 (88) 147/80 153/62 Pulse Ox 97 97 98 O2 Delivery Room Air Room Air Simple Mask Mask O2 Flow Rate 10 10 01/16/19 01/16/19 01/16/19 01/16/19 13:40 13:50 13:55 14:00 Temp 97.8 97.8 97.8 97.8 Pulse 64 60 Resp 16 16 15 16 B/P (MAP) 174/86 158/99 Pulse Ox 100 100 100 100 O2 Delivery Simple Mask Simple Mask Simple Mask Simple Mask O2 Flow Rate 10 10.0 10. 10.0 01/16/19 01/16/19 01/16/19 01/16/19 14:10 14:25 14:34 14:42 Temp 97.8 97.8 97.8 97.8 Pulse 60 58 Resp 11 12 14 12 B/P (MAP) 161/76 163/82 Pulse Ox 100 100 99 99 O2 Delivery Nasal Cannula Nasal Cannula Nasal Cannula Nasal Cannula O2 Flow Rate 3 3 3.0 3.0 01/16/19 01/16/19 01/16/19 01/16/19 14:48 15:00 15:40 18:02 Temp 97.5 97.5 Pulse 70 Resp 17 B/P (MAP) 154/86 (108) 153/72 (99) Pulse Ox 99 100 O2 Delivery Nasal Cannula Room Air Nasal Cannula Nasal Cannula O2 Flow Rate 3 3.0 3.0 01/16/19 01/16/19 01/16/19 01/16/19 19:00 19:00 19:00 22:44 Temp 97.4 97.4 Pulse 67 Resp 16 18 16 B/P (MAP) 138/68 (91) Pulse Ox 95 O2 Delivery Room Air Room Air Room Air Room Air 01/16/19 01/16/19 01/17/19 01/17/19 22:45 23:40 02:49 02:54 Temp 98.0 98.6 98.0 98.6 Pulse 72 64 Resp 16 17 16 16 B/P (MAP) 104/63 (77) 112/63 (79) Pulse Ox 97 95 O2 Delivery Room Air Room Air Room Air Room Air 01/17/19 01/17/19 01/17/19 03:40 07:00 08:28 Temp 98.4 98.4 Pulse 60 Resp 16 16 B/P (MAP) 122/62 (82) Pulse Ox 97 O2 Delivery Room Air Room Air Room Air Intake and Output 01/16/19 01/16/19 01/17/19 15:00 23:00 07:00 Intake Total 800 ml 500 ml Output Total 10 ml Balance 790 ml 500 ml TACHO BLOCK MD Jan 17, 2019 09:33
[2019-01-17 11:00] VITALS: BP 146/55
--- NOTE | 2019-01-17 11:50 | PDOC ---
Subjective: Subjective: Eating some, pain down to a 7 (from 8), hasn't stooled. Objective: Objective: Nurse says might Dc today. Vital Signs: Vital Signs Date Time Temp Pulse Resp B/P (MAP) Pulse Ox O2 Delivery O2 Flow Rate FiO2 01/17/19 11:00 97.9 61 17 146/55 (85) 96 Room Air 97.9 01/16/19 18:02 3.0 Labs: Laboratory Tests Test 01/16/19 13:28 Glucose (Fingerstick) 124 mg/dL Imaging: IOC IMPRESSION: 1. No evidence of a retained biliary stone. 2. Segmental narrowing of the distal common bile duct extending to the ampulla. This may be due to a spasm or stricture. Addendum: There is typographical error within the findings section of the report. The first sentence should state that 2 fluoroscopic images were obtained during an intraoperative CHOLANGIOGRAM. PE: GEN: NAD LUNGS: CTAB HEART: RRR ABD: incisional tenderness to very light touch in epigastrium NEURO/PSYCH: A & O 3 A/P: Abd pain Celiac and SMA stenosis s/p stent Biliary dyskinesia s/p cholecystectomy GERD -- Dc per primary/surgery. Continue PPI. Also on Miralax. TAVIA YATES Jan 17, 2019 11:50
--- NOTE | 2019-01-17 13:19 | PDOC ---
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 ON CTA ABDOMEN ///IR and vascular CONSULTED. Continue PPI Severe Celiac and SMA focal stenoses. 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 Marked angiographic improvement of the SMA following placement of the stent and drug coated balloon angioplasty. 01/11 still having severe epigastric pain, requesting iv morphine 01/13 PAIN SLOW TO RESOLVE, NOT ABLE TO EAT VERY MUCH WITHOUT PAIN///KUB PLANNED 01/14 hida scan today, hungry still with pain History of Present Illness History of Present Illness hold plavix plan lap danny IR and gen surg 01/16/19 Pt seen and examined by me States that abd pain is about the same DW RN Chart reviewed Lap danny today 01/17/19 Pt seen and examined by me States that pain is much better after the surgery DW RN Chart reviewed Vitals/I&O Vitals/I&O: Vital Signs Date Time Temp Pulse Resp B/P (MAP) Pulse Ox O2 Delivery O2 Flow Rate FiO2 01/17/19 11:00 97.9 61 17 146/55 (85) 96 Room Air 97.9 01/16/19 18:02 3.0 I & O 01/16/19 01/16/19 01/17/19 15:00 23:00 07:00 Intake Total 800 ml 500 ml Output Total 10 ml Balance 790 ml 500 ml Physical Exam General: Alert, Cooperative, Other (in pain on exam) Heart: Regular rate, Normal S1, Normal S2 Lungs: Clear, Wheezing Abdomen: Soft Extremities: No clubbing, No cyanosis Skin: No rashes, No breakdown Labs Labs: Laboratory Tests Test 01/16/19 13:28 Glucose (Fingerstick) 124 mg/dL (70-99) Review of Systems Review of Systems: (-) CP, SOB Assessment and Plan Assessmemt and Plan CHEST pain MPI NEG FOR ISCHEMIA dyslipidemia HTN GERD Plan: wound care encourage PO intake dvt ppx home meds PT/OT D/c when ok with surgery Comment Review of Relevant I have reviewed the following items charlene (where applicable) has been applied. Medications: Current Medications Medications (Trade) Dose Ordered Sig/Amanda Route PRN Reason Start Time Stop Time Status Last Admin Dose Admin Acetaminophen/ Hydrocodone Bitart (Lortab 5/325) 2 tab PRN Q4HRS PRN PO PAIN SEVERE 01/16/19 13:30 01/17/19 02:49 MILLY HARDIN III DO Jan 17, 2019 13:19
[2019-01-17 15:00] VITALS: BP 134/59
--- NOTE | 2019-01-17 19:37 | NUR ---
Discharge Note: MARTY FAITH[address] Discharge instructions and discharge home medications reviewed with Patient and a copy given. All questions have been answered and understanding verbalized. The following instructions and handouts were given: patient visit report, medication information, education. Discontinued lines and drains: peripheral IVs, tips intact. Patient discharged to home with self care via cab pass. Patient left unit awake, in stable condition with all personal belongings.
--- NOTE | 2019-01-18 13:32 | DS ---
DATE OF DISCHARGE: 01/17/2019 ADMISSION DIAGNOSIS: Chest pain. DISCHARGE DIAGNOSES: Atypical chest pain secondary to mesenteric ischemia and post ____ angina and gallstones. PROCEDURES: 1. Mesenteric angiography with stent placement to this SMA and celiac arteries. 2. Laparoscopic cholecystectomy. HOSPITAL COURSE: The patient is a pleasant middle-aged female who basically presented with atypical angina. We thought it was cardiac, but then we discovered that she had occluded arteries in her mesenteric arteries. She did get 2 stents. Then, we discovered she had gallstones. She went for a laparoscopic cholecystectomy. Yesterday, we saw her and examined her, she was at her baseline. We discharged home with close outpatient followup. DISPOSITION: Home. ACTIVITY: As tolerated. DIET: Low sodium. MEDICATIONS: Please see the MRAD. TOTAL TIME: 34 minutes. MILLY HARDIN DO DR: SANTANA/jan JOB#: [id number] / [id number]
--- NOTE | 2019-01-18 15:07 | PATHOLOGY ---
[facility] Accession Number: [id number] . 01 Material submitted: . gallbladder - GALLBLADDER AND CONTENTS . 01 Clinical history: . Pain/biliary dyskinesia . 02 Diagnosis: Gallbladder, cholecystectomy: - Chronic cholecystitis. - Cystic adenomyosis of gallbladder wall, focal. . (JPM:rupali; 01/18/2019) S 01/18/2019 1432 Local . 02 Comment: There are no calculi identified within the gallbladder lumen or the specimen container. There is no evidence of malignancy. . (JPM:rupali; 01/18/2019) . 02 Electronically signed: . Luke Liao MD, Pathologist NPI- [id number] . 01 Gross description: . Received in formalin labeled "Helen Robersona, gallbladder and contents," is an intact gallbladder measuring 8.3 x 2.8 x 1.8 cm in greatest dimensions. The serosal surface is wrinkled and blue-green in appearance, largely covered in yellow adipose tissue. A defect is noted in the hepatic surface, measuring 0.2 x 0.1 cm and extending to within 5.1 cm of the infundibulum. The mucosal surface is granular and dark green-black in appearance, measuring 0.1 cm in thickness with an average gallbladder wall thickness of 0.1 cm not including attached adipose tissue. Sectioning through the hepatic surface reveals two distinct deposits of granular, dark green friable material measuring 0.3 cm and 0.4 cm on cut surface that grossly appear separate from the gallbladder lumen. No mucosal polyps or nodules are identified grossly. Calculi are not present within the specimen or specimen container. Layout Former sections of the infundibulum, body and fundus are submitted in cassette A1. The hepatic surface defect and material deposits are submitted entirely in cassette A2. (DAC; 01/17/2019) XDC/XDC 01/17/2019 0939 Local . 02 Pathologist provided ICD-10: K81.1 . 02 CPT . 445403 Specimen Comment: A courtesy copy of this report has been sent to [phone], [phone] Specimen Comment: [id number], Specimen Comment: Report sent to , and Performed at: 01 [facility] [address] [facility] [address], [place] [id number] MD Graham Lyons MD Phone: [phone] Performed at: 02 [facility] [address], [place] [id number] MD Luke Liao MD Phone: [phone]
== END 2019-01-17 18:00 | disposition home or self-care (01) | DRG 253 ==
LOC: ER 18:27 → 6 SOUTH 21:24 → OBSVTOIN 01-08 12:51 → 5 SOUTH 01-11 22:21
PROVIDERS: ADMIT Internal Medicine; ATTEND Internal Medicine
PROC: 04H Lower Arteries, Insertion (ICD-10-PCS; principal; 2019-01-10)
PROC: 0FT44ZZ Resection of Gallbladder, Percutaneous Endoscopic Approach (ICD-10-PCS; 2019-01-16)
PROC: BF101ZZ Fluoroscopy of Bile Ducts using Low Osmolar Contrast (ICD-10-PCS; 2019-01-16)
DX: I99.8 Other disorder of circulatory system (principal); J98.11 Atelectasis; K80.10 Calculus of gallbladder with chronic cholecystitis without obstruction; K55.1 Chronic vascular disorders of intestine; E78.00 Pure hypercholesterolemia, unspecified; E78.5 Hyperlipidemia, unspecified; F17.210 Nicotine dependence, cigarettes, uncomplicated; F41.9 Anxiety disorder, unspecified; I10 Essential (primary) hypertension; I25.119 Atherosclerotic heart disease of native coronary artery with unspecified angina pectoris; J45.909 Unspecified asthma, uncomplicated; K21.9 Gastro-esophageal reflux disease without esophagitis; K82.8 Other specified diseases of gallbladder; Z80.9 Family history of malignant neoplasm, unspecified; Z82.49 Family history of ischemic heart disease and other diseases of the circulatory system; Z86.711 Personal history of pulmonary embolism; Z87.11 Personal history of peptic ulcer disease; Z87.442 Personal history of urinary calculi
CPT/HCPCS: 36415; 37236; 71045; 71275; 74021; 74174; 74300; 75726; 76937; 78227; 78452; 80048; 80053; 81001; 82962; 83690; 84484; 85025; 85379; 85610; 87086; 90471; 90686; 93005; 93017; 93976; 94640; 94760; 96374; 99152; 99153; A4215; A7015; A9500; A9537; C1713; C1769; C1892; C1894; C2623; G0238; G0378; G0379; J0696; J1100; J1644; J1650; J2001; J2250; J2270; J2370; J2405; J2704; J2710; J2785; J2805; J3010; J3490; J7030; J7040; J7120; J7620; Q9967; 99285-25

== ENCOUNTER 2019-03-14 15:32 | Inpatient (IN) | payer BC ==
[~2019-03-14] VITALS: Ht 167.6 cm; Wt 64.1 kg
--- NOTE | 2019-03-14 00:30 | NUR ---
Patient admitted from ED with complaints of pain. RN paged doctor immersion metalcleaner for pain control.
[2019-03-14] MEDS ORDERED: IV NORMAL SALINE 1000ML BAG 1,000 ML IV ONE (16:00)
[2019-03-14] MEDS ORDERED: ASPIRIN CHEWABLE 81 MG TABLET. PO ONE (16:00)
--- NOTE | 2019-03-14 16:07 | PHYS DOC ---
Past Medical History Past Medical History: High Cholesterol, Hypertension, Kidney Stone Past Surgical History: Cholecystectomy Smoking: Cigarettes Alcohol Use: None Drug Use: None Adult General Chief Complaint Chief Complaint: CHEST PAIN HPI HPI Patient is a 63-year-old female who presents to the emergency department for evaluation. They stated the past day or so she has had anterior chest discom fort, which radiates towards her right chest and right neck, worse with exertion and movement. Palpation of the affected area also worsens her symptoms. She reports increasing shortness of breath. She has not had any definite nausea or vomiting or diaphoresis, but does report a pleuritic component of her pain as well. She was hospitalized here about 2 months ago initially for chest pain,, post-found to have intestinal ischemia, underwent stenting of her mesenteric arteries, as well as a cholecystectomy, and states she had been doing fairly well since that time. She denies any cough, fevers, or chills. There are no alleviating or exacerbating factors to her symptoms otherwise. The patient sta aman that the current symptoms that she is experiencing feels somewhat different than her prior episode. Assuming a negative troponin, the patient's HEART score will be four. Review of Systems Review of Systems Constitutional: Denies fever or chills [] Eyes: Denies change in visual acuity, redness, or eye pain [] HENT: Denies nasal congestion or sore throat [] Respiratory: Denies cough. Reports shortness of breath.[] Cardiovascular: No additional information not addressed in HPI [] GI: Denies significant abdominal pain, nausea, vomiting, bloody stools or diarrhea [] : Denies dysuria or hematuria [] Musculoskeletal: Denies back pain or joint pain [] Integument: Denies rash or skin lesions [] Neurologic: Denies headache, focal weakness or sensory changes [] Endocrine: Denies polyuria or polydipsia [] All other systems were reviewed and found to be within normal limits, except as documented in this note. Current Medications Current Medications Current Medications Medications (Trade) Dose Ordered Sig/Amanda Start Time Stop Time Status Last Admin Dose Admin Aspirin (Children'S Aspirin) 324 mg 1X ONCE 03/14/19 16:00 03/14/19 16:04 DC 03/14/19 16:27 324 MG Iohexol (Omnipaque 350 Mg/ml) 100 ml 1X ONCE 03/14/19 17:30 03/14/19 17:31 DC 03/14/19 17:22 100 ML Morphine Sulfate (Morphine Sulfate) 4 mg 1X ONCE 03/14/19 17:45 03/14/19 17:46 DC 03/14/19 17:50 4 MG Sodium Chloride 1,000 ml @ 1,000 mls/hr 1X ONCE 03/14/19 16:00 03/14/19 16:59 DC 03/14/19 16:27 1,000 MLS/HR Allergies Allergies Allergies Coded Allergies Type Severity Reaction Last Updated Verified No Known Drug Allergies 01/16/19 No Physical Exam Physical Exam Constitutional: Well developed, well nourished, no acute distress, non-toxic jerardo earance. [] HENT: Normocephalic, atraumatic, bilateral external ears normal, oropharynx moist, no oral exudates, nose normal. [] Eyes: PERRLA, EOMI, conjunctiva normal, no discharge. [] Neck: Normal range of motion, no tenderness, supple, no stridor. [] Cardiovascular:Heart rate regular rhythm, no murmur [] Lungs & Thorax: Bilateral breath sounds clear to auscultation [] Abdomen: Bowel sounds normal, soft, no tenderness, no masses, no pulsatile masses. [] Skin: Warm, dry, no erythema, no rash. [] Back: No tenderness, no CVA tenderness. [] Extremities: No tenderness, no cyanosis, no clubbing, ROM intact, no edema. [] Neurologic: Alert and oriented X 3, normal motor function, normal sensory function, no focal deficits noted. [] Psychologic: Affect normal, judgement normal, mood normal. [] Current Patient Data Vital Signs Vital Signs Date Time Temp Pulse Resp B/P (MAP) Pulse Ox O2 Delivery O2 Flow Rate FiO2 03/14/19 17:50 20 97 Room Air 03/14/19 17:09 57 130/79 (96) 03/14/19 15:40 98.3 98.3 Lab Values Laboratory Tests Test 03/14/19 16:11 03/14/19 16:35 White Blood Count 11.3 x10^3/uL (4.0-11.0) H Red Blood Count 4.46 x10^6/uL (3.50-5.40) Hemoglobin 13.5 g/dL (12.0-15.5) Hematocrit 40.4 % (36.0-47.0) Mean Corpuscular Volume 91 fL (79-100) Mean Corpuscular Hemoglobin 30 pg (25-35) Mean Corpuscular Hemoglobin Concent 34 g/dL (31-37) Red Cell Distribution Width 13.6 % (11.5-14.5) Platelet Count 278 x10^3/uL (140-400) Neutrophils (%) (Auto) 68 % (31-73) Lymphocytes (%) (Auto) 21 % (24-48) L Monocytes (%) (Auto) 10 % (0-9) H Eosinophils (%) (Auto) 0 % (0-3) Basophils (%) (Auto) 1 % (0-3) Neutrophils # (Auto) 7.7 x10^3/uL (1.8-7.7) Lymphocytes # (Auto) 2.4 x10^3/uL (1.0-4.8) Monocytes # (Auto) 1.1 x10^3/uL (0.0-1.1) Eosinophils # (Auto) 0.0 x10^3/uL (0.0-0.7) Basophils # (Auto) 0.1 x10^3/uL (0.0-0.2) Sodium Level 141 mmol/L (136-145) Potassium Level 3.8 mmol/L (3.5-5.1) Chloride Level 104 mmol/L (98-107) Carbon Dioxide Level 26 mmol/L (21-32) Anion Gap 11 (6-14) Blood Urea Nitrogen 23 mg/dL (7-20) H Creatinine 0.9 mg/dL (0.6-1.0) Estimated GFR (Cockcroft-Gault) 63.4 BUN/Creatinine Ratio 26 (6-20) H Glucose Level 95 mg/dL (70-99) Lactic Acid Level 1.1 mmol/L (0.4-2.0) Calcium Level 9.8 mg/dL (8.5-10.1) Total Bilirubin 0.1 mg/dL (0.2-1.0) L Aspartate Amino Transferase (AST) 15 U/L (15-37) Alanine Aminotransferase (ALT) 13 U/L (14-59) L Alkaline Phosphatase 138 U/L (46-116) H Troponin I Quantitative < 0.017 ng/mL (0.000-0.055) KM-Njd-U-Type Natriuretic Peptide 150 pg/mL (0-124) H Total Protein 7.8 g/dL (6.4-8.2) Albumin 3.6 g/dL (3.4-5.0) Albumin/Globulin Ratio 0.9 (1.0-1.7) L Lipase 169 U/L (73-393) Urine Collection Type Unknown Urine Color Yellow Urine Clarity Clear Urine pH 5.5 Urine Specific [place] <=1.005 Urine Protein Negative mg/dL (NEG-TRACE) Urine Glucose (UA) Negative mg/dL (NEG) Urine Ketones (Stick) Negative mg/dL (NEG) Urine Blood Small (NEG) Urine Nitrite Negative (NEG) Urine Bilirubin Negative (NEG) Urine Urobilinogen Dipstick 0.2 mg/dL (0.2 mg/dL) Urine Leukocyte Esterase Negative (NEG) Urine RBC 0 /HPF (0-2) Urine WBC Occ /HPF (0-4) Urine Squamous Epithelial Cells Few /LPF Urine Bacteria 0 /HPF (0-FEW) Laboratory Tests 03/14/19 16:11 Laboratory Tests 03/14/19 16:11 EKG EKG []Normal sinus rhythm a rate of 63 beats for minute, normal axis, normal intervals, nonspecific ST/T changes. EKG is unchanged compared to patient's prior EKG. Radiology/Procedures Radiology/Procedures PROCEDURE: PORTABLE CHEST 1V PORTABLE CHEST 1V History: Chest pain Comparison: January 07, 2019 Findings: Linear left basilar atelectasis or scarring, unchanged. No consolidation or pleural effusion. Normal heart size. No pneumothorax. Impression: 1. Linear left basilar atelectasis or scarring, unchanged. [] Course & Med Decision Making Course & Med Decision Making Pertinent Labs and Imaging studies reviewed. (See chart for details) []6:00 PM:The patient's condition remains stable. I spoke with the hospitalist, who accepted the patient to the hospital for further evaluation and treatment. Dragon Disclaimer Dragon Disclaimer This electronic medical record was generated, in whole or in part, using a voice recognition dictation system. Departure Departure Impression: Primary Impression: Chest pain Disposition: ADMITTED INPATIENT Admitting Physician: MOE Condition: STABLE Referrals: GINGER CUELLO JR, MD (PCP) MIKEL URBINA MD Mar 14, 2019 16:07
[2019-03-14 16:22] LABS: BASO # 0.1 x10^3/uL (0.0-0.2); BASO % 1 % (0-3); EOS % 0 % (0-3); HEMATOCRIT 40.4 % (36.0-47.0); HEMOGLOBIN 13.5 g/dL (12.0-15.5); LYMPH # 2.4 x10^3/uL (1.0-4.8); LYMPH % 21 % (24-48); MEAN CORPUSCULAR HEMOGLOBIN 30 pg (25-35); MEAN CORPUSCULAR HGB CONC 34 g/dL (31-37); MEAN CORPUSCULAR VOLUME 91 fL (79-100); MONO # 1.1 x10^3/uL (0.0-1.1); MONO % 10 % (0-9); NEUT # 7.7 x10^3/uL (1.8-7.7); NEUT % 68 % (31-73); PLATELET COUNT 278 x10^3/uL (140-400); RED BLOOD COUNT 4.46 x10^6/uL (3.50-5.40); RED CELL DISTRIBUTION WIDTH 13.6 % (11.5-14.5); WHITE BLOOD COUNT 11.3 x10^3/uL (4.0-11.0)
--- NOTE | 2019-03-14 16:26 | RAD ---
PORTABLE CHEST 1V History: Chest pain Comparison: January 07, 2019 Findings: Linear left basilar atelectasis or scarring, unchanged. No consolidation or pleural effusion. Normal heart size. No pneumothorax. Impression: 1. Linear left basilar atelectasis or scarring, unchanged. Electronically signed by: Obie Rausch DO (03/14/2019 4:23 PM) [id number]
[2019-03-14 16:34] LABS: CALCIUM 9.8 mg/dL (8.5-10.1); CREATININE 0.9 mg/dL (0.6-1.0); GFR 63.4; POTASSIUM 3.8 mmol/L (3.5-5.1)
[2019-03-14 16:47] LABS: BILIRUBIN,URINE NEGATIVE (NEG); CLARITY,URINE CLEAR; COLOR,URINE YELLOW
[2019-03-14 16:47] LABS: ALBUMIN 3.6 g/dL (3.4-5.0); ALBUMIN/GLOBULIN RATIO 0.9 (1.0-1.7); TOTAL BILIRUBIN 0.1 mg/dL (0.2-1.0); TOTAL PROTEIN 7.8 g/dL (6.4-8.2)
[2019-03-14 16:48] LABS: BACTERIA,URINE 0 /HPF (0-FEW); NITRITE,URINE NEGATIVE (NEG); PH,URINE 5.5; PROTEIN,URINE NEGATIVE (NEG-TRACE); RBC,URINE 0 /HPF (0-2); SQUAMOUS EPITHELIAL CELL,UR FEW /LPF; UROBILINOGEN,URINE 0.2 mg/dL (0.2 mg/dL); WBC,URINE OCC /HPF (0-4)
[2019-03-14] MEDS ORDERED: IOHEXOL 350 MG/ML 100 ML VIAL. IV ONE (17:30)
[2019-03-14] MEDS ORDERED: MORPHINE SULFATE 4 MG/ML VIAL. IV ONE (17:45)
--- NOTE | 2019-03-14 17:56 | RAD ---
Examination: CT ANGIO CHEST W ABD PEL W/ History: Chest pain, shortness of breath, nausea and vomiting, history of mesenteric ischemia Comparison/Correlation: CTA chest abdomen and pelvis 01/07/2019 Findings: CTA of the chest, abdomen, and and pelvis were obtained following IV contrast arteriography protocol. 3-D volume rendered images of the aorta and its branches were provided. Maximum intensity projection images were provided. Excellent opacification of the pulmonary arterial and aortic vasculature noted. Pulmonary arterial vasculature is normal with no thromboembolic disease. There is a small focus of atelectasis involving the lingula. No infiltrate or pleural effusion. No enlarged thoracic lymph nodes. Mild tracheomalacia is present. No pneumothorax. There is no aortic dissection or aneurysm. Approximately 50 percent stenosis of the left subclavian artery just distal to its origin noted. Approximately 50 percent stenosis of the celiac artery origin noted. Superior mesenteric artery stent is present. Proximally, it is located at the origin. Inferior mesenteric artery has high-grade stenosis at its origin. There are 2 right renal arteries. Approximately 50 percent stenosis of the larger and more superior than the right renal artery stenosis. High-grade stenosis of the more inferior of the right renal artery is noted. Left main artery is patent. Distal abdominal aortic aneurysm measuring 1.8 cm transverse is present. Diffuse atheromatous involvement of the abdominal aorta and iliac arteries is present. Approximately 50 percent stenosis involving the left internal iliac artery proximally is present. Liver, spleen, pancreas, adrenal glands, and kidneys are unremarkable. Cholecystectomy noted. Visualized bowel is unremarkable with no evidence of inflammatory change. No wall thickening identified. Appendix is unremarkable. No ascites or pelvic free fluid. Urinary bladder is unremarkable. Uterus is identified. Bony structures are grossly unremarkable. Impression: No pulmonary arterial thromboembolic disease. No aortic dissection or evidence of mesenteric ischemia. Stenoses are identified involving the aortic branch vessels. Diffuse atheromatous involvement of the abdominal aorta. Small abdominal aortic aneurysm distally. PQRS Compliance Statement: One or more of the following individualized dose reduction techniques were utilized for this examination: 1. Automated exposure control 2. Adjustment of the mA and/or kV according to patient size 3. Use of iterative reconstruction technique Electronically signed by: Jensen Cameron MD (03/14/2019 5:53 PM) [id number]
[2019-03-14 20:26] VITALS: BP 142/56
--- NOTE | 2019-03-14 21:47 | EKG ---
[facility] [address] [place] [address] Test Date: 2019-03-14 Test Time: 15:40:56 Pat Name: RAO FAITH Department: Room: Gender: F Lease Analyst: : 1955 Requested By: MIKEL URBINA Order Number: [id number] Reading MD: Measurements Intervals [place] Rate: 63 P: -34 [place]: 166 QRS: -6 QRSD: 86 T: 18 QT: 434 QTc: 447 Interpretive Statements SINUS RHYTHM LEFTWARD AXIS T ABNORMALITY IN ANTEROSEPTAL LEADS ABNORMAL ECG No previous ECG available for comparison
--- NOTE | 2019-03-14 22:45 | NUR ---
Patient admitted from ED. Patient complains of right side abdominal pain 8/10. Right side abdomen is tender to the touch. RN paged auricular detoxification specialist doctor for pain control.
[2019-03-14 23:20] VITALS: BP 110/53
--- NOTE | 2019-03-14 23:50 | NUR ---
Patient admitted from ED with complaints of pain. RN paged doctor micromatic hone operator for pain control.
--- NOTE | 2019-03-15 01:00 | NUR ---
Patient admitted from ED with complaints of pain. RN paged doctor operations advisor for pain control.
[2019-03-15] MEDS: HYDROcodone/APAP 5/325MG 1 TAB TABLET PO PRN ×4 (01:25→22:19)
[2019-03-15 03:54] VITALS: BP 113/52
[2019-03-15 07:18] VITALS: BP 138/77
[2019-03-15] MEDS: MORPHINE SULFATE 2 MG/ML VIAL. IV PRN ×2 (09:56→12:13)
[2019-03-15 11:22] VITALS: BP 119/61
--- NOTE | 2019-03-15 11:35 | PDOC1 ---
History and Physical Date of Admission: Date of Admission DATE: 03/15/19 TIME: 11:31 Chief Complaint: Problems: (1) Headache (2) Chest pain Chief Complain: Chest pain History of Present Illness: HPI: This is a middle-aged female from [facility]. She speaks good [place]. Basically she has had a stent in the past both to her bile duct and she states to her heart as well. Today she presented with chest pain Rates it 7 out of 10 She has associated shortness of breath This is been occurring for the past couple of days She is concerned she could be having coronary angina Moving makes it worse sitting still makes it better She took extra home meds but that did not help Describes the pain as irritating I discussed the case with ER physician we are remained the patient with consultation to GI and cardiology Past Medical/Surgical History: PMH/PSH: Past Medical History: High Cholesterol, Hypertension, Kidney Stone possible coronary artery disease (patient thinks she has a stent in her heart although I cannot confirm this just yet?) Past Surgical History: Cholecystectomy Smoking: Cigarettes Alcohol Use: None Drug Use: None Allergies: Allergies: Coded Allergies: No Known Drug Allergies (Unverified , 01/16/19) Family History: Family History: Hypertension and coronary disease Social History: Social Hisoty: She does not drink smoke or take drugs Current Medications: Current Medications Current Medications Aspirin (Children'S Aspirin) 324 mg 1X ONCE PO Last administered on 03/14/19at 16:27; Start 03/14/19 at 16:00; Stop 03/14/19 at 16:04; Status DC Sodium Chloride 1,000 ml @ 1,000 mls/hr 1X ONCE IV Last administered on 03/14/19at 16:27; Start 03/14/19 at 16:00; Stop 03/14/19 at 16:59; Status DC Iohexol (Omnipaque 350 Mg/ml) 100 ml 1X ONCE IV Last administered on 03/14/19at 17:22; Start 03/14/19 at 17:30; Stop 03/14/19 at 17:31; Status DC Morphine Sulfate (Morphine Sulfate) 4 mg 1X ONCE IV Last administered on 03/14/19at 17:50; Start 03/14/19 at 17:45; Stop 03/14/19 at 17:46; Status DC Acetaminophen/ Hydrocodone Bitart (Lortab 5/325) 1 tab PRN Q3HRS PRN PO MODERATE PAIN 4-6 Last administered on 03/15/19at 04:47; Start 03/15/19 at 01:00 Morphine Sulfate (Morphine Sulfate) 2 mg PRN Q2HR PRN IV PAIN Last administered on 03/15/19at 09:56; Start 03/15/19 at 09:30 Active Scripts Active Aspirin Ec (Aspirin) 325 Mg Tablet. 1 Tab PO DAILY Simvastatin 40 Mg Tablet 40 Mg PO QHS 30 Days ROS: Review of Systems Review of System REVIEW OF SYSTEMS: GENERAL: Denies weakness SKIN: No bruising, hair changes or rashes. EYES: No blurred, double or loss of vision. NOSE AND THROAT: No history of nosebleeds, hoarseness or sore throat. HEART: Complains of chest pain LUNGS: Complains of shortness of breath GASTROINTESTINAL: Denies changes in appetite, nausea, vomiting, diarrhea or constipation. GENITOURINARY: No history of frequency, urgency, hesitancy or nocturia. NEUROLOGIC: Denies history of numbness, tingling, or tremor. PSYCHIATRIC: No history of panic, anxiety or depression. ENDOCRINE: No history of heat or cold intolerance, polyuria or polydipsia. EXTREMITIES: Denies joint pain, pain on walking or stiffness. Physical Exam: Vital Signs: Vital Signs Date Time Temp Pulse Resp B/P (MAP) Pulse Ox O2 Delivery O2 Flow Rate FiO2 03/15/19 11:22 98.1 55 16 119/61 (80) 99 Room Air 98.1 Physcial Exam: GEN: No apparent distress. Alert and oriented HEENT: Normal cephalic, atraumatic, external auditory canals are patent EYES: Extraocular muscles are intact, pupil are equally round and reactive to light and accommodation MUSCULOSKELETAL: Well developed , well nourished, good range of motion ENDOCRINE: No thyromegaly was palpated LYMPHATICS: No cervical chain or axillary nodes were noted HEMATOPOIETIC: No bruising NECK: Supple, no JVD, no thyromegaly was noted LUNGS: Clear to auscultation in all lung kim without rhonchi or wheezing HEART: RRR, S!, S2 present. Peripheral pulses intact, no obvious murmurs noted ABDOMEN: Soft, nontender. Positive bowel sounds, no organomegaly, normal bowel sounds EXTREMITIES: Without clubbing, cyanosis, or edema. Pedal pulses intact. Negative Homans sign NEUROLOGIC: Normal speech and tone. A&O x 3, moves all extremities, no obvious focal deficits PSYCHIATRIC: Normal affect, normal mood. Stable SKIN: No ulcerations or rashes, good skin turgor, no jaundice VASCULAR: Good capillary refill, neurovascular bundle appears to be intact Labs: Labs: Laboratory Tests Test 03/14/19 16:11 03/14/19 16:35 03/14/19 20:55 03/15/19 00:10 White Blood Count 11.3 x10^3/uL (4.0-11.0) Red Blood Count 4.46 x10^6/uL (3.50-5.40) Hemoglobin 13.5 g/dL (12.0-15.5) Hematocrit 40.4 % (36.0-47.0) Mean Corpuscular Volume 91 fL (79-100) Mean Corpuscular Hemoglobin 30 pg (25-35) Mean Corpuscular Hemoglobin Concent 34 g/dL (31-37) Red Cell Distribution Width 13.6 % (11.5-14.5) Platelet Count 278 x10^3/uL (140-400) Neutrophils (%) (Auto) 68 % (31-73) Lymphocytes (%) (Auto) 21 % (24-48) Monocytes (%) (Auto) 10 % (0-9) Eosinophils (%) (Auto) 0 % (0-3) Basophils (%) (Auto) 1 % (0-3) Neutrophils # (Auto) 7.7 x10^3/uL (1.8-7.7) Lymphocytes # (Auto) 2.4 x10^3/uL (1.0-4.8) Monocytes # (Auto) 1.1 x10^3/uL (0.0-1.1) Eosinophils # (Auto) 0.0 x10^3/uL (0.0-0.7) Basophils # (Auto) 0.1 x10^3/uL (0.0-0.2) Sodium Level 141 mmol/L (136-145) Potassium Level 3.8 mmol/L (3.5-5.1) Chloride Level 104 mmol/L (98-107) Carbon Dioxide Level 26 mmol/L (21-32) Anion Gap 11 (6-14) Blood Urea Nitrogen 23 mg/dL (7-20) Creatinine 0.9 mg/dL (0.6-1.0) Estimated GFR (Cockcroft-Gault) 63.4 BUN/Creatinine Ratio 26 (6-20) Glucose Level 95 mg/dL (70-99) Lactic Acid Level 1.1 mmol/L (0.4-2.0) Calcium Level 9.8 mg/dL (8.5-10.1) Total Bilirubin 0.1 mg/dL (0.2-1.0) Aspartate Amino Transf (AST/SGOT) 15 U/L (15-37) Alanine Aminotransferase (ALT/SGPT) 13 U/L (14-59) Alkaline Phosphatase 138 U/L (46-116) Troponin I Quantitative < 0.017 ng/mL (0.000-0.055) < 0.017 ng/mL (0.000-0.055) < 0.017 ng/mL (0.000-0.055) SN-Sbg-S-Type Natriuretic Peptide 150 pg/mL (0-124) Total Protein 7.8 g/dL (6.4-8.2) Albumin 3.6 g/dL (3.4-5.0) Albumin/Globulin Ratio 0.9 (1.0-1.7) Lipase 169 U/L (73-393) Urine Collection Type Unknown Urine Color Yellow Urine Clarity Clear Urine pH 5.5 Urine Specific [place] <=1.005 Urine Protein Negative mg/dL (NEG-TRACE) Urine Glucose (UA) Negative mg/dL (NEG) Urine Ketones (Stick) Negative mg/dL (NEG) Urine Blood Small (NEG) Urine Nitrite Negative (NEG) Urine Bilirubin Negative (NEG) Urine Urobilinogen Dipstick 0.2 mg/dL (0.2 mg/dL) Urine Leukocyte Esterase Negative (NEG) Urine RBC 0 /HPF (0-2) Urine WBC Occ /HPF (0-4) Urine Squamous Epithelial Cells Few /LPF Urine Bacteria 0 /HPF (0-FEW) Laboratory Tests Test 03/14/19 16:11 03/14/19 16:35 03/14/19 20:55 03/15/19 00:10 White Blood Count 11.3 x10^3/uL (4.0-11.0) Red Blood Count 4.46 x10^6/uL (3.50-5.40) Hemoglobin 13.5 g/dL (12.0-15.5) Hematocrit 40.4 % (36.0-47.0) Mean Corpuscular Volume 91 fL (79-100) Mean Corpuscular Hemoglobin 30 pg (25-35) Mean Corpuscular Hemoglobin Concent 34 g/dL (31-37) Red Cell Distribution Width 13.6 % (11.5-14.5) Platelet Count 278 x10^3/uL (140-400) Neutrophils (%) (Auto) 68 % (31-73) Lymphocytes (%) (Auto) 21 % (24-48) Monocytes (%) (Auto) 10 % (0-9) Eosinophils (%) (Auto) 0 % (0-3) Basophils (%) (Auto) 1 % (0-3) Neutrophils # (Auto) 7.7 x10^3/uL (1.8-7.7) Lymphocytes # (Auto) 2.4 x10^3/uL (1.0-4.8) Monocytes # (Auto) 1.1 x10^3/uL (0.0-1.1) Eosinophils # (Auto) 0.0 x10^3/uL (0.0-0.7) Basophils # (Auto) 0.1 x10^3/uL (0.0-0.2) Sodium Level 141 mmol/L (136-145) Potassium Level 3.8 mmol/L (3.5-5.1) Chloride Level 104 mmol/L (98-107) Carbon Dioxide Level 26 mmol/L (21-32) Anion Gap 11 (6-14) Blood Urea Nitrogen 23 mg/dL (7-20) Creatinine 0.9 mg/dL (0.6-1.0) Estimated GFR (Cockcroft-Gault) 63.4 BUN/Creatinine Ratio 26 (6-20) Glucose Level 95 mg/dL (70-99) Lactic Acid Level 1.1 mmol/L (0.4-2.0) Calcium Level 9.8 mg/dL (8.5-10.1) Total Bilirubin 0.1 mg/dL (0.2-1.0) Aspartate Amino Transf (AST/SGOT) 15 U/L (15-37) Alanine Aminotransferase (ALT/SGPT) 13 U/L (14-59) Alkaline Phosphatase 138 U/L (46-116) Troponin I Quantitative < 0.017 ng/mL (0.000-0.055) < 0.017 ng/mL (0.000-0.055) < 0.017 ng/mL (0.000-0.055) JJ-Kgx-U-Type Natriuretic Peptide 150 pg/mL (0-124) Total Protein 7.8 g/dL (6.4-8.2) Albumin 3.6 g/dL (3.4-5.0) Albumin/Globulin Ratio 0.9 (1.0-1.7) Lipase 169 U/L (73-393) Urine Collection Type Unknown Urine Color Yellow Urine Clarity Clear Urine pH 5.5 Urine Specific [place] <=1.005 Urine Protein Negative mg/dL (NEG-TRACE) Urine Glucose (UA) Negative mg/dL (NEG) Urine Ketones (Stick) Negative mg/dL (NEG) Urine Blood Small (NEG) Urine Nitrite Negative (NEG) Urine Bilirubin Negative (NEG) Urine Urobilinogen Dipstick 0.2 mg/dL (0.2 mg/dL) Urine Leukocyte Esterase Negative (NEG) Urine RBC 0 /HPF (0-2) Urine WBC Occ /HPF (0-4) Urine Squamous Epithelial Cells Few /LPF Urine Bacteria 0 /HPF (0-FEW) Images: Images PATIENT: RAO FAITH ACCOUNT: [id number] : 1955 LOCATION: ER AGE: 63 SEX: F EXAM STATUS: REG ER ORD. PHYSICIAN: MIKEL URBINA MD REASON: CP PROCEDURE: PORTABLE CHEST 1V PORTABLE CHEST 1V History: Chest pain Comparison: January 07, 2019 Findings: Linear left basilar atelectasis or scarring, unchanged. No consolidation or pleural effusion. Normal heart size. No pneumothorax. Impression: 1. Linear left basilar atelectasis or scarring, unchanged. Assessment/Plan Assessment/Plan Chest pain with possible acute coronary syndrome Plan Consult cardiology Cardiac monitoring Home meds DVT prophylaxis Serial enzymes Serial EKGs When necessary morphine We'll consider echocardiogram MILLY HARDIN III DO Mar 15, 2019 11:35
--- NOTE | 2019-03-15 11:54 | NUR ---
SS following for discharge planning. SS reviewed pt chart. Pt is from home and is currently on room air. SS will continue to follow for discharge planning.
--- NOTE | 2019-03-15 13:17 | PDOC2 ---
GI CONSULT Reason For Consult: Gastric pain HPI: HPI: 63 y/o female w/ multiple complaints. Has chest pain, right arm pain, numbness in fingers and weakness in hands, weakness and shaking when she walks, mid abdominal pain (present since before discharge last admission), lower abdominal pain that radiates to lower back and down legs (hurts worse with walking), difficulty swallowing (?also painful - started two days ago - "couldn't swallow" and now "feels something there" in upper throat), and vomited yesterday. Wants to eat. H/o GERD - previously on omeprazole, then on pantoprazole last admission - apparently now taking nothing. No hematemesis, hematochezia, melena, diarrhea, or constipation (though reported h/o constipation last admission). Previously reported EGD a couple years ago in ?[place] - "sometimes I have u lcers." No previous colonoscopy. No liver or pancreas history. Previously reported PRN NSAID use at home, now takes Tylenol and nitro. S/p cholecystectomy (biliary dyskinesia) and SMA stenting last admission along w/ low risk stress test. PMH: PMH: HTN, HLD, asthma, PE, anxiety, OA FH: Family History: Cancer (mother - unknown kind) Social History: Smoke: 1 pack per day ALCOHOL: none Drugs: None ROS: GEN: Denies fevers, chills, sweats HEENT: Denies blurred vision, sore throat CV: +chest pain RESP: Denies shortness of air, cough GI: Per HPI : Denies hematuria, dysuria ENDO: +weight loss NEURO: +numbness in fingers MSK: +BLE pain +right arm pain SKIN: Denies jaundice, pruritus Vitals: Vitals: Vital Signs Date Time Temp Pulse Resp B/P (MAP) Pulse Ox O2 Delivery O2 Flow Rate FiO2 03/15/19 12:13 Room Air 03/15/19 11:22 98.1 55 16 119/61 (80) 99 98.1 Labs: Labs: Laboratory Tests Test 03/14/19 16:11 03/14/19 16:35 03/14/19 20:55 03/15/19 00:10 White Blood Count 11.3 x10^3/uL (4.0-11.0) Red Blood Count 4.46 x10^6/uL (3.50-5.40) Hemoglobin 13.5 g/dL (12.0-15.5) Hematocrit 40.4 % (36.0-47.0) Mean Corpuscular Volume 91 fL (79-100) Mean Corpuscular Hemoglobin 30 pg (25-35) Mean Corpuscular Hemoglobin Concent 34 g/dL (31-37) Red Cell Distribution Width 13.6 % (11.5-14.5) Platelet Count 278 x10^3/uL (140-400) Neutrophils (%) (Auto) 68 % (31-73) Lymphocytes (%) (Auto) 21 % (24-48) Monocytes (%) (Auto) 10 % (0-9) Eosinophils (%) (Auto) 0 % (0-3) Basophils (%) (Auto) 1 % (0-3) Neutrophils # (Auto) 7.7 x10^3/uL (1.8-7.7) Lymphocytes # (Auto) 2.4 x10^3/uL (1.0-4.8) Monocytes # (Auto) 1.1 x10^3/uL (0.0-1.1) Eosinophils # (Auto) 0.0 x10^3/uL (0.0-0.7) Basophils # (Auto) 0.1 x10^3/uL (0.0-0.2) Sodium Level 141 mmol/L (136-145) Potassium Level 3.8 mmol/L (3.5-5.1) Chloride Level 104 mmol/L (98-107) Carbon Dioxide Level 26 mmol/L (21-32) Anion Gap 11 (6-14) Blood Urea Nitrogen 23 mg/dL (7-20) Creatinine 0.9 mg/dL (0.6-1.0) Estimated GFR (Cockcroft-Gault) 63.4 BUN/Creatinine Ratio 26 (6-20) Glucose Level 95 mg/dL (70-99) Lactic Acid Level 1.1 mmol/L (0.4-2.0) Calcium Level 9.8 mg/dL (8.5-10.1) Total Bilirubin 0.1 mg/dL (0.2-1.0) Aspartate Amino Transf (AST/SGOT) 15 U/L (15-37) Alanine Aminotransferase (ALT/SGPT) 13 U/L (14-59) Alkaline Phosphatase 138 U/L (46-116) Troponin I Quantitative < 0.017 ng/mL (0.000-0.055) < 0.017 ng/mL (0.000-0.055) < 0.017 ng/mL (0.000-0.055) [id number]-Nfp-J-Type Natriuretic Peptide 150 pg/mL (0-124) Total Protein 7.8 g/dL (6.4-8.2) Albumin 3.6 g/dL (3.4-5.0) Albumin/Globulin Ratio 0.9 (1.0-1.7) Lipase 169 U/L (73-393) Urine Collection Type Unknown Urine Color Yellow Urine Clarity Clear Urine pH 5.5 Urine Specific [place] <=1.005 Urine Protein Negative mg/dL (NEG-TRACE) Urine Glucose (UA) Negative mg/dL (NEG) Urine Ketones (Stick) Negative mg/dL (NEG) Urine Blood Small (NEG) Urine Nitrite Negative (NEG) Urine Bilirubin Negative (NEG) Urine Urobilinogen Dipstick 0.2 mg/dL (0.2 mg/dL) Urine Leukocyte Esterase Negative (NEG) Urine RBC 0 /HPF (0-2) Urine WBC Occ /HPF (0-4) Urine Squamous Epithelial Cells Few /LPF Urine Bacteria 0 /HPF (0-FEW) Allergies: Coded Allergies: No Known Drug Allergies (Unverified , 01/16/19) Medications: Current Medications Medications (Trade) Dose Ordered Sig/Amanda Route PRN Reason Start Time Stop Time Status Last Admin Dose Admin Aspirin (Children'S Aspirin) 324 mg 1X ONCE PO 03/14/19 16:00 03/14/19 16:04 DC 03/14/19 16:27 Sodium Chloride 1,000 ml @ 1,000 mls/hr 1X ONCE IV 03/14/19 16:00 03/14/19 16:59 DC 03/14/19 16:27 Iohexol (Omnipaque 350 Mg/ml) 100 ml 1X ONCE IV 03/14/19 17:30 03/14/19 17:31 DC 03/14/19 17:22 Morphine Sulfate (Morphine Sulfate) 4 mg 1X ONCE IV 03/14/19 17:45 03/14/19 17:46 DC 03/14/19 17:50 Acetaminophen/ Hydrocodone Bitart (Lortab 5/325) 1 tab PRN Q3HRS PRN PO MODERATE PAIN 4-6 03/15/19 01:00 03/15/19 04:47 Morphine Sulfate (Morphine Sulfate) 2 mg PRN Q2HR PRN IV PAIN 03/15/19 09:30 03/15/19 12:13 Imaging: Imaging: CXR Impression: 1. Linear left basilar atelectasis or scarring, unchanged. C/A/P CT Excellent opacification of the pulmonary arterial and aortic vasculature noted. Pulmonary arterial vasculature is normal with no thromboembolic disease. There is a small focus of atelectasis involving the lingula. No infiltrateor pleural effusion. No enlarged thoracic lymph nodes. Mild tracheomalacia is present. No pneumothorax. There is no aortic dissection or aneurysm. Approximately 50 percent stenosis of the left subclavian artery just distal to its origin noted. Approximately 50 percent stenosis of the celiac artery origin noted. Superior mesenteric artery stent is present. Proximally, it is located at the origin. Inferior mesenteric artery has high-grade stenosis at its origin. There are 2 right renal arteries. Approximately 50 percent stenosis of the larger and more superior than the right renal artery stenosis. High-grade stenosis of the more inferior of the right renal artery is noted. Left main artery is patent. Distal abdominal aortic aneurysm measuring 1.8 cm transverse is present. Diffuse atheromatous involvement of the abdominal aorta and iliac arteries is present. Approximately 50 percent stenosis involving the left internal iliac artery proximally is present. Liver, spleen, pancreas, adrenal glands, and kidneys are unremarkable. Cholecystectomy noted. Visualized bowel is unremarkable with no evidence of inflammatory change. No wall thickening identified. Appendix is unremarkable. No ascites or pelvic free fluid. Urinary bladder is unremarkable. Uterus is identified. Bony structures are grossly unremarkable. Impression: No pulmonary arterial thromboembolic disease. No aortic dissection or evidence of mesenteric ischemia. Stenoses are identified involving the aortic branch vessels. Diffuse atheromatous involvement of the abdominal aorta. Small abdominal aortic aneurysm distally. PE: GEN: NAD HEENT: Atraumatic, PERRL LUNGS: CTAB HEART: RRR ABD: quiet BS, diffusely tender to placement of stethoscope, soft EXTREMITY: No edema SKIN: No rashes, no jaundice NEURO/PSYCH: A & O 3 A/P: A/P: Chest/abd/leg/back pain, weakness, numbness, dyspahgia/odynophagia, vomiting GERD, ?h/o ulcers CRC screen - none S/p cholecystectomy S/p SMA stent Diffuse atheromatous involvement of abd aorta w/ stenosis of branch vessels -- As last admission, very difficult historian. Restart PPI - IV for now w/ possible h/o dysphagia/vomiting. Okay to try clears per GI - d/w nurse. Will review her multiple complaints and CT w/ Dr. Muhammad. TAVIA YATES Mar 15, 2019 13:17
[2019-03-15] MEDS ORDERED: PANTOPRAZOLE 40 MG TABLET.DR. PO ONE (14:00)
--- NOTE | 2019-03-15 15:45 | PDOC2 ---
CARDIAC CONSULT DATE OF CONSULT Date of Consult DATE: 03/15/19 TIME: 15:29 REASON FOR CONSULT Reason for Consult: chest pain REFERRING PHYSICIAN Referring Physician: Jadyn SOURCE Source: Chart review, Patient HISTORY OF PRESENT ILLNESS HISTORY OF PRESENT ILLNESS This is a 63 yo female admitted for multiple complains. Mainly abdominal pain and intermittent pain with swallowing. No vomiting and no diarrhea. She has no fever. She has been having sensation of unable to take a deep breath and at times feeling of SOA but this is while he is having pain to her abdomen. She had lap chol and SMA stenting late last yr. Complains of chest pain but this is mainly right to mid lower chest and easily reproducible with palpation. She did pushed away my hand upon palpating her right lower ribcage due to discomfort. She has not been complaint with aspirin nor her PPI and failed to follow up in our office. She does work for [employer] which require significant body mechanical rotation with heavy lifting. She was working at one point and could not go further mainly due to her abdominal pain. No recent falls or injury and no intractable coughing. No frequent dizziness or palpitations. PAST MEDICAL HISTORY Past Medical History Cardiovascular: HTN, Hyperlipidemia, PAD, CAD(coronary calcifications per previous CT), Asymptomatic Sinus bradycardia Pulmonary: Asthma, Pulmonary embolus CENTRAL NERVOUS SYSTEM: Other GI: Peptic Ulcer disease, mesenteric ischemia Heme/Onc: No pertinent hx Hepatobiliary: No pertinent hx Psych: Anxiety Musculoskeletal: Osteoarthritis Rheumatologic: No pertinent hx Infectious disease: No pertinent hx Renal/: No pertinent hx Endocrine: No pertinent hx PAST SURGICAL HISTORY Past Surgical History: Cholecystectomy, , Other (SMA stenting) FAMILY HISTORY Family History: Hypertension SOCIAL HISTORY Smoke: <1 pack per day ALCOHOL: none Drugs: None Lives: with Family CURRENT MEDICATIONS CURRENT MEDICATIONS Current Medications Medications (Trade) Dose Ordered Sig/Amanda Route PRN Reason Start Time Stop Time Status Last Admin Dose Admin Aspirin (Children'S Aspirin) 324 mg 1X ONCE PO 03/14/19 16:00 03/14/19 16:04 DC 03/14/19 16:27 Sodium Chloride 1,000 ml @ 1,000 mls/hr 1X ONCE IV 03/14/19 16:00 03/14/19 16:59 DC 03/14/19 16:27 Iohexol (Omnipaque 350 Mg/ml) 100 ml 1X ONCE IV 03/14/19 17:30 03/14/19 17:31 DC 03/14/19 17:22 Morphine Sulfate (Morphine Sulfate) 4 mg 1X ONCE IV 03/14/19 17:45 03/14/19 17:46 DC 03/14/19 17:50 Acetaminophen/ Hydrocodone Bitart (Lortab 5/325) 1 tab PRN Q3HRS PRN PO MODERATE PAIN 4-6 03/15/19 01:00 03/15/19 04:47 Morphine Sulfate (Morphine Sulfate) 2 mg PRN Q2HR PRN IV PAIN 03/15/19 09:30 03/15/19 12:13 Pantoprazole Sodium (Protonix) 40 mg 1X ONCE PO 03/15/19 14:00 03/15/19 14:01 DC 03/15/19 14:05 ALLERGIES ALLERGIES: Coded Allergies: No Known Drug Allergies (Unverified , 01/16/19) ROS Review of System 14 point ROS evaluated with pertinent positives noted per HPI PHYSICAL EXAM General: Alert, Oriented X3, Cooperative, No acute distress HEENT: Atraumatic, Mucous membr. moist/pink Lungs: Clear to auscultation, Normal air movement Heart: Other (4/6 SULMA border) Abdomen: Other (abdominal tenderness) Extremities: No cyanosis, No edema Skin: No breakdown, No significant lesion Neuro: Normal speech, Sensation intact Psych/Mental Status: Mental status NL, Mood NL MUSCULOSKELETAL: Osteoarthritic changes both hands VITALS/I&O VITALS/I&O: Vital Signs Date Time Temp Pulse Resp B/P (MAP) Pulse Ox O2 Delivery O2 Flow Rate FiO2 03/15/19 13:00 Room Air 03/15/19 11:22 98.1 55 16 119/61 (80) 99 98.1 I & O 03/14/19 03/14/19 03/15/19 15:00 23:00 07:00 Intake Total 1000 ml 500 ml Output Total 100 ml Balance 1000 ml 400 ml LABS Lab: Laboratory Tests Test 03/14/19 16:11 03/14/19 16:35 03/14/19 20:55 03/15/19 00:10 White Blood Count 11.3 x10^3/uL (4.0-11.0) H Red Blood Count 4.46 x10^6/uL (3.50-5.40) Hemoglobin 13.5 g/dL (12.0-15.5) Hematocrit 40.4 % (36.0-47.0) Mean Corpuscular Volume 91 fL (79-100) Mean Corpuscular Hemoglobin 30 pg (25-35) Mean Corpuscular Hemoglobin Concent 34 g/dL (31-37) Red Cell Distribution Width 13.6 % (11.5-14.5) Platelet Count 278 x10^3/uL (140-400) Neutrophils (%) (Auto) 68 % (31-73) Lymphocytes (%) (Auto) 21 % (24-48) L Monocytes (%) (Auto) 10 % (0-9) H Eosinophils (%) (Auto) 0 % (0-3) Basophils (%) (Auto) 1 % (0-3) Neutrophils # (Auto) 7.7 x10^3/uL (1.8-7.7) Lymphocytes # (Auto) 2.4 x10^3/uL (1.0-4.8) Monocytes # (Auto) 1.1 x10^3/uL (0.0-1.1) Eosinophils # (Auto) 0.0 x10^3/uL (0.0-0.7) Basophils # (Auto) 0.1 x10^3/uL (0.0-0.2) Sodium Level 141 mmol/L (136-145) Potassium Level 3.8 mmol/L (3.5-5.1) Chloride Level 104 mmol/L (98-107) Carbon Dioxide Level 26 mmol/L (21-32) Anion Gap 11 (6-14) Blood Urea Nitrogen 23 mg/dL (7-20) H Creatinine 0.9 mg/dL (0.6-1.0) Estimated GFR (Cockcroft-Gault) 63.4 BUN/Creatinine Ratio 26 (6-20) H Glucose Level 95 mg/dL (70-99) Lactic Acid Level 1.1 mmol/L (0.4-2.0) Calcium Level 9.8 mg/dL (8.5-10.1) Total Bilirubin 0.1 mg/dL (0.2-1.0) L Aspartate Amino Transferase (AST) 15 U/L (15-37) Alanine Aminotransferase (ALT) 13 U/L (14-59) L Alkaline Phosphatase 138 U/L (46-116) H Troponin I Quantitative < 0.017 ng/mL (0.000-0.055) < 0.017 ng/mL (0.000-0.055) < 0.017 ng/mL (0.000-0.055) ZI-Yej-J-Type Natriuretic Peptide 150 pg/mL (0-124) H Total Protein 7.8 g/dL (6.4-8.2) Albumin 3.6 g/dL (3.4-5.0) Albumin/Globulin Ratio 0.9 (1.0-1.7) L Lipase 169 U/L (73-393) Urine Collection Type Unknown Urine Color Yellow Urine Clarity Clear Urine pH 5.5 Urine Specific [place] <=1.005 Urine Protein Negative mg/dL (NEG-TRACE) Urine Glucose (UA) Negative mg/dL (NEG) Urine Ketones (Stick) Negative mg/dL (NEG) Urine Blood Small (NEG) Urine Nitrite Negative (NEG) Urine Bilirubin Negative (NEG) Urine Urobilinogen Dipstick 0.2 mg/dL (0.2 mg/dL) Urine Leukocyte Esterase Negative (NEG) Urine RBC 0 /HPF (0-2) Urine WBC Occ /HPF (0-4) Urine Squamous Epithelial Cells Few /LPF Urine Bacteria 0 /HPF (0-FEW) Laboratory Tests 03/14/19 16:11 Laboratory Tests 03/14/19 16:11 ECHOCARDIOGRAM ECHOCARDIOGRAM <Conclusion> The left ventricle is normal size. The left ventricular systolic function is normal and the ejection fraction is within normal range. The Ejection Fraction is 55-60%. Doppler and Color Flow revealed no significant aortic regurgitation. There is no significant aortic valvular stenosis. Doppler and Color Flow revealed no mitral valve regurgitation noted. Doppler and Color Flow revealed trace tricuspid regurgitation with an estimated PAP of 28 mmHg. DATE: 12/31/18 1530 STRESS TEST STRESS TEST Conclusion 1. No EKG evidence of stressed induced ischemia. 2. Nuclear imaging shows no reversible ischemia or infarct. 3. Normal left ventricular systolic function with an ejection fraction of greater than 70%. 4. Low risk Lexiscan nuclear stress test. DATE: 01/08/19 1342 ASSESSMENT/PLAN ASSESSMENT/PLAN 1. Atypical CP: suspect GI and MSK. Trops nml and EKG SR without acute changes 2. Abdominal pain/odynophagia: previous lap danny and SMA stenting 3. GERD with reported odynophagia 4. Hypertension; controlled without coverage 5. HLP: not on goal 6. Tobaccoism 7. Noncompliance: has not been regularly taking ASA and PPI at least 8. Systolic Murmur Recommendations 1. ASA, DC home zocor and switch to lipitor. GI cocktail. Dietitian consult. 2. No AV marito blocking agents. Obtain limited TTE tomorrow to delineate any new valvular issues as no murmur was not noted from prior admission. 3. Smoking cessation 4. Encouraged to follow up in our office. Discussed treatment compliance. 5. Follow GI recommendation 6. Recent MPI without reversible defects. If symptoms persist after GI workup then will consider for outpt LHC pending follow up/treatment compliance. LAUREN MORALES APRN Mar 15, 2019 15:45
[2019-03-15 15:47] VITALS: BP 114/61
[2019-03-15 16:01] LABS: CHOLESTEROL/HDL RATIO 7.1
[2019-03-15] MEDS ORDERED: LIDO:MAALOX 1:1 20 ML SINGLE DOSE. SWSW ONE (16:30)
[2019-03-15 19:25] VITALS: BP 92/51
[2019-03-15] MEDS ORDERED: ATORVASTATIN CALCIUM 40 MG TABLET. PO SCH (21:00)
--- NOTE | 2019-03-15 21:30 | NUR ---
Pt arrived to [address] [place] [address] From 2nd Floor at 0 and care was resumed. Pt was accompanied with . Pt received medication for pain and is resting in bed.
[2019-03-15 23:56] VITALS: BP 95/32
[2019-03-16 00:17] VITALS: BP 140/62
[2019-03-16] MEDS: MORPHINE SULFATE 2 MG/ML VIAL. IV PRN (00:20)
[2019-03-16] MEDS: HYDROcodone/APAP 5/325MG 1 TAB TABLET PO PRN ×3 (02:58→11:26)
[2019-03-16 03:21] VITALS: BP 127/58
[2019-03-16 07:00] VITALS: BP 131/61
[2019-03-16] MEDS ORDERED: PANTOPRAZOLE 40 MG TABLET.DR. PO SCH (07:30)
[2019-03-16] MEDS ORDERED: ASPIRIN ENTERIC COATED 81 MG TABLET.DR. PO SCH (08:00)
[2019-03-16] MEDS ORDERED: POLYETHYLENE GLYCOL 3350 17 GM PACKET. PO SCH (09:00)
--- NOTE | 2019-03-16 09:16 | PDOC ---
PROGRESS NOTES History of Present Illness History of Present Illness DISCHARGE DX Assessment/Plan Chest pain with possible acute coronary syndrome Plan Consult cardiology OK WITH D/C 03/16 Cardiac monitoring Home meds DVT prophylaxis Serial enzymes Serial EKGs When necessary morphine We'll consider echocardiogram GI FOLLOWING ASA, DC home zocor and switch to lipitor. GI cocktail. 03/16 D/C PLANNING 27 MIN Vitals Vitals Vital Signs Date Time Temp Pulse Resp B/P (MAP) Pulse Ox O2 Delivery O2 Flow Rate FiO2 03/16/19 07:09 Room Air 03/16/19 03:21 97.7 58 22 127/58 (81) 94 97.7 Physical Exam General: Alert, Oriented X3, Cooperative, No acute distress Heart: Other (4/6 SULMA border) Lungs: Clear, Wheezing Abdomen: Normal bowel sounds, Soft, Other (abdominal tenderness) Extremities: No cyanosis, No edema Skin: No breakdown, No significant lesion Labs LABS PROCEDURE: CT ANGIO CHEST W ABD PEL W/ Examination: CT ANGIO CHEST W ABD PEL W/ History: Chest pain, shortness of breath, nausea and vomiting, history of mesenteric ischemia Comparison/Correlation: CTA chest abdomen and pelvis 01/07/2019 Findings: CTA of the chest, abdomen, and and pelvis were obtained following IV contrast arteriography protocol. 3-D volume rendered images of the aorta and its branches were provided. Maximum intensity projection images were provided. Excellent opacification of the pulmonary arterial and aortic vasculature noted. Pulmonary arterial vasculature is normal with no thromboembolic disease. There is a small focus of atelectasis involving the lingula. No infiltrate or pleural effusion. No enlarged thoracic lymph nodes. Mild tracheomalacia is present. No pneumothorax. There is no aortic dissection or aneurysm. Approximately 50 percent stenosis of the left subclavian artery just distal to its origin noted. Approximately 50 percent stenosis of the celiac artery origin noted. Superior mesenteric artery stent is present. Proximally, it is located at the origin. Inferior mesenteric artery has high-grade stenosis at its origin. There are 2 right renal arteries. Approximately 50 percent stenosis of the larger and more superior than the right renal artery stenosis. High-grade stenosis of the more inferior of the right renal artery is noted. Left main artery is patent. Distal abdominal aortic aneurysm measuring 1.8 cm transverse is present. Diffuse atheromatous involvement of the abdominal aorta and iliac arteries is present. Approximately 50 percent stenosis involving the left internal iliac artery proximally is present. Liver, spleen, pancreas, adrenal glands, and kidneys are unremarkable. Cholecystectomy noted. Visualized bowel is unremarkable with no evidence of inflammatory change. No wall thickening identified. Appendix is unremarkable. No ascites or pelvic free fluid. Urinary bladder is unremarkable. Uterus is identified. Bony structures are grossly unremarkable. Impression: No pulmonary arterial thromboembolic disease. No aortic dissection or evidence of mesenteric ischemia. Stenoses are identified involving the aortic branch vessels. Diffuse atheromatous involvement of the abdominal aorta. Small abdominal aortic aneurysm distally. PQRS Compliance Statement: One or more of the following individualized dose reduction techniques were utilized for this examination: 1. Automated exposure control 2. Adjustment of the mA and/or kV according to patient size 3. Use of iterative reconstruction technique Electronically signed by: Jensen Martinez MD (03/14/2019 5:53 PM) [facility] DICTATED and SIGNED BY: JENSEN MARTINEZ MD DATE: 03/14/19 1758 Laboratory Tests Test 03/16/19 00:32 Glucose (Fingerstick) 100 mg/dL (70-99) Comment Review of Relevant I have reviewed the following items charlene (where applicable) has been applied. Labs Laboratory Tests Test 03/14/19 16:11 03/14/19 16:35 03/14/19 20:55 03/15/19 00:10 White Blood Count 11.3 x10^3/uL (4.0-11.0) Red Blood Count 4.46 x10^6/uL (3.50-5.40) Hemoglobin 13.5 g/dL (12.0-15.5) Hematocrit 40.4 % (36.0-47.0) Mean Corpuscular Volume 91 fL (79-100) Mean Corpuscular Hemoglobin 30 pg (25-35) Mean Corpuscular Hemoglobin Concent 34 g/dL (31-37) Red Cell Distribution Width 13.6 % (11.5-14.5) Platelet Count 278 x10^3/uL (140-400) Neutrophils (%) (Auto) 68 % (31-73) Lymphocytes (%) (Auto) 21 % (24-48) Monocytes (%) (Auto) 10 % (0-9) Eosinophils (%) (Auto) 0 % (0-3) Basophils (%) (Auto) 1 % (0-3) Neutrophils # (Auto) 7.7 x10^3/uL (1.8-7.7) Lymphocytes # (Auto) 2.4 x10^3/uL (1.0-4.8) Monocytes # (Auto) 1.1 x10^3/uL (0.0-1.1) Eosinophils # (Auto) 0.0 x10^3/uL (0.0-0.7) Basophils # (Auto) 0.1 x10^3/uL (0.0-0.2) Sodium Level 141 mmol/L (136-145) Potassium Level 3.8 mmol/L (3.5-5.1) Chloride Level 104 mmol/L (98-107) Carbon Dioxide Level 26 mmol/L (21-32) Anion Gap 11 (6-14) Blood Urea Nitrogen 23 mg/dL (7-20) Creatinine 0.9 mg/dL (0.6-1.0) Estimated GFR (Cockcroft-Gault) 63.4 BUN/Creatinine Ratio 26 (6-20) Glucose Level 95 mg/dL (70-99) Lactic Acid Level 1.1 mmol/L (0.4-2.0) Calcium Level 9.8 mg/dL (8.5-10.1) Total Bilirubin 0.1 mg/dL (0.2-1.0) Aspartate Amino Transf (AST/SGOT) 15 U/L (15-37) Alanine Aminotransferase (ALT/SGPT) 13 U/L (14-59) Alkaline Phosphatase 138 U/L (46-116) Troponin I Quantitative < 0.017 ng/mL (0.000-0.055) < 0.017 ng/mL (0.000-0.055) < 0.017 ng/mL (0.000-0.055) YK-Mud-J-Type Natriuretic Peptide 150 pg/mL (0-124) Total Protein 7.8 g/dL (6.4-8.2) Albumin 3.6 g/dL (3.4-5.0) Albumin/Globulin Ratio 0.9 (1.0-1.7) Lipase 169 U/L (73-393) Urine Collection Type Unknown Urine Color Yellow Urine Clarity Clear Urine pH 5.5 Urine Specific [place] <=1.005 Urine Protein Negative mg/dL (NEG-TRACE) Urine Glucose (UA) Negative mg/dL (NEG) Urine Ketones (Stick) Negative mg/dL (NEG) Urine Blood Small (NEG) Urine Nitrite Negative (NEG) Urine Bilirubin Negative (NEG) Urine Urobilinogen Dipstick 0.2 mg/dL (0.2 mg/dL) Urine Leukocyte Esterase Negative (NEG) Urine RBC 0 /HPF (0-2) Urine WBC Occ /HPF (0-4) Urine Squamous Epithelial Cells Few /LPF Urine Bacteria 0 /HPF (0-FEW) Triglycerides Level 389 mg/dL (0-150) Cholesterol Level 219 mg/dL (0-200) LDL Cholesterol, Calculated 110 mg/dL (0-100) VLDL Cholesterol, Calculated 78 mg/dL (0-40) Non-HDL Cholesterol Calculated 188 mg/dL (0-129) HDL Cholesterol 31 mg/dL (40-60) Cholesterol/HDL Ratio 7.1 Test 03/16/19 00:32 Glucose (Fingerstick) 100 mg/dL (70-99) Laboratory Tests Test 03/16/19 00:32 Glucose (Fingerstick) 100 mg/dL (70-99) Medications Current Medications Aspirin (Children'S Aspirin) 324 mg 1X ONCE PO Last administered on 03/14/19at 16:27; Start 03/14/19 at 16:00; Stop 03/14/19 at 16:04; Status DC Sodium Chloride 1,000 ml @ 1,000 mls/hr 1X ONCE IV Last administered on 03/14/19at 16:27; Start 03/14/19 at 16:00; Stop 03/14/19 at 16:59; Status DC Iohexol (Omnipaque 350 Mg/ml) 100 ml 1X ONCE IV Last administered on 03/14/19at 17:22; Start 03/14/19 at 17:30; Stop 03/14/19 at 17:31; Status DC Morphine Sulfate (Morphine Sulfate) 4 mg 1X ONCE IV Last administered on 03/14at 17:50; Start 03/14/19 at 17:45; Stop 03/14/19 at 17:46; Status DC Acetaminophen/ Hydrocodone Bitart (Lortab 5/325) 1 tab PRN Q3HRS PRN PO MODERATE PAIN 4-6 Last administered on 03/16/19at 06:09; Start 03/15/19 at 01:00 Morphine Sulfate (Morphine Sulfate) 2 mg PRN Q2HR PRN IV PAIN Last administered on 03/16/19at 00:20; Start 03/15/19 at 09:30 Pantoprazole Sodium (Protonix) 40 mg DAILYAC PO Last administered on 03/16/19at 08:47; Start 03/16/19 at 07:30 Polyethylene Glycol (miraLAX PACKET) 17 gm DAILY PO ; Start 03/16/19 at 09:00 Pantoprazole Sodium (Protonix) 40 mg 1X ONCE PO Last administered on 03/15/19at 14:05; Start 03/15/19 at 14:00; Stop 03/15/19 at 14:01; Status DC Aspirin (Ecotrin) 81 mg DAILYWBKFT PO Last administered on 03/16/19at 08:47; St art 03/16/19 at 08:00 Atorvastatin Calcium (Lipitor) 40 mg QHS PO Last administered on 03/15/19at 22:18; Start 03/15/19 at 21:00 Multi-Ingredient Mouthwash/Gargle (Gi Cocktail) 20 ml 1X ONCE SWSW Last administered on 03/15/19at 18:00; Start 03/15/19 at 16:30; Stop 03/15/19 at 16:31; Status DC Active Scripts Active Aspirin Ec (Aspirin) 325 Mg Tablet.dr 1 Tab PO DAILY Simvastatin 40 Mg Tablet 40 Mg PO QHS 30 Days Vitals/I & O Vital Sign - Last 24 Hours 03/15/19 03/15/19 03/15/19 03/15/19 09:56 10:30 11:22 12:13 Temp 98.1 98.1 Pulse 55 Resp 16 B/P (MAP) 119/61 (80) Pulse Ox 99 O2 Delivery Room Air Room Air Room Air Room Air 03/15/19 03/15/19 03/15/19 03/15/19 13:00 15:47 18:04 19:25 Temp 98.0 97.6 98.0 97.6 Pulse 63 61 Resp 16 16 B/P (MAP) 114/61 (78) 92/51 (65) Pulse Ox 96 98 O2 Delivery Room Air Room Air Room Air Room Air 03/15/19 03/15/19 03/15/19 03/16/19 22:19 23:19 23:56 00:17 Temp 98.1 98.1 Pulse 55 55 Resp 20 B/P (MAP) 95/32 (53) 140/62 (88) Pulse Ox 96 94 O2 Delivery Room Air Room Air Room Air 03/16/19 03/16/19 03/16/19 03/16/19 00:20 00:50 02:58 03:21 Temp 97.7 97.7 Pulse 58 Resp 22 B/P (MAP) 127/58 (81) Pulse Ox 94 O2 Delivery Room Air Room Air Room Air Room Air 03/16/19 03/16/19 06:09 07:09 O2 Delivery Room Air Room Air Intake and Output 03/15/19 03/15/19 03/16/19 15:00 23:00 07:00 Intake Total 0 ml 520 ml 700 ml Balance 0 ml 520 ml 700 ml CAMERON ALVAREZ MD Mar 16, 2019 09:16
[2019-03-16] MEDS ORDERED: ONDANSETRON PF 4 MG/2 ML VIAL. IVP PRN (10:15)
[2019-03-16] MEDS ORDERED: LORazepam 0.5 MG TABLET PO PRN (10:45)
[2019-03-16] MEDS ORDERED: ACETAMINOPHEN 325 MG TABLET. PO PRN (10:45)
[2019-03-16] MEDS ORDERED: ALBUTEROL SULFATE 2.5 MG/3 ML NEBU. NEB PRN (10:45)
[2019-03-16] MEDS ORDERED: MAG HYDROX/ALUMINUM HYD/SIMETH 30 ML ORAL.SUSP PO PRN (10:45)
[2019-03-16] MEDS ORDERED: DOCUSATE SODIUM 100 MG CAPSULE. PO PRN (10:45)
[2019-03-16] MEDS ORDERED: 0.9 % SODIUM CHLORIDE 10 ML DISP.SYRIN. IV PRN (10:45)
[2019-03-16] MEDS ORDERED: cloNIDine HCL 0.1 MG TABLET PO PRN (10:45)
[2019-03-16] MEDS ORDERED: ONDANSETRON PF 4 MG/2 ML VIAL. IV PRN (10:45)
[2019-03-16 11:00] VITALS: BP 129/66
--- NOTE | 2019-03-16 12:25 | NUR ---
SW following. Discussed with RN, pt is from home with family, GI soft diet, echo today. RN advised no SW needs at this time. SW will continue to follow should any needs arise.
--- NOTE | 2019-03-16 13:00 | PDOC ---
Subjective: Subjective: Nausea, didn't eat breakfast. Has chicken fingers and mashed potatoes for lunch, thinks she'll try it. No vomiting, no stools. Lower abd pain, bilateral leg back, lower back pain. Objective: Vital Signs: Vital Signs Date Time Temp Pulse Resp B/P (MAP) Pulse Ox O2 Delivery O2 Flow Rate FiO2 03/16/19 11:26 Room Air 03/16/19 11:00 98.0 56 18 129/66 (87) 96 98.0 Labs: Laboratory Tests Test 03/16/19 00:32 Glucose (Fingerstick) 100 mg/dL PE: GEN: NAD LUNGS: CTAB HEART: RRR ABD: RLQ tenderness to suprapubic region NEURO/PSYCH: A & O 3 A/P: Pain - varying locations GERD, non-compliant w/ PPI -- Going to try lunch, see how this goes. Hemodynamically unstable?: No Is patient in severe pain?: No Is NPO status required?: No TAVIA YATES Mar 16, 2019 13:00
--- NOTE | 2019-03-16 13:29 | PDOC3 ---
Discharge Summary Date of Admission: Mar 14, 2019 Date of Discharge: Mar 16, 2019 Follow-Up: 3-5 days Admitting Diagnosis comment: DISCHARGE DX Assessment/Plan Chest pain with possible acute coronary syndrome Plan Consult cardiology OK WITH D/C 03/16 Cardiac monitoring Home meds DVT prophylaxis Serial enzymes Serial EKGs When necessary morphine We'll consider echocardiogram GI FOLLOWING ASA, DC home zocor and switch to lipitor. GI cocktail. 03/16 / SOFT DIET D/C PLANNING 27 MIN Vitals Vitals Vital Signs Date Time Temp Pulse Resp B/P (MAP) Pulse Ox O2 Delivery O2 Flow Rate FiO2 03/16/19 07:09 Room Air 03/16/19 03:21 97.7 58 22 127/58 (81) 94 97.7 Physical Exam General: Alert, Oriented X3, Cooperative, No acute distress Heart: Other (4/6 SULMA border) Lungs: Clear, Wheezing Abdomen: Normal bowel sounds, Soft, Other (abdominal tenderness) Extremities: No cyanosis, No edema Skin: No breakdown, No significant lesion Labs LABS PROCEDURE: CT ANGIO CHEST W ABD PEL W/ Examination: CT ANGIO CHEST W ABD PEL W/ History: Chest pain, shortness of breath, nausea and vomiting, history of mesenteric ischemia Comparison/Correlation: CTA chest abdomen and pelvis 01/07/2019 Findings: CTA of the chest, abdomen, and and pelvis were obtained following IV contrast arteriography protocol. 3-D volume rendered images of the aorta and its branches were provided. Maximum intensity projection images were provided. Excellent opacification of the pulmonary arterial and aortic vasculature noted. Pulmonary arterial vasculature is normal with no thromboembolic disease. There is a small focus of atelectasis involving the lingula. No infiltrate or pleural effusion. No enlarged thoracic lymph nodes. Mild tracheomalacia is present. No pneumothorax. There is no aortic dissection or aneurysm. Approximately 50 percent stenosis of the left subclavian artery just distal to its origin noted. Approximately 50 percent stenosis of the celiac artery origin noted. Superior mesenteric artery stent is present. Proximally, it is located at the origin. Inferior mesenteric artery has high-grade stenosis at its origin. There are 2 right renal arteries. Approximately 50 percent stenosis of the larger and more superior than the right renal artery stenosis. High-grade stenosis of the more inferior of the right renal artery is noted. Left main artery is patent. Distal abdominal aortic aneurysm measuring 1.8 cm transverse is present. Diffuse atheromatous involvement of the abdominal aorta and iliac arteries is present. Approximately 50 percent stenosis involving the left internal iliac artery proximally is present. Liver, spleen, pancreas, adrenal glands, and kidneys are unremarkable. Cholecystectomy noted. Visualized bowel is unremarkable with no evidence of inflammatory change. No wall thickening identified. Appendix is unremarkable. No ascites or pelvic free fluid. Urinary bladder is unremarkable. Uterus is identified. Bony structures are grossly unremarkable. Impression: No pulmonary arterial thromboembolic disease. No aortic dissection or evidence of mesenteric ischemia. Stenoses are identified involving the aortic branch vessels. Diffuse atheromatous involvement of the abdominal aorta. Small abdominal aortic aneurysm distally. PQRS Compliance Statement: One or more of the following individualized dose reduction techniques were utilized for this examination: 1. Automated exposure control 2. Adjustment of the mA and/or kV according to patient size 3. Use of iterative reconstruction technique Electronically signed by: Jensen Martinez MD (03/14/2019 5:53 PM) [facility] DICTATED and SIGNED BY: JENSEN MARTINEZ MD DATE: 03/14/19 175 Brief Hospital Course Ms. Roberson is a 63 old [sex] who presented with [CHEST PAIN ] CONDITION AT DISCHARGE: Improved Discharge Medications Current Medications Aspirin (Children'S Aspirin) 324 mg 1X ONCE PO Last administered on 03/14/19at 16:27; Start 03/14/19 at 16:00; Stop 03/14/19 at 16:04; Status DC Sodium Chloride 1,000 ml @ 1,000 mls/hr 1X ONCE IV Last administered on 03/14/19at 16:27; Start 03/14/19 at 16:00; Stop 03/14/19 at 16:59; Status DC Iohexol (Omnipaque 350 Mg/ml) 100 ml 1X ONCE IV Last administered on 03/14/19at 17:22; Start 03/14/19 at 17:30; Stop 03/14/19 at 17:31; Status DC Morphine Sulfate (Morphine Sulfate) 4 mg 1X ONCE IV Last administered on 03/14/19at 17:50; Start 03/14/19 at 17:45; Stop 03/14/19 at 17:46; Status DC Acetaminophen/ Hydrocodone Bitart (Lortab 5/325) 1 tab PRN Q3HRS PRN PO MODERATE PAIN 4-6 Last administered on 03/16/19at 11:26; Start 03/15/19 at 01:00 Morphine Sulfate (Morphine Sulfate) 2 mg PRN Q2HR PRN IV SEVERE PAIN Last administered on 03/16/19at 00:20; Start 03/15/19 at 09:30 Pantoprazole Sodium (Protonix) 40 mg DAILYAC PO Last administered on 03/16/19at 08:47; Start 03/16/19 at 07:30 Polyethylene Glycol (miraLAX PACKET) 17 gm DAILY PO Last administered on 03/16/19at 11:25; Start 03/16/19 at 09:00 Pantoprazole Sodium (Protonix) 40 mg 1X ONCE PO Last administered on 03/15/19at 14:05; Start 03/15/19 at 14:00; Stop 03/15/19 at 14:01; Status DC Aspirin (Ecotrin) 81 mg DAILYWBKFT PO Last administered on 03/16/19at 08:47; Start 03/16/19 at 08:00 Atorvastatin Calcium (Lipitor) 40 mg QHS PO Last administered on 03/15/19at 22:18; Start 03/15/19 at 21:00 Multi-Ingredient Mouthwash/Gargle (Gi Cocktail) 20 ml 1X ONCE SWSW Last administered on 03/15/19at 18:00; Start 03/15/19 at 16:30; Stop 03/15/19 at 16:31; Status DC Ondansetron HCl (Zofran) 4 mg PRN Q4HRS PRN IVP NAUSEA/VOMITING; Start 03/16/19 at 10:15; Stop 03/16/19 at 10:37; Status DC Sodium Chloride (Normal Saline Flush) 3 ml QSHIFT PRN IV AFTER MEDS AND BLOOD DRAWS; Start 03/16/19 at 10:45 Ondansetron HCl (Zofran) 4 mg PRN Q4HRS PRN IV NAUSEA/VOMITING Last administered on 03/16/19at 11:26; Start 03/16/19 at 10:45 Acetaminophen (Tylenol) 650 mg PRN Q4HRS PRN PO TEMP OVER 100.4F OR MILD PAIN; Start 03/16/19 at 10:45 Al Hydroxide/Mg Hydroxide (Mylanta Plus Xs) 30 ml PRN DAILY PRN PO HEARTBURN / GAS; Start 03/16/19 at 10:45 Clonidine HCl (Catapres) 0.1 mg PRN Q6HRS PRN PO SBP>160 OR DBP>90; Start 03/16/19 at 10:45 Docusate Sodium (Colace) 100 mg PRN BID PRN PO CONSTIPATION; Start 03/16/19 at 10:45 Albuterol Sulfate (Ventolin Neb Soln) 2.5 mg PRN Q4HRS PRN NEB SHORTNESS OF BREATH; Start 03/16/19 at 10:45 Lorazepam (Ativan) 0.5 mg PRN Q4HRS PRN PO ANXIETY / AGITATION; Start 03/16/19 at 10:45 Enoxaparin Sodium (Lovenox 40mg Syringe) 40 mg Q24H SQ ; Start 03/16/19 at 16:00 Active Scripts Active Aspirin Ec (Aspirin) 325 Mg Tablet.dr 1 Tab PO DAILY Simvastatin 40 Mg Tablet 40 Mg PO QHS 30 Days Vital Signs Vital Signs Date Time Temp Pulse Resp B/P (MAP) Pulse Ox O2 Delivery O2 Flow Rate FiO2 03/16/19 11:26 Room Air 03/16/19 11:00 98.0 56 18 129/66 (87) 96 98.0 Labs Laboratory Tests Test 03/14/19 16:11 03/14/19 16:35 03/14/19 20:55 03/15/19 00:10 White Blood Count 11.3 x10^3/uL (4.0-11.0) Red Blood Count 4.46 x10^6/uL (3.50-5.40) Hemoglobin 13.5 g/dL (12.0-15.5) Hematocrit 40.4 % (36.0-47.0) Mean Corpuscular Volume 91 fL (79-100) Mean Corpuscular Hemoglobin 30 pg (25-35) Mean Corpuscular Hemoglobin Concent 34 g/dL (31-37) Red Cell Distribution Width 13.6 % (11.5-14.5) Platelet Count 278 x10^3/uL (140-400) Neutrophils (%) (Auto) 68 % (31-73) Lymphocytes (%) (Auto) 21 % (24-48) Monocytes (%) (Auto) 10 % (0-9) Eosinophils (%) (Auto) 0 % (0-3) Basophils (%) (Auto) 1 % (0-3) Neutrophils # (Auto) 7.7 x10^3/uL (1.8-7.7) Lymphocytes # (Auto) 2.4 x10^3/uL (1.0-4.8) Monocytes # (Auto) 1.1 x10^3/uL (0.0-1.1) Eosinophils # (Auto) 0.0 x10^3/uL (0.0-0.7) Basophils # (Auto) 0.1 x10^3/uL (0.0-0.2) Sodium Level 141 mmol/L (136-145) Potassium Level 3.8 mmol/L (3.5-5.1) Chloride Level 104 mmol/L (98-107) Carbon Dioxide Level 26 mmol/L (21-32) Anion Gap 11 (6-14) Blood Urea Nitrogen 23 mg/dL (7-20) Creatinine 0.9 mg/dL (0.6-1.0) Estimated GFR (Cockcroft-Gault) 63.4 BUN/Creatinine Ratio 26 (6-20) Glucose Level 95 mg/dL (70-99) Lactic Acid Level 1.1 mmol/L (0.4-2.0) Calcium Level 9.8 mg/dL (8.5-10.1) Total Bilirubin 0.1 mg/dL (0.2-1.0) Aspartate Amino Transf (AST/SGOT) 15 U/L (15-37) Alanine Aminotransferase (ALT/SGPT) 13 U/L (14-59) Alkaline Phosphatase 138 U/L (46-116) Troponin I Quantitative < 0.017 ng/mL (0.000-0.055) < 0.017 ng/mL (0.000-0.055) < 0.017 ng/mL (0.000-0.055) JC-Drl-P-Type Natriuretic Peptide 150 pg/mL (0-124) Total Protein 7.8 g/dL (6.4-8.2) Albumin 3.6 g/dL (3.4-5.0) Albumin/Globulin Ratio 0.9 (1.0-1.7) Lipase 169 U/L (73-393) Urine Collection Type Unknown Urine Color Yellow Urine Clarity Clear Urine pH 5.5 Urine Specific [place] <=1.005 Urine Protein Negative mg/dL (NEG-TRACE) Urine Glucose (UA) Negative mg/dL (NEG) Urine Ketones (Stick) Negative mg/dL (NEG) Urine Blood Small (NEG) Urine Nitrite Negative (NEG) Urine Bilirubin Negative (NEG) Urine Urobilinogen Dipstick 0.2 mg/dL (0.2 mg/dL) Urine Leukocyte Esterase Negative (NEG) Urine RBC 0 /HPF (0-2) Urine WBC Occ /HPF (0-4) Urine Squamous Epithelial Cells Few /LPF Urine Bacteria 0 /HPF (0-FEW) Triglycerides Level 389 mg/dL (0-150) Cholesterol Level 219 mg/dL (0-200) LDL Cholesterol, Calculated 110 mg/dL (0-100) VLDL Cholesterol, Calculated 78 mg/dL (0-40) Non-HDL Cholesterol Calculated 188 mg/dL (0-129) HDL Cholesterol 31 mg/dL (40-60) Cholesterol/HDL Ratio 7.1 Test 03/16/19 00:32 Glucose (Fingerstick) 100 mg/dL (70-99) Laboratory Tests Test 03/16/19 00:32 Glucose (Fingerstick) 100 mg/dL (70-99) Allergies Allergies Coded Allergies Type Severity Reaction Last Updated Verified No Known Drug Allergies 01/16/19 No Disposition/Orders: D/C to Home Hemodynamically unstable?: No Is patient in severe pain?: No Is NPO status required?: No CAMERON ALVAREZ MD Mar 16, 2019 13:29
[2019-03-16] MEDS ORDERED: PANT40TA77 PO (13:31)
[2019-03-16] MEDS ORDERED: POLY17PO28 PO (13:31)
[2019-03-16] MEDS ORDERED: MAG30ORA2 PO (13:31)
[2019-03-16] MEDS ORDERED: ACET325T9 PO (13:31)
--- NOTE | 2019-03-16 13:32 | DISCH ---
DISCHARGE INSTRUCTIONS Condition on Discharge Condition on Discharge: Stable Activity After Discharge Activity Instructions for Disc: Activity as tolerated Lifting Instructions after Dis: No heavy lifting, No pulling or pushing Exercise Instruction after Dis: Progress as tolerated Driving Instructions after Dis: Do not drive Weight Bearing Status after Di: As tolerated Diet after Discharge Diet after Discharge: Cardiac, GI Soft Diet Texture: Regular Liquid Texture: Thin Liquid Swallowing Supervision: None needed Checks after Discharge Checks after discharge: Check blood press - daily Contacting the DR. after DC Call your doctor for: If your condition worsens Treatment/Equipment after DC Adaptive Equipment Issued: CAMERON Fuentes MD Mar 16, 2019 13:32
[2019-03-16 15:00] VITALS: BP 128/78
[2019-03-16] MEDS ORDERED: ENOXAPARIN 40 MG/0.4 ML SYRINGE. SQ SCH (16:00)
--- NOTE | 2019-03-16 19:33 | NUR ---
Discharge Note: JEFFY FAITH [facility]ERR[facility] Discharge instructions and discharge home medications reviewed with Patient and a copy given. All questions have been answered and understanding verbalized. The following instructions and handouts were given: patient visit report, medication information, education. Discontinued lines and drains: peripheral IV, tip intact. Patient discharged to home with self care via private vehicle. Patient left unit awake, in stable condition with all personal belongings.
--- NOTE | 2019-03-19 11:58 | CARD ---
MR#: [id number] Date of Study: 03/16/2019 Ordering Physician: LAUREN MORALES, Referring Physician: LAUREN MORALES, Tech: Karin Dimas [facility] APPROVED REPORT EXAM: LIMITED Two-dimensional echocardiogram with Doppler and color Doppler. Other Information Quality : GoodHR: 54bpm Rhythm : NSR INDICATION Limited follow up echo for murmur. Complete echo done 12/31/18 Short of breath, chest pain. Hx: Tob, HTN, HLP. 2D DIMENSIONS LVOT Diameter2.0 (1.8-2.4cm) Aortic Valve AoV Peak Abdi.175.1cm/sAoV VTI47.4cm AO Peak GR.12.3mmHgLVOT Peak Abdi.116.9cm/s AO Mean GR.8mmHgAVA (VMAX)2.01cm2 Tricuspid Valve TR P. Urehigsq992mh/sTR Peak Gr.19mmHg LEFT VENTRICLE The left ventricle is normal size. The left ventricular systolic function is normal. The Ejection Fra ction is 55-60%. There is normal LV segmental wall motion. RIGHT VENTRICLE The right ventricle is normal size. There is normal right ventricular wall thickness. The right ventr icular systolic function is normal. ATRIA The left atrium is mildly dilated. The right atrium size is normal. The interatrial septum is intact with no evidence for an atrial septal defect or patent foramen ovale as noted on 2-D or Doppler imagi ng. AORTIC VALVE The aortic valve is calcified but opens well. Doppler and Color Flow revealed no significant aortic r egurgitation. There is no significant aortic valvular stenosis. MITRAL VALVE The mitral valve is moderately calcified. There is no mitral valve stenosis. Trace to mild mitral reg urgitation. TRICUSPID VALVE The tricuspid valve is normal in structure and function. Trace tricuspid regurgitation. Estimated PAP is 25mmHg. There is no tricuspid valve stenosis. PULMONIC VALVE Not well visualized. GREAT VESSELS The aortic root is normal in size. The IVC is normal in size and collapses >50% with inspiration. PERICARDIAL EFFUSION There is no evidence of significant pericardial effusion. Critical Notification Critical Value: No <Conclusion> The left ventricular systolic function is normal. The Ejection Fraction is 55-60%. There is normal LV segmental wall motion. Signed by : Drew Barker, Electronically Approved : 03/16/2019 13:04:27
== END 2019-03-16 15:50 | disposition home or self-care (01) | DRG 303 ==
LOC: ER 15:32 → 2 NORTH 19:34 → 4 NORTH 03-15 21:51
PROVIDERS: ADMIT Family Medicine; ATTEND Family Medicine
DX: I25.10 Atherosclerotic heart disease of native coronary artery without angina pectoris (principal); J98.11 Atelectasis; I77.4 Celiac artery compression syndrome; K21.9 Gastro-esophageal reflux disease without esophagitis; E78.00 Pure hypercholesterolemia, unspecified; E78.5 Hyperlipidemia, unspecified; F17.210 Nicotine dependence, cigarettes, uncomplicated; F41.9 Anxiety disorder, unspecified; I10 Essential (primary) hypertension; I70.1 Atherosclerosis of renal artery; I70.8 Atherosclerosis of other arteries; I71.4 Abdominal aortic aneurysm, without rupture; J39.8 Other specified diseases of upper respiratory tract; J45.909 Unspecified asthma, uncomplicated; R13.10 Dysphagia, unspecified; Z80.9 Family history of malignant neoplasm, unspecified; Z82.49 Family history of ischemic heart disease and other diseases of the circulatory system; Z86.711 Personal history of pulmonary embolism; Z87.11 Personal history of peptic ulcer disease; Z87.442 Personal history of urinary calculi; Z91.19 Patient's noncompliance with other medical treatment and regimen
CPT/HCPCS: 36415; 71045; 71275; 74177; 80053; 80061; 81001; 82962; 83605; 83690; 83880; 84484; 85025; 93005; 93308; J2270; J2405; J7030; Q9967; G0378

== ENCOUNTER 2019-04-26 21:27 | Inpatient (IN) | payer BC ==
[~2019-04-26] VITALS: Ht 167.6 cm; Wt 73.4 kg
[~2019-04-26 21:27] MED LIST changes: +ACET325T9 PO; +MAG30ORA2 PO; +PANT40TA77 PO; +POLY17PO28 PO
--- NOTE | 2019-04-26 23:05 | PHYS DOC ---
Past Medical History Past Medical History: High Cholesterol, Hypertension, Kidney Stone (KRISTIN VEE APRN) Past Surgical History: Cholecystectomy (KRISTIN VEE APRN) Smoking Status: Current Every Day Smoker Alcohol Use: None Drug Use: None (KRISTIN VEE APRN) Attending Signature I have participated in the care of this patient and I have reviewed and agree with all pertinent clinical information above including history, exam, and recommendations. (WILTON SHIPLEY MD) Adult General Chief Complaint Chief Complaint: COUGH HPI HPI Patient is a 63 year old female who presents with fever, sore throat, cough, runny nose, congestion, body aches, nausea this her last night. The patient is a smoker and also has a history of asthma. (KRISTIN VEE APRN) Review of Systems Review of Systems Constitutional: Reports fever or chills [] Eyes: Denies change in visual acuity, redness, or eye pain [] HENT: Reports nasal congestion and sore throat [] Respiratory: Reports cough and shortness of breath [] Cardiovascular: No additional information not addressed in HPI [] GI: Denies abdominal pain, nausea, vomiting, bloody stools or diarrhea [] : Denies dysuria or hematuria [] Musculoskeletal: Denies back pain or joint pain [] Integument: Denies rash or skin lesions [] Neurologic: Reports headache, denies focal weakness or sensory changes [] Endocrine: Denies polyuria or polydipsia [] Complete systems were reviewed and found to be within normal limits, except as documented in this note. (KRISTIN VEE APRN) Current Medications Current Medications Current Medications Medications (Trade) Dose Ordered Sig/Amanda Start Time Stop Time Status Last Admin Dose Admin Info (CONTRAST GIVEN -- Rx MONITORING) 1 each PRN DAILY PRN 04/27/19 00:30 04/29/19 00:29 Iohexol (Omnipaque 350 Mg/ml) 100 ml 1X ONCE 04/27/19 01:00 04/27/19 01:01 DC 04/27/19 01:30 100 ML Ondansetron HCl (Zofran) 4 mg 1X ONCE 04/26/19 23:30 04/26/19 23:31 DC 04/26/19 23:42 4 MG Sodium Chloride 1,000 ml @ 1,000 mls/hr 1X ONCE 04/26/19 23:30 04/27/19 00:29 DC 04/26/19 23:42 1,000 MLS/HR (WILTON SHIPLEY MD) Allergies Allergies Allergies Coded Allergies Type Severity Reaction Last Updated Verified No Known Drug Allergies 01/16/19 No (WILTON SHIPLEY MD) Physical Exam Physical Exam Constitutional: Well developed, well nourished, no acute distress, non-toxic appearance. [] HENT: Normocephalic, atraumatic, bilateral external ears normal, oropharynx moist, no oral exudates, nose normal. [] Eyes: PERRLA, EOMI, conjunctiva normal, no discharge. [] Neck: Normal range of motion, no tenderness, supple, no stridor. [] Cardiovascular:Heart rate regular rhythm, no murmur [] Lungs & Thorax: Bilateral breath sounds clear to auscultation [] Abdomen: Bowel sounds normal, soft, no tenderness, no masses, no pulsatile masses. [] Skin: Warm, dry, no erythema, no rash. [] Neurologic: Alert and oriented X 3, normal motor function, normal sensory function, no focal deficits noted. [] Psychologic: Affect normal, judgement normal, mood normal. [] (KRISTIN VEE APRN) Current Patient Data Vital Signs Vital Signs Date Time Temp Pulse Resp B/P (MAP) Pulse Ox O2 Delivery O2 Flow Rate FiO2 04/27/19 01:15 76 98 Room Air 04/26/19 22:40 99.4 14 134/61 (85) 99.4 (WILTON SHIPLEY MD) Lab Values Laboratory Tests Test 04/26/19 23:35 04/26/19 23:40 04/26/19 23:45 Influenza Type A Antigen Negative (NEGATIVE) Influenza Type B Antigen Negative (NEGATIVE) White Blood Count 11.1 x10^3/uL (4.0-11.0) H Red Blood Count 4.32 x10^6/uL (3.50-5.40) Hemoglobin 13.5 g/dL (12.0-15.5) Hematocrit 39.5 % (36.0-47.0) Mean Corpuscular Volume 91 fL (79-100) Mean Corpuscular Hemoglobin 31 pg (25-35) Mean Corpuscular Hemoglobin Concent 34 g/dL (31-37) Red Cell Distribution Width 13.6 % (11.5-14.5) Platelet Count 263 x10^3/uL (140-400) Neutrophils (%) (Auto) 67 % (31-73) Lymphocytes (%) (Auto) 20 % (24-48) L Monocytes (%) (Auto) 10 % (0-9) H Eosinophils (%) (Auto) 3 % (0-3) Basophils (%) (Auto) 1 % (0-3) Neutrophils # (Auto) 7.5 x10^3/uL (1.8-7.7) Lymphocytes # (Auto) 2.2 x10^3/uL (1.0-4.8) Monocytes # (Auto) 1.1 x10^3/uL (0.0-1.1) Eosinophils # (Auto) 0.3 x10^3/uL (0.0-0.7) Basophils # (Auto) 0.1 x10^3/uL (0.0-0.2) D-Dimer (Cherie) 1.16 ug/mlFEU (0.00-0.50) H Sodium Level 138 mmol/L (136-145) Potassium Level 3.8 mmol/L (3.5-5.1) Chloride Level 103 mmol/L (98-107) Carbon Dioxide Level 29 mmol/L (21-32) Anion Gap 6 (6-14) Blood Urea Nitrogen 17 mg/dL (7-20) Creatinine 1.1 mg/dL (0.6-1.0) H Estimated GFR (Cockcroft-Gault) 50.3 BUN/Creatinine Ratio 15 (6-20) Glucose Level 144 mg/dL (70-99) H Lactic Acid Level 1.9 mmol/L (0.4-2.0) Calcium Level 8.8 mg/dL (8.5-10.1) Magnesium Level 1.9 mg/dL (1.8-2.4) Total Bilirubin 0.3 mg/dL (0.2-1.0) Aspartate Amino Transferase (AST) 30 U/L (15-37) Alanine Aminotransferase (ALT) 49 U/L (14-59) Alkaline Phosphatase 132 U/L (46-116) H Total Protein 7.8 g/dL (6.4-8.2) Albumin 3.5 g/dL (3.4-5.0) Albumin/Globulin Ratio 0.8 (1.0-1.7) L Procalcitonin < 0.10 ng/mL (0.00-0.10) Prothrombin Time 11.9 SEC (11.7-14.0) Prothrombin Time INR 0.9 (0.8-1.1) Activated Partial Thromboplast Time 29 SEC (24-38) Laboratory Tests 04/26/19 23:40 Laboratory Tests 04/26/19 23:40 (WILTON SHIPLEY MD) Lab Values Laboratory Tests Test 04/26/19 23:35 04/26/19 23:40 04/26/19 23:45 Influenza Type A Antigen Negative (NEGATIVE) Influenza Type B Antigen Negative (NEGATIVE) White Blood Count 11.1 x10^3/uL (4.0-11.0) H Red Blood Count 4.32 x10^6/uL (3.50-5.40) Hemoglobin 13.5 g/dL (12.0-15.5) Hematocrit 39.5 % (36.0-47.0) Mean Corpuscular Volume 91 fL (79-100) Mean Corpuscular Hemoglobin 31 pg (25-35) Mean Corpuscular Hemoglobin Concent 34 g/dL (31-37) Red Cell Distribution Width 13.6 % (11.5-14.5) Platelet Count 263 x10^3/uL (140-400) Neutrophils (%) (Auto) 67 % (31-73) Lymphocytes (%) (Auto) 20 % (24-48) L Monocytes (%) (Auto) 10 % (0-9) H Eosinophils (%) (Auto) 3 % (0-3) Basophils (%) (Auto) 1 % (0-3) Neutrophils # (Auto) 7.5 x10^3/uL (1.8-7.7) Lymphocytes # (Auto) 2.2 x10^3/uL (1.0-4.8) Monocytes # (Auto) 1.1 x10^3/uL (0.0-1.1) Eosinophils # (Auto) 0.3 x10^3/uL (0.0-0.7) Basophils # (Auto) 0.1 x10^3/uL (0.0-0.2) D-Dimer (Cherie) 1.16 ug/mlFEU (0.00-0.50) H Sodium Level 138 mmol/L (136-145) Potassium Level 3.8 mmol/L (3.5-5.1) Chloride Level 103 mmol/L (98-107) Carbon Dioxide Level 29 mmol/L (21-32) Anion Gap 6 (6-14) Blood Urea Nitrogen 17 mg/dL (7-20) Creatinine 1.1 mg/dL (0.6-1.0) H Estimated GFR (Cockcroft-Gault) 50.3 BUN/Creatinine Ratio 15 (6-20) Glucose Level 144 mg/dL (70-99) H Lactic Acid Level 1.9 mmol/L (0.4-2.0) Calcium Level 8.8 mg/dL (8.5-10.1) Magnesium Level 1.9 mg/dL (1.8-2.4) Total Bilirubin 0.3 mg/dL (0.2-1.0) Aspartate Amino Transferase (AST) 30 U/L (15-37) Alanine Aminotransferase (ALT) 49 U/L (14-59) Alkaline Phosphatase 132 U/L (46-116) H Total Protein 7.8 g/dL (6.4-8.2) Albumin 3.5 g/dL (3.4-5.0) Albumin/Globulin Ratio 0.8 (1.0-1.7) L Procalcitonin < 0.10 ng/mL (0.00-0.10) Prothrombin Time 11.9 SEC (11.7-14.0) Prothrombin Time INR 0.9 (0.8-1.1) Activated Partial Thromboplast Time 29 SEC (24-38) Laboratory Tests 04/26/19 23:40 Laboratory Tests 04/26/19 23:40 (KRISTIN VEE APRN) EKG EKG [] (KRISTIN VEE APRN) Radiology/Procedures Radiology/Procedures [facility] [address] [place], [place] [id number] IMAGING REPORT Signed PATIENT: RAO FAITH ACCOUNT: [id number] : 1955 LOCATION: ER AGE: 63 SEX: F EXAM STATUS: REG ER ORD. PHYSICIAN: KRISTIN VEE APRN REASON: elevated d-dimer, shortness of breath PROCEDURE: CT ANGIOGRAPHY CHEST CT arteriogram of the chest. HISTORY: Elevated d-dimer, short of breath CT arteriogram of the chest was done using 100 mL Omnipaque 350 contrast. Sagittal and coronal MIP images were reconstructed. Comparison is made with a study from March 14. Thyroid is homogeneous. Mediastinal lymph nodes are not enlarged. There is no effusion. Visualized portions the liver and spleen are unremarkable. Adrenal glands are normal. Lungs are free of confluent areas of infiltrate. There is mild atelectasis in the lung bases. There is mild respiratory motion artifact. There is no thoracic aortic aneurysm or dissection. There are some limitations from the motion artifact but a pulmonary embolus is not identified. IMPRESSION: 1. Mild atelectasis without other infiltrates. 2. Negative for a pulmonary embolus. PQRS Compliance Statement: One or more of the following individualized dose reduction techniques were utilized for this examination: 1. Automated exposure control 2. Adjustment of the mA and/or kV according to patient size 3. Use of iterative reconstruction technique Electronically signed by: Stefan Ordonez MD (04/27/2019 1:54 AM) [id number] DICTATED and SIGNED BY: STEFAN ORDONEZ MD DATE: 04/27/19 0154 [][facility] [address] [place] [address] IMAGING REPORT Signed PATIENT: RAO FAITH ACCOUNT: [id number] : 1955 LOCATION: ER AGE: 63 SEX: F EXAM STATUS: REG ER ORD. PHYSICIAN: KRISTIN VEE APRN REASON: cough, fever PROCEDURE: CHEST PA & LATERAL EXAM: PA and Lateral Views of the Chest DATE: 04/26/2019 10:56 PM INDICATION: Cough, fever COMPARISON: 03/14/2019 FINDINGS: The heart is not enlarged. Mediastinal and hilar contours are normal. New right infrahilar and bilateral lung bases airspace opacities favored to represent developing consolidative process such as pneumonia. No pleural effusion or pneumothorax. IMPRESSION: New right infrahilar and bilateral lung bases airspace opacities favored to represent developing consolidative process such as pneumonia. However atelectasis may also have similar appearance. Electronically signed by: Berto Valenzuela MD (04/26/2019 11:55 PM) [id number] DICTATED and SIGNED BY: BERTO VALENZUELA MD DATE: 04/26/19 4586 (KRISTIN VEE APRN) Course & Med Decision Making Course & Med Decision Making Pertinent Labs and Imaging studies reviewed. (See chart for details) Will get labs, flu, strep, chest x-ray, and give supportive care. WBC: 11.1 Flu is negative. D-dimer: 1.16---Will order CT angio. Chest x-ray shows: IMPRESSION: New right infrahilar and bilateral lung bases airspace opacities favored to represent developing consolidative process such as pneumonia. However atelectasis may also have similar appearance. Electronically signed by: Berto Valenzuela MD (04/26/2019 11:55 PM) [id number] Will give Vanc and Zosyn. (KRISTIN VEE APRN) Dragon Disclaimer Dragon Disclaimer This electronic medical record was generated, in whole or in part, using a voice recognition dictation system. (KRISTIN VEE APRN) Departure Departure Impression: Primary Impression: Pneumonia Disposition: ADMITTED INPATIENT Admitting Physician: MOE (KRISTIN VEE APRN) Condition: STABLE Referrals: GINGER CUELLO JR, MD (PCP) Problem Qualifiers Primary Impression: Pneumonia Pneumonia type: due to unspecified organism Laterality: bilateral Lung location: lower lobe of lung Qualified Codes: J18.9 - Pneumonia, unspecifi ed organism KRISTIN VEE APRN Apr 26, 2019 23:05 WILTON SHIPLEY MD Apr 27, 2019 03:12
[2019-04-26] MEDS ORDERED: IV NORMAL SALINE 1000ML BAG 1,000 ML IV ONE (23:30)
[2019-04-26] MEDS ORDERED: ONDANSETRON PF 4 MG/2 ML VIAL. IV ONE (23:30)
[2019-04-26 23:54] LABS: BASO # 0.1 x10^3/uL (0.0-0.2); BASO % 1 % (0-3); EOS # 0.3 x10^3/uL (0.0-0.7); EOS % 3 % (0-3); HEMATOCRIT 39.5 % (36.0-47.0); HEMOGLOBIN 13.5 g/dL (12.0-15.5); LYMPH # 2.2 x10^3/uL (1.0-4.8); LYMPH % 20 % (24-48); MEAN CORPUSCULAR HEMOGLOBIN 31 pg (25-35); MEAN CORPUSCULAR HGB CONC 34 g/dL (31-37); MEAN CORPUSCULAR VOLUME 91 fL (79-100); MONO # 1.1 x10^3/uL (0.0-1.1); MONO % 10 % (0-9); NEUT # 7.5 x10^3/uL (1.8-7.7); NEUT % 67 % (31-73); PLATELET COUNT 263 x10^3/uL (140-400); RED BLOOD COUNT 4.32 x10^6/uL (3.50-5.40); RED CELL DISTRIBUTION WIDTH 13.6 % (11.5-14.5); WHITE BLOOD COUNT 11.1 x10^3/uL (4.0-11.0)
--- NOTE | 2019-04-26 23:58 | RAD ---
EXAM: PA and Lateral Views of the Chest DATE: 04/26/2019 10:56 PM INDICATION: Cough, fever COMPARISON: 03/14/2019 FINDINGS: The heart is not enlarged. Mediastinal and hilar contours are normal. New right infrahilar and bilateral lung bases airspace opacities favored to represent developing consolidative process such as pneumonia. No pleural effusion or pneumothorax. IMPRESSION: New right infrahilar and bilateral lung bases airspace opacities favored to represent developing consolidative process such as pneumonia. However atelectasis may also have similar appearance. Electronically signed by: Berto Redman MD (04/26/2019 11:55 PM) [id number]
[2019-04-27 00:07] LABS: CALCIUM 8.8 mg/dL (8.5-10.1); CREATININE 1.1 mg/dL (0.6-1.0); GFR 50.3; POTASSIUM 3.8 mmol/L (3.5-5.1)
[2019-04-27 00:12] LABS: ALBUMIN 3.5 g/dL (3.4-5.0); ALBUMIN/GLOBULIN RATIO 0.8 (1.0-1.7); MAGNESIUM 1.9 mg/dL (1.8-2.4); TOTAL BILIRUBIN 0.3 mg/dL (0.2-1.0); TOTAL PROTEIN 7.8 g/dL (6.4-8.2)
[2019-04-27 00:14] LABS: INFLUENZA A PATIENT NEGATIVE (NEGATIVE); INFLUENZA B PATIENT NEGATIVE (NEGATIVE)
--- NOTE | 2019-04-27 00:23 | EKG ---
[facility] [address] [place] [address] Test Date: 2019-04-26 Test Time: 23:11:47 Pat Name: RAO FAITH Department: Room: Gender: F Stoner Hand: : 1955 Requested By: KRISTIN VEE Order Number: [id number] Reading MD: Measurements Intervals [place] Rate: 76 P: [place]: QRS: 8 QRSD: 82 T: 26 QT: 306 QTc: 348 Interpretive Statements IRREGULAR RHYTHM, NO P-WAVE FOUND NO SPECIFIC ECG ABNORMALITIES RI6.01 No previous ECG available for comparison
[2019-04-27] MEDS ORDERED: CONTRAST GIVEN. MC PRN (00:30)
[2019-04-27] MEDS ORDERED: IOHEXOL 350 MG/ML 100 ML VIAL. IV ONE (01:00)
[2019-04-27 01:48] LABS: PROTHROMBIN TIME PATIENT 11.9 SEC (11.7-14.0)
--- NOTE | 2019-04-27 01:57 | RAD ---
CT arteriogram of the chest. HISTORY: Elevated d-dimer, short of breath CT arteriogram of the chest was done using 100 mL Omnipaque 350 contrast. Sagittal and coronal MIP images were reconstructed. Comparison is made with a study from March 14. Thyroid is homogeneous. Mediastinal lymph nodes are not enlarged. There is no effusion. Visualized portions the liver and spleen are unremarkable. Adrenal glands are normal. Lungs are free of confluent areas of infiltrate. There is mild atelectasis in the lung bases. There is mild respiratory motion artifact. There is no thoracic aortic aneurysm or dissection. There are some limitations from the motion artifact but a pulmonary embolus is not identified. IMPRESSION: 1. Mild atelectasis without other infiltrates. 2. Negative for a pulmonary embolus. PQRS Compliance Statement: One or more of the following individualized dose reduction techniques were utilized for this examination: 1. Automated exposure control 2. Adjustment of the mA and/or kV according to patient size 3. Use of iterative reconstruction technique Electronically signed by: Stefan Ordonez MD (04/27/2019 1:54 AM) [id number]
[2019-04-27] MEDS ORDERED: VANCOMYCIN 1.75 GM in IV NORMAL SALINE 500ML BAG 500 ML IV ONE (02:00)
[2019-04-27] MEDS ORDERED: PIPERACILLIN/TAZOBACTAM 3.375 GM in IV NORMAL SALINE 50ML 50 ML IV ONE (02:00)
[2019-04-27] MEDS ORDERED: ONDANSETRON PF 4 MG/2 ML VIAL. IV PRN (02:15)
[2019-04-27] MEDS: VANCOMYCIN PER PHARMACY MC PRN ×2 (03:25→14:03)
[2019-04-27 03:40] VITALS: BP 114/54
[2019-04-27 07:15] VITALS: BP 132/78
[2019-04-27] MEDS ORDERED: NITR0.4T22 SL (08:05)
[2019-04-27] MEDS ORDERED: IBUP-1027 PO (08:05)
[2019-04-27] MEDS ORDERED: FLU VAX QS 2019-20 (36MOS+)/PF 0.5 ML SYRINGE. VAX IM ONE (08:15)
--- NOTE | 2019-04-27 10:38 | PDOC1 ---
History and Physical Date of Admission Date of Admission 04/27/2019 Identification/Chief Complaint Chief Complaint I feel sick Source Source: Chart review, Patient History of Present Illness History of Present Illness Patient is a 63-year-old female with past medical history of dyslipidemia hypertension chronic smoker who was in her usual state of health until 2 days prior to her admission when she started developing cold-like symptoms with generalized malaise cough runny nose congestion body aches. The patient also presented fever she does not utilize home oxygen she has not been intubated. The patient denies sick contacts she has not traveled outside this area the patient continues to feel quite sick at the time of my evaluation despite an tibiotic therapy and initial support in the emergency department. Patient is not exhibiting increased work of breathing she is able to speak in full sentences patient denies palpitations no pleurisy has been reported no loss of consciousness no nausea vomiting or diarrhea either. The patient denies urinary symptoms. Her mentation is normal, the plan of care has been explained detail to the patient and I have addressed all her concerns to the best of my ability Past Medical History Cardiovascular: HTN, Hyperlipidemia Pulmonary: Asthma, Pulmonary embolus CENTRAL NERVOUS SYSTEM: Other GI: Peptic Ulcer disease Heme/Onc: No pertinent hx Hepatobiliary: No pertinent hx Psych: Anxiety Rheumatologic: No pertinent hx Infectious disease: No pertinent hx Renal/: No pertinent hx Endocrine: No pertinent hx Past Surgical History Past Surgical History: Cholecystectomy, , Other Family History Family History: Hypertension Social History ALCOHOL: none Drugs: None Current Problem List Problem List Problems Medical Problems: (1) Pneumonia Status: Acute Current Medications Current Medications Current Medications Medications (Trade) Dose Ordered Sig/Amanda Start Time Stop Time Status Last Admin Dose Admin Acetaminophen (Tylenol) 650 mg PRN Q4HRS PRN 04/27/19 02:15 04/28/19 02:14 Influenza Virus Vaccine Quadrival (Afluria Quad 2018- (3yr Up) Syringe) 0.5 ml ONCE ONCE 04/27/19 08:15 04/27/19 08:16 DC Info (CONTRAST GIVEN -- Rx MONITORING) 1 each PRN DAILY PRN 04/27/19 00:30 04/29/19 00:29 Iohexol (Omnipaque 350 Mg/ml) 100 ml 1X ONCE 04/27/19 01:00 04/27/19 01:01 DC 04/27/19 01:30 100 ML Lactobacillus Rhamnosus (Culturelle) 1 cap BID 04/27/19 09:00 Ondansetron HCl (Zofran) 4 mg PRN Q8HRS PRN 04/27/19 02:15 04/28/19 02:14 Piperacillin Sod/ Tazobactam Sod 3.375 gm/Sodium Chloride 50 ml @ 100 mls/hr 1X ONCE 04/27/19 02:00 04/27/19 02:29 DC 04/27/19 02:41 100 MLS/HR Sodium Chloride 1,000 ml @ 1,000 mls/hr 1X ONCE 04/26/19 23:30 04/27/19 00:29 DC 04/26/19 23:42 1,000 MLS/HR Vancomycin HCl (Vanco Per Pharmacy) 1 each PRN DAILY PRN 04/27/19 01:45 04/27/19 03:25 1 EACH Vancomycin HCl (Vancomycin Trough Level) 1 each 1X ONCE 04/28/19 13:30 04/28/19 13:31 Vancomycin HCl 1.75 gm/Sodium Chloride 500 ml @ 250 mls/hr 1X ONCE 04/27/19 02:00 04/27/19 03:59 DC 04/27/19 02:32 250 MLS/HR Vancomycin HCl 1 gm/Sodium Chloride 250 ml @ 250 mls/hr Q18H 04/27/19 20:00 Allergies Allergies Allergies Coded Allergies Type Severity Reaction Last Updated Verified No Known Drug Allergies 01/16/19 No ROS Review of System CONSTITUTIONAL: No fever or chills EYES: No recent changes SKIN: No rash or itching CARDIOVASCULAR: No chest pain, syncope, palpitations, or edema RESPIRATORY: No SOB or cough GASTROINTESTINAL: No nausea, vomiting or abdominal pain NEUROLOGICAL: No headaches or weakness ENDOCRINE: No cold or heat intolerance GENITOURINARY: No urgency or frequency of urination MUSCULOSKELETAL: No back pain or joint pain LYMPHATICS: No enlarged lymph nodes PSYCHIATRIC: No anxiety or depression Physical Exam Physical Exam GEN.: No apparent distress. Alert and oriented. HEENT: Head is normocephalic, atraumatic NECK: Supple. LUNGS: Clear to auscultation. HEART: RRR, S1, S2 present. Peripheral pulses intact ABDOMEN: Soft, nontender. Positive bowel sounds. EXTREMITIES: Without any cyanosis. NEUROLOGIC: Normal speech, normal tone PSYCHIATRIC: Normal affect, normal mood. SKIN: No ulcerations Vitals Vitals Vital Signs Date Time Temp Pulse Resp B/P (MAP) Pulse Ox O2 Delivery O2 Flow Rate FiO2 04/27/19 08:00 Room Air 04/27/19 07:15 98.9 82 16 132/78 (96) 94 98.9 Labs Labs Laboratory Tests Test 04/26/19 23:35 04/26/19 23:40 04/26/19 23:45 04/27/19 00:33 Influenza Type A Antigen Negative (NEGATIVE) Influenza Type B Antigen Negative (NEGATIVE) White Blood Count 11.1 x10^3/uL (4.0-11.0) Red Blood Count 4.32 x10^6/uL (3.50-5.40) Hemoglobin 13.5 g/dL (12.0-15.5) Hematocrit 39.5 % (36.0-47.0) Mean Corpuscular Volume 91 fL (79-100) Mean Corpuscular Hemoglobin 31 pg (25-35) Mean Corpuscular Hemoglobin Concent 34 g/dL (31-37) Red Cell Distribution Width 13.6 % (11.5-14.5) Platelet Count 263 x10^3/uL (140-400) Neutrophils (%) (Auto) 67 % (31-73) Lymphocytes (%) (Auto) 20 % (24-48) Monocytes (%) (Auto) 10 % (0-9) Eosinophils (%) (Auto) 3 % (0-3) Basophils (%) (Auto) 1 % (0-3) Neutrophils # (Auto) 7.5 x10^3/uL (1.8-7.7) Lymphocytes # (Auto) 2.2 x10^3/uL (1.0-4.8) Monocytes # (Auto) 1.1 x10^3/uL (0.0-1.1) Eosinophils # (Auto) 0.3 x10^3/uL (0.0-0.7) Basophils # (Auto) 0.1 x10^3/uL (0.0-0.2) D-Dimer (Cherie) 1.16 ug/mlFEU (0.00-0.50) Sodium Level 138 mmol/L (136-145) Potassium Level 3.8 mmol/L (3.5-5.1) Chloride Level 103 mmol/L (98-107) Carbon Dioxide Level 29 mmol/L (21-32) Anion Gap 6 (6-14) Blood Urea Nitrogen 17 mg/dL (7-20) Creatinine 1.1 mg/dL (0.6-1.0) Estimated GFR (Cockcroft-Gault) 50.3 BUN/Creatinine Ratio 15 (6-20) Glucose Level 144 mg/dL (70-99) Lactic Acid Level 1.9 mmol/L (0.4-2.0) Calcium Level 8.8 mg/dL (8.5-10.1) Magnesium Level 1.9 mg/dL (1.8-2.4) Total Bilirubin 0.3 mg/dL (0.2-1.0) Aspartate Amino Transf (AST/SGOT) 30 U/L (15-37) Alanine Aminotransferase (ALT/SGPT) 49 U/L (14-59) Alkaline Phosphatase 132 U/L (46-116) Total Protein 7.8 g/dL (6.4-8.2) Albumin 3.5 g/dL (3.4-5.0) Albumin/Globulin Ratio 0.8 (1.0-1.7) Procalcitonin < 0.10 ng/mL (0.00-0.10) Prothrombin Time 11.9 SEC (11.7-14.0) Prothromb Time International Ratio 0.9 (0.8-1.1) Activated Partial Thromboplast Time 29 SEC (24-38) Group A Streptococcus Rapid Negative (NEGATIVE) Test 04/27/19 07:59 Glucose (Fingerstick) 115 mg/dL (70-99) Laboratory Tests Test 04/26/19 23:35 04/26/19 23:40 04/26/19 23:45 04/27/19 00:33 Influenza Type A Antigen Negative (NEGATIVE) Influenza Type B Antigen Negative (NEGATIVE) White Blood Count 11.1 x10^3/uL (4.0-11.0) Red Blood Count 4.32 x10^6/uL (3.50-5.40) Hemoglobin 13.5 g/dL (12.0-15.5) Hematocrit 39.5 % (36.0-47.0) Mean Corpuscular Volume 91 fL (79-100) Mean Corpuscular Hemoglobin 31 pg (25-35) Mean Corpuscular Hemoglobin Concent 34 g/dL (31-37) Red Cell Distribution Width 13.6 % (11.5-14.5) Platelet Count 263 x10^3/uL (140-400) Neutrophils (%) (Auto) 67 % (31-73) Lymphocytes (%) (Auto) 20 % (24-48) Monocytes (%) (Auto) 10 % (0-9) Eosinophils (%) (Auto) 3 % (0-3) Basophils (%) (Auto) 1 % (0-3) Neutrophils # (Auto) 7.5 x10^3/uL (1.8-7.7) Lymphocytes # (Auto) 2.2 x10^3/uL (1.0-4.8) Monocytes # (Auto) 1.1 x10^3/uL (0.0-1.1) Eosinophils # (Auto) 0.3 x10^3/uL (0.0-0.7) Basophils # (Auto) 0.1 x10^3/uL (0.0-0.2) D-Dimer (Cherie) 1.16 ug/mlFEU (0.00-0.50) Sodium Level 138 mmol/L (136-145) Potassium Level 3.8 mmol/L (3.5-5.1) Chloride Level 103 mmol/L (98-107) Carbon Dioxide Level 29 mmol/L (21-32) Anion Gap 6 (6-14) Blood Urea Nitrogen 17 mg/dL (7-20) Creatinine 1.1 mg/dL (0.6-1.0) Estimated GFR (Cockcroft-Gault) 50.3 BUN/Creatinine Ratio 15 (6-20) Glucose Level 144 mg/dL (70-99) Lactic Acid Level 1.9 mmol/L (0.4-2.0) Calcium Level 8.8 mg/dL (8.5-10.1) Magnesium Level 1.9 mg/dL (1.8-2.4) Total Bilirubin 0.3 mg/dL (0.2-1.0) Aspartate Amino Transf (AST/SGOT) 30 U/L (15-37) Alanine Aminotransferase (ALT/SGPT) 49 U/L (14-59) Alkaline Phosphatase 132 U/L (46-116) Total Protein 7.8 g/dL (6.4-8.2) Albumin 3.5 g/dL (3.4-5.0) Albumin/Globulin Ratio 0.8 (1.0-1.7) Procalcitonin < 0.10 ng/mL (0.00-0.10) Prothrombin Time 11.9 SEC (11.7-14.0) Prothromb Time International Ratio 0.9 (0.8-1.1) Activated Partial Thromboplast Time 29 SEC (24-38) Group A Streptococcus Rapid Negative (NEGATIVE) Test 04/27/19 07:59 Glucose (Fingerstick) 115 mg/dL (70-99) VTE Prophylaxis Ordered VTE Prophylaxis Devices: No VTE Pharmacological Prophylaxi: Yes Assessment/Plan Assessment/Plan Community-acquired pneumonia bilaterally Leukocytosis History of essential hypertension History of COPD Tobacco abuse counseling done less than 10 minutes Chronic kidney disease stage III a Plan: Continue with broad-spectrum antibiotics with vancomycin and Zosyn Supportive measures Symptomatic relief of symptoms Encourage oral intake Encourage more activity as tolerated DVT prophylaxis with Lovenox KRISS BOYD MD Apr 27, 2019 10:38
[2019-04-27] MEDS ORDERED: BENZOCAINE/MENTHOL LOZENGE. PO PRN (10:45)
[2019-04-27] MEDS: LACTOBACILLUS RHAMNOSUS GG 1 CAPSULE. PO SCH ×2 (11:00→22:04)
[2019-04-27] MEDS: ACETAMINOPHEN 325 MG TABLET. PO PRN ×2 (11:00→17:44)
[2019-04-27 11:26] VITALS: BP 108/48
[2019-04-27] MEDS ORDERED: PIPERACILLIN/TAZOBACTAM 4.5 GM in IV NORMAL SALINE 100ML 100 ML IV SCH (12:00)
[2019-04-27] MEDS: PIPERACILLIN/TAZOBACTAM 3.375 GM in IV NORMAL SALINE 50ML 50 ML IV SCH ×2 (13:53→17:44)
[2019-04-27 15:13] VITALS: BP 122/56
[2019-04-27] MEDS: ENOXAPARIN 40 MG/0.4 ML SYRINGE. SQ SCH (17:44)
[2019-04-27 19:59] VITALS: BP 116/58
[2019-04-27] MEDS ORDERED: VANCOMYCIN 1 GM in IV NORMAL SALINE 250ML 250 ML IV SCH (20:00)
[2019-04-27] MEDS: HYDROcodone/APAP 5/325MG 1 TAB TABLET PO PRN (22:02)
[2019-04-27 23:22] VITALS: BP 141/66
[2019-04-28 07:48] VITALS: BP 148/73
[2019-04-28] MEDS: LACTOBACILLUS RHAMNOSUS GG 1 CAPSULE. PO SCH ×2 (11:06→20:31)
[2019-04-28 11:33] VITALS: BP 145/61
--- NOTE | 2019-04-28 11:59 | PDOC ---
PROGRESS NOTES Chief Complaint Chief Complaint Community-acquired pneumonia bilaterally Leukocytosis History of essential hypertension History of COPD Tobacco abuse counseling done less than 10 minutes Chronic kidney disease stage III a Plan: Continue with broad-spectrum antibiotics with vancomycin and Zosyn repeat labs Supportive measures Symptomatic relief of symptoms Encourage oral intake Encourage more activity as tolerated DVT prophylaxis with Lovenox History of Present Illness History of Present Illness Complaining of nausea today, still feeling quite ill but certainly looks better compared to yesterday. No acute events reported overnight, case discussed with nursing staff patient in no acute distress no other complaints during my visit Vitals Vitals Vital Signs Date Time Temp Pulse Resp B/P (MAP) Pulse Ox O2 Delivery O2 Flow Rate FiO2 04/28/19 11:33 98.2 50 20 145/61 (89) 94 Room Air 98.2 Physical Exam Physical Exam Physical Exam GEN.: No apparent distress. Alert and oriented. HEENT: Head is normocephalic, atraumatic NECK: Supple. LUNGS: Clear to auscultation. HEART: RRR, S1, S2 present. Peripheral pulses intact ABDOMEN: Soft, nontender. Positive bowel sounds. EXTREMITIES: Without any cyanosis. NEUROLOGIC: Normal speech, normal tone PSYCHIATRIC: Normal affect, normal mood. SKIN: No ulcerations Lungs: Clear, Wheezing Labs LABS Laboratory Tests Test 04/27/19 16:01 04/27/19 21:11 04/28/19 07:24 04/28/19 10:51 Glucose (Fingerstick) 120 mg/dL (70-99) 119 mg/dL (70-99) 105 mg/dL (70-99) 101 mg/dL (70-99) Review of Systems Review of Systems Review of systems pertinent as per HPI otherwise 14 point review of system is negative Assessment and Plan Assessmemt and Plan Problems Medical Problems: (1) Pneumonia Status: Acute Comment Review of Relevant I have reviewed the following items charlene (where applicable) has been applied. Labs Laboratory Tests Test 04/26/19 23:35 04/26/19 23:40 04/26/19 23:45 04/27/19 00:33 Influenza Type A Antigen Negative (NEGATIVE) Influenza Type B Antigen Negative (NEGATIVE) White Blood Count 11.1 x10^3/uL (4.0-11.0) Red Blood Count 4.32 x10^6/uL (3.50-5.40) Hemoglobin 13.5 g/dL (12.0-15.5) Hematocrit 39.5 % (36.0-47.0) Mean Corpuscular Volume 91 fL (79-100) Mean Corpuscular Hemoglobin 31 pg (25-35) Mean Corpuscular Hemoglobin Concent 34 g/dL (31-37) Red Cell Distribution Width 13.6 % (11.5-14.5) Platelet Count 263 x10^3/uL (140-400) Neutrophils (%) (Auto) 67 % (31-73) Lymphocytes (%) (Auto) 20 % (24-48) Monocytes (%) (Auto) 10 % (0-9) Eosinophils (%) (Auto) 3 % (0-3) Basophils (%) (Auto) 1 % (0-3) Neutrophils # (Auto) 7.5 x10^3/uL (1.8-7.7) Lymphocytes # (Auto) 2.2 x10^3/uL (1.0-4.8) Monocytes # (Auto) 1.1 x10^3/uL (0.0-1.1) Eosinophils # (Auto) 0.3 x10^3/uL (0.0-0.7) Basophils # (Auto) 0.1 x10^3/uL (0.0-0.2) D-Dimer (Cherie) 1.16 ug/mlFEU (0.00-0.50) Sodium Level 138 mmol/L (136-145) Potassium Level 3.8 mmol/L (3.5-5.1) Chloride Level 103 mmol/L (98-107) Carbon Dioxide Level 29 mmol/L (21-32) Anion Gap 6 (6-14) Blood Urea Nitrogen 17 mg/dL (7-20) Creatinine 1.1 mg/dL (0.6-1.0) Estimated GFR (Cockcroft-Gault) 50.3 BUN/Creatinine Ratio 15 (6-20) Glucose Level 144 mg/dL (70-99) Lactic Acid Level 1.9 mmol/L (0.4-2.0) Calcium Level 8.8 mg/dL (8.5-10.1) Magnesium Level 1.9 mg/dL (1.8-2.4) Total Bilirubin 0.3 mg/dL (0.2-1.0) Aspartate Amino Transf (AST/SGOT) 30 U/L (15-37) Alanine Aminotransferase (ALT/SGPT) 49 U/L (14-59) Alkaline Phosphatase 132 U/L (46-116) Total Protein 7.8 g/dL (6.4-8.2) Albumin 3.5 g/dL (3.4-5.0) Albumin/Globulin Ratio 0.8 (1.0-1.7) Procalcitonin < 0.10 ng/mL (0.00-0.10) Prothrombin Time 11.9 SEC (11.7-14.0) Prothromb Time International Ratio 0.9 (0.8-1.1) Activated Partial Thromboplast Time 29 SEC (24-38) Group A Streptococcus Rapid Negative (NEGATIVE) Test 04/27/19 07:59 04/27/19 11:07 04/27/19 16:01 04/27/19 21:11 Glucose (Fingerstick) 115 mg/dL (70-99) 112 mg/dL (70-99) 120 mg/dL (70-99) 119 mg/dL (70-99) Test 04/28/19 07:24 04/28/19 10:51 Glucose (Fingerstick) 105 mg/dL (70-99) 101 mg/dL (70-99) Laboratory Tests Test 04/27/19 16:01 04/27/19 21:11 04/28/19 07:24 04/28/19 10:51 Glucose (Fingerstick) 120 mg/dL (70-99) 119 mg/dL (70-99) 105 mg/dL (70-99) 101 mg/dL (70-99) Medications Current Medications Sodium Chloride 1,000 ml @ 1,000 mls/hr 1X ONCE IV Last administered on 04/26/19at 23:42; Start 04/26/19 at 23:30; Stop 04/27/19 at 00:29; Status DC Ondansetron HCl (Zofran) 4 mg 1X ONCE IV Last administered on 04/26/19at 23:42; Start 04/26/19 at 23:30; Stop 04/26/19 at 23:31; Status DC Iohexol (Omnipaque 350 Mg/ml) 100 ml 1X ONCE IV Last administered on 04/27/19at 01:30; Start 04/27/19 at 01:00; Stop 04/27/19 at 01:01; Status DC Info (CONTRAST GIVEN -- Rx MONITORING) 1 each PRN DAILY PRN MC SEE COMMENTS; Start 04/27/19 at 00:30; Stop 04/29/19 at 00:29 Vancomycin HCl 1.75 gm/Sodium Chloride 500 ml @ 250 mls/hr 1X ONCE IV Last administered on 04/27/19at 02:32; Start 04/27/19 at 02:00; Stop 04/27/19 at 03:59; Status DC Piperacillin Sod/ Tazobactam Sod 3.375 gm/Sodium Chloride 50 ml @ 100 mls/hr 1X ONCE IV Last administered on 04/27/19at 02:41; Start 04/27/19 at 02:00; Stop 04/27/19 at 02:29; Status DC Vancomycin HCl (Vanco Per Pharmacy) 1 each PRN DAILY PRN MC SEE COMMENTS Last administered on 04/27/19at 14:03; Start 04/27/19 at 01:45 Ondansetron HCl (Zofran) 4 mg PRN Q8HRS PRN IV NAUSEA/VOMITING 1ST CHOICE; Start 04/27/19 at 02:15; Stop 04/28/19 at 09:45; Status DC Acetaminophen (Tylenol) 650 mg PRN Q4HRS PRN PO FEVER Last administered on 04/27/19at 17:44; Start 04/27/19 at 02:15; Stop 04/28/19 at 09:45; Status DC Vancomycin HCl 1 gm/Sodium Chloride 250 ml @ 250 mls/hr Q18H IV Last administered on 04/27/19at 22:06; Start 04/27/19 at 20:00 Vancomycin HCl (Vancomycin Trough Level) 1 each 1X ONCE MC ; Start 04/28/19 at 13:30; Stop 04/28/19 at 13:31 Lactobacillus Rhamnosus (Culturelle) 1 cap BID PO Last administered on 04/28/19at 11:06; Start 04/27/19 at 09:00 Influenza Virus Vaccine Quadrival (Afluria Quad 2019-20 (3yr Up) Syringe) 0.5 ml ONCE ONCE VAX IM Last administered on 04/27/19at 13:53; Start 04/27/19 at 08:15; Stop 04/27/19 at 08:16; Status DC Throat Lozenges (Cepacol Sore Throat Lozenge) 1 joseph PRN Q2HRS PRN PO SORE THROAT Last administered on 04/27/19at 11:00; Start 04/27/19 at 10:45 Piperacillin Sod/ Tazobactam Sod 4.5 gm/Sodium Chloride 100 ml @ 200 mls/hr Q6HRS IV ; Start 04/27/19 at 12:00; Status UNV Piperacillin Sod/ Tazobactam Sod 3.375 gm/Sodium Chloride 50 ml @ 100 mls/hr Q6HRS IV Last administered on 04/28/19at 00:00; Start 04/27/19 at 12:00 Enoxaparin Sodium (Lovenox 40mg Syringe) 40 mg Q24H SQ Last administered on 04/27/19at 17:44; Start 04/27/19 at 16:00 Acetaminophen/ Hydrocodone Bitart (Lortab 5/325) 1 tab PRN Q4HRS PRN PO MODERATE PAIN 4-6 Last administered on 04/27/19at 22:02; Start 04/27/19 at 22:00 Active Scripts Active Pantoprazole Sodium (Pantoprazole Sodium) 40 Mg Tablet.dr 40 Mg PO DAILYAC 30 Days Polyethylene Glycol 3350 17 Gm Powd.pack 17 Gm PO DAILY 14 Days Mag-Al Plus Xs Suspension (Mag Hydrox/Al Hydrox/Simeth) 30 Ml Oral.susp 30 Ml PO PRN DAILY PRN 14 Days Tylenol (Acetaminophen) 325 Mg Tablet 650 Mg PO PRN Q4HRS PRN 10 Days Aspirin Ec (Aspirin) 325 Mg Tablet.dr 1 Tab PO DAILY Simvastatin 40 Mg Tablet 40 Mg PO QHS 30 Days Reported Ibuprofen 400 Mg Tablet 400 Mg PO PRN Q6HRS PRN NITROGLYCERIN SubLingual (Nitroglycerin) 0.4 Mg Tab.subl 0.4 Mg SL PRN Q5MIN PRN Vitals/I & O Vital Sign - Last 24 Hours 04/27/19 04/27/19 04/27/19 04/27/19 15:13 19:59 20:00 22:02 Temp 99.1 98.0 99.1 98.0 Pulse 75 55 Resp 16 18 18 B/P (MAP) 122/56 (78) 116/58 (77) Pulse Ox 96 97 97 O2 Delivery Room Air Room Air Room Air Room Air 04/27/19 04/27/19 04/28/19 04/28/19 23:22 23:24 07:48 11:33 Temp 97.9 98.2 98.2 97.9 98.2 98.2 Pulse 59 57 50 Resp 18 16 18 20 B/P (MAP) 141/66 (91) 148/73 (98) 145/61 (89) Pulse Ox 97 97 93 94 O2 Delivery Room Air Room Air Room Air Room Air Intake and Output 04/27/19 04/27/19 04/28/19 15:00 23:00 07:00 Intake Total 550 ml 150 ml 320 ml Balance 550 ml 150 ml 320 ml KRISS BOYD MD Apr 28, 2019 11:59
[2019-04-28] MEDS: PIPERACILLIN/TAZOBACTAM 3.375 GM in IV NORMAL SALINE 50ML 50 ML IV SCH ×5 (12:00→19:22)
[2019-04-28] MEDS ORDERED: ONDANSETRON PF 4 MG/2 ML VIAL. IVP PRN (12:00)
[2019-04-28 13:47] LABS: BASO # 0.1 x10^3/uL (0.0-0.2); BASO % 1 % (0-3); EOS # 0.2 x10^3/uL (0.0-0.7); EOS % 5 % (0-3); HEMATOCRIT 37.5 % (36.0-47.0); LYMPH # 1.5 x10^3/uL (1.0-4.8); LYMPH % 33 % (24-48); MEAN CORPUSCULAR HEMOGLOBIN 31 pg (25-35); MEAN CORPUSCULAR HGB CONC 35 g/dL (31-37); MEAN CORPUSCULAR VOLUME 91 fL (79-100); MONO # 0.7 x10^3/uL (0.0-1.1); MONO % 14 % (0-9); NEUT # 2.2 x10^3/uL (1.8-7.7); NEUT % 48 % (31-73); PLATELET COUNT 240 x10^3/uL (140-400); RED BLOOD COUNT 4.14 x10^6/uL (3.50-5.40); RED CELL DISTRIBUTION WIDTH 13.5 % (11.5-14.5); WHITE BLOOD COUNT 4.6 x10^3/uL (4.0-11.0)
[2019-04-28 14:00] LABS: CALCIUM 8.6 mg/dL (8.5-10.1); GFR 56.2; POTASSIUM 3.7 mmol/L (3.5-5.1)
[2019-04-28 14:07] LABS: VANC TR 8.7 mcg/mL (10.0-20.0)
[2019-04-28] MEDS: VANCOMYCIN PER PHARMACY MC PRN (14:36)
[2019-04-28] MEDS: HYDROcodone/APAP 5/325MG 1 TAB TABLET PO PRN ×2 (15:12→20:32)
[2019-04-28 15:15] VITALS: BP 148/72
[2019-04-28] MEDS: VANCOMYCIN 1.25 GM in IV NORMAL SALINE 250ML 250 ML IV SCH (18:02)
[2019-04-28] MEDS: ENOXAPARIN 40 MG/0.4 ML SYRINGE. SQ SCH (18:03)
[2019-04-28 19:05] VITALS: BP 116/52
[2019-04-28 23:31] VITALS: BP 121/60
[2019-04-29] MEDS: HYDROcodone/APAP 5/325MG 1 TAB TABLET PO PRN ×2 (00:32→09:12)
[2019-04-29] MEDS: PIPERACILLIN/TAZOBACTAM 3.375 GM in IV NORMAL SALINE 50ML 50 ML IV SCH ×2 (00:32→06:09)
[2019-04-29 03:23] VITALS: BP 146/67
[2019-04-29] MEDS: VANCOMYCIN 1.25 GM in IV NORMAL SALINE 250ML 250 ML IV SCH (03:49)
[2019-04-29 07:18] VITALS: BP 120/66
[2019-04-29] MEDS: LACTOBACILLUS RHAMNOSUS GG 1 CAPSULE. PO SCH ×2 (09:12→21:45)
[2019-04-29] MEDS ORDERED: KETOROLAC 15 MG/ML VIAL. IVP PRN (09:45)
[2019-04-29] MEDS ORDERED: MECLIZINE HCL 12.5 MG TABLET. PO PRN (09:45)
--- NOTE | 2019-04-29 09:46 | PDOC ---
PROGRESS NOTES Chief Complaint Chief Complaint Community-acquired pneumonia bilaterally Leukocytosis History of essential hypertension History of COPD Tobacco abuse counseling done less than 10 minutes Chronic kidney disease stage III a Plan: Transition to oral antibiotics Reassess in the a.m. Likely discharge in the a.m. in the meantime supportive measures Symptomatic relief of symptoms Encourage oral intake Encourage more activity as tolerated DVT prophylaxis with Lovenox History of Present Illness History of Present Illness Complaining of dizziness and also pain secondary to the coughing effort. She also has generalized pacing from her underlying osteoarthritis. No fever or chills reported overnight overall feels better Vitals Vitals Vital Signs Date Time Temp Pulse Resp B/P (MAP) Pulse Ox O2 Delivery O2 Flow Rate FiO2 04/29/19 09:12 96 Room Air 04/29/19 07:18 97.6 61 14 120/66 (84) 97.6 Physical Exam Physical Exam Physical Exam GEN.: No apparent distress. Alert and oriented. HEENT: Head is normocephalic, atraumatic NECK: Supple. LUNGS: Clear to auscultation. HEART: RRR, S1, S2 present. Peripheral pulses intact ABDOMEN: Soft, nontender. Positive bowel sounds. EXTREMITIES: Without any cyanosis. NEUROLOGIC: Normal speech, normal tone PSYCHIATRIC: Normal affect, normal mood. SKIN: No ulcerations Lungs: Clear, Wheezing Labs LABS Laboratory Tests Test 04/28/19 10:51 04/28/19 12:45 04/28/19 13:30 04/28/19 16:27 Glucose (Fingerstick) 101 mg/dL (70-99) 153 mg/dL (70-99) Sodium Level 141 mmol/L (136-145) Potassium Level 3.7 mmol/L (3.5-5.1) Chloride Level 105 mmol/L (98-107) Carbon Dioxide Level 31 mmol/L (21-32) Anion Gap 5 (6-14) Blood Urea Nitrogen 16 mg/dL (7-20) Creatinine 1.0 mg/dL (0.6-1.0) Estimated GFR (Cockcroft-Gault) 56.2 Glucose Level 110 mg/dL (70-99) Calcium Level 8.6 mg/dL (8.5-10.1) White Blood Count 4.6 x10^3/uL (4.0-11.0) Red Blood Count 4.14 x10^6/uL (3.50-5.40) Hemoglobin 13.0 g/dL (12.0-15.5) Hematocrit 37.5 % (36.0-47.0) Mean Corpuscular Volume 91 fL (79-100) Mean Corpuscular Hemoglobin 31 pg (25-35) Mean Corpuscular Hemoglobin Concent 35 g/dL (31-37) Red Cell Distribution Width 13.5 % (11.5-14.5) Platelet Count 240 x10^3/uL (140-400) Neutrophils (%) (Auto) 48 % (31-73) Lymphocytes (%) (Auto) 33 % (24-48) Monocytes (%) (Auto) 14 % (0-9) Eosinophils (%) (Auto) 5 % (0-3) Basophils (%) (Auto) 1 % (0-3) Neutrophils # (Auto) 2.2 x10^3/uL (1.8-7.7) Lymphocytes # (Auto) 1.5 x10^3/uL (1.0-4.8) Monocytes # (Auto) 0.7 x10^3/uL (0.0-1.1) Eosinophils # (Auto) 0.2 x10^3/uL (0.0-0.7) Basophils # (Auto) 0.1 x10^3/uL (0.0-0.2) Vancomycin Level Trough 8.7 mcg/mL (10.0-20.0) Vancomycin Last Dose Date 04/27/19 Vancomycin Last Dose Time 1999 Test 04/28/19 20:55 04/29/19 07:07 Glucose (Fingerstick) 133 mg/dL (70-99) 136 mg/dL (70-99) Review of Systems Review of Systems Review of systems pertinent as per HPI otherwise 14 point review of system is negative Assessment and Plan Assessmemt and Plan Problems Medical Problems: (1) Pneumonia Status: Acute Comment Review of Relevant I have reviewed the following items charlene (where applicable) has been applied. Labs Laboratory Tests Test 04/27/19 11:07 04/27/19 16:01 04/27/19 21:11 04/28/19 07:24 Glucose (Fingerstick) 112 mg/dL (70-99) 120 mg/dL (70-99) 119 mg/dL (70-99) 105 mg/dL (70-99) Test 04/28/19 10:51 04/28/19 12:45 04/28/19 13:30 04/28/19 16:27 Glucose (Fingerstick) 101 mg/dL (70-99) 153 mg/dL (70-99) Sodium Level 141 mmol/L (136-145) Potassium Level 3.7 mmol/L (3.5-5.1) Chloride Level 105 mmol/L (98-107) Carbon Dioxide Level 31 mmol/L (21-32) Anion Gap 5 (6-14) Blood Urea Nitrogen 16 mg/dL (7-20) Creatinine 1.0 mg/dL (0.6-1.0) Estimated GFR (Cockcroft-Gault) 56.2 Glucose Level 110 mg/dL (70-99) Calcium Level 8.6 mg/dL (8.5-10.1) White Blood Count 4.6 x10^3/uL (4.0-11.0) Red Blood Count 4.14 x10^6/uL (3.50-5.40) Hemoglobin 13.0 g/dL (12.0-15.5) Hematocrit 37.5 % (36.0-47.0) Mean Corpuscular Volume 91 fL (79-100) Mean Corpuscular Hemoglobin 31 pg (25-35) Mean Corpuscular Hemoglobin Concent 35 g/dL (31-37) Red Cell Distribution Width 13.5 % (11.5-14.5) Platelet Count 240 x10^3/uL (140-400) Neutrophils (%) (Auto) 48 % (31-73) Lymphocytes (%) (Auto) 33 % (24-48) Monocytes (%) (Auto) 14 % (0-9) Eosinophils (%) (Auto) 5 % (0-3) Basophils (%) (Auto) 1 % (0-3) Neutrophils # (Auto) 2.2 x10^3/uL (1.8-7.7) Lymphocytes # (Auto) 1.5 x10^3/uL (1.0-4.8) Monocytes # (Auto) 0.7 x10^3/uL (0.0-1.1) Eosinophils # (Auto) 0.2 x10^3/uL (0.0-0.7) Basophils # (Auto) 0.1 x10^3/uL (0.0-0.2) Vancomycin Level Trough 8.7 mcg/mL (10.0-20.0) Vancomycin Last Dose Date 04/27/19 Vancomycin Last Dose Time 2000 Test 04/28/19 20:55 04/29/19 07:07 Glucose (Fingerstick) 133 mg/dL (70-99) 136 mg/dL (70-99) Laboratory Tests Test 04/28/19 10:51 04/28/19 12:45 04/28/19 13:30 04/28/19 16:27 Glucose (Fingerstick) 101 mg/dL (70-99) 153 mg/dL (70-99) Sodium Level 141 mmol/L (136-145) Potassium Level 3.7 mmol/L (3.5-5.1) Chloride Level 105 mmol/L (98-107) Carbon Dioxide Level 31 mmol/L (21-32) Anion Gap 5 (6-14) Blood Urea Nitrogen 16 mg/dL (7-20) Creatinine 1.0 mg/dL (0.6-1.0) Estimated GFR (Cockcroft-Gault) 56.2 Glucose Level 110 mg/dL (70-99) Calcium Level 8.6 mg/dL (8.5-10.1) White Blood Count 4.6 x10^3/uL (4.0-11.0) Red Blood Count 4.14 x10^6/uL (3.50-5.40) Hemoglobin 13.0 g/dL (12.0-15.5) Hematocrit 37.5 % (36.0-47.0) Mean Corpuscular Volume 91 fL (79-100) Mean Corpuscular Hemoglobin 31 pg (25-35) Mean Corpuscular Hemoglobin Concent 35 g/dL (31-37) Red Cell Distribution Width 13.5 % (11.5-14.5) Platelet Count 240 x10^3/uL (140-400) Neutrophils (%) (Auto) 48 % (31-73) Lymphocytes (%) (Auto) 33 % (24-48) Monocytes (%) (Auto) 14 % (0-9) Eosinophils (%) (Auto) 5 % (0-3) Basophils (%) (Auto) 1 % (0-3) Neutrophils # (Auto) 2.2 x10^3/uL (1.8-7.7) Lymphocytes # (Auto) 1.5 x10^3/uL (1.0-4.8) Monocytes # (Auto) 0.7 x10^3/uL (0.0-1.1) Eosinophils # (Auto) 0.2 x10^3/uL (0.0-0.7) Basophils # (Auto) 0.1 x10^3/uL (0.0-0.2) Vancomycin Level Trough 8.7 mcg/mL (10.0-20.0) Vancomycin Last Dose Date 04/27/19 Vancomycin Last Dose Time 2000 Test 04/28/19 20:55 04/29/19 07:07 Glucose (Fingerstick) 133 mg/dL (70-99) 136 mg/dL (70-99) Medications Current Medications Sodium Chloride 1,000 ml @ 1,000 mls/hr 1X ONCE IV Last administered on 04/26/19at 23:42; Start 04/26/19 at 23:30; Stop 04/27/19 at 00:29; Status DC Ondansetron HCl (Zofran) 4 mg 1X ONCE IV Last administered on 04/26/19at 23:42; Start 04/26/19 at 23:30; Stop 04/26/19 at 23:31; Status DC Iohexol (Omnipaque 350 Mg/ml) 100 ml 1X ONCE IV Last administered on 04/27/19at 01:30; Start 04/27/19 at 01:00; Stop 04/27/19 at 01:01; Status DC Info (CONTRAST GIVEN -- Rx MONITORING) 1 each PRN DAILY PRN MC SEE COMMENTS; Start 04/27/19 at 00:30; Stop 04/29/19 at 00:29; Status DC Vancomycin HCl 1.75 gm/Sodium Chloride 500 ml @ 250 mls/hr 1X ONCE IV Last administered on 04/27/19at 02:32; Start 04/27/19 at 02:00; Stop 04/27/19 at 03:59; Status DC Piperacillin Sod/ Tazobactam Sod 3.375 gm/Sodium Chloride 50 ml @ 100 mls/hr 1X ONCE IV Last administered on 04/27/19at 02:41; Start 04/27/19 at 02:00; Stop 04/27/19 at 02:29; Status DC Vancomycin HCl (Vanco Per Pharmacy) 1 each PRN DAILY PRN MC SEE COMMENTS Last administered on 04/28/19at 14:36; Start 04/27/19 at 01:45 Ondansetron HCl (Zofran) 4 mg PRN Q8HRS PRN IV NAUSEA/VOMITING 1ST CHOICE; Start 04/27/19 at 02:15; Stop 04/28/19 at 09:45; Status DC Acetaminophen (Tylenol) 650 mg PRN Q4HRS PRN PO FEVER Last administered on 04/27/19at 17:44; Start 04/27/19 at 02:15; Stop 04/28/19 at 09:45; Status DC Vancomycin HCl 1 gm/Sodium Chloride 250 ml @ 250 mls/hr Q18H IV Last administered on 04/27/19at 22:06; Start 04/27/19 at 20:00; Stop 04/28/19 at 14:23; Status DC Vancomycin HCl (Vancomycin Trough Level) 1 each 1X ONCE MC ; Start 04/28/19 at 13:30; Stop 04/28/19 at 13:31; Status DC Lactobacillus Rhamnosus (Culturelle) 1 cap BID PO Last administered on 04/29/19at 09:12; Start 04/27/19 at 09:00 Influenza Virus Vaccine Quadrival (Afluria Quad 2019-20 (3yr Up) Syringe) 0.5 ml ONCE ONCE VAX IM Last administered on 04/27/19at 13:53; Start 04/27/19 at 08:15; Stop 04/27/19 at 08:16; Status DC Throat Lozenges (Cepacol Sore Throat Lozenge) 1 joseph PRN Q2HRS PRN PO SORE THROAT Last administered on 04/27/19at 11:00; Start 04/27/19 at 10:45 Piperacillin Sod/ Tazobactam Sod 4.5 gm/Sodium Chloride 100 ml @ 200 mls/hr Q6HRS IV ; Start 04/27/19 at 12:00; Status UNV Piperacillin Sod/ Tazobactam Sod 3.375 gm/Sodium Chloride 50 ml @ 100 mls/hr Q6HRS IV Last administered on 04/29/19at 06:09; Start 04/27/19 at 12:00 Enoxaparin Sodium (Lovenox 40mg Syringe) 40 mg Q24H SQ Last administered on 04/28/19at 18:03; Start 04/27/19 at 16:00 Acetaminophen/ Hydrocodone Bitart (Lortab 5/325) 1 tab PRN Q4HRS PRN PO MODERATE PAIN 4-6 Last administered on 04/29/19at 09:12; Start 04/27/19 at 22:00 Ondansetron HCl (Zofran) 4 mg PRN Q6HRS PRN IVP NAUSEA/VOMITING Last administered on 04/28/19at 15:13; Start 04/28/19 at 12:00 Vancomycin HCl 1.25 gm/Sodium Chloride 250 ml @ 167 mls/hr Q12H IV Last administered on 04/29/19at 03:49; Start 04/28/19 at 15:00 Vancomycin HCl (Vancomycin Trough Level) 1 each 1X ONCE MC ; Start 04/30/19 at 02:30; Stop 04/30/19 at 02:31 Active Scripts Active Pantoprazole Sodium (Pantoprazole Sodium) 40 Mg Tablet.dr 40 Mg PO DAILYAC 30 Days Polyethylene Glycol 3350 17 Gm Powd.pack 17 Gm PO DAILY 14 Days Mag-Al Plus Xs Suspension (Mag Hydrox/Al Hydrox/Simeth) 30 Ml Oral.susp 30 Ml PO PRN DAILY PRN 14 Days Tylenol (Acetaminophen) 325 Mg Tablet 650 Mg PO PRN Q4HRS PRN 10 Days Aspirin Ec (Aspirin) 325 Mg Tablet.dr 1 Tab PO DAILY Simvastatin 40 Mg Tablet 40 Mg PO QHS 30 Days Reported Ibuprofen 400 Mg Tablet 400 Mg PO PRN Q6HRS PRN NITROGLYCERIN SubLingual (Nitroglycerin) 0.4 Mg Tab.subl 0.4 Mg SL PRN Q5MIN PRN Vitals/I & O Vital Sign - Last 24 Hours 04/28/19 04/28/19 04/28/19 04/28/19 11:33 15:12 15:15 16:12 Temp 98.2 98.3 98.2 98.3 Pulse 50 62 Resp 20 18 B/P (MAP) 145/61 (89) 148/72 (97) Pulse Ox 94 94 94 94 O2 Delivery Room Air Room Air Room Air Room Air 04/28/19 04/28/19 04/28/19 3/14/20 19:05 20:00 20:32 21:32 Temp 97.8 97.8 Pulse 63 Resp 18 18 18 B/P (MAP) 116/52 (73) Pulse Ox 95 95 95 O2 Delivery Room Air Room Air Room Air Room Air 04/28/19 04/29/19 04/29/19 04/29/19 23:31 00:32 01:32 03:23 Temp 97.7 97.8 97.7 97.8 Pulse 60 53 Resp 18 18 16 18 B/P (MAP) 121/60 (80) 146/67 (93) Pulse Ox 94 94 94 95 O2 Delivery Room Air Room Air Room Air Room Air 04/29/19 04/29/19 07:18 09:12 Temp 97.6 97.6 Pulse 61 Resp 14 B/P (MAP) 120/66 (84) Pulse Ox 96 96 O2 Delivery Room Air Room Air Intake and Output 04/28/19 04/28/19 04/29/19 15:00 23:00 07:00 Intake Total 250 ml 500 ml 250 ml Balance 250 ml 500 ml 250 ml KRISS BOYD MD Apr 29, 2019 09:46
[2019-04-29 11:21] VITALS: BP 128/61
[2019-04-29] MEDS: AMOXICILLIN/K CLAV 875/125MG TABLET. PO SCH ×2 (11:47→21:45)
[2019-04-29] MEDS: POLYETHYLENE GLYCOL 3350 17 GM PACKET. PO PRN (15:36)
[2019-04-29] MEDS: ENOXAPARIN 40 MG/0.4 ML SYRINGE. SQ SCH (15:37)
[2019-04-29 15:49] VITALS: BP 130/61
[2019-04-29 19:10] VITALS: BP 146/75
[2019-04-29 23:33] VITALS: BP 149/77
[2019-04-30] MEDS: HYDROcodone/APAP 5/325MG 1 TAB TABLET PO PRN (01:37)
[2019-04-30 03:15] VITALS: BP 127/65
[2019-04-30] MEDS ORDERED: ALBUTEROL SULFATE 2.5 MG/3 ML NEBU. NEB PRN (05:00)
[2019-04-30 07:00] VITALS: BP 99/38
[2019-04-30] MEDS: IPRATRPIUM/ALBUTEROL 0.5/2.5MG 3 ML NEBU. NEB SCH ×2 (07:29→11:27)
--- NOTE | 2019-04-30 09:18 | PDOC ---
PROGRESS NOTES Chief Complaint Chief Complaint Community-acquired pneumonia bilaterally Leukocytosis History of essential hypertension History of COPD Tobacco abuse counseling done less than 10 minutes Chronic kidney disease stage III a Plan: Transition to oral antibiotics Reassess in the a.m. Likely discharge in the a.m. in the meantime supportive measures Symptomatic relief of symptoms Encourage oral intake Encourage more activity as tolerated DVT prophylaxis with Lovenox History of Present Illness History of Present Illness Ms Roberson is a 63yo F admitted with dizziness, cough, found with community acquired pneumonia. No fevers or shortness of breath. 04/28: Complaining of dizziness and also pain secondary to the coughing effort. She also has generalized pain from her underlying osteoarthritis. No fever or chills reported overnight overall feels better. She feels improved, was transitioned to oral augmentin. Cough is minimal. No further fevers. Vitals Vitals Vital Signs Date Time Temp Pulse Resp B/P (MAP) Pulse Ox O2 Delivery O2 Flow Rate FiO2 04/30/19 07:30 96 Nasal Cannula 2.0 04/30/19 07:00 98.5 56 22 99/38 (58) 98.5 Physical Exam Physical Exam Physical Exam GEN.: No apparent distress. Alert and oriented. HEENT: Head is normocephalic, atraumatic NECK: Supple. LUNGS: Clear to auscultation. HEART: RRR, S1, S2 present. Peripheral pulses intact ABDOMEN: Soft, nontender. Positive bowel sounds. EXTREMITIES: Without any cyanosis. NEUROLOGIC: Normal speech, normal tone PSYCHIATRIC: Normal affect, normal mood. SKIN: No ulcerations Lungs: Clear, Wheezing Labs LABS Laboratory Tests Test 04/29/19 10:50 04/29/19 15:22 04/29/19 20:35 04/30/19 07:54 Glucose (Fingerstick) 121 mg/dL (70-99) 129 mg/dL (70-99) 125 mg/dL (70-99) 98 mg/dL (70-99) Assessment and Plan Assessmemt and Plan Problems Medical Problems: (1) Pneumonia Status: Acute Comment Review of Relevant I have reviewed the following items charlene (where applicable) has been applied. Labs Laboratory Tests Test 04/28/19 10:51 04/28/19 12:45 04/28/19 13:30 04/28/19 16:27 Glucose (Fingerstick) 101 mg/dL (70-99) 153 mg/dL (70-99) Sodium Level 141 mmol/L (136-145) Potassium Level 3.7 mmol/L (3.5-5.1) Chloride Level 105 mmol/L (98-107) Carbon Dioxide Level 31 mmol/L (21-32) Anion Gap 5 (6-14) Blood Urea Nitrogen 16 mg/dL (7-20) Creatinine 1.0 mg/dL (0.6-1.0) Estimated GFR (Cockcroft-Gault) 56.2 Glucose Level 110 mg/dL (70-99) Calcium Level 8.6 mg/dL (8.5-10.1) White Blood Count 4.6 x10^3/uL (4.0-11.0) Red Blood Count 4.14 x10^6/uL (3.50-5.40) Hemoglobin 13.0 g/dL (12.0-15.5) Hematocrit 37.5 % (36.0-47.0) Mean Corpuscular Volume 91 fL (79-100) Mean Corpuscular Hemoglobin 31 pg (25-35) Mean Corpuscular Hemoglobin Concent 35 g/dL (31-37) Red Cell Distribution Width 13.5 % (11.5-14.5) Platelet Count 240 x10^3/uL (140-400) Neutrophils (%) (Auto) 48 % (31-73) Lymphocytes (%) (Auto) 33 % (24-48) Monocytes (%) (Auto) 14 % (0-9) Eosinophils (%) (Auto) 5 % (0-3) Basophils (%) (Auto) 1 % (0-3) Neutrophils # (Auto) 2.2 x10^3/uL (1.8-7.7) Lymphocytes # (Auto) 1.5 x10^3/uL (1.0-4.8) Monocytes # (Auto) 0.7 x10^3/uL (0.0-1.1) Eosinophils # (Auto) 0.2 x10^3/uL (0.0-0.7) Basophils # (Auto) 0.1 x10^3/uL (0.0-0.2) Vancomycin Level Trough 8.7 mcg/mL (10.0-20.0) Vancomycin Last Dose Date 04/27/19 Vancomycin Last Dose Time 1999 Test 04/28/19 20:55 04/29/19 07:07 04/29/19 10:50 04/29/19 15:22 Glucose (Fingerstick) 133 mg/dL (70-99) 136 mg/dL (70-99) 121 mg/dL (70-99) 129 mg/dL (70-99) Test 04/29/19 20:35 04/30/19 07:54 Glucose (Fingerstick) 125 mg/dL (70-99) 98 mg/dL (70-99) Laboratory Tests Test 04/29/19 10:50 04/29/19 15:22 04/29/19 20:35 04/30/19 07:54 Glucose (Fingerstick) 121 mg/dL (70-99) 129 mg/dL (70-99) 125 mg/dL (70-99) 98 mg/dL (70-99) Microbiology 04/27/19 Nose/Throat Culture - Final, Complete 04/27/19 - Final, Complete Medications Current Medications Sodium Chloride 1,000 ml @ 1,000 mls/hr 1X ONCE IV Last administered on 04/26/19at 23:42; Start 04/26/19 at 23:30; Stop 04/27/19 at 00:29; Status DC Ondansetron HCl (Zofran) 4 mg 1X ONCE IV Last administered on 04/26/19at 23:42; Start 04/26/19 at 23:30; Stop 04/26/19 at 23:31; Status DC Iohexol (Omnipaque 350 Mg/ml) 100 ml 1X ONCE IV Last administered on 04/27/19at 01:30; Start 04/27/19 at 01:00; Stop 04/27/19 at 01:01; Status DC Info (CONTRAST GIVEN -- Rx MONITORING) 1 each PRN DAILY PRN MC SEE COMMENTS; Start 04/27/19 at 00:30; Stop 04/29/19 at 00:29; Status DC Vancomycin HCl 1.75 gm/Sodium Chloride 500 ml @ 250 mls/hr 1X ONCE IV Last administered on 04/27/19at 02:32; Start 04/27/19 at 02:00; Stop 04/27/19 at 03:59; Status DC Piperacillin Sod/ Tazobactam Sod 3.375 gm/Sodium Chloride 50 ml @ 100 mls/hr 1X ONCE IV Last administered on 04/27/19at 02:41; Start 04/27/19 at 02:00; Stop 04/27/19 at 02:29; Status DC Vancomycin HCl (Vanco Per Pharmacy) 1 each PRN DAILY PRN MC SEE COMMENTS Last administered on 04/28/19at 14:36; Start 04/27/19 at 01:45; Stop 04/29/19 at 09:57; Status DC Ondansetron HCl (Zofran) 4 mg PRN Q8HRS PRN IV NAUSEA/VOMITING 1ST CHOICE; Start 04/27/19 at 02:15; Stop 04/28/19 at 09:45; Status DC Acetaminophen (Tylenol) 650 mg PRN Q4HRS PRN PO FEVER Last administered on 04/27/19at 17:44; Start 04/27/19 at 02:15; Stop 04/28/19 at 09:45; Status DC Vancomycin HCl 1 gm/Sodium Chloride 250 ml @ 250 mls/hr Q18H IV Last administered on 04/27/19at 22:06; Start 04/27/19 at 20:00; Stop 04/28/19 at 14:23; Status DC Vancomycin HCl (Vancomycin Trough Level) 1 each 1X ONCE MC ; Start 04/28/19 at 13:30; Stop 04/28/19 at 13:31; Status DC Lactobacillus Rhamnosus (Culturelle) 1 cap BID PO Last administered on 04/29/19at 21:45; Start 04/27/19 at 09:00 Influenza Virus Vaccine Quadrival (Afluria Quad 2019-20 (3yr Up) Syringe) 0.5 ml ONCE ONCE VAX IM Last administered on 04/27/19at 13:53; Start 04/27/19 at 08:15; Stop 04/27/19 at 08:16; Status DC Throat Lozenges (Cepacol Sore Throat Lozenge) 1 joseph PRN Q2HRS PRN PO SORE THROAT Last administered on 04/27/19at 11:00; Start 04/27/19 at 10:45 Piperacillin Sod/ Tazobactam Sod 4.5 gm/Sodium Chloride 100 ml @ 200 mls/hr Q6HRS IV ; Start 04/27/19 at 12:00; Status UNV Piperacillin Sod/ Tazobactam Sod 3.375 gm/Sodium Chloride 50 ml @ 100 mls/hr Q6HRS IV Last administered on 04/29/19at 06:09; Start 04/27/19 at 12:00; Stop 04/29/19 at 09:55; Status DC Enoxaparin Sodium (Lovenox 40mg Syringe) 40 mg Q24H SQ Last administered on 04/29/19at 15:37; Start 04/27/19 at 16:00 Acetaminophen/ Hydrocodone Bitart (Lortab 5/325) 1 tab PRN Q4HRS PRN PO MODERATE PAIN 4-6 Last administered on 04/30/19at 01:37; Start 04/27/19 at 22:00 Ondansetron HCl (Zofran) 4 mg PRN Q6HRS PRN IVP NAUSEA/VOMITING Last administered on 04/28/19at 15:13; Start 04/28/19 at 12:00 Vancomycin HCl 1.25 gm/Sodium Chloride 250 ml @ 167 mls/hr Q12H IV Last administered on 04/29/19at 03:49; Start 04/28/19 at 15:00; Stop 04/29/19 at 09:55; Status DC Vancomycin HCl (Vancomycin Trough Level) 1 each 1X ONCE MC ; Start 04/30/19 at 02:30; Stop 04/29/19 at 09:57; Status DC Meclizine HCl (Antivert) 12.5 mg PRN Q6HRS PRN PO DIZZINESS Last administered on 04/29/19at 11:47; Start 04/29/19 at 09:45 Ketorolac Tromethamine (Toradol 15mg Vial) 15 mg PRN Q6HRS PRN IVP PAIN Last administered on 04/29/19at 15:39; Start 04/29/19 at 09:45; Stop 05/04/19 at 09:44 Amoxicillin/ Clavulanate Potassium (Augmentin 875/ 125mg) 1 tab BID PO Last administered on 04/29/19at 21:45; Start 04/29/19 at 10:00 Polyethylene Glycol (miraLAX PACKET) 17 gm PRN DAILY PRN PO CONSTIPATION Last administered on 04/29/19at 15:36; Start 04/29/19 at 15:30 Albuterol/ Ipratropium (Duoneb) 3 ml RTQID NEB Last administered on 04/30/19at 07:29; Start 04/30/19 at 08:00 Albuterol Sulfate (Ventolin Neb Soln) 2.5 mg PRN Q4HRS PRN NEB SHORTNESS OF BREATH Last administered on 04/30/19at 05:08; Start 04/30/19 at 05:00 Active Scripts Active Pantoprazole Sodium (Pantoprazole Sodium) 40 Mg Tablet.dr 40 Mg PO DAILYAC 30 Days Polyethylene Glycol 3350 17 Gm Powd.pack 17 Gm PO DAILY 14 Days Mag-Al Plus Xs Suspension (Mag Hydrox/Al Hydrox/Simeth) 30 Ml Oral.susp 30 Ml PO PRN DAILY PRN 14 Days Tylenol (Acetaminophen) 325 Mg Tablet 650 Mg PO PRN Q4HRS PRN 10 Days Aspirin Ec (Aspirin) 325 Mg Tablet.dr 1 Tab PO DAILY Simvastatin 40 Mg Tablet 40 Mg PO QHS 30 Days Reported Ibuprofen 400 Mg Tablet 400 Mg PO PRN Q6HRS PRN NITROGLYCERIN SubLingual (Nitroglycerin) 0.4 Mg Tab.subl 0.4 Mg SL PRN Q5MIN PRN Vitals/I & O Vital Sign - Last 24 Hours 04/29/19 04/29/19 04/29/19 04/29/19 11:21 15:49 19:10 21:45 Temp 97.7 97.4 97.6 97.7 97.4 97.6 Pulse 53 54 58 Resp 16 16 18 B/P (MAP) 128/61 (83) 130/61 (84) 146/75 (98) Pulse Ox 96 98 96 O2 Delivery Room Air Room Air Room Air Room Air 04/29/19 04/30/19 04/30/19 04/30/19 23:33 01:37 02:48 03:15 Temp 98.0 97.8 98.0 97.8 Pulse 54 56 Resp 18 18 B/P (MAP) 149/77 (101) 127/65 (85) Pulse Ox 96 96 O2 Delivery Room Air Room Air Room Air Room Air 04/30/19 04/30/19 04/30/19 05:08 07:00 07:30 Temp 98.5 98.5 Pulse 56 Resp 22 B/P (MAP) 99/38 (58) Pulse Ox 98 98 96 O2 Delivery Nasal Cannula Room Air Nasal Cannula O2 Flow Rate 2.0 2.0 Intake and Output 04/29/19 04/29/19 04/30/19 15:00 23:00 07:00 Intake Total 600 ml 340 ml 220 ml Balance 600 ml 340 ml 220 ml ROXY RAMIREZ MD Apr 30, 2019 09:18
[2019-04-30 10:59] VITALS: BP 116/54
[2019-04-30] MEDS: LACTOBACILLUS RHAMNOSUS GG 1 CAPSULE. PO SCH (11:24)
[2019-04-30] MEDS: POLYETHYLENE GLYCOL 3350 17 GM PACKET. PO PRN (11:24)
[2019-04-30] MEDS: AMOXICILLIN/K CLAV 875/125MG TABLET. PO SCH (11:24)
[2019-04-30] MEDS ORDERED: AMOX1TAB11 PO (13:31)
--- NOTE | 2019-04-30 13:35 | PDOC3 ---
Discharge Summary Visit Information Date of Admission: Apr 27, 2019 Date of Discharge: Apr 30, 2019 Admitting Diagnosis: Community acquired pneumonia Final Diagnosis Problems Medical Problems: (1) Pneumonia Status: Acute Brief Hospital Course Allergies Allergies Coded Allergies Type Severity Reaction Last Updated Verified No Known Drug Allergies 01/16/19 No Vital Signs Vital Signs Date Time Temp Pulse Resp B/P (MAP) Pulse Ox O2 Delivery O2 Flow Rate FiO2 04/30/19 10:59 97.8 59 16 116/54 (74) 96 Room Air 97.8 04/30/19 07:30 2.0 Lab Results Laboratory Tests Test 04/28/19 16:27 04/28/19 20:55 04/29/19 07:07 04/29/19 10:50 Glucose (Fingerstick) 153 mg/dL (70-99) 133 mg/dL (70-99) 136 mg/dL (70-99) 121 mg/dL (70-99) Test 04/29/19 15:22 04/29/19 20:35 04/30/19 07:54 04/30/19 11:19 Glucose (Fingerstick) 129 mg/dL (70-99) 125 mg/dL (70-99) 98 mg/dL (70-99) 102 mg/dL (70-99) Laboratory Tests Test 04/29/19 15:22 04/29/19 20:35 04/30/19 07:54 04/30/19 11:19 Glucose (Fingerstick) 129 mg/dL (70-99) 125 mg/dL (70-99) 98 mg/dL (70-99) 102 mg/dL (70-99) Brief Hospital Course Ms Roberson is a 63yo F admitted with dizziness, cough, found with community acquired pneumonia. No fevers or shortness of breath. 04/28: Complaining of dizziness and also pain secondary to the coughing effort. She also has generalized pain from her underlying osteoarthritis. No fever or chills reported overnight overall feels better. She feels improved, was transitioned to oral augmentin. Cough is minimal. No further fevers. Problem list: Community-acquired pneumonia bilaterally Leukocytosis History of essential hypertension History of COPD Tobacco abuse counseling done less than 10 minutes Chronic kidney disease stage III a Greater than 30 minutes spent on d/c Discharge Information Condition at Discharge: Improved Follow Up: Weeks (1) Disposition/Orders: D/C to Home Scheduled Amoxicillin/Potassium Clav (Amox Tr-K Clv 875-125 Mg Tab) 1 Each Tablet, 1 TAB PO BID for Pneumonia for 7 Days, #14 Prescribed by: ROXY RAMIREZ MD on 04/30/19 1331 Aspirin (Aspirin Ec) 325 Mg Tablet.dr, 1 TAB PO DAILY for primary prevention, #30 Ref 5 Prescribed by: PÉREZ GOMEZ on 12/30/18 0927 Pantoprazole Sodium (Pantoprazole Sodium ) 40 Mg Tablet.dr, 40 MG PO DAILYAC for GERD for 30 Days, #30 Prescribed by: CAMERON ALVAREZ MD on 03/16/19 1331 Polyethylene Glycol 3350 (Polyethylene Glycol 3350) 17 Gm Powd.pack, 17 GM PO DAILY for PREVENT CONSTIPATION for 14 Days, #14 Prescribed by: CAMERON ALVAREZ MD on 03/16/19 1331 Simvastatin (Simvastatin) 40 Mg Tablet, 40 MG PO QHS for 30 Days, #30 Prescribed by: PÉREZ GOMEZ on 11/11/17 0907 Scheduled PRN Acetaminophen (Tylenol) 325 Mg Tablet, 650 MG PO PRN Q4HRS PRN for TEMP OVER 100.4F OR MILD PAIN for 10 Days, #30 Prescribed by: CAMERON ALVAREZ MD on 03/16/19 1331 Ibuprofen (Ibuprofen) 400 Mg Tablet, 400 MG PO PRN Q6HRS PRN for INFLAMMATION, (Reported) Entered as Reported by: NATALIA DAVENPORT on 04/27/19804 Last Taken: Unknown Dose on Unknown Date & Time Last Action: New Order on 04/27/19804 by NATALIA DAVENPORT Mag Hydrox/Al Hydrox/Simeth (Mag-Al Plus Xs Suspension) 30 Ml Oral.susp, 30 ML PO PRN DAILY PRN for HEARTBURN / GAS for 14 Days, #240 Prescribed by: CAMERON ALVAREZ MD on 03/16/19 1331 Nitroglycerin (NITROGLYCERIN SubLingual) 0.4 Mg Tab.subl, 0.4 MG SL PRN Q5MIN PRN for CHEST PAIN, (Reported) Entered as Reported by: NATALIA DAVENPORT on 04/27/19804 Last Taken: Unknown Dose on Unknown Date & Time Last Action: New Order on 04/27/19804 by ROXY TALAVERA MD Apr 30, 2019 13:35
== END 2019-04-30 17:18 | disposition home or self-care (01) | DRG 194 ==
LOC: ER 21:27 → 6 SOUTH 04-27 01:40
PROVIDERS: ADMIT Internal Medicine; ATTEND Internal Medicine
DX: J18.9 Pneumonia, unspecified organism (principal); J98.11 Atelectasis; I12.9 Hypertensive chronic kidney disease with stage 1 through stage 4 chronic kidney disease, or unspecified chronic kidney disease; E78.00 Pure hypercholesterolemia, unspecified; E78.5 Hyperlipidemia, unspecified; F17.200 Nicotine dependence, unspecified, uncomplicated; F41.9 Anxiety disorder, unspecified; N18.3 Chronic kidney disease, stage 3 (moderate); M19.90 Unspecified osteoarthritis, unspecified site; Z90.49 Acquired absence of other specified parts of digestive tract; Z87.442 Personal history of urinary calculi; Z86.711 Personal history of pulmonary embolism; Z87.11 Personal history of peptic ulcer disease; Z82.49 Family history of ischemic heart disease and other diseases of the circulatory system
CPT/HCPCS: 36415; 71046; 71275; 80048; 80053; 80202; 82962; 83605; 83735; 84145; 85025; 85379; 85610; 85730; 87070; 87804; 87880; 90471; 90686; 93005; 94640; 94760; J1650; J1885; J2405; J2543; J3370; J7030; J7040; J7050; Q9967; G0378; J7613; J8597